=== PATIENT | female | born 1970 | race Two or more races ===

== ENCOUNTER 2020-04-09 11:14 | Outpatient (REF) | payer OTHER, SELFPAY ==
[2020-04-09 13:33] LABS: Alanine Aminotransferase 74 U/L (0-31); Albumin Level 3.7 g/dL (3.5-5.0); Alkaline Phosphatase 162 U/L (39-117); Aspartate Amino Transferase 42 U/L (5-31); Bilirubin Direct 0.2 mg/dL (0.0-0.5); Bilirubin Total 0.6 mg/dL (0.0-1.0); Total Protein 6.7 g/dL (6.5-8.0)
== END 2020-04-09 11:15 | disposition home or self-care (01) ==
LOC: HO.LAB 11:14
PROVIDERS: PCP Internal Medicine; Visit Provider Internal Medicine Gastroenterology
DX: D89.89 Other specified disorders involving the immune mechanism, not elsewhere classified (principal)
CPT/HCPCS: 80076

== ENCOUNTER 2020-06-06 09:37 | Outpatient (REF) | payer OTHER, SELFPAY ==
[2020-06-06 10:25] LABS: MANUAL DIFF FLAG NO
[2020-06-06 10:29] LABS: Basophils Percent Auto 0.3 % (0-2); Eosinophils Percent Auto 0.2 % (0-4); Hematocrit 45.1 % (37-47); Hemoglobin 14.9 g/dl (12.0-16.0); Imm Gran Abs Auto 0.04 X10*3/uL (0.00-0.03); Imm Gran Pct Auto 0.3 % (0.0-0.4); Lymphocytes Absolute Auto 2.1 X10*3/uL (1.2-4.9); Lymphocytes Percent Auto 17.7 % (20-40); Mean Corpuscular Hemoglobin 32.6 pg (27.0-33.0); Mean Corpuscular Volume 98.7 fL (80-98); Mean Platelet Volume 10.4 fL (9.4-12.3); Monocytes Absolute Auto 0.7 X10*3/uL (0.1-1.2); Neutrophils Absolute Auto 8.9 X10*3/uL (2.0-8.3); Neutrophils Percent Auto 75.5 % (45-73); Platelet Count 244 X10*3/uL (160-400); Red Blood Count 4.57 X10*6/uL (4.20-5.50); Red Cell Distribution Width 14.4 % (11.0-16.0); White Blood Count 11.8 X10*3/uL (4.8-10.8)
[2020-06-06 10:34] LABS: Glucose Urine UA NEG (NEG); Leukocyte Esterase Urine NEG (NEG); Nitrite Urine NEG (NEG); Specific Gravity - Urine 1.025 (1.005-1.025); Urine Blood 2+ (NEG); Urine Ketones NEG (NEG); Urine Protein NEG (NEG-TRACE)
[2020-06-06 10:38] LABS: Appearance Urine CLEAR; Color Urine YELLOW
[2020-06-06 11:00] LABS: Alanine Aminotransferase 67 U/L (0-31); Albumin Level 3.9 g/dL (3.5-5.0); Alkaline Phosphatase 149 U/L (39-117); Anion Gap 14 (12-20); Aspartate Amino Transferase 36 U/L (5-31); Bilirubin Total 0.6 mg/dL (0.0-1.0); Blood Urea Nitrogen 13 mg/dL (9-16); Calcium 9.2 mg/dL (8.4-10.2); Carbon Dioxide 24 mmol/L (22-29); Chloride 106 mmol/L (96-108); Estimated Glomerular Filt Rate > 60; Glucose Random 115 mg/dL (60-115); Potassium 3.6 mmol/l (3.3-5.1); Sodium 140 mmol/L (135-145)
[2020-06-06 11:21] LABS: Bacteria Urine TRACE /LPF; Mucus Urine 2+ /LPF; Squamous Epithelial Cell Urine 2+ /LPF
== END 2020-06-06 09:38 | disposition home or self-care (01) ==
LOC: HO.LAB 09:37
PROVIDERS: PCP Internal Medicine; Visit Provider Internal Medicine Gastroenterology
DX: K76.89 Other specified diseases of liver (principal); R10.9 Unspecified abdominal pain
CPT/HCPCS: 36415; 80053; 81001; 85025; 85610

== ENCOUNTER → 2020-06-28 11:05 | Outpatient (BNVA) | payer OTHER, SELFPAY | PROVIDERS: PCP Internal Medicine; Visit Provider Internal Medicine Gastroenterology | DX: Z76.89 Persons encountering health services in other specified circumstances (principal) ==

== ENCOUNTER → 2020-07-08 13:18 | Outpatient (BNVA) | payer OTHER, SELFPAY | PROVIDERS: PCP Internal Medicine; Visit Provider Internal Medicine Cardiovascular Disease | DX: R00.2 Palpitations (principal); R07.89 Other chest pain; K76.89 Other specified diseases of liver | CPT/HCPCS: 93005; 99212 ==

== ENCOUNTER 2020-08-02 09:46 | Outpatient (REF) | payer OTHER, SELFPAY ==
--- NOTE | ~2020-08-02 | XR_ITS ---
EXAMINATION: KNEE X-RAY CLINICAL INFORMATION: Right knee pain COMPARISON: None TECHNIQUE: Standing AP view of both knees and lateral and sunrise view of the right knee FINDINGS: Right: The bones may be osteopenic. Bone alignment is normal. No fracture or dislocation is seen. Joint spaces are normal. There is a large joint effusion. Standing AP view of the left knee demonstrates osteopenia. XR/XR knee RT 2V IMPRESSION: Bilateral osteopenia. Large right knee joint effusion.
--- NOTE | ~2020-08-02 | XR_ITS ---
EXAMINATION: KNEE X-RAY CLINICAL INFORMATION: Right knee pain COMPARISON: None TECHNIQUE: Standing AP view of both knees and lateral and sunrise view of the right knee FINDINGS: Right: The bones may be osteopenic. Bone alignment is normal. No fracture or dislocation is seen. Joint spaces are normal. There is a large joint effusion. Standing AP view of the left knee demonstrates osteopenia. XR/XR knee standing BI IMPRESSION: Bilateral osteopenia. Large right knee joint effusion.
== END 2020-08-02 09:47 | disposition home or self-care (01) ==
LOC: HO.XRAY 09:46
PROVIDERS: Visit Provider Orthopaedic Surgery
DX: M25.562 Pain in left knee (principal); M17.11 Unilateral primary osteoarthritis, right knee; M25.561 Pain in right knee
CPT/HCPCS: 73560; 73565; 99202

== ENCOUNTER → 2020-08-02 13:45 | Outpatient (REF) | payer OTHER, SELFPAY ==
--- NOTE | 2020-08-02 13:47 | ECG_ITS ---
Hook-up date: 2020-08-02 14:08:00 Duration: 47:59:00 Test Indications: PALPITATIONS Medications: 651962 QRS complexes 503 Ventricular ectopics which represent <1 % of total QRS comp. 5 Supraventricular ectopics which represent <1 % of total QRS comp. * Paced QRS complexs which represent % of total QRS comp. VENTRICULAR ECTOPY 500 Isolated 0 Bigeminal Cycles 0 Couplets 1 Runs 3 Beats in Runs 3 Beats LONGEST at 113 BPM at 06:42:12 2020-08-03 3 Beats FASTEST at 113 BPM at 06:42:12 2020-08-03 SUPRAVENTRICULAR ECTOPY 5 Isolated 0 Couplets 0 Runs 0 Beats in Runs * Beats LONGEST at * BPM at :: -- * Beats FASTEST at * BPM at :: -- HEART RATES 61 MIN at 00:54:31 2020-08-03 87 AVG 133 MAX at 06:52:53 2020-08-03 LONGEST RR 1.0720 secs at 01:26:43 2020-08-03 S-T LEVELS Channel 1 - 128 mm at 14:08:00 2020-08-02 - 128 mm at 14:08:00 2020-08-02 Channel 2 - 128 mm at 14:08:00 2020-08-02 - 128 mm at 14:08:00 2020-08-02 Channel 3 - 128 mm at 03:32:71 -- - 128 mm at 03:32:71 Basic rhythm Normal sinus rhythm No long pause or profound bradycardia Occasional Premature ventricular complexes One 3 beat j carlos of NSVT at 113 bpm Patient reported symptoms of dizziness and palpitations correlated with NSR Referred By: Ta Concepcion Overread By: VICTOR MANUEL PURI MD
== END ==
LOC: HO.CARD 13:45
PROVIDERS: Visit Provider Internal Medicine Cardiovascular Disease
DX: R00.2 Palpitations (principal)
CPT/HCPCS: 93225; 93226

== ENCOUNTER 2020-08-13 08:18 | Outpatient (REF) | payer OTHER, SELFPAY ==
[2020-08-13 09:14] LABS: MANUAL DIFF FLAG NO
[2020-08-13 09:18] LABS: Basophils Percent Auto 0.4 % (0-2); Eosinophils Percent Auto 0.4 % (0-4); Hematocrit 43.7 % (37-47); Hemoglobin 14.4 g/dl (12.0-16.0); Imm Gran Abs Auto 0.03 X10*3/uL (0.00-0.03); Imm Gran Pct Auto 0.4 % (0.0-0.4); Lymphocytes Absolute Auto 2.2 X10*3/uL (1.2-4.9); Lymphocytes Percent Auto 30.4 % (20-40); Mean Corpuscular Hemoglobin 32.1 pg (27.0-33.0); Mean Corpuscular Volume 97.5 fL (80-98); Mean Platelet Volume 10.5 fL (9.4-12.3); Monocytes Absolute Auto 0.6 X10*3/uL (0.1-1.2); Monocytes Percent Auto 7.7 % (2-11); Neutrophils Absolute Auto 4.4 X10*3/uL (2.0-8.3); Neutrophils Percent Auto 60.7 % (45-73); Platelet Count 190 X10*3/uL (160-400); Red Blood Count 4.48 X10*6/uL (4.20-5.50); Red Cell Distribution Width 14.5 % (11.0-16.0); White Blood Count 7.3 X10*3/uL (4.8-10.8)
[2020-08-13 09:22] LABS: Glucose Urine UA NEG (NEG); Leukocyte Esterase Urine NEG (NEG); Nitrite Urine NEG (NEG); Specific Gravity - Urine 1.025 (1.005-1.025); Urine Blood TRACE (NEG); Urine Ketones NEG (NEG); Urine Protein NEG (NEG-TRACE)
[2020-08-13 09:24] LABS: Appearance Urine CLEAR; Color Urine YELLOW
[2020-08-13 09:34] LABS: Squamous Epithelial Cell Urine 1+ /LPF; WBC Urine 0 /HPF (0-4)
[2020-08-13 09:35] LABS: Mucus Urine 2+ /LPF
[2020-08-13 09:57] LABS: Alanine Aminotransferase 56 U/L (0-31); Albumin Level 3.8 g/dL (3.5-5.0); Alkaline Phosphatase 133 U/L (39-117); Anion Gap 12 (12-20); Aspartate Amino Transferase 32 U/L (5-31); Bilirubin Total 0.8 mg/dL (0.0-1.0); Blood Urea Nitrogen 14 mg/dL (9-16); Calcium 8.6 mg/dL (8.4-10.2); Carbon Dioxide 28 mmol/L (22-29); Chloride 107 mmol/L (96-108); Estimated Glomerular Filt Rate > 60; Glucose Random 86 mg/dL (60-115); Potassium 3.7 mmol/L (3.3-5.1); Sodium 143 mmol/L (135-145); Total Protein 6.8 g/dL (6.5-8.0)
[2020-08-13 10:18] LABS: Ferritin 26 ng/mL (10-250)
== END 2020-08-13 08:19 | disposition home or self-care (01) ==
LOC: HO.LAB 08:18
PROVIDERS: PCP Internal Medicine; Visit Provider Internal Medicine Gastroenterology
DX: K76.89 Other specified diseases of liver (principal); R10.9 Unspecified abdominal pain; R30.0 Dysuria
CPT/HCPCS: 36415; 80053; 81001; 82728; 85025

== ENCOUNTER → 2020-09-02 09:29 | Outpatient (BNVA) | payer OTHER, SELFPAY | PROVIDERS: PCP Internal Medicine; Visit Provider Internal Medicine Gastroenterology ==

== ENCOUNTER 2020-09-30 13:08 | Outpatient (REF) | payer OTHER, SELFPAY ==
[2020-09-30 14:13] LABS: MANUAL DIFF FLAG NO
[2020-09-30 14:20] LABS: Glucose Urine UA NEG (NEG); Leukocyte Esterase Urine NEG (NEG); Nitrite Urine NEG (NEG); PH 7.5 (5.0-8.0); Specific Gravity - Urine 1.015 (1.005-1.025); Urine Blood TRACE (NEG); Urine Ketones NEG (NEG); Urine Protein NEG (NEG-TRACE)
[2020-09-30 14:21] LABS: Basophils Percent Auto 0.3 % (0-2); Hematocrit 41.9 % (37-47); Hemoglobin 13.6 g/dl (12.0-16.0); Imm Gran Abs Auto 0.03 X10*3/uL (0.00-0.03); Imm Gran Pct Auto 0.4 % (0.0-0.4); Lymphocytes Absolute Auto 0.8 X10*3/uL (1.2-4.9); Mean Corpuscular HGB Conc 32.5 g/dl (31.0-35.0); Mean Corpuscular Hemoglobin 32.4 pg (27.0-33.0); Mean Corpuscular Volume 99.8 fL (80-98); Mean Platelet Volume 10.7 fL (9.4-12.3); Monocytes Absolute Auto 0.3 X10*3/uL (0.1-1.2); Monocytes Percent Auto 4.3 % (2-11); Platelet Count 208 X10*3/uL (160-400); Red Cell Distribution Width 14.6 % (11.0-16.0); White Blood Count 7.2 X10*3/uL (4.8-10.8)
[2020-09-30 14:25] LABS: Appearance Urine CLEAR; Color Urine YELLOW
[2020-09-30 14:34] LABS: Alanine Aminotransferase 61 U/L (0-31); Albumin Level 3.9 g/dL (3.5-5.0); Alkaline Phosphatase 133 U/L (39-117); Anion Gap 12 (12-20); Aspartate Amino Transferase 36 U/L (5-31); Bilirubin Total 0.6 mg/dL (0.0-1.0); Blood Urea Nitrogen 14 mg/dL (9-16); Calcium 8.7 mg/dL (8.4-10.2); Carbon Dioxide 26 mmol/L (22-29); Chloride 107 mmol/L (96-108); Estimated Glomerular Filt Rate > 60; Glucose Random 110 mg/dL (60-115); Potassium 4.2 mmol/L (3.3-5.1); Sodium 141 mmol/L (135-145); Total Protein 6.9 g/dL (6.5-8.0)
[2020-09-30 14:55] LABS: Mucus Urine TRACE /LPF; Squamous Epithelial Cell Urine TRACE /LPF; WBC Urine 0 /HPF (0-4)
== END 2020-09-30 13:09 | disposition home or self-care (01) ==
LOC: HO.LAB 13:08
PROVIDERS: PCP Internal Medicine; Visit Provider Internal Medicine Gastroenterology
DX: K76.89 Other specified diseases of liver (principal); R10.9 Unspecified abdominal pain
CPT/HCPCS: 36415; 80053; 81001; 81003; 85025; 85610

== ENCOUNTER 2020-10-16 02:15 | Emergency (ER) | payer OTHER, SELFPAY ==
--- NOTE | ~2020-10-16 | CT_ITS ---
EXAMINATION: CT ABDOMEN AND PELVIS WITHOUT CONTRAST CLINICAL INFORMATION: Epigastric pain. History of pancreatitis. COMPARISON: 09/05/2019 TECHNIQUE: Multidetector volumetric imaging was performed from the superior aspect of the liver through the pubic symphysis. Sagittal and coronal reformatted images were obtained on the technologist's workstation. This CT examination was performed using dose optimization techniques as appropriate, variously including the following: *Automated exposure control *Adjustment of mA and/or kV according to patient size (this includes techniques or standardized protocols for targeted exams where dose is matched to indication/reason for exam; i.e. extremities or head) *Use of iterative reconstruction technique DLP: 992 mGy-cm FINDINGS: LUNG BASES: The visualized lung bases are unremarkable. LIVER, GALLBLADDER, AND BILIARY TREE: The liver is normal in size, shape, and attenuation. No focal hepatic lesion or biliary ductal dilatation is present. Cholecystectomy. Pneumobilia noted in the left lobe. PANCREAS: The pancreatic parenchyma is homogenous. No ductal dilatation. No adjacent inflammation. SPLEEN: Unremarkable. ADRENAL GLANDS: Unremarkable. KIDNEYS AND URETERS: The kidneys are normal in size, shape, and attenuation. No hydronephrosis, hydroureter, or calculi seen. No perinephric stranding. BLADDER: Unremarkable. GASTROINTESTINAL TRACT: The stomach is unremarkable. Normal caliber small bowel. There is no obstruction. Midabdominal anastomosis noted. No colonic wall thickening or inflammatory change. No free air or free fluid. ABDOMINAL WALL: No significant hernia is appreciated. LYMPH NODES: Normal. VASCULAR: Unremarkable. PELVIC VISCERA: Lobulated appearance of the anteverted uterus, suggests that there may be fibroids. This is similar to prior. OSSEOUS STRUCTURES: No acute or suspicious osseous abnormality. CT/CT abdomen pelvis wo con IMPRESSION: No acute findings of the abdomen or pelvis. Normal appearance of the pancreas on this noncontrast study. Pneumobilia is present in the left lobe of the liver. This is a new finding from previous CT, though not unexpected in the setting of cholecystectomy. Probable uterine fibroid, unchanged.
--- NOTE | ~2020-10-16 | XR_ITS ---
EXAMINATION: XR CHEST CLINICAL INFORMATION: Chest discomfort COMPARISON: 06/04/2019 TECHNIQUE: 2 views of the chest were obtained. FINDINGS: The lungs are well expanded. There is no focal consolidation, edema, or effusion. No pneumothorax. The cardiomediastinal silhouette is within normal limits. No acute osseous abnormality. XR/XR chest 2V IMPRESSION: Clear lungs.
[2020-10-16 02:19] VITALS: BP 141/79; PULSE 95; RESP 16; TEMP 36.5; O2SAT 97; BMI 36.5
--- NOTE | 2020-10-16 02:29 | ECG_ITS ---
Test Reason : CHEST PRESSURE Blood Pressure : / mmHG Vent. Rate : 084 BPM Atrial Rate : 084 BPM P-R Int : 146 ms QRS Dur : 098 ms QT Int : 400 ms P-R-T Axes : 038 053 017 degrees QTc Int : 472 ms Normal sinus rhythm Cannot rule out Inferior infarct (cited on or before 04-JUN-2019) Borderline ECG When compared with ECG of 20-JUN-2019 05:38, No significant change was found Referred By: Generic ED Physician Electronically Signed By:MARILEE PEREZ
[2020-10-16 02:43] LABS: MANUAL DIFF FLAG NO
[2020-10-16 02:46] LABS: Basophils Percent Auto 0.2 % (0-2); Eosinophils Percent Auto 0.4 % (0-4); Hematocrit 41.5 % (37-47); Hemoglobin 13.8 g/dl (12.0-16.0); Imm Gran Abs Auto 0.02 X10*3/uL (0.00-0.03); Imm Gran Pct Auto 0.2 % (0.0-0.4); Lymphocytes Absolute Auto 2.1 X10*3/uL (1.2-4.9); Lymphocytes Percent Auto 26.7 % (20-40); Mean Corpuscular HGB Conc 33.3 g/dl (31.0-35.0); Mean Corpuscular Hemoglobin 32.7 pg (27.0-33.0); Mean Corpuscular Volume 98.3 fL (80-98); Mean Platelet Volume 10.2 fL (9.4-12.3); Monocytes Absolute Auto 0.6 X10*3/uL (0.1-1.2); Monocytes Percent Auto 7.8 % (2-11); Neutrophils Absolute Auto 5.2 X10*3/uL (2.0-8.3); Neutrophils Percent Auto 64.7 % (45-73); Platelet Count 184 X10*3/uL (160-400); Red Blood Count 4.22 X10*6/uL (4.20-5.50); Red Cell Distribution Width 14.7 % (11.0-16.0)
[2020-10-16 02:48] LABS: Glucose Urine UA NEG (NEG); Leukocyte Esterase Urine NEG (NEG); Nitrite Urine NEG (NEG); Urine Blood 2+ (NEG); Urine Ketones NEG (NEG); Urine Protein NEG (NEG-TRACE)
[2020-10-16 02:50] LABS: Appearance Urine CLEAR; Color Urine YELLOW
[2020-10-16 03:01] LABS: Bacteria Urine 1+ /LPF; Mucus Urine 1+ /LPF; Squamous Epithelial Cell Urine 1+ /LPF
[2020-10-16 03:15] LABS: Alanine Aminotransferase 59 U/L (0-31); Albumin Level 3.9 g/dL (3.5-5.0); Alkaline Phosphatase 131 U/L (39-117); Anion Gap 12 (12-20); Aspartate Amino Transferase 32 U/L (5-31); Bilirubin Total 0.6 mg/dL (0.0-1.0); Blood Urea Nitrogen 14 mg/dL (9-16); Calcium 8.9 mg/dL (8.4-10.2); Carbon Dioxide 24 mmol/L (22-29); Chloride 107 mmol/L (96-108); Creatinine Clr Calc Pharmacy 122.5; Estimated Glomerular Filt Rate > 60; Glucose Random 98 mg/dL (60-115); Lipase 38 U/L (8-78); Potassium 3.3 mmol/L (3.3-5.1); Sodium 140 mmol/L (135-145); Total Protein 6.8 g/dL (6.5-8.0)
[2020-10-16 03:21] LABS: Troponin-I High Sensitivity < 3.5 ng/L (<3.5-17.0)
[2020-10-16 03:32] VITALS: BP 144/75; PULSE 87; RESP 16; O2SAT 100
--- NOTE | 2020-10-16 03:34 | PC.NURSE ---
Pt aaox4, calm cooperative and compliant with pt care. Pt reports headache prior to feeling nausea, denies vomiting, endorses chest pressure. Pt NSR on radiation monitor, EKG obtained and shown to Dr Hyman. Dr Hyman at bedside assessing pt at this time. This RN to attempt IV insertion for zofran medication. Pt offers no additional complaints at this time. Stretcher is in lowest locked position, rails raised, call narayanan within reach.
--- NOTE | 2020-10-16 03:38 | ED.GENADULT ---
HPI - General Adult General Chief complaint: General Medical Stated complaint: Chest pain/ abdominal pain Time Seen by Provider: 10/16/20 03:27 Source: patient Mode of arrival: ambulatory Limitations: no limitations History of Present Illness HPI narrative: Patient comes emergency room complaining of epigastric pain. Patient states that she has history of autoimmune hepatitis and pancreatitis. Patient states that yesterday she went to the dentist, diagnosed with a dental abscess, given clindamycin. After the 1st dose patient started complaining of diffuse abdominal pain, bloating and epigastric burning. He denies chest pain, mild chest tightness radiating from the epigastric area. Patient denies vomiting, diarrhea, no fever. No UTI symptoms, no URI symptoms. Related Data Home Medications Medication Instructions Recorded Confirmed Ca 600 mg-D3 20 mcg-mag oxide 50 tab PO 05/14/20 05/14/20 ju-Iq-djlipq-manganese-boron tablet ascorbic acid (vitamin C) 1,000 mg 1 g PO DAILY tab 05/14/20 05/14/20 tablet fluoxetine 40 mg capsule 40 mg PO DAILY 05/14/20 05/14/20 thiamine HCl (vitamin B1) 100 mg 100 mg PO DAILY 05/14/20 05/14/20 tablet trazodone 100 mg tablet 100 mg PO DAILY 05/14/20 05/14/20 Previous Rx's Medication Instructions Recorded polymyxin B sulfate 10,000 1 drp OPHTHALMIC (EYE) QID 7 Days 05/14/20 unit-trimethoprim 1 mg/mL eye drops #10 ml ciprofloxacin HCl 500 mg tablet 500 mg PO DAILY 7 Days #7 tab 06/20/20 omeprazole 40 mg capsule,delayed 40 mg PO DAILY 90 Days #90 cap 09/27/20 release prednisone 1 mg tablet 3 mg PO DAILY #90 tab 09/27/20 prednisone 5 mg tablet 15 mg PO DAILY #90 tab 09/27/20 mercaptopurine 50 mg tablet 50 mg PO DAILY #30 tab 10/13/20 ondansetron HCl [Zofran] 4 mg PO Q6H PRN #14 tab 10/16/20 Allergies Allergy/AdvReac Type Severity Reaction Status Date / Time Penicillins [PENICILLINS] Allergy Severe RASH Verified 10/16/20 02:19 Iodinated Contrast Media Allergy Intermediate RASH Verified 10/16/20 02:19 [Iodinated Contrast Media - IV Dye] meperidine [From DEMEROL] Allergy Intermediate RASH Verified 10/16/20 02:19 aspirin [ASA] Allergy Mild RASH, N/V Verified 10/16/20 02:19 Contrast Dye Allergy Unknown unknown, Verified 10/16/20 02:19 vomiting penicillin V Allergy Unknown N/V, rash Verified 10/16/20 02:19 tramadol [TRAMADOL] Allergy Unknown RASH Verified 10/16/20 02:19 Review of Systems Review of Systems: Constitutional : No Weight loss, No Fever, No Chills, No Night Sweats, No Fatigue, No Malaise ENT/Mouth : No Hearing loss, No Ear Pain, No Nasal Congestion, No Sinus Pain, No Hoarseness, No sore throat, No Rhinorrhea, No Swallowing Difficulty, complaining of dental pain currently being treated with antibiotic Eyes: No Eye Pain, No Swelling, No Redness, No Foreign Body, No Discharge, No Vision Changes Cardiovascular : No Chest Pain, No SOB, No Dyspnea on Exertion, No Orthopnea, No Edema, No Palpitations Respiratory : No Cough, No Sputum, No Wheezing, No Smoke Exposure, No Dyspnea Gastrointestinal : Complaining of nausea without Vomiting, No Diarrhea, No Constipation, complaining of epigastric burning radiating towards the chest, complaining of bloating, No Hematochezia, No Melena Genitourinary : no irregular bleeding, No Dysuria, No Urinary Frequency, No Hematuria, No Urinary Incontinence, No Urgency, No Flank Pain, No Urinary Flow Changes, No Hesitancy Musculoskeletal : No joint pain, No Myalgias, No Joint Swelling Skin : No Skin Lesions, No rash Neuro : No Weakness, No Numbness, No Paresthesias, No Loss of Consciousness, No Dizziness, No Headache Psych : No Anxiety/Panic, No Depression, No SI/HI/AH/VH, No Social Issues, Heme/Lymph: No Bruising, No Bleeding,No Lymphadenopathy Endocrine : No Polyuria, No Polydipsia, No Temperature Intolerance [facility] Past Medical History Medical History Autoimmune liver disease Depression, major, recurrent Difficulty sleeping Headache syndrome Hordeolum externum right upper eyelid Knee pain, right Surgical History H/O colonoscopy History of cholecystectomy History of esophagogastroduodenoscopy (EGD) History of liver biopsy History of surgery Hx of appendectomy Family History Family History (Updated 09/02/20 @ 09:35 by EDITH George) Father CVD (cardiovascular disease) Mother Breast cancer Leukemia CVD (cardiovascular disease) Brother No problems noted. Brother No problems noted. Sister No problems noted. Son No problems noted. Daughter No problems noted. Daughter No problems noted. Daughter No problems noted. Maternal Aunt Breast cancer Social History Social History (Updated 09/02/20 @ 09:36 by EDITH George) Household Members: Children Alcohol intake: current Alcohol intake frequency: does not drink Smoking Status: Never smoker Advance Directives: No Advance Directives Information Provided: No Current occupational status: disabled Physical Exam Vital Signs: Vital Signs: Last Vital Signs Temp 97.7 F 10/16/20 02:19 Pulse 78 10/16/20 04:39 Resp 19 10/16/20 04:39 BP 113/51 L 10/16/20 04:39 Pulse Ox 97 10/16/20 04:39 Body Mass Index 36.5 Appearance: Alert. Oriented X3. No acute distress. Eyes: Pupils equal, round and reactive to light. ENT: Pharynx normal. Neck: Normal inspection. Neck supple. No lymph nodes noted. No crepitus CVS: Normal heart rate and rhythm. Pulses normal. Normal S1 and S2 Respiratory: No respiratory distress. Breath sounds normal. No Wheezing. No rales Abdomen: Soft mild tenderness to palpation over epigastric area and left upper quadrant, No rigidity. Mild diffuse distention. Skin: Skin warm and dry. Normal skin color. Normal skin turgor. Extremities: No lower extremity edema. No lower extremity edema. No Lacerations. No Rash Neuro: Oriented X 3. No motor deficit. No sensory deficit. Moving all extermities. No slurred speech. Course Course Course Narrative: I discussed the CT scan with the patient, no acute findings. Patient denies any abdominal pain at this time, states that she feels nauseous. More nausea medication provided to the patient. Patient is negative for COVID. Medical Decision Making Lab Data Result diagrams: 10/16/20 02:36 10/16/20 02:36 Labs: Lab Results 10/16/20 10/16/20 10/16/20 Range/Units 02:36 02:36 02:36 WBC 8.0 (4.8-10.8) X10*3/uL RBC 4.22 (4.20-5.50) X10*6/uL Hgb 13.8 (12.0-16.0) g/dl Hct 41.5 (37-47) % MCV 98.3 H (80-98) fL MCH 32.7 (27.0-33.0) pg MCHC 33.3 (31.0-35.0) g/dl RDW 14.7 (11.0-16.0) % Plt Count 184 (160-400) X10*3/uL MPV 10.2 (9.4-12.3) fL Immature Gran % (Auto) 0.2 (0.0-0.4) % Neut % (Auto) 64.7 (45-73) % Lymph % (Auto) 26.7 (20-40) % [place] % (Auto) 7.8 (2-11) % Eos % (Auto) 0.4 (0-4) % Baso % (Auto) 0.2 (0-2) % Lymph # (Auto) 2.1 (1.2-4.9) X10*3/uL [place] # (Auto) 0.6 (0.1-1.2) X10*3/uL Eos # (Auto) 0.0 (0.0-0.4) X10*3/uL Baso # (Auto) 0.0 (0.0-0.2) X10*3/uL Abs Immat Gran (auto) 0.02 (0.00-0.03) X10*3/uL Absolute Neuts (auto) 5.2 (2.0-8.3) X10*3/uL Absolute Nucleated RBC 0.000 (0.0-0.012) X10*3/uL Nucleated RBC % (auto) 0.0 (0.0-0.2) /100WBC Hold Blue Top SEE NOTE Sodium 140 (135-145) mmol/L Potassium 3.3 D (3.3-5.1) mmol/L Chloride 107 (96-108) mmol/L Carbon Dioxide 24 (22-29) mmol/L Anion Gap 12 (12-20) BUN 14 (9-16) mg/dL Creatinine 0.71 (0.5-1.4) mg/dL Estim Creat Clear Calc 122.5 Estimated GFR > 60 Random Glucose 98 (60-115) mg/dL Calcium 8.9 (8.4-10.2) mg/dL Total Bilirubin 0.6 (0.0-1.0) mg/dL AST 32 H (5-31) U/L ALT 59 H (0-31) U/L Alkaline Phosphatase 131 H (39-117) U/L Troponin I High Sens (<3.5-17.0) ng/L Total Protein 6.8 (6.5-8.0) g/dL Albumin 3.9 (3.5-5.0) g/dL Lipase 38 (8-78) U/L Urine Color Urine Appearance Urine pH (5.0-8.0) Ur Specific [place] (1.005-1.025) Urine Protein (NEG-TRACE) MG/DL Urine Glucose (UA) (NEG) MG/DL Urine Ketones (NEG) MG/DL Urine Blood (NEG) Urine Nitrite (NEG) Ur Leukocyte Esterase (NEG) Urine RBC (0) /HPF Urine WBC (0-4) /HPF Ur Squamous Epith Cells /LPF Urine Bacteria /LPF Urine Mucus /LPF 10/16/20 10/16/20 Range/Units 02:36 02:38 WBC (4.8-10.8) X10*3/uL RBC (4.20-5.50) X10*6/uL Hgb (12.0-16.0) g/dl Hct (37-47) % MCV (80-98) fL MCH (27.0-33.0) pg MCHC (31.0-35.0) g/dl RDW (11.0-16.0) % Plt Count (160-400) X10*3/uL MPV (9.4-12.3) fL Immature Gran % (Auto) (0.0-0.4) % Neut % (Auto) (45-73) % Lymph % (Auto) (20-40) % [place] % (Auto) (2-11) % Eos % (Auto) (0-4) % Baso % (Auto) (0-2) % Lymph # (Auto) (1.2-4.9) X10*3/uL [place] # (Auto) (0.1-1.2) X10*3/uL Eos # (Auto) (0.0-0.4) X10*3/uL Baso # (Auto) (0.0-0.2) X10*3/uL Abs Immat Gran (auto) (0.00-0.03) X10*3/uL Absolute Neuts (auto) (2.0-8.3) X10*3/uL Absolute Nucleated RBC (0.0-0.012) X10*3/uL Nucleated RBC % (auto) (0.0-0.2) /100WBC Hold Blue Top Sodium (135-145) mmol/L Potassium (3.3-5.1) mmol/L Chloride (96-108) mmol/L Carbon Dioxide (22-29) mmol/L Anion Gap (12-20) BUN (9-16) mg/dL Creatinine (0.5-1.4) mg/dL Estim Creat Clear Calc Estimated GFR Random Glucose (60-115) mg/dL Calcium (8.4-10.2) mg/dL Total Bilirubin (0.0-1.0) mg/dL AST (5-31) U/L ALT (0-31) U/L Alkaline Phosphatase (39-117) U/L Troponin I High Sens < 3.5 (<3.5-17.0) ng/L Total Protein (6.5-8.0) g/dL Albumin (3.5-5.0) g/dL Lipase (8-78) U/L Urine Color YELLOW Urine Appearance CLEAR Urine pH 7.0 (5.0-8.0) Ur Specific [place] 1.020 (1.005-1.025) Urine Protein NEG (NEG-TRACE) MG/DL Urine Glucose (UA) NEG (NEG) MG/DL Urine Ketones NEG (NEG) MG/DL Urine Blood 2+ H (NEG) Urine Nitrite NEG (NEG) Ur Leukocyte Esterase NEG (NEG) Urine RBC 5-9 H (0) /HPF Urine WBC 1-4 (0-4) /HPF Ur Squamous Epith Cells 1+ /LPF Urine Bacteria 1+ /LPF Urine Mucus 1+ /LPF Imaging Data CT scan - abdomen: Radiologist's impression: INDINGS: LUNG BASES: The visualized lung bases are unremarkable. LIVER, GALLBLADDER, AND BILIARY TREE: The liver is normal in size, shape, and attenuation. No focal hepatic lesion or biliary ductal dilatation is present. Cholecystectomy. Pneumobilia noted in the left lobe. PANCREAS: The pancreatic parenchyma is homogenous. No ductal dilatation. No adjacent inflammation. SPLEEN: Unremarkable. ADRENAL GLANDS: Unremarkable. KIDNEYS AND URETERS: The kidneys are normal in size, shape, and attenuation. No hydronephrosis, hydroureter, or calculi seen. No perinephric stranding. BLADDER: Unremarkable. GASTROINTESTINAL TRACT: The stomach is unremarkable. Normal caliber small bowel. There is no obstruction. Midabdominal anastomosis noted. No colonic wall thickening or inflammatory change. No free air or free fluid. ABDOMINAL WALL: No significant hernia is appreciated. LYMPH NODES: Normal. VASCULAR: Unremarkable. PELVIC VISCERA: Lobulated appearance of the anteverted uterus, suggests that there may be fibroids. This is similar to prior. OSSEOUS STRUCTURES: No acute or suspicious osseous abnormality. CT/CT abdomen pelvis wo con IMPRESSION: No acute findings of the abdomen or pelvis. Normal appearance of the pancreas on this noncontrast study. Pneumobilia is present in the left lobe of the liver. This is a new finding from previous CT, though not unexpected in the setting of cholecystectomy. Probable uterine fibroid, unchanged. Chest x-ray: Radiologist's impression: FINDINGS: The lungs are well expanded. There is no focal consolidation, edema, or effusion. No pneumothorax. The cardiomediastinal silhouette is within normal limits. No acute osseous abnormality. XR/XR chest 2V IMPRESSION: Clear lungs. ECG Data Attestation: I personally reviewed and interpreted this ECG as follows: (Normal sinus rhythm, heart rate 84, no ST segment depression or elevation, nonspecific T-wave inversion in lead 3, QTC 472) Discharge Plan Discharge Clinical Impression: Nausea Abdominal pain Qualifiers: Abdominal location: epigastric Qualified Code(s): R10.13 - Epigastric pain Patient Disposition: Home, Self-Care Instructions: Abdominal Pain (ED) Additional Instructions: Please follow-up with your primary care physician tomorrow. If you have any worsening or new symptoms, please return to the emergency room or call 911 Prescriptions: New ondansetron HCl [Zofran] 4 mg tablet 4 mg PO Q6H PRN (Reason: nausea and vomiting) Qty: 14 RF: 0 No Action ciprofloxacin HCl [Cipro] 500 mg tablet 500 mg PO DAILY 7 Days Qty: 7 RF: 0 prednisone 5 mg tablet 15 mg PO DAILY Qty: 90 RF: 0 prednisone 1 mg tablet 3 mg PO DAILY Qty: 90 RF: 0 omeprazole 40 mg capsule,delayed release(DR/EC) 40 mg PO DAILY 90 Days Qty: 90 RF: 2 mercaptopurine 50 mg tablet 50 mg PO DAILY Qty: 30 RF: 3 fluoxetine 40 mg capsule 40 mg PO DAILY RF: 0 thiamine HCl (vitamin B1) 100 mg tablet 100 mg PO DAILY RF: 0 trazodone 100 mg tablet 100 mg PO DAILY RF: 0 Ca-D3-mag ld-hshb-whs-farrukh-bor [Calcium 600-D3 Plus (mag-zinc)] 600 mg calcium- 800 unit-50 mg tablet PO RF: 0 ascorbic acid (vitamin C) 1,000 mg tablet 1 g PO DAILY RF: 0 polymyxin B sulf-trimethoprim [Polytrim] 10,000 unit- 1 mg/mL drops 1 drp ophthalmic (eye) QID 7 Days Qty: 10 RF: 0
[2020-10-16 03:44] VITALS: RESP 18
[2020-10-16] MEDS: Morphine Sulfate 2 MG/ML CARTRIDGE IVPUSH (03:44)
[2020-10-16] MEDS: ondansetron HCL 4 MG/2 ML VIAL IVPUSH (03:44)
[2020-10-16] MEDS: Lidocaine HCl Viscous 2 % 15 ML SOLUTION MUCOUS MEM (03:45)
[2020-10-16] MEDS: Magnesium Hydrox/Alum Hydrox 30 ML ORAL.SUSP PO (03:45)
[2020-10-16 04:39] VITALS: BP 113/51; PULSE 78; RESP 19; O2SAT 97
[2020-10-16] MEDS: Prochlorperazine Edisylate 10 MG/2 ML VIAL IVPUSH (04:40)
[2020-10-16 05:07] LABS: COVID-19 Test Negative (Negative)
== END 2020-10-16 05:54 | disposition home or self-care (01) ==
PROVIDERS: Emergency Provider Emergency Medicine; PCP Internal Medicine
DX: R07.9 Chest pain, unspecified (principal); K04.7 Periapical abscess without sinus; R10.13 Epigastric pain; R11.0 Nausea; Z20.822 Contact with and (suspected) exposure to COVID-19; Z79.899 Other long term (current) drug therapy
CPT/HCPCS: 36415; 71046; 74176; 80053; 81001; 83690; 84484; 85025; 87635; 93005; 96374; 96375; 99285; J2270; J2405

== ENCOUNTER 2020-10-28 08:14 | Outpatient (REF) | payer OTHER, SELFPAY ==
[2020-10-28 10:11] LABS: Alanine Aminotransferase 71 U/L (0-31); Alkaline Phosphatase 151 U/L (39-117); Anion Gap 15 (12-20); Aspartate Amino Transferase 40 U/L (5-31); Bilirubin Total 0.7 mg/dL (0.0-1.0); Blood Urea Nitrogen 14 mg/dL (9-16); Carbon Dioxide 26 mmol/L (22-29); Chloride 106 mmol/L (96-108); Estimated Glomerular Filt Rate > 60; Glucose Random 82 mg/dL (60-115); Potassium 3.5 mmol/L (3.3-5.1); Sodium 143 mmol/L (135-145); Total Protein 6.9 g/dL (6.5-8.0)
== END 2020-10-28 08:15 | disposition home or self-care (01) ==
LOC: HO.LAB 08:14
PROVIDERS: PCP Internal Medicine; Visit Provider Internal Medicine Gastroenterology
DX: K75.81 Nonalcoholic steatohepatitis (NASH) (principal)
CPT/HCPCS: 36415; 80053

== ENCOUNTER → 2020-11-05 11:46 | Outpatient (BNVA) | payer OTHER, SELFPAY | PROVIDERS: PCP Internal Medicine; Visit Provider Internal Medicine Gastroenterology ==

== ENCOUNTER 2020-12-06 09:30 | Outpatient (REF) | payer OTHER, SELFPAY ==
[2020-12-06 10:18] LABS: MANUAL DIFF FLAG NO
[2020-12-06 10:22] LABS: Basophils Percent Auto 0.3 % (0-2); Eosinophils Percent Auto 0.3 % (0-4); Hematocrit 43.8 % (37-47); Hemoglobin 14.1 g/dl (12.0-16.0); Imm Gran Abs Auto 0.03 X10*3/uL (0.00-0.03); Imm Gran Pct Auto 0.5 % (0.0-0.4); Mean Corpuscular HGB Conc 32.2 g/dl (31.0-35.0); Mean Corpuscular Volume 99.5 fL (80-98); Mean Platelet Volume 10.4 fL (9.4-12.3); Monocytes Absolute Auto 0.6 X10*3/uL (0.1-1.2); Monocytes Percent Auto 8.9 % (2-11); Neutrophils Absolute Auto 3.7 X10*3/uL (2.0-8.3); Platelet Count 186 X10*3/uL (160-400); Red Cell Distribution Width 14.4 % (11.0-16.0); White Blood Count 6.3 X10*3/uL (4.8-10.8)
[2020-12-06 10:48] LABS: Alanine Aminotransferase 61 U/L (0-31); Albumin Level 4.1 g/dL (3.5-5.0); Alkaline Phosphatase 128 U/L (39-117); Anion Gap 13 (12-20); Aspartate Amino Transferase 38 U/L (5-31); Bilirubin Total 1.1 mg/dL (0.0-1.0); Blood Urea Nitrogen 13 mg/dL (9-16); Calcium 9.4 mg/dL (8.4-10.2); Carbon Dioxide 29 mmol/L (22-29); Chloride 106 mmol/L (96-108); Estimated Glomerular Filt Rate > 60; Glucose Random 85 mg/dL (60-115); Potassium 4.1 mmol/L (3.3-5.1); Sodium 144 mmol/L (135-145)
[2020-12-06 10:56] LABS: Ferritin 26 ng/mL (10-250)
[2020-12-06 11:01] LABS: Glucose Urine UA NEG (NEG); Leukocyte Esterase Urine NEG (NEG); Nitrite Urine NEG (NEG); Urine Blood TRACE (NEG); Urine Ketones NEG (NEG); Urine Protein NEG (NEG-TRACE)
[2020-12-06 11:16] LABS: Appearance Urine CLEAR; Color Urine DARK YELLOW
[2020-12-06 11:25] LABS: Mucus Urine 3+ /LPF; Squamous Epithelial Cell Urine TRACE /LPF; WBC Urine 0-2 /HPF (0-4)
== END 2020-12-06 09:31 | disposition home or self-care (01) ==
LOC: HO.LAB 09:30
PROVIDERS: PCP Internal Medicine; Visit Provider Internal Medicine Gastroenterology
DX: K76.89 Other specified diseases of liver (principal); K75.81 Nonalcoholic steatohepatitis (NASH); Z87.898 Personal history of other specified conditions
CPT/HCPCS: 36415; 80053; 81001; 81003; 82728; 85025

== ENCOUNTER → 2020-12-20 08:19 | Outpatient (BNVA) | payer OTHER, SELFPAY | PROVIDERS: PCP Internal Medicine; Visit Provider Internal Medicine Gastroenterology ==

== ENCOUNTER 2021-01-21 10:55 | Outpatient (REF) | payer OTHER, SELFPAY ==
[2021-01-21 11:48] LABS: MANUAL DIFF FLAG NO
[2021-01-21 11:53] LABS: Basophils Percent Auto 0.3 % (0-2); Eosinophils Percent Auto 0.5 % (0-4); Hematocrit 40.3 % (37-47); Hemoglobin 13.1 g/dl (12.0-16.0); Imm Gran Abs Auto 0.03 X10*3/uL (0.00-0.03); Imm Gran Pct Auto 0.5 % (0.0-0.4); Lymphocytes Absolute Auto 1.7 X10*3/uL (1.2-4.9); Lymphocytes Percent Auto 26.3 % (20-40); Mean Corpuscular HGB Conc 32.5 g/dl (31.0-35.0); Mean Corpuscular Volume 98.5 fL (80-98); Mean Platelet Volume 10.5 fL (9.4-12.3); Monocytes Absolute Auto 0.7 X10*3/uL (0.1-1.2); Monocytes Percent Auto 10.4 % (2-11); Neutrophils Absolute Auto 3.9 X10*3/uL (2.0-8.3); Platelet Count 166 X10*3/uL (160-400); Red Blood Count 4.09 X10*6/uL (4.20-5.50); Red Cell Distribution Width 15.2 % (11.0-16.0); White Blood Count 6.3 X10*3/uL (4.8-10.8)
[2021-01-21 11:56] LABS: Prothrombin Time 11.5 SEC (9.9-13.0)
[2021-01-21 12:22] LABS: Alanine Aminotransferase 52 U/L (0-31); Albumin Level 3.8 g/dL (3.5-5.0); Alkaline Phosphatase 113 U/L (39-117); Anion Gap 12 (12-20); Aspartate Amino Transferase 34 U/L (5-31); Bilirubin Total 0.7 mg/dL (0.0-1.0); Blood Urea Nitrogen 15 mg/dL (9-16); Calcium 8.8 mg/dL (8.4-10.2); Carbon Dioxide 26 mmol/L (22-29); Chloride 107 mmol/L (96-108); Estimated Glomerular Filt Rate > 60; Glucose Random 82 mg/dL (60-115); Potassium 3.3 mmol/L (3.3-5.1); Sodium 142 mmol/L (135-145); Total Protein 6.5 g/dL (6.5-8.0)
== END 2021-01-21 10:56 | disposition home or self-care (01) ==
LOC: HO.LAB 10:55
PROVIDERS: PCP Internal Medicine; Visit Provider Internal Medicine Gastroenterology
DX: K75.81 Nonalcoholic steatohepatitis (NASH) (principal); K76.89 Other specified diseases of liver
CPT/HCPCS: 36415; 80053; 85025; 85610

== ENCOUNTER 2021-02-15 08:30 | Outpatient (REF) | payer OTHER, SELFPAY ==
[2021-02-15 09:30] LABS: Glucose Urine UA NEG (NEG); Leukocyte Esterase Urine NEG (NEG); Nitrite Urine NEG (NEG); Urine Blood NEG (NEG); Urine Ketones NEG (NEG); Urine Protein NEG (NEG-TRACE)
[2021-02-15 09:31] LABS: Appearance Urine HAZY; Color Urine YELLOW
[2021-02-15 09:44] LABS: Alanine Aminotransferase 41 U/L (0-31); Albumin Level 3.8 g/dL (3.5-5.0); Alkaline Phosphatase 127 U/L (39-117); Anion Gap 11 (12-20); Aspartate Amino Transferase 27 U/L (5-31); Bilirubin Total 0.7 mg/dL (0.0-1.0); Blood Urea Nitrogen 17 mg/dL (9-16); Carbon Dioxide 29 mmol/L (22-29); Chloride 108 mmol/L (96-108); Estimated Glomerular Filt Rate > 60; Glucose Random 90 mg/dL (60-115); Potassium 4.1 mmol/L (3.3-5.1); Sodium 144 mmol/L (135-145); Total Protein 6.7 g/dL (6.5-8.0)
== END 2021-02-15 08:31 | disposition home or self-care (01) ==
LOC: HO.LAB 08:30
PROVIDERS: PCP Internal Medicine; Visit Provider Internal Medicine Gastroenterology
DX: K76.89 Other specified diseases of liver (principal); R30.0 Dysuria; Z87.898 Personal history of other specified conditions
CPT/HCPCS: 36415; 80053; 81003

== ENCOUNTER 2021-02-21 09:30 | Outpatient (REF) | payer OTHER, SELFPAY ==
--- NOTE | ~2021-02-21 | MM_ITS ---
EXAMINATION: BONE DENSITOMETRY CLINICAL INDICATION: Other specified diseases of liver. Chronic glucocorticoids. COMPARISON: Baseline BD dated 06/27/2019. TECHNIQUE: Using a [employer] DXA System (software version: 13.1) manufactured by [employer], dual-energy x-ray absorptiometry was performed of the lumbar spine and left hip. The images are of good technical quality. Summary results are attached. FINDINGS: AP SPINE L1-L4: Current: BMD 0.837 g/cm2, Z-score -3.6, T-score -2.9, osteoporosis, 11.7% decrease from baseline (<5% change is not significant). Baseline: BMD 0.948 g/cm2. LEFT FEMUR, NECK: Current: BMD 0.779 g/cm2, Z-score -1.8, T-score -1.9, osteopenia. Baseline: BMD 0.883 g/cm2. LEFT FEMUR, TOTAL: Current: BMD 0.761 g/cm2, Z-score -2.3, T-score -2.0, osteopenia, 10.8% decrease from baseline (<5% change is not significant). Baseline: BMD 0.853 g/cm2. IDENTIFIED RISK FACTORS: Rheumatoid arthritis, secondary osteoporosis, glucocorticoids (chronic), menopause. HISTORY OF FRACTURE: None listed. MEDICATIONS: Calcium supplements or multivitamin, vitamin D. MM/XR DEXA axial skeleton IMPRESSION: 1. DIAGNOSIS: Osteoporosis based on the lowest T-score value of -2.9 in the lumbar spine applying World Health Organization criteria. 2. 10-YEAR FRACTURE RISK PREDICTION, FRAX: Major osteoporotic fracture (clinical spine, forearm, hip or shoulder) 5.6%. Hip fracture 0.8%. 3. Treatment Recommendations: NOF guidelines recommend consideration for treatment in postmenopausal women and men age 50 and older presenting with the following: -A hip or vertebral (clinical or morphometric) fracture. -T-score less than or equal to -2.5 at the femoral neck or spine after appropriate evaluation to exclude secondary causes. -Low bone mass at the hip or spine and a 10-year fracture probability by FRAX of greater than or equal to 3% for hip fracture or greater than or equal to 20% for major osteoporotic fracture based on the [place] adapted WHO algorithm. 4. Other Recommendations: All treatment decisions require clinical judgment and consideration of individual patient factors, including patient preferences, comorbidities, previous drug use, risk factors not captured in the FRAX model (e.g. frailty, falls, vitamin D deficiency, increased bone turnover, interval significant decline in bone density) and possible under or overestimation of fracture risk by FRAX. Additional medical evaluation for secondary cause of low bone mineral density may be appropriate. FUTURE SCAN RECOMMENDATION: People with diagnosed cases of osteoporosis or at high risk for fracture should have regular bone mineral density tests. For patients eligible for Medicare, routine testing is allowed once every 2 years. The testing frequency can be increased to one year for patients who have rapidly progressing disease, those who are receiving or discontinuing medical therapy to restore bone mass, or have additional risk factors.
== END 2021-02-21 09:31 | disposition home or self-care (01) ==
LOC: HO.MAMMO 09:30
PROVIDERS: PCP Internal Medicine; Visit Provider Internal Medicine Gastroenterology
DX: Z13.820 Encounter for screening for osteoporosis (principal); M81.0 Age-related osteoporosis without current pathological fracture; K76.89 Other specified diseases of liver; M06.9 Rheumatoid arthritis, unspecified; E27.49 Other adrenocortical insufficiency; Z78.0 Asymptomatic menopausal state; Z79.899 Other long term (current) drug therapy
CPT/HCPCS: 77080

== ENCOUNTER → 2021-03-07 10:28 | Outpatient (BNVA) | payer OTHER, SELFPAY | PROVIDERS: PCP Internal Medicine; Referring Provider Internal Medicine; Visit Provider Internal Medicine Gastroenterology | DX: K76.89 Other specified diseases of liver (principal); M25.561 Pain in right knee; Z87.898 Personal history of other specified conditions | CPT/HCPCS: 99212 ==

== ENCOUNTER 2021-03-10 10:10 | Outpatient (REF) | payer OTHER, SELFPAY ==
[2021-03-10 12:06] LABS: Appearance Urine CLEAR; Color Urine YELLOW; Glucose Urine UA NEG (NEG); Leukocyte Esterase Urine NEG (NEG); Nitrite Urine NEG (NEG); PH 5.5 (5.0-8.0); Specific Gravity - Urine >= 1.030 (1.005-1.025); Urine Blood NEG (NEG); Urine Ketones 5 MG/DL (NEG); Urine Protein TRACE MG/DL (NEG-TRACE)
[2021-03-10 12:12] LABS: MANUAL DIFF FLAG NO
[2021-03-10 12:29] LABS: Basophils Percent Auto 0.4 % (0-2); Eosinophils Percent Auto 0.4 % (0-4); Hematocrit 44.5 % (37-47); Hemoglobin 14.4 g/dl (12.0-16.0); Imm Gran Abs Auto 0.08 X10*3/uL (0.00-0.03); Imm Gran Pct Auto 0.8 % (0.0-0.4); Lymphocytes Absolute Auto 2.2 X10*3/uL (1.2-4.9); Lymphocytes Percent Auto 21.4 % (20-40); Mean Corpuscular HGB Conc 32.4 g/dl (31.0-35.0); Mean Corpuscular Hemoglobin 31.9 pg (27.0-33.0); Mean Corpuscular Volume 98.5 fL (80-98); Mean Platelet Volume 10.8 fL (9.4-12.3); Monocytes Absolute Auto 0.9 X10*3/uL (0.1-1.2); Monocytes Percent Auto 8.4 % (2-11); Neutrophils Absolute Auto 7.1 X10*3/uL (2.0-8.3); Neutrophils Percent Auto 68.6 % (45-73); Platelet Count 237 X10*3/uL (160-400); Red Blood Count 4.52 X10*6/uL (4.20-5.50); Red Cell Distribution Width 15.5 % (11.0-16.0); White Blood Count 10.3 X10*3/uL (4.8-10.8)
[2021-03-10 12:37] LABS: Alanine Aminotransferase 57 U/L (0-31); Albumin Level 3.9 g/dL (3.5-5.0); Alkaline Phosphatase 140 U/L (39-117); Anion Gap 14 (12-20); Aspartate Amino Transferase 34 U/L (5-31); Bilirubin Direct 0.3 mg/dL (0.0-0.5); Bilirubin Total 0.6 mg/dL (0.0-1.0); Blood Urea Nitrogen 15 mg/dL (9-16); Carbon Dioxide 27 mmol/L (22-29); Chloride 104 mmol/L (96-108); Estimated Glomerular Filt Rate > 60; Glucose Random 93 mg/dL (60-115); Sodium 141 mmol/L (135-145)
[2021-03-10 12:52] LABS: Vitamin D 25-OH Total 30.9 ng/mL (>30)
[2021-03-10 13:26] LABS: Prothrombin Time 11.5 SEC (9.9-13.0)
== END 2021-03-10 10:11 | disposition home or self-care (01) ==
LOC: HO.LAB 10:10
PROVIDERS: PCP Internal Medicine; Visit Provider Internal Medicine Gastroenterology
DX: M81.0 Age-related osteoporosis without current pathological fracture (principal); K76.89 Other specified diseases of liver; K75.81 Nonalcoholic steatohepatitis (NASH); R30.0 Dysuria
CPT/HCPCS: 36415; 80053; 81003; 82248; 82306; 85025; 85610

== ENCOUNTER 2021-03-25 13:44 | Outpatient (REF) | payer OTHER, SELFPAY ==
--- NOTE | ~2021-03-25 | MM_ITS ---
EXAMINATION: MM DIAGNOSTIC DIGITAL BREAST TOMOSYNTHESIS, BILATERAL US DIAGNOSTIC ULTRASOUND BREAST, RIGHT CLINICAL INFORMATION: Due for yearly. Patient notes right breast pain for one week. No palpable mass or discharge. Family history breast cancer maternal aunt. The lifetime risk of breast cancer based on the Tyrer-Cuzick Model is 10%. COMPARISON: Mammography: 11/28/2018 (new baseline). TECHNIQUE: Digital breast tomosynthesis is performed in both the craniocaudal and mediolateral oblique views along with computer-aided detection (CAD). Synthesized 2D images are generated from the tomosynthesis. Ultrasound right breast is targeted to the area of recent symptoms 5:00 through 9:00 position. Patient is able to point to area at time of imaging. Grayscale imaging and color Doppler are performed. FINDINGS: There are scattered areas of fibroglandular density (ACR BI-RADS breast composition Category b). There are no significant masses, abnormal calcifications, or other abnormalities. No developing density. Parenchymal pattern is similar to prior baseline exam. There is no skin thickening or coarsening of the Ralph's ligaments. The axilla and skin contours are unremarkable. Ultrasound right breast demonstrates no cystic or solid mass, architectural abnormality, or focal duct ectasia. No skin thickening or edema tracking in the soft tissue planes. Results are discussed with the patient at time of visit, using an link wire fabric machine tender. MM/MM tomosynthesis diagnostic BI IMPRESSION: 1. No mammographic evidence of malignancy or inflammatory changes. 2. Unremarkable targeted right breast ultrasound. ASSESSMENT: BI-RADS 1: Negative RECOMMENDATION: 1. Patient's right breast pain should be managed based on the clinical impression. 2. Otherwise, routine annual screening mammography. This patient's information was entered into a reminder system with a target due date for their next mammogram.
== END 2021-03-25 13:45 | disposition home or self-care (01) ==
LOC: HO.MAMMO 13:44
PROVIDERS: Visit Provider Internal Medicine
DX: N64.4 Mastodynia (principal)
CPT/HCPCS: 76642; 77062; 77066

== ENCOUNTER 2021-03-27 08:14 | Outpatient (REF) | payer OTHER, SELFPAY ==
--- NOTE | ~2021-03-27 | US_ITS ---
EXAMINATION: US ABDOMEN COMPLETE CLINICAL INFORMATION: Autoimmune liver disease. Complaining of back pain. Check kidney. COMPARISON: CT abdomen and pelvis 10/16/2020. Ultrasound abdomen complete 12/05/2019. MRI abdomen 01/11/2019. Ultrasound abdomen limited 01/07/2019. TECHNIQUE: Real-time imaging of the abdominal viscera. FINDINGS: PANCREAS: The pancreatic head is partially visualized and unremarkable. The majority of the pancreatic body and tail are obscured by overlying bowel gas. ABDOMINAL AORTA: The proximal, mid, and distal segments are normal in caliber. INFERIOR VENA CAVA: Visualized portions are normal. LIVER: Previously identified pneumobilia not appreciated on the current examination. The liver is normal in size. The liver contour is normal. Parenchymal echogenicity is normal. No focal hepatic lesion. There is no intrahepatic biliary duct dilatation seen. GALLBLADDER: Surgically absent. COMMON BILE DUCT: Normal in caliber measuring 0.2 cm in diameter. RIGHT KIDNEY: Midpole nonobstructing stone measuring 0.7 cm. No hydronephrosis. No parenchymal lesion. The kidney measures 11.0 cm in maximum dimension. LEFT KIDNEY: Normal. No hydronephrosis. No renal calculi or focal parenchymal lesions. The kidney measures 12.2 cm in maximum dimension. SPLEEN: Upper limits of normal in size. The spleen measures 13.0 cm in maximum dimension. FREE FLUID: None. US/US abdomen complete IMPRESSION: 1. Previously seen pneumobilia is not identified on the current examination. No hepatic parenchymal lesion. No biliary ductal dilatation. 2. Nonobstructing right midpole stone measuring 0.7 cm. No hydronephrosis. 3. Borderline splenomegaly measuring 13 cm, unchanged.
== END 2021-03-27 08:15 | disposition home or self-care (01) ==
LOC: HO.US 08:14
PROVIDERS: PCP Internal Medicine; Visit Provider Internal Medicine Gastroenterology
DX: K76.89 Other specified diseases of liver (principal); Z87.898 Personal history of other specified conditions
CPT/HCPCS: 76700

== ENCOUNTER 2021-03-27 09:02 | Outpatient (REF) | payer OTHER, SELFPAY ==
[2021-03-27 09:57] LABS: Blood Urea Nitrogen 21 mg/dL (9-16); Estimated Glomerular Filt Rate > 60
== END 2021-03-27 09:03 | disposition home or self-care (01) ==
LOC: HO.MDS 09:02
PROVIDERS: PCP Internal Medicine; Visit Provider Internal Medicine Gastroenterology
DX: M81.0 Age-related osteoporosis without current pathological fracture (principal)
CPT/HCPCS: 36415; 82565; 84520; 96365; J3489

== ENCOUNTER 2021-05-12 10:28 | Outpatient (REF) | payer OTHER, SELFPAY ==
[2021-05-12 16:06] LABS: CT PCR NOT DETECTED (Not Detect.); NG PCR NOT DETECTED (Not Detect.)
[2021-05-13 09:39] LABS: BV Int Neg Control Negative (Negative); BV Int Pos Control Positive (Positive)
[2021-05-15 16:31] LABS: HPV mRNA E6/E7 rflx Not Detected (Not Detected)
== END 2021-05-12 10:29 | disposition home or self-care (01) ==
LOC: HO.LAB 10:28
PROVIDERS: PCP Internal Medicine; Visit Provider Advanced Practice Midwife
DX: Z01.411 Encounter for gynecological examination (general) (routine) with abnormal findings (principal); Z11.51 Encounter for screening for human papillomavirus (HPV); N89.8 Other specified noninflammatory disorders of vagina; Z20.2 Contact with and (suspected) exposure to infections with a predominantly sexual mode of transmission
CPT/HCPCS: 87480; 87491; 87510; 87591; 87624; 87660; 88142

== ENCOUNTER 2021-05-14 12:22 | Outpatient (REF) | payer OTHER, SELFPAY ==
[2021-05-14 12:35] LABS: MANUAL DIFF FLAG NO
[2021-05-14 12:58] LABS: Basophils Percent Auto 0.3 % (0-2); Eosinophils Absolute Auto 0.1 X10*3/uL (0.0-0.4); Eosinophils Percent Auto 0.8 % (0-4); Hematocrit 41.1 % (37.0-47.0); Hemoglobin 13.4 g/dl (12.0-16.0); Imm Gran Abs Auto 0.02 X10*3/uL (0.00-0.03); Imm Gran Pct Auto 0.3 % (0.0-0.4); Lymphocytes Absolute Auto 1.8 X10*3/uL (1.2-4.9); Lymphocytes Percent Auto 29.2 % (20-40); Mean Corpuscular HGB Conc 32.6 g/dl (31.0-35.0); Mean Corpuscular Hemoglobin 31.8 pg (27.0-33.0); Mean Corpuscular Volume 97.6 fL (80.0-98.0); Mean Platelet Volume 10.8 fL (9.4-12.3); Monocytes Absolute Auto 0.5 X10*3/uL (0.1-1.2); Neutrophils Absolute Auto 3.7 x10*3/uL (2.0-8.3); Neutrophils Percent Auto 61.4 % (45-73); Platelet Count 178 X10*3/uL (160-400); Red Blood Count 4.21 X10*6/uL (4.20-5.50); Red Cell Distribution Width 15.4 % (11.0-16.0)
[2021-05-14 13:02] LABS: Prothrombin Time 11.7 SEC (9.9-13.0)
[2021-05-14 13:22] LABS: Alanine Aminotransferase 51 U/L (0-31); Albumin Level 3.7 g/dL (3.5-5.0); Alkaline Phosphatase 111 U/L (39-117); Anion Gap 11 (12-20); Aspartate Amino Transferase 32 U/L (5-31); Bilirubin Total 0.5 mg/dL (0.0-1.0); Blood Urea Nitrogen 14 mg/dL (9-16); C Reactive Protein 0.32 mg/dL (< or = 0.50); Calcium 8.9 mg/dL (8.4-10.2); Carbon Dioxide 27 mmol/L (22-29); Chloride 108 mmol/L (96-108); Estimated Glomerular Filt Rate > 60; Glucose Random 117 mg/dL (60-115); Potassium 3.4 mmol/L (3.3-5.1); Sodium 143 mmol/L (135-145); Total Protein 6.8 g/dL (6.5-8.0)
[2021-05-14 13:42] LABS: Ferritin 23 ng/mL (10-250); Vitamin D 25-OH Total 16.3 ng/mL (>30)
[2021-05-14 13:57] LABS: Folate 13.2 ng/mL (> or = 4.0); Vitamin B12 445 pg/mL (200-900)
[2021-05-17 12:06] LABS: Nicotinamide <20 ng/mL; Vit B3 - Nicotinic Acid <20 ng/mL
[2021-05-17 17:51] LABS: Vitamin C 0.2 mg/dL (0.3-2.7)
[2021-05-18 12:56] LABS: Vitamin B6 3.9 ng/mL (2.1-21.7)
[2021-05-19 13:31] LABS: Vitamin B5 (Pantothenic Acid) <40 ng/mL (<275)
[2021-05-19 16:36] LABS: Zinc 56 mcg/dL (60-130)
[2021-05-20 17:51] LABS: Vitamin A 34 mcg/dL (38-98)
== END 2021-05-14 12:23 | disposition home or self-care (01) ==
LOC: HO.LAB 12:22
PROVIDERS: PCP Internal Medicine; Visit Provider Internal Medicine Gastroenterology
DX: K76.89 Other specified diseases of liver (principal); K75.81 Nonalcoholic steatohepatitis (NASH)
CPT/HCPCS: 36415; 80053; 82180; 82306; 82607; 82728; 82746; 84207; 84590; 84591; 84630; 85025; 85610; 86140

== ENCOUNTER 2021-05-28 09:32 | Emergency (ER) | payer OTHER, SELFPAY ==
--- NOTE | ~2021-05-28 | XR_ITS ---
EXAMINATION: XR CHEST CLINICAL INFORMATION: Cough and SOB. COMPARISON: 10/16/2020 TECHNIQUE: 2 views of the chest were obtained. FINDINGS: No significant abnormality is noted involving the heart, lungs, mediastinum, bony thorax or soft tissues. XR/XR chest 2V IMPRESSION: Unremarkable chest examination.
[2021-05-28 10:22] VITALS: BP 150/76; PULSE 117; RESP 18; TEMP 37.1; O2SAT 98; BMI 36.5
[2021-05-28 11:07] LABS: COVID-19 Test Negative (Negative)
--- NOTE | 2021-05-28 11:59 | ED_ITS ---
HPI - URI/Sore Throat General Chief Complaint: Upper Respiratory Symptoms Stated Complaint: cough quest fever Time Seen by Provider: 05/28/21 11:56 Source: patient Mode of arrival: ambulatory Limitations: no limitations History of Present Illness HPI Narrative: 50-year-old female past medical history significant for autoimmune liver disease, depression, headache syndrome, chronic right knee pain presents to the emergency department with complaints of congestion, facial pressure, headache, dry cough, subjective fevers and chills x2 days. Patient tells me that she feels a lot of pressure in her head which is causing her to have a headache, she took Tylenol at home without relief. She also reports a dry cough, and she tells me she has felt warm and shaky however she has not taken her temperature. Patient also reports palpitations and at times SOB. She appears anxious at this time. She denies chest pain, nausea, vomiting, abdominal pain, diarrhea, weakness, dizziness, vision changes, photophobia MD elicited complaint: fever, cough and other (Palpitations, facial pressure) Onset (ago): day(s) (2) Consistency: constant Severity: severe Description of mucous: yellow (/white ) Able to tolerate fluids by mouth: Yes Exacerbating factors: nothing Relieving factors: nothing Context: sick contacts (Grandson with URI/pnumonia ) Associated symptoms: fever, chills, myalgias, headache, rhinorrhea, nasal congestion, cough and shortness of breath Treatments prior to arrival: none Related Data Home Medications Medication Instructions Recorded Confirmed Ca 600 mg-D3 20 mcg-mag oxide 50 tab PO 05/14/20 05/12/21 me-Of-qhpcun-manganese-boron tablet (Calcium 600-D3 Plus (mag-zinc)) ascorbic acid (vitamin C) 1,000 mg 1 g PO DAILY tab 05/14/20 05/12/21 tablet fluoxetine 40 mg capsule 40 mg PO DAILY 05/14/20 05/12/21 thiamine HCl (vitamin B1) 100 mg 100 mg PO DAILY 05/14/20 05/12/21 tablet trazodone 100 mg tablet 100 mg PO DAILY 05/14/20 05/12/21 Previous Rx's Medication Instructions Recorded omeprazole 40 mg capsule,delayed 40 mg PO DAILY 90 Days #90 cap 09/27/20 release ondansetron HCl 4 mg tablet 4 mg PO Q6H PRN #14 tab 10/16/20 (Zofran) zoledronic acid 5 mg/100 mL in 1 ea IV ONCE 365 Days #100 ml 03/04/21 mannitol 5 %-water intravenous piggybck fluconazole 150 mg tablet 150 mg PO DAILY #1 tab 03/07/21 miconazole nitrate 2 % vaginal 1 appful VAGINAL BEDTIME 7 Days 05/12/21 cream (Miconazole-7) #45 g metronidazole 0.75 % vaginal gel 1 appful VAGINAL BEDTIME 5 Days 05/14/21 (Metrogel Vaginal) #70 g cholecalciferol (vitamin D3) 50 50 mcg PO DAILY 30 Days #30 tab 05/16/21 mcg (2,000 unit) tablet prednisone 1 mg tablet 3 mg PO DAILY 30 Days #90 tab 05/16/21 prednisone 5 mg tablet 10 mg PO DAILY 30 Days #60 tab 05/16/21 mercaptopurine 50 mg tablet 50 mg PO DAILY #30 tab 05/23/21 doxycycline hyclate 100 mg capsule 100 mg PO BID 10 Days #20 cap 05/28/21 Allergies Allergy/AdvReac Type Severity Reaction Status Date / Time Penicillins [PENICILLINS] Allergy Severe RASH Verified 05/12/21 10:42 Iodinated Contrast Media Allergy Intermediate RASH Verified 05/12/21 10:42 [Iodinated Contrast Media - IV Dye] meperidine [From DEMEROL] Allergy Intermediate RASH Verified 05/12/21 10:42 aspirin [ASA] Allergy Mild RASH, N/V Verified 03/07/21 10:50 Contrast Dye Allergy Unknown unknown, Verified 03/07/21 10:50 vomiting penicillin V Allergy Unknown N/V, rash Verified 03/07/21 10:50 tramadol [TRAMADOL] Allergy Unknown RASH Verified 03/07/21 10:50 Review of Systems Review of Systems: Constitutional : No Weight loss, + Fever, + Chills, + Fatigue, + Malaise ENT/Mouth : No sore throat, No Rhinorrhea Eyes: No Eye Pain, No Swelling, No Redness Cardiovascular : No Chest Pain, + SOB, No Dyspnea on Exertion, No Orthopnea, No Edema, + Palpitations Respiratory : + Cough, No Sputum, No Wheezing Gastrointestinal : No Nausea, No Vomiting, No Diarrhea, No Constipation, No abdominal Pain, No Hematochezia, No Melena Genitourinary : No Dysuria, No Urinary Frequency, No Hematuria, Musculoskeletal : No joint pain, No Myalgias, No Joint Swelling Skin : No Skin Lesions, No rash Neuro : No Weakness, No Numbness, No Dizziness, + Headache All other systems reviewed and are negative Yes all other systems are reviewed and are negative [facility] Past Medical History Attestation statement: The following information was validated with the patient. Source: old records reviewed and nursing notes reviewed Medical History Autoimmune liver disease Depression, major, recurrent Difficulty sleeping Headache syndrome Hordeolum externum right upper eyelid Knee pain, right Surgical History H/O colonoscopy History of cholecystectomy History of esophagogastroduodenoscopy (EGD) History of liver biopsy History of surgery Hx of appendectomy Family History Family History Father CVD (cardiovascular disease) Mother Breast cancer Leukemia CVD (cardiovascular disease) Brother No problems noted. Brother No problems noted. Sister No problems noted. Son No problems noted. Daughter No problems noted. Daughter No problems noted. Daughter No problems noted. Maternal Aunt Breast cancer Social History Social History Household Members: Children Alcohol intake: current Alcohol intake frequency: does not drink Advance Directives: No Advance Directives Information Provided: Yes Current occupational status: disabled Physical Exam Vital Signs: Vital Signs: Last Vital Signs Temp 98.2 F 05/28/21 12:11 Pulse 89 05/28/21 12:23 Resp 18 05/28/21 12:23 BP 123/75 05/28/21 12:11 Pulse Ox 97 05/28/21 12:11 BMI result Body Mass Index 36.5 VS significant for HTN and tachycardia. Appearance: Alert.? Oriented X3.? No acute distress.? Head: Normocephalic, atraumatic, no step-offs or deformities Eyes: Pupils equal, round and reactive to light.? ENT: Pharynx normal.?+ nasal discharge yellow/white in color. + discomfort with percussion/palpation of facial sinuses, and discomfort with forward bending test. Neck: Normal inspection.? Neck supple.? CVS: Normal heart rate and rhythm.? Pulses normal.? Respiratory: No respiratory distress.? Breath sounds normal.? Abdomen: Soft and nontender.? Skin: Skin warm and dry.? Normal skin color.? Normal skin turgor.? Extremities: No lower extremity edema.? 5/5 strength to bilateral upper and lower extremities Back: No midline tenderness, no C-spine tenderness, full range of motion, no CVA tenderness bilaterally Neuro: Oriented X 3.? No motor deficit.? No sensory deficit. Course Reevaluation(s) Reevaluation #1: CXR negative. Covid negative. Labs significant for slight dehydration. No other abnormalities. Trop neagative. EKG no ischemia. Unlikley ACS. Patient is safe for discharge home with PCP follow-up. I have given her strict return precautions. Treating it patient for sinus infection however, she has an allergy to penicillin so I will use doxycycline 100 mg p.o. b.i.d. for 10 days. Time: 13:01 MDM - URI/Sore Throat [facility] Narrative Medical decision making narrative: 1200 50 yo pmhx autoimmune liver disease, depression, headache syndrome, chronic right knee pain presents w URI symptoms, headach secondary to cough and palpitations and intermittent SOB X2 days. Recent sick contact grandson with URI/pneumonia. Physical examination significant for yellow/white nasal discharge. Discomfort with palpation/percussion of sinuses, and pressure with forward bending consistent with sinusitis. Patient appears anxious however. VSS have now stabilized and are WNL. Lungs clear, RRR, abdomen soft nontender non distended no focal neuro defiicits. Based off patient history and physical examination it is unlikely that this is a pulmonary embolism, patient's O2 saturation is within normal limits, patient is not tachycardic, she does not report constant shortness of breath, she tells me she is only having shortness of breath when she coughs. Unlikely that this is acute coronary syndrome however an EKG and troponin will be obtained to rule this out. Plan COVID and CXR Medical Records Attestation: I reviewed the patient's medical records. Lab Data Attestation: I reviewed the patient's lab results. Result diagrams: 05/28/21 12:18 05/28/21 12:18 Labs: Lab Results 05/28/21 05/28/2121 Range/Units 10:47 12:18 12:18 WBC 7.2 (4.8-10.8) X10*3/uL RBC 4.01 L (4.20-5.50) X10*6/uL Hgb 13.1 (12.0-16.0) g/dl Hct 39.4 (37.0-47.0) % MCV 98.3 H (80.0-98.0) fL MCH 32.7 (27.0-33.0) pg MCHC 33.2 (31.0-35.0) g/dl RDW 15.1 (11.0-16.0) % Plt Count 162 (160-400) X10*3/uL MPV 10.6 (9.4-12.3) fL Immature Gran % (Auto) 0.4 (0.0-0.4) % Neut % (Auto) 76.9 H (45-73) % Lymph % (Auto) 10.0 L (20-40) % [place] % (Auto) 10.6 (2-11) % Eos % (Auto) 1.8 (0-4) % Baso % (Auto) 0.3 (0-2) % Lymph # (Auto) 0.7 L (1.2-4.9) X10*3/uL [place] # (Auto) 0.8 (0.1-1.2) X10*3/uL Eos # (Auto) 0.1 (0.0-0.4) X10*3/uL Baso # (Auto) 0.0 (0.0-0.2) X10*3/uL Abs Immat Gran (auto) 0.03 (0.00-0.03) X10*3/uL Absolute Neuts (auto) 5.5 (2.0-8.3) x10*3/uL Absolute Nucleated RBC 0.000 (0.0-0.012) X10*3/uL Nucleated RBC % (auto) 0.0 (0.0-0.2) /100WBC Sodium (135-145) mmol/L Potassium (3.3-5.1) mmol/L Chloride (96-108) mmol/L Carbon Dioxide (22-29) mmol/L Anion Gap (12-20) BUN (9-16) mg/dL Creatinine (0.5-1.4) mg/dL Estim Creat Clear Calc Estimated GFR Random Glucose (60-115) mg/dL Calcium (8.4-10.2) mg/dL Troponin I High Sens < 3.5 (<3.5-17.0) ng/L COVID-19 (JAIDA) Negative (Negative) COVID-19 Clin Com See Note 05/28/21 Range/Units 12:18 WBC (4.8-10.8) X10*3/uL RBC (4.20-5.50) X10*6/uL Hgb (12.0-16.0) g/dl Hct (37.0-47.0) % MCV (80.0-98.0) fL MCH (27.0-33.0) pg MCHC (31.0-35.0) g/dl RDW (11.0-16.0) % Plt Count (160-400) X10*3/uL MPV (9.4-12.3) fL Immature Gran % (Auto) (0.0-0.4) % Neut % (Auto) (45-73) % Lymph % (Auto) (20-40) % [place] % (Auto) (2-11) % Eos % (Auto) (0-4) % Baso % (Auto) (0-2) % Lymph # (Auto) (1.2-4.9) X10*3/uL [place] # (Auto) (0.1-1.2) X10*3/uL Eos # (Auto) (0.0-0.4) X10*3/uL Baso # (Auto) (0.0-0.2) X10*3/uL Abs Immat Gran (auto) (0.00-0.03) X10*3/uL Absolute Neuts (auto) (2.0-8.3) x10*3/uL Absolute Nucleated RBC (0.0-0.012) X10*3/uL Nucleated RBC % (auto) (0.0-0.2) /100WBC Sodium 139 (135-145) mmol/L Potassium 3.4 (3.3-5.1) mmol/L Chloride 106 (96-108) mmol/L Carbon Dioxide 26 (22-29) mmol/L Anion Gap 10 L (12-20) BUN 17 H (9-16) mg/dL Creatinine 0.77 (0.5-1.4) mg/dL Estim Creat Clear Calc 113.0 Estimated GFR > 60 Random Glucose 136 H (60-115) mg/dL Calcium 8.7 (8.4-10.2) mg/dL Troponin I High Sens (<3.5-17.0) ng/L COVID-19 (JAIDA) (Negative) COVID-19 Clin Com Critical Care Time Critical Care Time Critical Care Time: No Discharge Plan Discharge Clinical Impression: Acute sinus infection Patient Disposition: Home, Self-Care Instructions: Sinusitis (ED) Additional Instructions: Take your medications as prescribed. If you were prescribed antibiotics today, it is important that you take your medication to their entirety, do not skip any doses, do not finish them early. COVID emeliaive. Follow-up with your primary care provider this week. Return to the emergency department with new or worsening symptoms. Such as fevers, chills, nausea, vomiting, chest pain, shortness of breath, abdominal pain, weakness, dizziness, headache, vision changes In case of emergency call 911 Prescriptions: New doxycycline hyclate 100 mg capsule 100 mg PO BID 10 Days Qty: 20 RF: 0 No Action omeprazole 40 mg capsule,delayed release(DR/EC) 40 mg PO DAILY 90 Days Qty: 90 RF: 2 zoledronic umup-vpjlshxu-tysfc 5 mg/100 mL piggyback 1 ea IV ONCE 365 Days Qty: 100 RF: 0 metronidazole [Metrogel Vaginal] 0.75 % gel 1 appful vaginal BEDTIME 5 Days Qty: 70 RF: 0 prednisone 1 mg tablet 3 mg PO DAILY 30 Days Qty: 90 RF: 1 prednisone 5 mg tablet 10 mg PO DAILY 30 Days Qty: 60 RF: 1 cholecalciferol (vitamin D3) 50 mcg (2,000 unit) tablet 50 mcg PO DAILY 30 Days Qty: 30 RF: 3 mercaptopurine 50 mg tablet 50 mg PO DAILY Qty: 30 RF: 0 ondansetron HCl [Zofran] 4 mg tablet 4 mg PO Q6H PRN (Reason: nausea and vomiting) Qty: 14 RF: 0 fluoxetine 40 mg capsule 40 mg PO DAILY RF: 0 thiamine HCl (vitamin B1) 100 mg tablet 100 mg PO DAILY RF: 0 trazodone 100 mg tablet 100 mg PO DAILY RF: 0 Ca-D3-mag tc-qnhp-gty-farrukh-bor [Calcium 600-D3 Plus (mag-zinc)] 600 mg calcium- 800 unit-50 mg tablet PO RF: 0 ascorbic acid (vitamin C) 1,000 mg tablet 1 g PO DAILY RF: 0 fluconazole 150 mg tablet 150 mg PO DAILY Qty: 1 RF: 0 miconazole nitrate [Miconazole-7] 2 % cream 1 appful vaginal BEDTIME 7 Days Qty: 45 RF: 3 Referrals: Luis Angel Almanza MD [Primary Care Provider] - 2 days Stand Alone Forms: Work/School Release
--- NOTE | 2021-05-28 12:09 | ECG_ITS ---
Test Reason : TACKY Blood Pressure : / mmHG Vent. Rate : 089 BPM Atrial Rate : 089 BPM P-R Int : 142 ms QRS Dur : 090 ms QT Int : 380 ms P-R-T Axes : 033 034 024 degrees QTc Int : 462 ms Normal sinus rhythm Normal ECG When compared with ECG of 16-OCT-2020 03:28, No significant change was found Referred By: Pepe Mendoza Electronically Signed By:VICTOR MANUEL PURI MD
[2021-05-28 12:11] VITALS: BP 123/75; PULSE 87; RESP 18; TEMP 36.8; O2SAT 97
[2021-05-28] MEDS: Albuterol Sulfate 90 MCG 8 GM INHALER 2 PUFF INHALE (12:22)
[2021-05-28 12:23] VITALS: PULSE 89; RESP 18; O2SAT 97
[2021-05-28 12:26] LABS: MANUAL DIFF FLAG NO
[2021-05-28 12:29] LABS: Basophils Percent Auto 0.3 % (0-2); Eosinophils Absolute Auto 0.1 X10*3/uL (0.0-0.4); Eosinophils Percent Auto 1.8 % (0-4); Hematocrit 39.4 % (37.0-47.0); Hemoglobin 13.1 g/dl (12.0-16.0); Imm Gran Abs Auto 0.03 X10*3/uL (0.00-0.03); Imm Gran Pct Auto 0.4 % (0.0-0.4); Lymphocytes Absolute Auto 0.7 X10*3/uL (1.2-4.9); Mean Corpuscular HGB Conc 33.2 g/dl (31.0-35.0); Mean Corpuscular Hemoglobin 32.7 pg (27.0-33.0); Mean Corpuscular Volume 98.3 fL (80.0-98.0); Mean Platelet Volume 10.6 fL (9.4-12.3); Monocytes Absolute Auto 0.8 X10*3/uL (0.1-1.2); Monocytes Percent Auto 10.6 % (2-11); Neutrophils Absolute Auto 5.5 x10*3/uL (2.0-8.3); Neutrophils Percent Auto 76.9 % (45-73); Platelet Count 162 X10*3/uL (160-400); Red Blood Count 4.01 X10*6/uL (4.20-5.50); Red Cell Distribution Width 15.1 % (11.0-16.0); White Blood Count 7.2 X10*3/uL (4.8-10.8)
[2021-05-28 12:43] LABS: Anion Gap 10 (12-20); Blood Urea Nitrogen 17 mg/dL (9-16); Calcium 8.7 mg/dL (8.4-10.2); Carbon Dioxide 26 mmol/L (22-29); Chloride 106 mmol/L (96-108); Estimated Glomerular Filt Rate > 60; Glucose Random 136 mg/dL (60-115); Potassium 3.4 mmol/L (3.3-5.1); Sodium 139 mmol/L (135-145)
[2021-05-28 12:49] LABS: Troponin-I High Sensitivity < 3.5 ng/L (<3.5-17.0)
== END 2021-05-28 13:47 | disposition home or self-care (01) ==
PROVIDERS: Physician Assistant; Emergency Provider Emergency Medicine; PCP Internal Medicine
DX: J01.90 Acute sinusitis, unspecified (principal); Z20.822 Contact with and (suspected) exposure to COVID-19; Z88.0 Allergy status to penicillin
CPT/HCPCS: 36415; 71046; 80048; 84484; 85025; 87635; 93005; 94640; 99284

== ENCOUNTER → 2021-06-02 08:31 | Outpatient (BNVA) | payer OTHER, SELFPAY | PROVIDERS: PCP Internal Medicine; Referring Provider Internal Medicine; Visit Provider Internal Medicine Gastroenterology | DX: M81.0 Age-related osteoporosis without current pathological fracture (principal); R00.2 Palpitations; R10.9 Unspecified abdominal pain | CPT/HCPCS: 99212 ==

== ENCOUNTER 2021-08-29 07:18 | Outpatient (REF) | payer OTHER, SELFPAY ==
[2021-08-29 07:57] LABS: Blood Urea Nitrogen 14 mg/dL (9-16); Estimated Glomerular Filt Rate > 60
== END 2021-08-29 07:19 | disposition home or self-care (01) ==
LOC: HO.LAB 07:18
PROVIDERS: PCP Internal Medicine; Visit Provider Internal Medicine Gastroenterology
DX: M81.0 Age-related osteoporosis without current pathological fracture (principal)
CPT/HCPCS: 36415; 82310; 82565; 84520

== ENCOUNTER 2021-09-04 18:05 | Emergency (ER) | payer OTHER, SELFPAY ==
--- NOTE | ~2021-09-04 | CT_ITS ---
EXAMINATION: CT ABDOMEN AND PELVIS WITHOUT CONTRAST CLINICAL INFORMATION: Bilateral flank pain. COMPARISON: Abdominal ultrasound dated from 03/27/[address] abdomen/pelvis dated from 10/16/2020. TECHNIQUE: Multidetector volumetric imaging was performed from the superior aspect of the liver through the pubic symphysis. Sagittal and coronal reformatted images were obtained on the technologist's workstation. This CT examination was performed using dose optimization techniques as appropriate, variously including the following: *Automated exposure control *Adjustment of mA and/or kV according to patient size (this includes techniques or standardized protocols for targeted exams where dose is matched to indication/reason for exam; i.e. extremities or head) *Use of iterative reconstruction technique DLP: 945 mGy-cm FINDINGS: LUNG BASES: The visualized lung bases are unremarkable. LIVER, GALLBLADDER, AND BILIARY TREE: Pneumobilia is decreased with a tiny single focus of air on image 12 of series 3. Pneumobilia is expected in this patient with a hepaticojejunostomy and cholecystectomy. No definite new liver lesions, although evaluation is limited in the absence of intravenous contrast. PANCREAS: Loss of definition of the pancreatic cleft throughout the pancreas is unchanged. No pancreatic ductal dilatation. No peripancreatic free fluid or fat stranding. SPLEEN: Unremarkable. ADRENAL GLANDS: Unremarkable. KIDNEYS AND URETERS: There is increased density of the medullary and papillary portions of the collecting system, raising the possibility of medullary nephrocalcinosis. No hydroureteronephrosis or significant perinephric fat stranding. No ureteric calculi. BLADDER: Underdistended. GASTROINTESTINAL TRACT: Redemonstration of surgical changes in the small bowel with anastomosis and image 54 of series 3. No evidence of bowel obstruction. However, the stomach is dilated and filled with debris. There is lower esophageal wall thickening. No pericolonic inflammatory changes. ABDOMINAL WALL: No significant hernia is appreciated. LYMPH NODES: No lymphadenopathy by size criteria. VASCULAR: Scattered atherosclerotic disease. PELVIC VISCERA: Redemonstration of an anterior uterine fibroid measuring approximately 3.5 cm. OSSEOUS STRUCTURES: No acute or aggressive appearing osseous abnormalities. CT/CT abdomen pelvis wo con IMPRESSION: 1. Dilated stomach filled with debris, differentials include bezoar, gastroparesis or gastric outlet obstruction. 2. Circumferential wall thickening of the lower esophagus, correlate for reflux esophagitis and if indicated upper endoscopy. 3. Redemonstration of postsurgical changes from prior hepaticojejunostomy, cholecystectomy and partial small bowel resection. 4. Findings suggestion of possible medullary nephrocalcinosis. No hydroureteronephrosis. 5. Uterine fibroid.
[2021-09-04 18:24] VITALS: BP 149/90; PULSE 91; RESP 18; TEMP 36.8; O2SAT 98; BMI 34.2
[2021-09-04 20:08] LABS: MANUAL DIFF FLAG NO
[2021-09-04 20:09] LABS: Basophils Percent Auto 0.3 % (0-2); Eosinophils Percent Auto 0.1 % (0-4); Hematocrit 43.1 % (37.0-47.0); Hemoglobin 14.2 g/dl (12.0-16.0); Imm Gran Abs Auto 0.02 X10*3/uL (0.00-0.03); Imm Gran Pct Auto 0.3 % (0.0-0.4); Lymphocytes Absolute Auto 1.4 X10*3/uL (1.2-4.9); Lymphocytes Percent Auto 19.6 % (20-40); Mean Corpuscular HGB Conc 32.9 g/dl (31.0-35.0); Mean Corpuscular Hemoglobin 31.9 pg (27.0-33.0); Mean Corpuscular Volume 96.9 fL (80.0-98.0); Mean Platelet Volume 10.6 fL (9.4-12.3); Monocytes Absolute Auto 0.5 X10*3/uL (0.1-1.2); Monocytes Percent Auto 7.4 % (2-11); Neutrophils Percent Auto 72.3 % (45-73); Platelet Count 181 X10*3/uL (160-400); Red Blood Count 4.45 X10*6/uL (4.20-5.50); Red Cell Distribution Width 15.4 % (11.0-16.0); White Blood Count 6.9 X10*3/uL (4.8-10.8)
[2021-09-04 20:27] LABS: Appearance Urine CLEAR; Color Urine YELLOW; Glucose Urine UA NEG (NEG); Leukocyte Esterase Urine NEG (NEG); Nitrite Urine NEG (NEG); UACC Culture Trigger NO; Urine Blood TRACE (NEG); Urine Ketones NEG (NEG); Urine Protein NEG (NEG-TRACE)
[2021-09-04 20:29] LABS: Alanine Aminotransferase 49 U/L (0-31); Alkaline Phosphatase 97 U/L (39-117); Anion Gap 11 (12-20); Aspartate Amino Transferase 30 U/L (5-31); Bilirubin Direct 0.2 mg/dL (0.0-0.5); Bilirubin Total 0.6 mg/dL (0.0-1.0); Blood Urea Nitrogen 14 mg/dL (9-16); Calcium 9.3 mg/dL (8.4-10.2); Carbon Dioxide 28 mmol/L (22-29); Chloride 105 mmol/L (96-108); Creatinine Clr Calc Pharmacy 102.5; Estimated Glomerular Filt Rate > 60; Glucose Random 119 mg/dL (60-115); Lipase 61 U/L (8-78); Potassium 4.3 mmol/L (3.3-5.1); Sodium 140 mmol/L (135-145); Total Protein 7.1 g/dL (6.5-8.0)
[2021-09-04 20:35] LABS: Bacteria Urine TRACE /LPF; RBC Urine 0-2 /HPF (0); Squamous Epithelial Cell Urine TRACE /LPF; WBC Urine 0 /HPF (0-4)
--- NOTE | 2021-09-04 21:17 | ED.GENADULT ---
HPI - General Adult General Chief complaint: General Medical Stated complaint: Abdominal pain Time Seen by Provider: 09/04/21 22:28 Source: patient Mode of arrival: ambulatory Limitations: no limitations History of Present Illness HPI narrative: 50-year-old female presents with diffuse abdominal pain that radiates to her left groin and down her legs. Onset (ago): week(s) Location: abdomen Radiation: non-radiation Severity: mild Severity scale (1-10): 3 Quality: aching Pain Consistency: constant Relieving factors: none Exacerbating factors: eating and movement Associated symptoms: denies other symptoms Treatments prior to arrival: none Related Data Home Medications Medication Instructions Recorded Confirmed Ca 600 mg-D3 20 mcg-mag oxide 50 tab PO 05/14/20 05/12/21 pq-Ye-xvwjdj-manganese-boron tablet (Calcium 600-D3 Plus (mag-zinc)) ascorbic acid (vitamin C) 1,000 mg 1 g PO DAILY tab 05/14/20 05/12/21 tablet fluoxetine 40 mg capsule 40 mg PO DAILY 05/14/20 05/12/21 thiamine HCl (vitamin B1) 100 mg 100 mg PO DAILY 05/14/20 05/12/21 tablet trazodone 100 mg tablet 100 mg PO DAILY 05/14/20 05/12/21 calcium carbonate 600 mg-vitamin 1 tab PO DAILY 06/02/21 D3 20 mcg (800 unit) tablet Previous Rx's Medication Instructions Recorded ondansetron HCl 4 mg tablet 4 mg PO Q6H PRN #14 tab 10/16/20 (Zofran) zoledronic acid 5 mg/100 mL in 1 ea IV ONCE 365 Days #100 ml 03/04/21 mannitol 5 %-water intravenous piggybck fluconazole 150 mg tablet 150 mg PO DAILY #1 tab 03/07/21 miconazole nitrate 2 % vaginal 1 appful VAGINAL BEDTIME 7 Days 05/12/21 cream (Miconazole-7) #45 g metronidazole 0.75 % vaginal gel 1 appful VAGINAL BEDTIME 5 Days 05/14/21 (Metrogel Vaginal) #70 g cholecalciferol (vitamin D3) 50 50 mcg PO DAILY 30 Days #30 tab 05/16/21 mcg (2,000 unit) tablet doxycycline hyclate 100 mg capsule 100 mg PO BID 10 Days #20 cap 05/28/21 sodium chloride 0.65 % nasal spray 2 spray INTRANASAL QID PRN #104 ml 06/02/21 aerosol ([place] Nasal) omeprazole 40 mg capsule,delayed 40 mg PO DAILY 90 Days #90 cap 07/21/21 release prednisone 1 mg tablet 2 mg PO DAILY 40 Days #80 tab 07/21/21 prednisone 5 mg tablet 10 mg PO DAILY 40 Days #80 tab 07/21/21 mercaptopurine 50 mg tablet 50 mg PO DAILY #30 tab 08/22/21 Allergies Allergy/AdvReac Type Severity Reaction Status Date / Time Penicillins [PENICILLINS] Allergy Severe RASH Verified 06/02/21 08:46 Iodinated Contrast Media Allergy Intermediate RASH Verified 06/02/21 08:46 [Iodinated Contrast Media - IV Dye] meperidine [From DEMEROL] Allergy Intermediate RASH Verified 06/02/21 08:46 aspirin [ASA] Allergy Mild RASH, N/V Verified 06/02/21 08:46 Contrast Dye Allergy Unknown unknown, Verified 06/02/21 08:46 vomiting penicillin V Allergy Unknown N/V, rash Verified 06/02/21 08:46 tramadol [TRAMADOL] Allergy Unknown RASH Verified 06/02/21 08:46 Review of Systems Review of Systems: Constitutional: No Weight loss, No Fever, No Chills, No Night Sweats, No Fatigue, No Malaise ENT/Mouth: No Hearing loss, No Ear Pain, No Nasal Congestion, No Sinus Pain, No Hoarseness, No sore throat, No Rhinorrhea, No Swallowing Difficulty Eyes: No Eye Pain, No Swelling, No Redness, No Foreign Body, No Discharge, No Vision Changes Cardiovascular: No Chest Pain, No SOB, No Dyspnea on Exertion, No Orthopnea, No Edema, No Palpitations Respiratory: No Cough, No Sputum, No Wheezing, No Smoke Exposure, No Dyspnea Gastrointestinal: Positive Nausea, no Vomiting, no Diarrhea, positive abdominal Pain, No Hematochezia, No Melena Genitourinary: no irregular bleeding, No Dysuria, No Urinary Frequency, No Hematuria, No Urinary Incontinence, No Urgency, No Flank Pain, No Urinary Flow Changes, No Hesitancy Musculoskeletal: No joint pain, No Myalgias, No Joint Swelling Skin: No Skin Lesions, No rash Neuro: No Weakness, No Numbness, No Paresthesias, No Loss of Consciousness, No Dizziness, No Headache Psych: No Anxiety/Panic, No Depression, No SI/HI/AH/VH, No Social Issues Heme/Lymph: No Bruising, No Bleeding,No Lymphadenopathy Endocrine: No Polyuria, No Polydipsia, No Temperature Intolerance Yes all other systems are reviewed and are negative [facility] Past Medical History Attestation statement: The following information was validated with the patient. Source: old records reviewed Medical History Autoimmune liver disease Depression, major, recurrent Difficulty sleeping Headache syndrome Hordeolum externum right upper eyelid Knee pain, right Surgical History H/O colonoscopy History of cholecystectomy History of esophagogastroduodenoscopy (EGD) History of liver biopsy History of surgery Hx of appendectomy Family History Family History Father CVD (cardiovascular disease) Mother Breast cancer Leukemia CVD (cardiovascular disease) Brother No problems noted. Brother No problems noted. Sister No problems noted. Son No problems noted. Daughter No problems noted. Daughter No problems noted. Daughter No problems noted. Maternal Aunt Breast cancer Social History Social History Household Members: Children Alcohol intake: current Alcohol intake frequency: does not drink Advance Directives: No Current occupational status: disabled Physical Exam ED Vital Signs: Vital Signs - 24 hr 09/04/21 18:24 09/04/21 23:58 Temperature 98.3 F 97.7 F Pulse Rate 91 75 Respiratory Rate 18 18 Blood Pressure 149/90 H 126/79 Pulse Oximetry 98 99 BMI result Body Mass Index 34.2 Appearance: Alert. Oriented X3. No acute distress. Eyes: Pupils equal, round and reactive to light. Sclera nonicteric. ENT: Pharynx normal. Neck: Normal inspection. Neck supple. CVS: Normal heart rate and rhythm. Pulses normal. Respiratory: No respiratory distress. Breath sounds normal. Abdomen: Soft and diffusely tender. Obese. No rigidity or rebound. Skin: Skin warm and dry. Normal skin color. Normal skin turgor. Extremities: No lower extremity edema. Moves all extremities against resistance. Neuro: No motor deficit. No sensory deficit. Cranial nerves 2-12 intact. Course Course Course Narrative: 50-year-old female presents with diffuse abdominal pain associated with nausea. Radiates to her left flank and goes down her legs. Physical exam positive for abdominal tenderness to palpation, no rebound or rigidity. Will order CT scan of abdomen and pelvis. 23:30 CT scan of abdomen and pelvis indicates bezoar, gastroparesis, thickening of the lower esophagus consistent with reflux esophagitis. No acute findings. Findings discussed with patient, will refer to Gastroenterology for outpatient evaluation. Medical Decision Making Differential Diagnosis Differential Diagnosis: Cholecystitis, acute abdomen, nephrolithiasis, colitis Medical Records Medical records reviewed: Yes I reviewed the patient's medical records. Lab Data Lab results reviewed: Yes I reviewed the patient's lab results. Result diagrams: 09/04/21 20:04 09/04/21 20:04 Labs: Lab Results 09/04/21 09/04/21 09/04/21 Range/Units 20:04 20:04 20:10 WBC 6.9 (4.8-10.8) X10*3/uL RBC 4.45 (4.20-5.50) X10*6/uL Hgb 14.2 (12.0-16.0) g/dl Hct 43.1 (37.0-47.0) % MCV 96.9 (80.0-98.0) fL MCH 31.9 (27.0-33.0) pg MCHC 32.9 (31.0-35.0) g/dl RDW 15.4 (11.0-16.0) % Plt Count 181 (160-400) X10*3/uL MPV 10.6 (9.4-12.3) fL Immature Gran % (Auto) 0.3 (0.0-0.4) % Neut % (Auto) 72.3 (45-73) % Lymph % (Auto) 19.6 L (20-40) % [place] % (Auto) 7.4 (2-11) % Eos % (Auto) 0.1 (0-4) % Baso % (Auto) 0.3 (0-2) % Lymph # (Auto) 1.4 (1.2-4.9) X10*3/uL [place] # (Auto) 0.5 (0.1-1.2) X10*3/uL Eos # (Auto) 0.0 (0.0-0.4) X10*3/uL Baso # (Auto) 0.0 (0.0-0.2) X10*3/uL Abs Immat Gran (auto) 0.02 (0.00-0.03) X10*3/uL Absolute Neuts (auto) 5.0 (2.0-8.3) x10*3/uL Absolute Nucleated RBC 0.000 (0.0-0.012) X10*3/uL Nucleated RBC % (auto) 0.0 (0.0-0.2) /100WBC Sodium 140 (135-145) mmol/L Potassium 4.3 D (3.3-5.1) mmol/L Chloride 105 (96-108) mmol/L Carbon Dioxide 28 (22-29) mmol/L Anion Gap 11 L (12-20) BUN 14 (9-16) mg/dL Creatinine 0.82 (0.5-1.4) mg/dL Estim Creat Clear Calc 102.5 Estimated GFR > 60 Random Glucose 119 H (60-115) mg/dL Calcium 9.3 (8.4-10.2) mg/dL Total Bilirubin 0.6 (0.0-1.0) mg/dL Direct Bilirubin 0.2 (0.0-0.5) mg/dL AST 30 (5-31) U/L ALT 49 H (0-31) U/L Alkaline Phosphatase 97 (39-117) U/L Total Protein 7.1 (6.5-8.0) g/dL Albumin 4.0 (3.5-5.0) g/dL Lipase 61 (8-78) U/L Urine Color YELLOW Urine Appearance CLEAR Urine pH 7.0 (5.0-8.0) Ur Specific [place] 1.010 (1.005-1.025) Urine Protein NEG (NEG-TRACE) MG/DL Urine Glucose (UA) NEG (NEG) MG/DL Urine Ketones NEG (NEG) MG/DL Urine Blood TRACE (NEG) Urine Nitrite NEG (NEG) Ur Leukocyte Esterase NEG (NEG) Urine RBC 0-2 (0) /HPF Urine WBC 0 (0-4) /HPF Ur Squamous Epith Cells TRACE /LPF Urine Bacteria TRACE /LPF Imaging Data CT abdomen pelvis: Attestation: I personally reviewed and interpreted this imaging study as follows: Radiologist's impression: EXAMINATION: CT ABDOMEN AND PELVIS WITHOUT CONTRAST? CLINICAL INFORMATION: Bilateral flank pain.? COMPARISON: Abdominal ultrasound dated from 03/27/[address] abdomen/pelvis dated from 10/16/2020.? TECHNIQUE: Multidetector volumetric imaging was performed from the superior aspect of the liver through the pubic symphysis. Sagittal and coronal reformatted images were obtained on the technologist's workstation.? This CT examination was performed using dose optimization techniques as appropriate, variously including the following: *Automated exposure control *Adjustment of mA and/or kV according to patient size (this includes techniques or standardized protocols for targeted exams where dose is matched to indication/reason for exam; i.e. extremities or head) *Use of iterative reconstruction technique DLP: 945 mGy-cm FINDINGS: LUNG BASES: The visualized lung bases are unremarkable.? LIVER, GALLBLADDER, AND BILIARY TREE: Pneumobilia is decreased with a tiny single focus of air on image 12 of series 3. Pneumobilia is expected in this patient with a hepaticojejunostomy and cholecystectomy. No definite new liver lesions, although evaluation is limited in the absence of intravenous contrast. PANCREAS: Loss of definition of the pancreatic cleft throughout the pancreas is unchanged. No pancreatic ductal dilatation. No peripancreatic free fluid or fat stranding.? SPLEEN: Unremarkable.? ADRENAL GLANDS: Unremarkable.? KIDNEYS AND URETERS: There is increased density of the medullary and papillary portions of the collecting system, raising the possibility of medullary nephrocalcinosis. No hydroureteronephrosis or significant perinephric fat stranding. No ureteric calculi.? BLADDER: Underdistended.? GASTROINTESTINAL TRACT: Redemonstration of surgical changes in the small bowel with anastomosis and image 54 of series 3. No evidence of bowel obstruction. However, the stomach is dilated and filled with debris. There is lower esophageal wall thickening. No pericolonic inflammatory changes.? ABDOMINAL WALL: No significant hernia is appreciated.? LYMPH NODES: No lymphadenopathy by size criteria. VASCULAR: Scattered atherosclerotic disease. PELVIC VISCERA: Redemonstration of an anterior uterine fibroid measuring approximately 3.5 cm.? OSSEOUS STRUCTURES: No acute or aggressive appearing osseous abnormalities.? CT/CT abdomen pelvis wo con IMPRESSION: ? 1. Dilated stomach filled with debris, differentials include bezoar, gastroparesis or gastric outlet obstruction. ? 2. Circumferential wall thickening of the lower esophagus, correlate for reflux esophagitis and if indicated upper endoscopy. ? 3. Redemonstration of postsurgical changes from prior hepaticojejunostomy, cholecystectomy and partial small bowel resection. ? 4. Findings suggestion of possible medullary nephrocalcinosis. No hydroureteronephrosis. ? 5. Uterine fibroid. Discharge Plan Discharge Clinical Impression: Diabetic gastroparesis, Esophagitis, reflux, Fibroid, uterine Patient Disposition: Home, Self-Care Instructions: Diabetic Gastroparesis (DC), Gastroparesis (ED), Esophagitis (ED) Additional Instructions: Quan un seguimiento con purcell gastroenter?logo seg?n lo programado el . Gem todos donato medicamentos seg?n lo prescrito. La tomograf?a computarizada del abdomen y la pelvis muestra gastroparesia u obstrucci?n de la salida g?strica y esofagitis por reflujo. Los hallazgos incidentales de los ri?ones son nefrocalcinosis medular y fibromas uterinos. Contin?e con el seguimiento con el m?dico de atenci?n primaria. Thuy por elegir jermaine departamento de emergencias para purcell evaluaci?n. Por favor, quan un seguimiento con el m?dico de atenci?n primaria seg?n sea necesario. Regrese al departamento de emergencias por cualquier s?ntoma nuevo, preocupante o que empeore Please follow-up with your chief communications officer as scheduled on September 19. Please take all of your medications as prescribed. CT scan of abdomen pelvis shows gastroparesis or gastric outlet obstruction and reflux esophagitis. Incidental findings of the kidneys are medullary nephrocalcinosis and uterine fibroids. Please continue to follow-up with primary care physician. Thank you for choosing this emergency department for evaluation. Please follow-up with primary care physician as needed. Return to the emergency department for any new, concerning, or worsening symptoms. Prescriptions: No Action zoledronic bcuv-xluxhthp-nnhfy 5 mg/100 mL piggyback 1 ea IV ONCE 365 Days Qty: 100 0RF metronidazole [Metrogel Vaginal] 0.75 % gel 1 appful vaginal BEDTIME 5 Days Qty: 70 0RF cholecalciferol (vitamin D3) 50 mcg (2,000 unit) tablet 50 mcg PO DAILY 30 Days Qty: 30 3RF omeprazole 40 mg capsule,delayed release(DR/EC) 40 mg PO DAILY 90 Days Qty: 90 2RF prednisone 5 mg tablet 10 mg PO DAILY 40 Days Qty: 80 1RF Rx Instructions: Take 2 tablets by mouth daily along with two 1mg tablets for total dose of 12 mg daily prednisone 1 mg tablet 2 mg PO DAILY 40 Days Qty: 80 1RF Rx Instructions: Take 2 tablets by mouth daily along with two 5mg tablets for total dose of 12mg daily mercaptopurine 50 mg tablet 50 mg PO DAILY Qty: 30 0RF ondansetron HCl [Zofran] 4 mg tablet 4 mg PO Q6H PRN (Reason: nausea and vomiting) Qty: 14 0RF doxycycline hyclate 100 mg capsule 100 mg PO BID 10 Days Qty: 20 0RF fluoxetine 40 mg capsule 40 mg PO DAILY 0RF thiamine HCl (vitamin B1) 100 mg tablet 100 mg PO DAILY 0RF trazodone 100 mg tablet 100 mg PO DAILY 0RF Ca-D3-mag mc-hnef-emd-farrukh-bor [Calcium 600-D3 Plus (mag-zinc)] 600 mg calcium- 800 unit-50 mg tablet PO 0RF ascorbic acid (vitamin C) 1,000 mg tablet 1 g PO DAILY 0RF fluconazole 150 mg tablet 150 mg PO DAILY Qty: 1 0RF miconazole nitrate [Miconazole-7] 2 % cream 1 appful vaginal BEDTIME 7 Days Qty: 45 3RF calcium carbonate-vitamin D3 600 mg-20 mcg (800 unit) tablet 1 tab PO DAILY 0RF sodium chloride [[place] Nasal] 0.65 % aerosol,spray 2 spray intranasal QID PRN (Reason: dry nasal passages) Qty: 104 0RF Referrals: Sadia Jacobo MD [Physician] - 2 days (Abdominal pain, gastroparesis versus gastric outlet obstruction, esophagitis) Interventions: ED Discharge Assessment Last Done: 09/05/21 00:17 Discharge Date/Time: 09/05/21 00:20
[2021-09-04 23:58] VITALS: BP 126/79; PULSE 75; RESP 18; TEMP 36.5; O2SAT 99
== END 2021-09-05 00:20 | disposition home or self-care (01) ==
PROVIDERS: Emergency Provider Emergency Medicine; PCP Internal Medicine
DX: E11.43 Type 2 diabetes mellitus with diabetic autonomic (poly)neuropathy (principal); K31.84 Gastroparesis; K21.00 Gastro-esophageal reflux disease with esophagitis, without bleeding; D25.9 Leiomyoma of uterus, unspecified
CPT/HCPCS: 36415; 74176; 80048; 80076; 81001; 83690; 85025; 99284

== ENCOUNTER → 2021-09-19 09:23 | Outpatient (BNVA) | payer OTHER, SELFPAY | PROVIDERS: PCP Internal Medicine; Referring Provider Internal Medicine; Visit Provider Internal Medicine Gastroenterology | DX: R10.9 Unspecified abdominal pain (principal); K29.70 Gastritis, unspecified, without bleeding | CPT/HCPCS: 99212 ==

== ENCOUNTER 2021-09-22 09:39 | Outpatient (REF) | payer OTHER, SELFPAY ==
[2021-09-22 09:50] LABS: MANUAL DIFF FLAG NO
[2021-09-22 10:03] LABS: Basophils Percent Auto 0.5 % (0-2); Eosinophils Percent Auto 0.5 % (0-4); Hematocrit 44.5 % (37.0-47.0); Hemoglobin 14.7 g/dl (12.0-16.0); Imm Gran Abs Auto 0.03 X10*3/uL (0.00-0.03); Imm Gran Pct Auto 0.5 % (0.0-0.4); Lymphocytes Absolute Auto 2.2 X10*3/uL (1.2-4.9); Lymphocytes Percent Auto 34.4 % (20-40); Mean Corpuscular Volume 96.9 fL (80.0-98.0); Mean Platelet Volume 10.8 fL (9.4-12.3); Monocytes Absolute Auto 0.5 X10*3/uL (0.1-1.2); Monocytes Percent Auto 7.7 % (2-11); Neutrophils Absolute Auto 3.7 x10*3/uL (2.0-8.3); Neutrophils Percent Auto 56.4 % (45-73); Platelet Count 192 X10*3/uL (160-400); Red Blood Count 4.59 X10*6/uL (4.20-5.50); Red Cell Distribution Width 15.7 % (11.0-16.0); White Blood Count 6.5 X10*3/uL (4.8-10.8)
[2021-09-22 10:05] LABS: INTERNATIONAL NORM RATIO 1.1 (0.9-1.1); Prothrombin Time 12.1 SEC (9.9-13.0)
[2021-09-22 10:27] LABS: Alanine Aminotransferase 61 U/L (0-31); Alkaline Phosphatase 87 U/L (39-117); Anion Gap 12 (12-20); Aspartate Amino Transferase 35 U/L (5-31); Bilirubin Total 0.6 mg/dL (0.0-1.0); Blood Urea Nitrogen 12 mg/dL (9-16); Calcium 9.3 mg/dL (8.4-10.2); Carbon Dioxide 27 mmol/L (22-29); Chloride 107 mmol/L (96-108); Estimated Glomerular Filt Rate > 60; Glucose Random 97 mg/dL (60-115); Potassium 3.7 mmol/L (3.3-5.1); Sodium 142 mmol/L (135-145)
== END 2021-09-22 09:40 | disposition home or self-care (01) ==
LOC: HO.LAB 09:39
PROVIDERS: PCP Internal Medicine; Visit Provider Internal Medicine Gastroenterology
DX: K29.70 Gastritis, unspecified, without bleeding (principal); R10.9 Unspecified abdominal pain; K75.81 Nonalcoholic steatohepatitis (NASH); Z79.01 Long term (current) use of anticoagulants
CPT/HCPCS: 36415; 80053; 85025; 85610

== ENCOUNTER 2021-09-22 23:21 | Emergency (ER) | payer OTHER, SELFPAY ==
--- NOTE | ~2021-09-22 | XR_ITS ---
EXAMINATION: XR HAND, LEFT CLINICAL INFORMATION: Finger pain COMPARISON: None TECHNIQUE: PA, lateral, and oblique views of the left hand. FINDINGS: There is a spiral comminuted fracture through the distal phalanx of the fourth digit. There is ventral displacement of the large fracture fragment seen on the lateral radiograph. Fracture does not involve the joint space. The bones and soft tissues are otherwise normal. No other fracture. Alignment is anatomic. Joint spaces are maintained. No erosions or soft tissue calcifications. XR/XR hand LT min 3V IMPRESSION: Fracture of the distal phalanx fourth digit.
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
[2021-09-22 23:52] VITALS: BP 120/74; BP 160/108; PULSE 105; PULSE 110; RESP 18; TEMP 36.6; O2SAT 96; O2SAT 98; BMI 36.6
[2021-09-23 00:28] LABS: MANUAL DIFF FLAG NO
[2021-09-23 00:31] LABS: Basophils Percent Auto 0.2 % (0-2); Eosinophils Percent Auto 0.1 % (0-4); Hematocrit 42.7 % (37.0-47.0); Hemoglobin 14.2 g/dl (12.0-16.0); Imm Gran Abs Auto 0.04 X10*3/uL (0.00-0.03); Imm Gran Pct Auto 0.5 % (0.0-0.4); Lymphocytes Absolute Auto 1.7 X10*3/uL (1.2-4.9); Lymphocytes Percent Auto 20.9 % (20-40); Mean Corpuscular HGB Conc 33.3 g/dl (31.0-35.0); Mean Corpuscular Hemoglobin 31.8 pg (27.0-33.0); Mean Corpuscular Volume 95.7 fL (80.0-98.0); Mean Platelet Volume 10.5 fL (9.4-12.3); Monocytes Absolute Auto 0.8 X10*3/uL (0.1-1.2); Monocytes Percent Auto 9.2 % (2-11); Neutrophils Absolute Auto 5.6 x10*3/uL (2.0-8.3); Neutrophils Percent Auto 69.1 % (45-73); Platelet Count 184 X10*3/uL (160-400); Red Blood Count 4.46 X10*6/uL (4.20-5.50); White Blood Count 8.2 X10*3/uL (4.8-10.8)
[2021-09-23 00:52] LABS: Alanine Aminotransferase 74 U/L (0-31); Albumin Level 4.2 g/dL (3.5-5.0); Alkaline Phosphatase 101 U/L (39-117); Anion Gap 16 (12-20); Aspartate Amino Transferase 46 U/L (5-31); Bilirubin Total 0.5 mg/dL (0.0-1.0); Blood Urea Nitrogen 19 mg/dL (9-16); Calcium 9.6 mg/dL (8.4-10.2); Carbon Dioxide 26 mmol/L (22-29); Chloride 105 mmol/L (96-108); Creatinine Clr Calc Pharmacy 79.8; Estimated Glomerular Filt Rate 53; Glucose Random 102 mg/dL (60-115); Lipase 56 U/L (8-78); Potassium 4.4 mmol/L (3.3-5.1); Sodium 143 mmol/L (135-145); Total Protein 7.2 g/dL (6.5-8.0)
--- NOTE | 2021-09-23 02:20 | PC.NURSE ---
pt a&o, no sob or chest pain. Pt given a finger splint. Reviewed discharge instruction with patient and medication. Pt verbalized understanding. Reported to IAN Enrique
== END 2021-09-23 02:25 | disposition home or self-care (01) ==
PROVIDERS: Emergency Provider Emergency Medicine; PCP Internal Medicine
DX: S62.635A Displaced fracture of distal phalanx of left ring finger, initial encounter for closed fracture (principal); Y04.2XXA Assault by strike against or bumped into by another person, initial encounter; Y93.89 Activity, other specified; Y92.038 Other place in apartment as the place of occurrence of the external cause; Y99.9 Unspecified external cause status; Z72.89 Other problems related to lifestyle; Z59.2 Discord with neighbors, lodgers and landlord
CPT/HCPCS: 29130; 36415; 73130; 80053; 83690; 85025; 99283

== ENCOUNTER 2021-10-09 08:59 | Day surgery (SDC) | payer OTHER, SELFPAY ==
--- NOTE | 2021-10-08 11:58 | HO.ANESPROP2 ---
Documented by User: Geena Bass NP 10/08/21 12:01 HPI - Anesthesia Eval Consult details Narrative: 51yo M for Upper Endoscopy ? daily prednisone for autoimmune PMFSH Active Problems Active Problems: All Active Problems (Updated 10/03/21 @ 14:01 by Lurdes Walker, IAN) Palpitations (Acute) Non-cardiac chest pain (Acute) Right knee pain (Acute) Primary osteoarthritis of right knee (Acute) History of dysuria (Acute) Steroid long-term use (Acute) Breast screening (Acute) Right knee pain (Acute) Women's annual routine gynecological examination (Acute) Vaginal itching (Acute) Cervical cancer screening (Acute) Hospital discharge follow-up (Acute) Gastroparesis (Acute) Chronic esophagitis (Acute) Gastritis (Acute) Gastric bezoar (Acute) Abdominal pain (Acute) Fracture of distal phalanx of left ring finger (Acute) Hordeolum externum right upper eyelid (Acute) Difficulty sleeping (Acute) Depression, major, recurrent (Acute) Knee pain, right (Acute) Autoimmune liver disease (Acute) Headache syndrome (Acute) Past Medical History Medical History Arthritis Atypical chest pain Autoimmune liver disease Depression, major, recurrent Difficulty sleeping GERD (gastroesophageal reflux disease) Headache syndrome Hordeolum externum right upper eyelid Knee pain, right Osteoporosis Family History Family History Father CVD (cardiovascular disease) Mother Breast cancer Leukemia CVD (cardiovascular disease) Brother No problems noted. Brother No problems noted. Sister No problems noted. Son No problems noted. Daughter No problems noted. Daughter No problems noted. Daughter No problems noted. Maternal Aunt Breast cancer Surgical History Surgical History H/O colonoscopy History of cholecystectomy History of esophagogastroduodenoscopy (EGD) History of liver biopsy History of surgery History of tubal ligation Hx of appendectomy Social History Social History Household Members: Children Housing: Apartment Alcohol intake: current Alcohol intake frequency: does not drink Patient Tobacco Use Status: Never used Tobacco Use of substances other than those prescribed or required for medical reasons: No Are you DNR?: No Advance Directives: No Advance Directives Information Provided: Yes Current occupational status: disabled Cognitive needs: No Hearing needs: No Vision needs: No Meds Allergies Allergy/AdvReac Type Severity Reaction Status Date / Time Penicillins [PENICILLINS] Allergy Severe RASH Verified 10/09/21 09:34 Iodinated Contrast Media Allergy Intermediate RASH Verified 10/09/21 09:34 [Iodinated Contrast Media - IV Dye] meperidine [From DEMEROL] Allergy Intermediate RASH Verified 10/09/21 09:34 aspirin [ASA] Allergy Mild RASH, N/V Verified 10/09/21 09:34 Contrast Dye Allergy Unknown unknown, Verified 10/09/21 09:34 vomiting penicillin V Allergy Unknown N/V, rash Verified 10/09/21 09:34 tramadol [TRAMADOL] Allergy Unknown RASH Verified 10/09/21 09:34 Home Medications Medication Instructions Recorded Confirmed Last Taken Type fluoxetine 40 mg capsule 40 mg PO DAILY 05/14/20 10/03/21 Unknown History trazodone 100 mg tablet 100 mg PO DAILY 05/14/20 10/03/21 Unknown History calcium carbonate 600 mg-vitamin 1 tab PO DAILY 06/02/21 10/03/21 Unknown History D3 20 mcg (800 unit) tablet Exam Exam Date and Time: October 08, 2021 1158 Pertinent Lab Results Pertinent Lab Results: Laboratory Tests 09/23/21 09/23/21 00:18 00:18 WBC 8.2 Hgb 14.2 Hct 42.7 Plt Count 184 Sodium 143 Potassium 4.4 Chloride 105 Carbon Dioxide 26 BUN 19 H D Creatinine 1.08 Narrative Narrative: EKG 05/2021 Vent. Rate : 089 BPM ? ? Atrial Rate : 089 BPM ?? P-R Int : 142 ms? QRS Dur : 090 ms ? ? QT Int : 380 ms ? ? ? P-R-T Axes : 033 034 024 degrees ?? QTc Int : 462 ms ? Normal sinus rhythm Normal ECG When compared with ECG of 16-OCT-2020 03:28, No significant change was found Assessment and Plan Assessment Anesthesia Assessment: Chart Reviewed Documented by User: Maddie Aguilera MD 10/09/21 09:50 [facility] Past Medical History Medical History Arthritis Atypical chest pain Autoimmune liver disease Depression, major, recurrent Difficulty sleeping GERD (gastroesophageal reflux disease) Headache syndrome Hordeolum externum right upper eyelid Knee pain, right Osteoporosis Functional capacity: independent ambulation Patient : No Family History Family History Father CVD (cardiovascular disease) Mother Breast cancer Leukemia CVD (cardiovascular disease) Brother No problems noted. Brother No problems noted. Sister No problems noted. Son No problems noted. Daughter No problems noted. Daughter No problems noted. Daughter No problems noted. Maternal Aunt Breast cancer Surgical History Surgical History H/O colonoscopy History of cholecystectomy History of esophagogastroduodenoscopy (EGD) History of liver biopsy History of surgery History of tubal ligation Hx of appendectomy History of Problems with Anesthesia: No Social History Social History Household Members: Children Housing: Apartment Alcohol intake: current Alcohol intake frequency: does not drink Patient Tobacco Use Status: Never used Tobacco Use of substances other than those prescribed or required for medical reasons: No Are you DNR?: No Advance Directives: No Advance Directives Information Provided: Yes Current occupational status: disabled Cognitive needs: No Hearing needs: No Vision needs: No Meds Allergies Allergy/AdvReac Type Severity Reaction Status Date / Time Penicillins [PENICILLINS] Allergy Severe RASH Verified 10/09/21 09:34 Iodinated Contrast Media Allergy Intermediate RASH Verified 10/09/21 09:34 [Iodinated Contrast Media - IV Dye] meperidine [From DEMEROL] Allergy Intermediate RASH Verified 10/09/21 09:34 aspirin [ASA] Allergy Mild RASH, N/V Verified 10/09/21 09:34 Contrast Dye Allergy Unknown unknown, Verified 10/09/21 09:34 vomiting penicillin V Allergy Unknown N/V, rash Verified 10/09/21 09:34 tramadol [TRAMADOL] Allergy Unknown RASH Verified 10/09/21 09:34 Home Medications Medication Instructions Recorded Confirmed Last Taken Type fluoxetine 40 mg capsule 40 mg PO DAILY 05/14/20 10/03/21 Unknown History trazodone 100 mg tablet 100 mg PO DAILY 05/14/20 10/03/21 Unknown History calcium carbonate 600 mg-vitamin 1 tab PO DAILY 06/02/21 10/03/21 Unknown History D3 20 mcg (800 unit) tablet Exam Airway Mallampati Class: II TM Dist: >3cm Neck ROM: Full Heart: RRR Lungs: CTA Assessment and Plan Final Anesthetic Review History of Problems with Anesthesia: No ASA Class: II Final Preanesthetic Review: No Changes in Pt Med Stat, Meds/Allgs Chart Reviewed, Consent Obtained/Reviewed and Anes Risks/Benef Reviewed Patient Risk: Low Procedure Risk: Low Anesthetic Plan Anesthetic Plan: MAC: Disposition: Standard PACU
[2021-10-09 09:19] VITALS: BMI 36.5
[2021-10-09 09:38] VITALS: BP 136/81; PULSE 78; RESP 16; TEMP 36.3; O2SAT 99
[2021-10-09] MEDS: Lactated Ringers 1,000 ML 100 ML IVCONT (09:53)
--- NOTE | 2021-10-09 10:15 | MHC.SHP ---
Pre-Procedural Eval Section A Date of Service: 10/09/21 The patient is an INPATIENT: No The History & Physical has been completed within 30 days and I have reviewed it.: Yes Section B Chief Complaint: Epigastric pain Allergies: Allergies Allergy/AdvReac Type Severity Reaction Status Date / Time Penicillins [PENICILLINS] Allergy Severe RASH Verified 10/09/21 09:34 Iodinated Contrast Media Allergy Intermediate RASH Verified 10/09/21 09:34 [Iodinated Contrast Media - IV Dye] meperidine [From DEMEROL] Allergy Intermediate RASH Verified 10/09/21 09:34 aspirin [ASA] Allergy Mild RASH, N/V Verified 10/09/21 09:34 Contrast Dye Allergy Unknown unknown, Verified 10/09/21 09:34 vomiting penicillin V Allergy Unknown N/V, rash Verified 10/09/21 09:34 tramadol [TRAMADOL] Allergy Unknown RASH Verified 10/09/21 09:34 Plan Diagnosis/Plan: Unchanged I have reviewed the history and physical and performed a pertinent physical examination on my patient. No changes have occurred unless specified.
--- NOTE | 2021-10-09 10:18 | P.OP_ITS ---
Operative Note Operative Note Date of Service: 10/09/21 Narrative: Procedure Description: EGD Indication: epigastric pain, abn CT imaging Anesthesia: MAC FLEXIBLE TRANSORAL UPPER GASTROINTESTINAL ENDOSCOPY UPPER ENDOSCOPY Consent: Indications for the procedure and potential complications of bleeding, perforation, reaction to medications and missed diagnosis were discussed with the patient and informed consent was obtained. Instrument: Olympus GIF H 190 J mid size upper endoscope Monitoring: Vital signs and clinical assessment, continuous EKG monitoring, Pulse oximetry, Carbon Dioxide monitoring and blood pressure monitoring were done throughout the procedure. Procedure: The patient was placed in the left lateral decubitis position and pre-procedure medications were administered and a bite block was placed. The endoscope was inserted into the mouth and advanced under direct vision to the third part of duodenum. A careful inspection was made as the upper endoscope was withdrawn including a retroflexed examination of the proximal stomach; Findings and interventions are described below. Findings: Larynx: Esophagus: GE junction at 35 cm, diaphragm hiatus at 37 cm consistent with 2 cm hiatal hernia. No esophagitis or Dial?s. Grade I varices noted, 2 columns which collapsed with air insufflation Stomach: Mild gastric erythema chacho in cardia, there were 4 inflammed polypoid l esions which were 8-9 mm and removed with cold snare. These also had erosions on the surface of them. Biopsies were also obtained. Grade 2 flap valve on retroflexed examination of the cardia. No bezoar or mass lesions seen. Duodenum: Normal bulb and descending duodenum. Intervention: Biopsies as noted above, snare polypectomy Impression and Post Procedure Diagnosis: Endoscopy Findings: esophageal varices gastritis polyps hiatal hernia PLAN: confirm if taking sucralfate, can also try alternative PPI if Bx neg for H pylori then stop PPI for 2 weeks and check for H pylori with breath test
--- NOTE | 2021-10-09 10:18 | P.BOP_ITS ---
Brief Operative Note Date of Service: 10/09/21 Pre-op diagnosis: epigastric pain, abn CT imaging Post-op diagnosis: same Procedure: see op note Surgeon: Sadia Jacobo MD Anesthesia: MAC Was an Coordinator [employer] used for this Procedure?: No Estimated blood loss (mL): 0 Condition: stable Disposition: PACU
[2021-10-09 10:46] VITALS: BP 128/81; PULSE 85; RESP 16; TEMP 36.1; O2SAT 99
[2021-10-09 11:04] VITALS: BP 136/94; PULSE 86; RESP 16; TEMP 36.5; O2SAT 99
[2021-10-09 11:16] VITALS: BP 143/87; PULSE 71; RESP 16; O2SAT 99
[2021-10-09 11:31] VITALS: BP 145/83; PULSE 71; RESP 16; TEMP 36.2; O2SAT 97
--- NOTE | 2021-10-09 12:20 | HO.POSTANES ---
Post Anesthesia Evaluation Post Anesthesia Evaluation Vital Signs: Vital Signs Temp Pulse Resp BP Pulse Ox 10/09/21 11:31 97.2 F 71 16 145/83 H 97 10/09/21 11:16 71 16 143/87 H 99 10/09/21 11:04 97.7 F 86 16 136/94 H 99 10/09/21 10:46 97 F 85 16 128/81 99 10/09/21 09:38 97.3 F 78 16 136/81 99 Anesthesia: Monitored Mental Status: Awake Pain Control: Satisfactory Nausea/Vomiting: None Hydration: Adequate Anesthesia-Related Issues: No Anes. Related Issues
== END 2021-10-09 12:00 | disposition home or self-care (01) ==
PROVIDERS: PCP Internal Medicine; Visit Provider Internal Medicine Gastroenterology
PROC: 0DJ08ZZ Inspection of Upper Intestinal Tract, Via Natural or Artificial Opening Endoscopic (ICD-10-PCS; CPT 43235; principal; 2021-10-09 11:10)
DX: I85.00 Esophageal varices without bleeding (principal); K29.50 Unspecified chronic gastritis without bleeding; K31.7 Polyp of stomach and duodenum; K44.9 Diaphragmatic hernia without obstruction or gangrene; K21.9 Gastro-esophageal reflux disease without esophagitis; K76.89 Other specified diseases of liver; M81.0 Age-related osteoporosis without current pathological fracture; F32.9 Major depressive disorder, single episode, unspecified; Z79.1 Long term (current) use of non-steroidal anti-inflammatories (NSAID); Z79.52 Long term (current) use of systemic steroids; Z79.899 Other long term (current) drug therapy; Z88.0 Allergy status to penicillin; Z88.8 Allergy status to other drugs, medicaments and biological substances; Z91.041 Radiographic dye allergy status; Z90.49 Acquired absence of other specified parts of digestive tract
CPT/HCPCS: 43251; 43239; 88305; 88342

== ENCOUNTER → 2021-10-14 10:27 | Outpatient (BNVA) | payer OTHER, SELFPAY | PROVIDERS: PCP Internal Medicine; Visit Provider Nurse Practitioner Family | DX: G43.009 Migraine without aura, not intractable, without status migrainosus (principal); M54.2 Cervicalgia; R20.1 Hypoesthesia of skin | CPT/HCPCS: 99202 ==

== ENCOUNTER 2021-10-16 09:36 | Outpatient (REF) | payer OTHER, SELFPAY ==
--- NOTE | ~2021-10-16 | XR_ITS ---
EXAMINATION: XR CERVICAL SPINE CLINICAL INFORMATION: Cervicalgia COMPARISON: None TECHNIQUE: 6 views of the cervical spine, inclusive of flexion and extension views, were obtained. FINDINGS: The cervical spine is visualized in its entirety. There is mild retrolisthesis of C5 on C6. Alignment is otherwise unremarkable. There is no appreciable change in alignment with flexion positioning, however, there is reduced retrolisthesis at the C5/6 level with extension positioning. Normal C1/2 articulation. Cervical vertebral body heights are maintained. Disc spaces demonstrate mild to moderate narrowing diffusely. There are osteophytes present throughout the cervical spine, most prominent at the C5/6 level. There is no prevertebral soft tissue swelling. Visualized lung apices are well aerated. XR/XR cervical spine w flex/ext IMPRESSION: -Mild to moderate diffuse degenerative changes of the cervical spine -No compression deformity. -There is mild retrolisthesis of C5 on C6 which is reduced with extension positioning. There is no appreciable change in alignment with flexion positioning.
== END 2021-10-16 09:37 | disposition home or self-care (01) ==
LOC: HO.XRAY 09:36
PROVIDERS: PCP Internal Medicine; Visit Provider Nurse Practitioner Family
DX: M54.2 Cervicalgia (principal)
CPT/HCPCS: 72052

== ENCOUNTER 2021-10-20 07:15 | Emergency (ER) | payer OTHER, SELFPAY ==
--- NOTE | ~2021-10-20 | CT_ITS ---
EXAMINATION: CT ABDOMEN AND PELVIS WITHOUT CONTRAST CLINICAL INFORMATION: Abdominal pain and vomiting. COMPARISON: CT of the abdomen and pelvis done on 09/04/2021 and 10/16/2020. TECHNIQUE: Multidetector volumetric imaging was performed from the superior aspect of the liver through the pubic symphysis. Sagittal and coronal reformatted images were obtained on the technologist's workstation. This CT examination was performed using dose optimization techniques as appropriate, variously including the following: *Automated exposure control *Adjustment of mA and/or kV according to patient size (this includes techniques or standardized protocols for targeted exams where dose is matched to indication/reason for exam; i.e. extremities or head) *Use of iterative reconstruction technique DLP: 972 mGy-cm FINDINGS: LUNG BASES: The visualized lung bases are unremarkable. LIVER, GALLBLADDER, AND BILIARY TREE: Persistent pneumobilia involving the left lobe of the liver, appear similar to prior study dated 10/16/2020 and appear to have increased since 09/04/2021. Postsurgical changes are noted around the gallbladder bed. The liver parenchyma grossly appear unremarkable on this nonenhanced study, unchanged. PANCREAS: Unremarkable. SPLEEN: Unremarkable. ADRENAL GLANDS: Unremarkable. KIDNEYS AND URETERS: The kidneys are normal in size, shape, and attenuation. No hydronephrosis, hydroureter, or calculi seen. No perinephric stranding. BLADDER: Unremarkable. GASTROINTESTINAL TRACT: The small, large bowel loops are decompressed. Postsurgical changes are noted within the small bowel left mid abdomen. Nonvisualized appendix without any inflammatory changes around the cecum. Small sliding hiatal hernia, unchanged. ABDOMINAL WALL: No significant hernia is appreciated. LYMPH NODES: There are no pathologically enlarged retroperitoneal, mesenteric, pelvic and/or groin lymphadenopathy present, unchanged. VASCULAR: Unremarkable. PELVIC VISCERA: There is no pelvic mass present. No evidence of any free fluid and/or free air. OSSEOUS STRUCTURES: No suspicious focal lesion. CT/CT abdomen pelvis wo con IMPRESSION: No CT evidence of any acute intra-abdominal and/or intrapelvic pathology is present. Persistent pneumobilia involving the left lobe of the liver, appear similar to prior study dated 10/16/2020 and has increased since the most recent prior study dated 09/04/2021. Fleischner guidelines were followed.
[2021-10-20 07:22] VITALS: BP 116/70; BP 118/72; PULSE 107; PULSE 110; RESP 18; TEMP 37.9; O2SAT 100; O2SAT 97; BMI 36.5
[2021-10-20 07:33] LABS: MANUAL DIFF FLAG NO
[2021-10-20 07:58] LABS: Anion Gap 14 (12-20); Blood Urea Nitrogen 13 mg/dL (9-16); Calcium 8.7 mg/dL (8.4-10.2); Carbon Dioxide 23 mmol/L (22-29); Chloride 107 mmol/L (96-108); Creatinine Clr Calc Pharmacy 121.1; Estimated Glomerular Filt Rate > 60; Glucose Random 95 mg/dL (60-115); Lipase 42 U/L (8-78); Potassium 3.1 mmol/L (3.3-5.1); Sodium 141 mmol/L (135-145)
[2021-10-20 08:07] LABS: Basophils Percent Auto 0.3 % (0-2); Eosinophils Percent Auto 0.3 % (0-4); Hematocrit 37.5 % (37.0-47.0); Hemoglobin 12.9 g/dl (12.0-16.0); Imm Gran Abs Auto 0.07 X10*3/uL (0.00-0.03); Lymphocytes Absolute Auto 0.4 X10*3/uL (1.2-4.9); Lymphocytes Percent Auto 5.1 % (20-40); Mean Corpuscular HGB Conc 34.4 g/dl (31.0-35.0); Mean Corpuscular Hemoglobin 32.5 pg (27.0-33.0); Mean Corpuscular Volume 94.5 fL (80.0-98.0); Mean Platelet Volume 11.2 fL (9.4-12.3); Monocytes Absolute Auto 0.6 X10*3/uL (0.1-1.2); Monocytes Percent Auto 8.1 % (2-11); Neutrophils Percent Auto 85.2 % (45-73); Platelet Count 123 X10*3/uL (160-400); Red Blood Count 3.97 X10*6/uL (4.20-5.50); Red Cell Distribution Width 15.9 % (11.0-16.0)
--- NOTE | 2021-10-20 08:23 | ED_ITS ---
HPI - Nausea/Vomiting/Diarrhea General Chief complaint: Nausea/Vomiting/Diarrhea Stated complaint: ABD PAIN Time Seen by Provider: 10/20/21 08:20 Source: patient, EMS and park interpreter Mode of arrival: EMS Limitations: no limitations History of Present Illness HPI Narrative: 51-year-old female came in for evaluation of abdominal pain with nausea vomiting. Started few months ago with upper abdominal pain, patient was seen and evaluated by supervisor stripping had upper endoscopy which showed mild gastritis and sto mach polyp that was removed the date of the upper endoscopy was 10/09/2021. Patient woke up this morning with increase upper abdominal pain described as constant pain 10/10, pain is associated with nausea and vomiting. Patient confirm normal bowel movement with passing flatus. No fever, no chills. Past surgical history significant for appendectomy low when she was a child and cholecystectomy at [place] many years ago. Related Data Home Medications Medication Instructions Recorded Confirmed fluoxetine 40 mg capsule 40 mg PO DAILY 05/14/20 10/14/21 trazodone 100 mg tablet 100 mg PO DAILY 05/14/20 10/14/21 calcium carbonate 600 mg-vitamin 1 tab PO DAILY 06/02/21 10/14/21 D3 20 mcg (800 unit) tablet Previous Rx's Medication Instructions Recorded metronidazole 0.75 % vaginal gel 1 appful VAGINAL BEDTIME 5 Days 05/14/21 (Metrogel Vaginal) #70 g omeprazole 40 mg capsule,delayed 40 mg PO DAILY 90 Days #90 cap 07/21/21 release polyethylene glycol 3350 17 17 g PO BID #238 g 09/19/21 gram/dose oral powder (Miralax) sucralfate 100 mg/mL oral 10 ml PO BID #1000 ml 09/19/21 suspension naproxen 500 mg tablet (Naprosyn) 500 mg PO BID #20 tab 09/23/21 baclofen 10 mg tablet 10 mg PO BEDTIME 30 Days #30 tab 10/14/21 magnesium oxide 400 mg (241.3 mg 400 mg PO DAILY 30 Days #30 tab 10/14/21 magnesium) tablet riboflavin (vitamin B2) 400 mg 400 mg PO DAILY 30 Days #30 tab 10/14/21 tablet mercaptopurine 50 mg tablet 50 mg PO DAILY #30 tab 10/17/21 prednisone 1 mg tablet 1 mg PO DAILY 40 Days #40 tab 10/17/21 prednisone 5 mg tablet 10 mg PO DAILY 40 Days #80 tab 10/17/21 Allergies Allergy/AdvReac Type Severity Reaction Status Date / Time Penicillins [PENICILLINS] Allergy Severe RASH Verified 10/14/21 10:36 Iodinated Contrast Media Allergy Intermediate RASH Verified 10/14/21 10:36 [Iodinated Contrast Media - IV Dye] meperidine [From DEMEROL] Allergy Intermediate RASH Verified 10/14/21 10:36 aspirin [ASA] Allergy Mild RASH, N/V Verified 10/14/21 10:36 Contrast Dye Allergy Unknown unknown, Verified 10/14/21 10:36 vomiting penicillin V Allergy Unknown N/V, rash Verified 10/14/21 10:36 tramadol [TRAMADOL] Allergy Unknown RASH Verified 10/14/21 10:36 Review of Systems Review of Systems: All other systems are reviewed and are negative Constitutional: Reports as per HPI and Reports no additional constitutional complaints Eyes: Reports as per HPI and Reports no additional eye complaints Reports system reviewed and no additional complaints, except as documented Cardiovascular: Reports as per HPI and Reports no additional cardiovascular complaints Respiratory: Reports as per HPI and Reports no additional respiratory complaints Gastrointestinal: Reports as per HPI and Reports no additional gastrointestinal complaints Genitourinary: Reports no additional female genitourinary complaints Musculoskeletal: Reports no additional musculoskeletal complaints Skin/Breast: Reports system reviewed and no additional complaints, except as docu Psychiatric: Reports no additional psychiatric complaints Endocrine: Reports no additional endocrine complaints Hematologic/Lymphatic: Reports no additional hematologic/lymphatic complaints Allergic/Immunologic: Reports no additional allergic/immunologic complaints Reports system reviewed and no additional complaints, except as documented and R eports Abnormal speech present [facility] Past Medical History Medical History Arthritis Atypical chest pain Autoimmune liver disease Depression, major, recurrent Difficulty sleeping GERD (gastroesophageal reflux disease) Headache syndrome Hordeolum externum right upper eyelid Knee pain, right Osteoporosis Surgical History H/O colonoscopy History of cholecystectomy History of esophagogastroduodenoscopy (EGD) History of liver biopsy History of surgery History of tubal ligation Hx of appendectomy Family History Family History Father CVD (cardiovascular disease) Mother Breast cancer Leukemia CVD (cardiovascular disease) Brother No problems noted. Brother No problems noted. Sister No problems noted. Son No problems noted. Daughter No problems noted. Daughter No problems noted. Daughter No problems noted. Maternal Aunt Breast cancer Social History Social History Household Members: Children Housing: Apartment Alcohol intake: current Alcohol intake frequency: does not drink Patient Tobacco Use Status: Never used Tobacco Advance Directives: No Advance Directives Information Provided: Yes Patient : No Current occupational status: disabled Cognitive needs: No Hearing needs: No Vision needs: No Physical Exam Vital Signs: Vital Signs: Last Vital Signs Temp 100.3 F 10/20/21 07:22 Pulse 94 10/20/21 13:52 Resp 18 10/20/21 13:52 BP 135/82 10/20/21 13:52 Pulse Ox 100 10/20/21 13:52 BMI result Body Mass Index 36.5 Vital signs have been reviewed as appeared to be correct. Blood pressure normal. Heart rate normal. Respiration rate normal. Temperature normal. Oxygen saturation normal. Appearance: Alert. Oriented X3. No acute distress. Head: Normal external exam. Normocephalic. Atraumatic. No Ya signs noted. No raccoon eyes noted Eyes: PERRLA. EOMI. Conjunctiva and sclera normal. Eyelids normal. ENT: TM's Normal. Pharynx normal. Uvula midline. Moist mucous membranes. No trismus noted. No drooling noted. No muffled voice noted. Neck: Normal inspection. Neck supple. FROM. No adenopathy. Thyroid Normal. No meningeal signs. No neck mass noted. CVS: Normal heart rate and rhythm. Heart sound normal. No murmurs noted. Pulses normal throughout. Respiratory: No respiratory distress. Painless inspiration. Breath sounds normal. No wheezes/rales/rhonchi noted. Chest nontender. No accessory muscle usage noted or decreased air movement noted. Abdomen: Soft, mild epigastric/right upper quadrant tenderness, no rebound tenderness, no guarding. Bowel sounds normal in all 4 quadrants. No distention noted. No organomegaly noted. No visible injury noted. Back: No CVA tenderness. Full range of motion noted. Skin: Skin warm and dry. Normal skin color. Normal skin turgor. No rashes/lesions/lacerations noted. Extremities: No lower extremity edema. Extremities exhibit normal range of motion. Extremities nontender. Neuro: Oriented X 3. Cranial nerve exam: II-XII are grossly intact No motor deficit. No sensory deficit. Reflexes normal. Course Course Course Narrative: Assessment and plan. 51-year-old female came in for acute on chronic abdominal pain nightly secondary to gastritis, patient usually follow up with Dr. Jacobo, came in with worsening of abdominal pain, patient with unremarkable labs except for mild hypokalemia which was replaced orally, otherwise LFTs at her baseline, CT abdomen and pelvis shows no acute pathology, result was reviewed with Dr. Jacobo and patient is okay to be discharged home. Patient found to have positive COVID testing despite patient declined coughing or symptoms of shortness of breath and patient is not hypoxic in the emergency department. Patient also declined sick contact. Patient was instructed to self quarantine for 10 days, use face mask, frequent hand washing, keep social distancing. discharge the patient to follow up with PCP/GI MDM - Nausea/Vomiting/Diarrhea Medical Records Attestation: I reviewed the patient's medical records. Lab Data Attestation: I reviewed the patient's lab results. Result diagrams: 10/20/21 07:29 10/20/21 07:29 Labs: Lab Results 10/20/21 10/20/21 10/20/21 Range/Units 07:29 07:29 11:29 WBC 7.0 (4.8-10.8) X10*3/uL RBC 3.97 L (4.20-5.50) X10*6/uL Hgb 12.9 (12.0-16.0) g/dl Hct 37.5 (37.0-47.0) % MCV 94.5 (80.0-98.0) fL MCH 32.5 (27.0-33.0) pg MCHC 34.4 (31.0-35.0) g/dl RDW 15.9 (11.0-16.0) % Plt Count 123 L D (160-400) X10*3/uL MPV 11.2 (9.4-12.3) fL Immature Gran % (Auto) 1.0 H (0.0-0.4) % Neut % (Auto) 85.2 H (45-73) % Lymph % (Auto) 5.1 L (20-40) % [place] % (Auto) 8.1 (2-11) % Eos % (Auto) 0.3 (0-4) % Baso % (Auto) 0.3 (0-2) % Lymph # (Auto) 0.4 L (1.2-4.9) X10*3/uL [place] # (Auto) 0.6 (0.1-1.2) X10*3/uL Eos # (Auto) 0.0 (0.0-0.4) X10*3/uL Baso # (Auto) 0.0 (0.0-0.2) X10*3/uL Abs Immat Gran (auto) 0.07 H (0.00-0.03) X10*3/uL Absolute Neuts (auto) 6.0 (2.0-8.3) x10*3/uL Absolute Nucleated RBC 0.000 (0.0-0.012) X10*3/uL Nucleated RBC % (auto) 0.0 (0.0-0.2) /100WBC Sodium 141 (135-145) mmol/L Potassium 3.1 L D (3.3-5.1) mmol/L Chloride 107 (96-108) mmol/L Carbon Dioxide 23 (22-29) mmol/L Anion Gap 14 (12-20) BUN 13 (9-16) mg/dL Creatinine 0.71 (0.5-1.4) mg/dL Estim Creat Clear Calc 121.1 Estimated GFR > 60 Random Glucose 95 (60-115) mg/dL Calcium 8.7 D (8.4-10.2) mg/dL Total Bilirubin 0.4 (0.0-1.0) mg/dL Direct Bilirubin 0.2 (0.0-0.5) mg/dL AST 30 (5-31) U/L ALT 48 H (0-31) U/L Alkaline Phosphatase 89 (39-117) U/L Total Protein 6.4 L (6.5-8.0) g/dL Albumin 3.7 (3.5-5.0) g/dL Lipase 42 (8-78) U/L Urine Color YELLOW Urine Appearance CLEAR Urine pH 6.5 (5.0-8.0) Ur Specific [place] 1.010 (1.005-1.025) Urine Protein NEG (NEG-TRACE) MG/DL Urine Glucose (UA) NEG (NEG) MG/DL Urine Ketones NEG (NEG) MG/DL Urine Blood TRACE (NEG) Urine Nitrite NEG (NEG) Ur Leukocyte Esterase NEG (NEG) Urine RBC 5-9 H (0) /HPF Urine WBC 0-2 (0-4) /HPF Ur Squamous Epith Cells TRACE /LPF Urine Bacteria NONE /LPF Urine Mucus TRACE /LPF Urine Test (NEGATIVE) COVID-19 (JAIDA) (Negative) COVID-19 Clin Com 10/20/21 10/20/21 Range/Units 11:29 11:29 WBC (4.8-10.8) X10*3/uL RBC (4.20-5.50) X10*6/uL Hgb (12.0-16.0) g/dl Hct (37.0-47.0) % MCV (80.0-98.0) fL MCH (27.0-33.0) pg MCHC (31.0-35.0) g/dl RDW (11.0-16.0) % Plt Count (160-400) X10*3/uL MPV (9.4-12.3) fL Immature Gran % (Auto) (0.0-0.4) % Neut % (Auto) (45-73) % Lymph % (Auto) (20-40) % [place] % (Auto) (2-11) % Eos % (Auto) (0-4) % Baso % (Auto) (0-2) % Lymph # (Auto) (1.2-4.9) X10*3/uL [place] # (Auto) (0.1-1.2) X10*3/uL Eos # (Auto) (0.0-0.4) X10*3/uL Baso # (Auto) (0.0-0.2) X10*3/uL Abs Immat Gran (auto) (0.00-0.03) X10*3/uL Absolute Neuts (auto) (2.0-8.3) x10*3/uL Absolute Nucleated RBC (0.0-0.012) X10*3/uL Nucleated RBC % (auto) (0.0-0.2) /100WBC Sodium (135-145) mmol/L Potassium (3.3-5.1) mmol/L Chloride (96-108) mmol/L Carbon Dioxide (22-29) mmol/L Anion Gap (12-20) BUN (9-16) mg/dL Creatinine (0.5-1.4) mg/dL Estim Creat Clear Calc Estimated GFR Random Glucose (60-115) mg/dL Calcium (8.4-10.2) mg/dL Total Bilirubin (0.0-1.0) mg/dL Direct Bilirubin (0.0-0.5) mg/dL AST (5-31) U/L ALT (0-31) U/L Alkaline Phosphatase (39-117) U/L Total Protein (6.5-8.0) g/dL Albumin (3.5-5.0) g/dL Lipase (8-78) U/L Urine Color Urine Appearance Urine pH (5.0-8.0) Ur Specific [place] (1.005-1.025) Urine Protein (NEG-TRACE) MG/DL Urine Glucose (UA) (NEG) MG/DL Urine Ketones (NEG) MG/DL Urine Blood (NEG) Urine Nitrite (NEG) Ur Leukocyte Esterase (NEG) Urine RBC (0) /HPF Urine WBC (0-4) /HPF Ur Squamous Epith Cells /LPF Urine Bacteria /LPF Urine Mucus /LPF Urine Test NEGATIVE (NEGATIVE) COVID-19 (JAIDA) Positive A (Negative) COVID-19 Clin Com See Note Imaging Data CT scan - abdomen: Attestation: I personally reviewed and interpreted this imaging study as follows: Radiologist's impression: No CT evidence of any acute intra-abdominal and/or intrapelvic pathology is present. Persistent pneumobilia involving the left lobe of the liver, appear similar to prior study dated 10/16/2020 and has increased since the most recent prior study dated 09/04/2021. ? Discharge Plan Discharge Clinical Impression: Chronic abdominal pain, Chronic gastritis, COVID-19 virus infection Patient Disposition: Home, Self-Care Instructions: Covid-19 Viral Syndrome and Novel Coronavirus (ED) Hey/Ath, Gastritis (ED) Additional Instructions: Self quarantine at home for 2 weeks, use face mask at all times, frequent hand washing, keep social distancing. Prescriptions: No Action metronidazole [Metrogel Vaginal] 0.75 % gel 1 appful vaginal BEDTIME 5 Days Qty: 70 0RF omeprazole 40 mg capsule,delayed release(DR/EC) 40 mg PO DAILY 90 Days Qty: 90 2RF prednisone 5 mg tablet 10 mg PO DAILY 40 Days Qty: 80 1RF Rx Instructions: Take 2 tablets by mouth daily along with two 1mg tablets for total dose of 11 mg daily prednisone 1 mg tablet 1 mg PO DAILY 40 Days Qty: 40 1RF Rx Instructions: Take 1 tablet by mouth daily along with two 5mg tablets for total dose of 11mg daily mercaptopurine 50 mg tablet 50 mg PO DAILY Qty: 30 0RF naproxen [Naprosyn] 500 mg tablet 500 mg PO BID Qty: 20 0RF fluoxetine 40 mg capsule 40 mg PO DAILY 0RF trazodone 100 mg tablet 100 mg PO DAILY 0RF calcium carbonate-vitamin D3 600 mg-20 mcg (800 unit) tablet 1 tab PO DAILY 0RF polyethylene glycol 3350 [Miralax] 17 gram/dose powder 17 g PO BID Qty: 238 1RF sucralfate 100 mg/mL suspension 10 ml PO BID Qty: 1000 0RF magnesium oxide 400 mg (241.3 mg magnesium) tablet 400 mg PO DAILY 30 Days Qty: 30 3RF Rx Instructions: may hold for loose stools riboflavin (vitamin B2) 400 mg tablet 400 mg PO DAILY 30 Days Qty: 30 3RF baclofen 10 mg tablet 10 mg PO BEDTIME 30 Days Qty: 30 3RF Referrals: Luis Angel Almanza MD [Primary Care Provider] - Sadia Jacobo MD [Physician] -
[2021-10-20] MEDS: ondansetron HCL 4 MG/2 ML VIAL IVPUSH (08:28)
[2021-10-20] MEDS: Famotidine/PF 20 MG/2 ML VIAL IVPUSH (08:28)
[2021-10-20] MEDS: 0.9 % Sodium Chloride 1,000 ML 999 ML IV (08:29)
[2021-10-20 08:31] VITALS: BP 111/54; PULSE 109; RESP 20; O2SAT 97
[2021-10-20 11:36] LABS: Appearance Urine CLEAR; Color Urine YELLOW; Glucose Urine UA NEG (NEG); Leukocyte Esterase Urine NEG (NEG); Nitrite Urine NEG (NEG); PH 6.5 (5.0-8.0); UACC Culture Trigger NO; Urine Blood TRACE (NEG); Urine Ketones NEG (NEG); Urine Protein NEG (NEG-TRACE)
[2021-10-20 11:38] LABS: UPreg QC Valid YES; Urine Pregnancy NEGATIVE (NEGATIVE)
[2021-10-20 11:43] VITALS: BP 117/73; PULSE 98; RESP 20; O2SAT 97
[2021-10-20 11:49] LABS: COVID-19 Test Positive (Negative); IDNOW Serial# 55D5AD1C
[2021-10-20 11:53] LABS: Mucus Urine TRACE /LPF; Squamous Epithelial Cell Urine TRACE /LPF; WBC Urine 0-2 /HPF (0-4)
[2021-10-20 13:07] LABS: Alanine Aminotransferase 48 U/L (0-31); Albumin Level 3.7 g/dL (3.5-5.0); Alkaline Phosphatase 89 U/L (39-117); Aspartate Amino Transferase 30 U/L (5-31); Bilirubin Direct 0.2 mg/dL (0.0-0.5); Bilirubin Total 0.4 mg/dL (0.0-1.0); Total Protein 6.4 g/dL (6.5-8.0)
[2021-10-20 13:52] VITALS: BP 135/82; PULSE 94; RESP 18; O2SAT 100
[2021-10-20] MEDS: Potassium Chloride Packet 20 MEQ PACKET 40 MEQ PO (13:52)
== END 2021-10-20 15:05 | disposition home or self-care (01) ==
PROVIDERS: Emergency Provider Emergency Medicine; PCP Internal Medicine
DX: K29.50 Unspecified chronic gastritis without bleeding (principal); G89.29 Other chronic pain; R10.9 Unspecified abdominal pain; U07.1 COVID-19; E87.6 Hypokalemia; Z90.49 Acquired absence of other specified parts of digestive tract
CPT/HCPCS: 36415; 74176; 80048; 80076; 81001; 81025; 83690; 85025; 87635; 96361; 96374; 96375; 99284; J2405

== ENCOUNTER → 2021-11-14 10:39 | Outpatient (BNVA) | payer OTHER, SELFPAY | PROVIDERS: PCP Internal Medicine; Visit Provider Internal Medicine Gastroenterology | DX: K76.89 Other specified diseases of liver (principal) | CPT/HCPCS: 99212 ==

== ENCOUNTER 2021-11-22 10:52 | Outpatient (REF) | payer OTHER, SELFPAY ==
[2021-11-22 11:08] LABS: MANUAL DIFF FLAG NO
[2021-11-22 11:33] LABS: INTERNATIONAL NORM RATIO 1.1 (0.9-1.1)
[2021-11-22 11:48] LABS: Basophils Percent Auto 0.4 % (0-2); Eosinophils Percent Auto 0.5 % (0-4); Hematocrit 39.6 % (37.0-47.0); Hemoglobin 13.1 g/dl (12.0-16.0); Imm Gran Abs Auto 0.03 X10*3/uL (0.00-0.03); Imm Gran Pct Auto 0.4 % (0.0-0.4); Lymphocytes Absolute Auto 1.3 X10*3/uL (1.2-4.9); Lymphocytes Percent Auto 17.9 % (20-40); Mean Corpuscular HGB Conc 33.1 g/dl (31.0-35.0); Mean Corpuscular Hemoglobin 32.7 pg (27.0-33.0); Mean Corpuscular Volume 98.8 fL (80.0-98.0); Mean Platelet Volume 10.9 fL (9.4-12.3); Monocytes Absolute Auto 0.6 X10*3/uL (0.1-1.2); Monocytes Percent Auto 8.1 % (2-11); Neutrophils Absolute Auto 5.3 x10*3/uL (2.0-8.3); Neutrophils Percent Auto 72.7 % (45-73); Platelet Count 203 X10*3/uL (160-400); Red Blood Count 4.01 X10*6/uL (4.20-5.50); Red Cell Distribution Width 14.8 % (11.0-16.0); White Blood Count 7.3 X10*3/uL (4.8-10.8)
[2021-11-22 11:59] LABS: Alanine Aminotransferase 48 U/L (0-31); Albumin Level 3.8 g/dL (3.5-5.0); Alkaline Phosphatase 88 U/L (39-117); Anion Gap 13 (12-20); Aspartate Amino Transferase 36 U/L (5-31); Bilirubin Total 0.8 mg/dL (0.0-1.0); Blood Urea Nitrogen 13 mg/dL (9-16); Calcium 8.7 mg/dL (8.4-10.2); Carbon Dioxide 24 mmol/L (22-29); Chloride 108 mmol/L (96-108); Estimated Glomerular Filt Rate > 60; Glucose Random 97 mg/dL (60-115); Potassium 3.5 mmol/L (3.3-5.1); Sodium 141 mmol/L (135-145); Total Protein 6.7 g/dL (6.5-8.0)
[2021-11-24 10:34] LABS: Folate 11.6 ng/mL (> or = 4.0); Vitamin B12 355 pg/mL (200-900)
[2021-11-27 10:36] LABS: Vitamin A 37 mcg/dL (38-98)
[2021-11-27 20:16] LABS: Nicotinamide <20 ng/mL; Vit B3 - Nicotinic Acid <20 ng/mL
[2021-11-28 15:33] LABS: Vitamin B6 6.9 ng/mL (2.1-21.7)
[2021-11-29 11:27] LABS: Vitamin B5 (Pantothenic Acid) <40 ng/mL (<275)
== END 2021-11-22 10:53 | disposition home or self-care (01) ==
LOC: HO.LAB 10:52
PROVIDERS: PCP Internal Medicine; Visit Provider Internal Medicine Gastroenterology
DX: K76.89 Other specified diseases of liver (principal); K75.81 Nonalcoholic steatohepatitis (NASH)
CPT/HCPCS: 36415; 80053; 82607; 82746; 84207; 84590; 84591; 85025; 85610

== ENCOUNTER → 2022-01-12 10:12 | Outpatient (BNVA) | payer OTHER, SELFPAY | PROVIDERS: PCP Internal Medicine; Visit Provider Internal Medicine Gastroenterology | DX: K76.89 Other specified diseases of liver (principal); K29.70 Gastritis, unspecified, without bleeding; K31.84 Gastroparesis; R10.9 Unspecified abdominal pain; R79.89 Other specified abnormal findings of blood chemistry | CPT/HCPCS: 99212 ==

== ENCOUNTER 2022-01-13 10:34 | Outpatient (REF) | payer OTHER, SELFPAY ==
[2022-01-13 11:00] LABS: MANUAL DIFF FLAG NO
[2022-01-13 11:10] LABS: Basophils Percent Auto 0.4 % (0-2); Eosinophils Percent Auto 0.4 % (0-4); Hematocrit 42.1 % (37.0-47.0); Imm Gran Abs Auto 0.01 X10*3/uL (0.00-0.03); Imm Gran Pct Auto 0.2 % (0.0-0.4); Lymphocytes Absolute Auto 1.8 X10*3/uL (1.2-4.9); Lymphocytes Percent Auto 33.8 % (20-40); Mean Corpuscular HGB Conc 33.3 g/dl (31.0-35.0); Mean Corpuscular Hemoglobin 32.1 pg (27.0-33.0); Mean Corpuscular Volume 96.6 fL (80.0-98.0); Mean Platelet Volume 10.8 fL (9.4-12.3); Monocytes Absolute Auto 0.4 X10*3/uL (0.1-1.2); Monocytes Percent Auto 7.6 % (2-11); Neutrophils Absolute Auto 3.1 x10*3/uL (2.0-8.3); Neutrophils Percent Auto 57.6 % (45-73); Platelet Count 163 X10*3/uL (160-400); Red Blood Count 4.36 X10*6/uL (4.20-5.50); Red Cell Distribution Width 14.6 % (11.0-16.0); White Blood Count 5.4 X10*3/uL (4.8-10.8)
[2022-01-13 11:38] LABS: Prothrombin Time 11.7 SEC (10.0-13.1)
[2022-01-13 11:49] LABS: Alanine Aminotransferase 33 U/L (0-31); Alkaline Phosphatase 75 U/L (39-117); Anion Gap 14 (12-20); Aspartate Amino Transferase 25 U/L (5-31); Bilirubin Total 0.8 mg/dL (0.0-1.0); Blood Urea Nitrogen 14 mg/dL (9-16); Carbon Dioxide 26 mmol/L (22-29); Chloride 106 mmol/L (96-108); Estimated Glomerular Filt Rate > 60; Glucose Random 90 mg/dL (60-115); Lipase 38 U/L (8-78); Potassium 3.6 mmol/L (3.3-5.1); Sodium 142 mmol/L (135-145)
[2022-01-13 12:02] LABS: Appearance Urine CLEAR; Color Urine YELLOW; Glucose Urine UA NEG (NEG); Leukocyte Esterase Urine NEG (NEG); Nitrite Urine NEG (NEG); Specific Gravity - Urine >= 1.030 (1.005-1.025); UACC Culture Trigger NO; Urine Blood 2+ (NEG); Urine Ketones 5 MG/DL (NEG); Urine Protein NEG (NEG-TRACE)
[2022-01-13 12:04] LABS: Ferritin 18 ng/mL (10-250); Vitamin D 25-OH Total 30.3 ng/mL (>30)
[2022-01-13 12:18] LABS: Folate 9.4 ng/mL (> or = 4.0); Vitamin B12 327 pg/mL (200-900)
[2022-01-13 12:19] LABS: Bacteria Urine 2+ /LPF; Mucus Urine 4+ /LPF; Squamous Epithelial Cell Urine 1+ /LPF
[2022-01-14 05:41] LABS: HBS Num1 102.82 mIU/mL (0-7.99); HBc Num1 0.08 S/CO (0.00-0.79); HBsAGNum1 0.19 S/CO (0.00-0.99); Hepatitis A Antibody IgM 0.21 Index (0-0.79); Hepatitis B Core Antibody Nonreactive (Nonreactive); Hepatitis B Surface Antigen Negative (Negative); ~HepC Num1 0.11 S/CO (0.00-0.79); ~Hepatitis A Antibody IgM Nonreactive (Nonreactive); ~Hepatitis B Surface Antibody REACTIVE (Nonreactive); ~Hepatitis C Antibody Nonreactive (Nonreactive)
[2022-01-16 19:57] LABS: Vitamin A 40 mcg/dL (38-98)
[2022-01-17 14:56] LABS: Vitamin C 0.3 mg/dL (0.3-2.7)
[2022-01-20 06:11] LABS: Vitamin B6 9.1 ng/mL (2.1-21.7)
[2022-01-21 10:56] LABS: Vitamin B5 (Pantothenic Acid) <40 ng/mL (<275)
[2022-01-21 13:26] LABS: Nicotinamide <20 ng/mL; Vit B3 - Nicotinic Acid <20 ng/mL
== END 2022-01-13 10:35 | disposition home or self-care (01) ==
LOC: HO.LAB 10:34
PROVIDERS: PCP Internal Medicine; Visit Provider Internal Medicine Gastroenterology
DX: K29.70 Gastritis, unspecified, without bleeding (principal); K31.84 Gastroparesis; K76.89 Other specified diseases of liver; R10.9 Unspecified abdominal pain; K75.81 Nonalcoholic steatohepatitis (NASH); R79.89 Other specified abnormal findings of blood chemistry
CPT/HCPCS: 36415; 80053; 81001; 81003; 82180; 82306; 82607; 82728; 82746; 83690; 84207; 84590; 84591; 85025; 85610; 86704; 86706; 86709; 86803; 87340

== ENCOUNTER 2022-01-13 11:01 | Day surgery (SDC) | payer OTHER, SELFPAY ==
[2022-01-13 11:50] VITALS: BMI 36.6
[2022-01-13 12:05] VITALS: BP 116/76; PULSE 77; RESP 18; TEMP 36.4; O2SAT 98
--- NOTE | 2022-01-13 12:43 | MHC.SHP ---
Pre-Procedural Eval Section A Date of Service: 01/13/22 The patient is an INPATIENT: No The History & Physical has been completed within 30 days and I have reviewed it.: Yes Section B Chief Complaint: abd pain Allergies: Allergies Allergy/AdvReac Type Severity Reaction Status Date / Time Penicillins [PENICILLINS] Allergy Severe RASH Verified 01/12/22 10:24 Iodinated Contrast Media Allergy Intermediate RASH Verified 01/12/22 10:24 [Iodinated Contrast Media - IV Dye] meperidine [From DEMEROL] Allergy Intermediate RASH Verified 01/12/22 10:24 aspirin [ASA] Allergy Mild RASH, N/V Verified 01/12/22 10:24 Contrast Dye Allergy Unknown unknown, Verified 01/12/22 10:24 vomiting penicillin V Allergy Unknown N/V, rash Verified 01/12/22 10:24 tramadol [TRAMADOL] Allergy Unknown RASH Verified 01/12/22 10:24 Plan Diagnosis/Plan: Unchanged I have reviewed the history and physical and performed a pertinent physical examination on my patient. No changes have occurred unless specified.
--- NOTE | 2022-01-13 12:44 | W.PM.OPN ---
Operative Note Operative Note Date of Service: 01/13/22 Narrative: Procedure Description: EGD Indication: abdominal pain Anesthesia: MAC FLEXIBLE TRANSORAL UPPER GASTROINTESTINAL ENDOSCOPY UPPER ENDOSCOPY Consent: Indications for the procedure and potential complications of bleeding, perforation, reaction to medications and missed diagnosis were discussed with the patient and informed consent was obtained. Instrument: Olympus GIF H 190 J mid size upper endoscope Monitoring: Vital signs and clinical assessment, continuous EKG monitoring, Pulse oximetry, Carbon Dioxide monitoring and blood pressure monitoring were done throughout the procedure. Procedure: The patient was placed in the left lateral decubitis position and pre-procedure medications were administered and a bite block was placed. The endoscope was inserted into the mouth and advanced under direct vision to the third part of duodenum. A careful inspection was made as the upper endoscope was withdrawn including a retroflexed examination of the proximal stomach; Findings and interventions are described below. Findings: Larynx:normal Esophagus: GE junction at 33 cm, diaphragm hiatus at 36 cm consistent with 3 cm hiatal hernia, erythema at the GEJ consistent with mild to moderate esophagitis. Grade I varices noted, 2 columns which collapsed with air insufflation Stomach: Mild gastric erythema chacho in proximal stomach body, there were 2 inflammed polypoid lesions which were 8-9 mm and removed with cold snare. one small erosion at the pyloric outlet. Biopsies were also obtained. Grade 2 flap valve on retroflexed examination of the cardia. Small bowel: Normal, bx taken Intervention: Biopsies as noted above, snare polypectomy Impression and Post Procedure Diagnosis: Endoscopy Findings: esophageal varices gastritis esophagitis polyps hiatal hernia PLAN: cont with carafate and do h pylori breath test as planned, can then restart PPI
--- NOTE | 2022-01-13 12:45 | P.CONAN_ITS ---
[facility] Active Problems Active Problems: All Active Problems (Updated 01/12/22 @ 10:44 by Sadia Jacobo MD) Abnormal LFTs (Acute) Hospital discharge follow-up (Acute) Post-COVID syndrome (Acute) Pain in finger of left hand (Acute) COVID-19 virus infection (Acute) Hypoesthesia (Acute) Cervicalgia (Acute) Migraine without aura (Acute) Palpitations (Acute) Non-cardiac chest pain (Acute) Right knee pain (Acute) Primary osteoarthritis of right knee (Acute) History of dysuria (Acute) Steroid long-term use (Acute) Breast screening (Acute) Right knee pain (Acute) Women's annual routine gynecological examination (Acute) Vaginal itching (Acute) Cervical cancer screening (Acute) Hospital discharge follow-up (Acute) Gastroparesis (Acute) Chronic esophagitis (Acute) Gastritis (Acute) Gastric bezoar (Acute) Abdominal pain (Acute) Fracture of distal phalanx of left ring finger (Acute) Hordeolum externum right upper eyelid (Acute) Difficulty sleeping (Acute) Depression, major, recurrent (Acute) Knee pain, right (Acute) Autoimmune liver disease (Acute) Headache syndrome (Acute) Past Medical History Medical History Arthritis Atypical chest pain Autoimmune liver disease Depression, major, recurrent Difficulty sleeping GERD (gastroesophageal reflux disease) Headache syndrome Hordeolum externum right upper eyelid Knee pain, right Osteoporosis Family History Family History Father CVD (cardiovascular disease) Mother Breast cancer Leukemia CVD (cardiovascular disease) Brother No problems noted. Brother No problems noted. Sister No problems noted. Son No problems noted. Daughter No problems noted. Daughter No problems noted. Daughter No problems noted. Maternal Aunt Breast cancer Family history of problems with anesthesia: No Surgical History Surgical History H/O colonoscopy History of cholecystectomy History of esophagogastroduodenoscopy (EGD) History of liver biopsy History of surgery History of tubal ligation Hx of appendectomy History of Problems with Anesthesia: No Social History Social History Household Members: Children Housing: Apartment Alcohol intake: current Alcohol intake frequency: does not drink Patient Tobacco Use Status: Never used Tobacco e-Cigarette/Vaping Use: Never Used Are you DNR?: No Advance Directives: No Advance Directives Information Provided: Yes Nutrition Risks: No Nutritional Risk Current occupational status: disabled Cognitive needs: No Hearing needs: No Vision needs: No Meds Allergies Allergy/AdvReac Type Severity Reaction Status Date / Time Penicillins [PENICILLINS] Allergy Severe RASH Verified 01/12/22 10:24 Iodinated Contrast Media Allergy Intermediate RASH Verified 01/12/22 10:24 [Iodinated Contrast Media - IV Dye] meperidine [From DEMEROL] Allergy Intermediate RASH Verified 01/12/22 10:24 aspirin [ASA] Allergy Mild RASH, N/V Verified 01/12/22 10:24 Contrast Dye Allergy Unknown unknown, Verified 01/12/22 10:24 vomiting penicillin V Allergy Unknown N/V, rash Verified 01/12/22 10:24 tramadol [TRAMADOL] Allergy Unknown RASH Verified 01/12/22 10:24 Active Medications: Current Medications Ondansetron HCl (Ondansetron Hcl 4 Mg/2 Ml Vial) 4 mg IVPUSH ONCE PRN PRN Reason: Nausea and Vomiting Home Medications Medication Instructions Recorded Confirmed Last Taken Type fluoxetine 40 mg capsule 40 mg PO DAILY 05/14/20 10/14/21 Unknown History trazodone 100 mg tablet 100 mg PO DAILY 05/14/20 10/14/21 Unknown History calcium carbonate 600 mg-vitamin 1 tab PO DAILY 06/02/21 10/14/21 Unknown History D3 20 mcg (800 unit) tablet cholecalciferol (vitamin D3) 50 50 mcg PO DAILY 11/14/21 Unknown History mcg (2,000 unit) tablet miconazole nitrate 2 % vaginal 1 appful vaginal BEDTIME 11/14/21 Unknown History cream (Miconazole-7) riboflavin (vitamin B2) 400 mg 100 mg PO DAILY 11/14/21 Unknown History tablet buspirone 5 mg tablet 5 mg PO BID anxiety 01/12/22 Unknown History Exam Exam Date and Time: January 13, 2022 1245 Height,Weight and Vital Signs: Height 5 ft 8 in Weight 109.316 kg Last Vital Signs Temp 97.6 F 01/13/22 12:05 Pulse 77 08/02/22 12:05 Resp 18 01/13/22 12:05 BP 116/76 01/13/22 12:05 Pulse Ox 98 01/13/22 12:05 O2 Del Method 01/13/22 12:05 Airway Mallampati Class: I TM Dist: >3cm Neck ROM: Full Heart: rrr Lungs: clear Assessment and Plan Final Anesthetic Review Family History of Problems with Anesthesia: No History of Problems with Anesthesia: No NPO: Yes ASA Class: II Final Preanesthetic Review: No Changes in Pt Med Stat, Meds/Allgs Chart Reviewed, Consent Obtained/Reviewed and Anes Risks/Benef Reviewed Patient Risk: Intermediate Procedure Risk: Low Anesthetic Plan Anesthetic Plan: MAC: Disposition: Standard PACU
[2022-01-13] MEDS: Lactated Ringers 500 ML 20 ML IVCONT (12:58)
[2022-01-13 13:24] VITALS: BP 116/49; PULSE 91; RESP 17; TEMP 36.1; O2SAT 97
[2022-01-13 13:52] VITALS: BP 121/79; PULSE 81; RESP 17; TEMP 36.1; O2SAT 99
== END 2022-01-13 14:46 | disposition home or self-care (01) ==
PROVIDERS: PCP Internal Medicine; Visit Provider Internal Medicine Gastroenterology
PROC: 0DJ08ZZ Inspection of Upper Intestinal Tract, Via Natural or Artificial Opening Endoscopic (ICD-10-PCS; CPT 43235; principal; 2022-01-13 12:30)
DX: K29.50 Unspecified chronic gastritis without bleeding (principal); K31.7 Polyp of stomach and duodenum; K20.80 Other esophagitis without bleeding; K31.84 Gastroparesis; K44.9 Diaphragmatic hernia without obstruction or gangrene; I85.00 Esophageal varices without bleeding; K21.9 Gastro-esophageal reflux disease without esophagitis; K59.00 Constipation, unspecified; K76.89 Other specified diseases of liver; M81.0 Age-related osteoporosis without current pathological fracture; G44.89 Other headache syndrome; F33.9 Major depressive disorder, recurrent, unspecified; R79.89 Other specified abnormal findings of blood chemistry; Z88.0 Allergy status to penicillin; Z91.041 Radiographic dye allergy status; Z88.8 Allergy status to other drugs, medicaments and biological substances; Z86.16 Personal history of COVID-19
CPT/HCPCS: 43251; 43239; 88305; 88342

== ENCOUNTER → 2022-01-26 07:58 | Outpatient (BNVA) | payer OTHER, SELFPAY | PROVIDERS: PCP Internal Medicine; Referring Provider Internal Medicine; Visit Provider Internal Medicine Gastroenterology | DX: Z11.0 Encounter for screening for intestinal infectious diseases (principal) | CPT/HCPCS: 99211 ==

== ENCOUNTER 2022-01-26 15:53 | Outpatient (REF) | payer OTHER, SELFPAY ==
[2022-01-27 11:20] LABS: H Pylori Breath Test Negative (Negative)
== END 2022-01-26 15:54 | disposition home or self-care (01) ==
LOC: HO.LNP 15:53
PROVIDERS: Visit Provider Internal Medicine Gastroenterology
DX: Z11.0 Encounter for screening for intestinal infectious diseases (principal)
CPT/HCPCS: 83013

== ENCOUNTER 2023-02-11 07:45 | Outpatient (AMB) | payer OTHER, SELFPAY ==
--- NOTE | 2023-02-11 07:58 | A.OFFVIS_ITS ---
Intake Vital Signs 02/11/23 07:59 Height 5 ft 8 in Weight 237 lb 4 oz BMI 36.1 BP 124/82 Blood Pressure Location Rt brachial Position Sitting Pulse 83 Pulse Source Pulse Oximeter Pulse Oximetry (%) 98 Oxygen Delivery Method Room Air Intake Visit Reasons: Follow up - Headache Intake Note: Pt presents as a f/u for headaches. When asked about how pt is doing since last visit pt states bad. the headaches are still strong and not letting me sleep. Shuttle Veneering Supervisor Required: Yes Shuttle Veneering Supervisor Name: Ric [id number] Accompanied by: Daughter Allergies Penicillins [PENICILLINS] Allergy (Severe, Verified 02/11/23 08:06) RASH Iodinated Contrast Media [Iodinated Contrast Media - IV Dye] Allergy (Intermediate, Verified 02/11/23 08:06) RASH meperidine [From DEMEROL] Allergy (Intermediate, Verified 02/11/23 08:06) RASH aspirin [ASA] Allergy (Mild, Verified 02/11/23 08:06) RASH, N/V Contrast Dye Allergy (Unknown, Verified 02/11/23 08:06) unknown, vomiting penicillin V Allergy (Unknown, Verified 02/11/23 08:06) N/V, rash tramadol [TRAMADOL] Allergy (Unknown, Verified 02/11/23 08:06) RASH Medication List - Last Reconciled 02/11/23 by CHARIS Rome baclofen 10 mg PO BEDTIME 30 days buspirone 5 mg PO TID cholecalciferol (vitamin D3) 50 mcg PO DAILY cyclobenzaprine 5 mg PO TID PRN fluoxetine 40 mg PO DAILY gabapentin 300 mg PO BID [magnesium 30 mg PO DAILY] magnesium oxide 400 mg PO DAILY 30 days mercaptopurine 50 mg PO DAILY metronidazole 0.75%(37.5mg/5gram) (Metrogel Vaginal) 1 appful vaginal BEDTIME 5 days miconazole nitrate 2% (Miconazole-7) 1 appful vaginal BEDTIME omeprazole 40 mg PO DAILY 90 days ondansetron 4 mg PO Q8H PRN ondansetron 4 mg PO Q12H polyethylene glycol 3350 (Miralax) 17 grams PO BID prednisone 10 mg (2 x 5 mg) PO DAILY 30 days riboflavin (vitamin B2) 400 mg PO DAILY sucralfate 10 mL PO QID trazodone 100 mg PO DAILY HPI HPI Comments History of Present Illness Details 52-yr-old female presents for f/u visit. Pt is accompanied by her dtr. Pt was last seen here in October 2021. [place] time since the last visit, but has returned to [place]. Pt denies any significant interval medical changes. Pt reports her headaches are worse. She is having left neck pain/pressure which is severe and moves into her face, causing her left lower lip to pull laterally a/w left sided numbness. When her dtr gives her neck massage the lip relaxes. This occurring on and off throughout the day and night. Taking tylenol helps a little. The lip pulling started about a yr ago. She has difficulty explaining, but reports that the neck and facial symptoms seem to overlap with her migraine attacks. These are a/w photophobia, phonophobia, She is not sure if they are 2 separate headaches or just extensions of each other. Previous work-up: 10/2021, ?XR/XR cervical spine w flex/ext IMPRESSION: -Mild to moderate diffuse degenerative changes of the cervical spine -No compression deformity. -There is mild retrolisthesis of C5 on C6 which is reduced with extension positioning. There is no appreciable change in alignment with flexion positioning. PFSH Medical History Arthritis Atypical chest pain Autoimmune liver disease Depression, major, recurrent Difficulty sleeping GERD (gastroesophageal reflux disease) Headache syndrome Hordeolum externum right upper eyelid Knee pain, right Osteoporosis Surgical History H/O colonoscopy History of cholecystectomy History of esophagogastroduodenoscopy (EGD) History of liver biopsy History of surgery History of tubal ligation Hx of appendectomy Family History Father CVD (cardiovascular disease) Mother Breast cancer Leukemia CVD (cardiovascular disease) Brother No problems noted. Brother No problems noted. Sister No problems noted. Son No problems noted. Daughter No problems noted. Daughter No problems noted. Daughter No problems noted. Maternal Aunt Breast cancer Social History Household Members: Children Housing: Apartment Alcohol intake: current Alcohol intake frequency: does not drink Patient Tobacco Use Status: Never used Tobacco e-Cigarette/Vaping Use: Never Used Current occupational status: disabled Cognitive needs: No Hearing needs: No Vision needs: No Review of Systems Const All systems reviewed & are unremarkable except as noted in HPI and below Physical Exam Vital Signs: Last Vital Signs Pulse 83 02/11/23 07:59 BP 124/82 02/11/23 07:59 Pulse Ox 98 02/11/23 07:59 Oxygen Delivery Method Room Air 02/11/23 07:59 BMI result Body Mass Index 36.1 Const General: cooperative and no acute distress Orientation/consciousness: patient oriented x3 HEENT Head: Yes normocephalic Resp Effort & Inspection: normal respiratory effort and able to speak in complete sentences Back/Spine/Pelvis Other: Bilateral posterior cervical tightness and tenderness Cervical ROM: limited Left Spurling: elicits discomfort in bilateral upper traps Right Spurling: elicits discomfort in bilateral upper traps Neuro Other: Left lower facial hemispacial spasm. On cheek puff- mild left cheek quivering. Decreased light touch sensation in left facial, left lateral head, LUE, LLE regions. General: patient oriented x3, gait normal and CN's II-XI intact bilaterally (w/ exception of left lower facial assymetry) Cognition (Neuro): normal cognition Motor exam (neuro): 5/5 motor strength present throughout Deep tendon reflexes (DTR's): Right triceps reflex intensity grade: 2+, Left triceps reflex intensity grade: 2+, Rt Biceps (C5, C6): 2+, Left biceps reflex intensity grade: 2+, Right brachioradialis reflex intensity grade: 2+, Left brachioradialis reflex intensity grade: 2+, Right patellar reflex intensity grade: 2+ and Left patellar reflex intensity grade: 2+ Psych Appearance: grossly normal Mental Status: mental status grossly normal Speech and movement: Normal speech and movement present Affect: normal affect Attitude: cooperative Thought process: Normal thought process present Thought content: Normal thought content present Insight: Good insight present (Psych) Judgement: Good judgement present (Psych) Assessment & Plan Assessment & Plan (1) Hemifacial spasm of left side of face: Code(s): G51.32 - Clonic hemifacial spasm, left (2) Cervicalgia: Code(s): M54.2 - Cervicalgia (3) Hypoesthesia: Comment: left facial/head, LUE, LLE Code(s): R20.1 - Hypoesthesia of skin (4) Headache: Code(s): R51.9 - Headache, unspecified Plan Pt advised to undergo brain MRI w/wo to assess for any cranial nerve compression/inflammation or other central process which may be causing left lower facial hemifascial spasm. Pt advised to undergo c-spine MRI Increase Gabapentin to 300mg qam and 600mg qhs. Start PT. f/u in 3 months or sooner prn. Orders: Orders PT Evaluation and Treatment Today G51.32 - Clonic hemifacial spasm, left, M54.2 - Cervicalgia, R20.1 - Hypoesthesia of skin MR cervical spine wo con Today G51.32 - Clonic hemifacial spasm, left, M54.2 - Cervicalgia, R20.1 - Hypoesthesia of skin MR head/brain wo/w con Today G51.32 - Clonic hemifacial spasm, left, R20.1 - Hypoesthesia of skin, R51.9 - Headache, unspecified Medications: Changed From ondansetron 8 mg PO Q12H 20 tabs 0RF To ondansetron 4 mg PO Q12H Coding Level of Care Code Est Pt Level 4 (39158) Diagnoses Hemifacial spasm of left side of face G51.32 Cervicalgia M54.2 Hypoesthesia R20.1 Headache R51.9
[2023-02-11 07:59] VITALS: BP 124/82; PULSE 83; O2SAT 98; BMI 36.1
== END 2023-02-11 08:55 | disposition home or self-care (01) ==
PROVIDERS: PCP Internal Medicine; Visit Provider Nurse Practitioner Family
DX: G51.32 Clonic hemifacial spasm, left (principal); M54.2 Cervicalgia; R20.1 Hypoesthesia of skin; R51.9 Headache, unspecified
CPT/HCPCS: 99214

== ENCOUNTER → 2023-02-11 07:45 | Outpatient (BNVA) | payer OTHER, SELFPAY | PROVIDERS: PCP Internal Medicine; Visit Provider Nurse Practitioner Family | DX: G51.32 Clonic hemifacial spasm, left (principal); M54.2 Cervicalgia; R20.1 Hypoesthesia of skin; R51.9 Headache, unspecified | CPT/HCPCS: 99212 ==

== ENCOUNTER 2023-02-13 10:08 | Outpatient (REF) | payer OTHER, SELFPAY ==
[2023-02-13 10:17] LABS: MANUAL DIFF FLAG NO
[2023-02-13 10:21] LABS: Basophils Percent Auto 0.5 % (0-2); Eosinophils Percent Auto 0.5 % (0-4); Hemoglobin 14.2 g/dl (12.0-16.0); Imm Gran Abs Auto 0.02 X10*3/uL (0.00-0.03); Imm Gran Pct Auto 0.3 % (0.0-0.4); Lymphocytes Absolute Auto 1.8 X10*3/uL (1.2-4.9); Lymphocytes Percent Auto 30.2 % (20-40); Mean Corpuscular Hemoglobin 32.7 pg (27.0-33.0); Mean Corpuscular Volume 99.1 fL (80.0-98.0); Mean Platelet Volume 10.4 fL (9.4-12.3); Monocytes Absolute Auto 0.5 X10*3/uL (0.1-1.2); Monocytes Percent Auto 8.7 % (2-11); Neutrophils Absolute Auto 3.6 x10*3/uL (2.0-8.3); Neutrophils Percent Auto 59.8 % (45-73); Platelet Count 143 X10*3/uL (160-400); Red Blood Count 4.34 X10*6/uL (4.20-5.50); Red Cell Distribution Width 15.7 % (11.0-16.0)
[2023-02-13 10:34] LABS: Prothrombin Time 11.7 SEC (11.1-13.3)
[2023-02-13 10:56] LABS: Alanine Aminotransferase 51 U/L (0-31); Albumin Level 3.9 g/dL (3.5-5.0); Alkaline Phosphatase 89 U/L (39-117); Anion Gap 15 (12-20); Aspartate Amino Transferase 33 U/L (5-31); Bilirubin Total 0.7 mg/dL (0.0-1.0); Blood Urea Nitrogen 15 mg/dL (9-16); Calcium 9.6 mg/dL (8.4-10.2); Carbon Dioxide 24 mmol/L (22-29); Chloride 108 mmol/L (96-108); Estimated Glomerular Filt Rate > 60; Glucose Random 87 mg/dL (60-115); Potassium 3.9 mmol/L (3.3-5.1); Sodium 143 mmol/L (135-145); Total Protein 7.1 g/dL (6.5-8.0)
== END 2023-02-13 10:09 | disposition home or self-care (01) ==
LOC: HO.LAB 10:08
PROVIDERS: PCP Internal Medicine; Visit Provider Internal Medicine Gastroenterology
DX: R79.89 Other specified abnormal findings of blood chemistry (principal); K75.81 Nonalcoholic steatohepatitis (NASH)
CPT/HCPCS: 36415; 80053; 85025; 85610; 86140

== ENCOUNTER 2023-02-21 11:38 | Emergency (ER) | payer OTHER, SELFPAY ==
--- NOTE | ~2023-02-21 | CT_ITS ---
EXAMINATION: CT HEAD WITHOUT CONTRAST CLINICAL INFORMATION: Hypertension. Headache. COMPARISON: None available. TECHNIQUE: Contiguous axial imaging was performed from the skull base to vertex without intravenous administration of contrast. This CT examination was performed using dose optimization techniques as appropriate, variously including the following: *Automated exposure control *Adjustment of mA and/or kV according to patient size (this includes techniques or standardized protocols for targeted exams where dose is matched to indication/reason for exam; i.e. extremities or head) *Use of iterative reconstruction technique DLP: 677 mGy-cm FINDINGS: There is no evidence of acute intracranial hemorrhage or territorial infarction. Bassett-white matter differentiation is preserved. The ventricles are normal in morphology and size. No evidence for obstructive hydrocephalus. No mass effect or midline shift. No extra-axial fluid collections. Imaged paranasal sinuses and mastoid air cells are clear. The calvarium is intact. CT/CT head/brain wo IV con IMPRESSION: No acute intracranial pathology.
--- NOTE | ~2023-02-21 | CT_ITS ---
EXAMINATION: CT ABDOMEN AND PELVIS WITHOUT CONTRAST CLINICAL INFORMATION: abd distention. COMPARISON: 10/20/2021. TECHNIQUE: Multidetector volumetric imaging was performed from the superior aspect of the liver through the pubic symphysis without contrast per renal stone protocol. Sagittal and coronal reformatted images were obtained on the technologist workstation. This CT examination was performed using dose optimization techniques as appropriate, variously including the following: *Automated exposure control *Adjustment of mA and/or kV according to patient size (this includes techniques or standardized protocols for targeted exams where dose is matched to indication/reason for exam; i.e. extremities or head) *Use of iterative reconstruction technique DLP: 1611 mGy-cm. FINDINGS: LUNG BASES: Minimal dependent atelectasis LIVER, GALLBLADDER, BILIARY TREE: The non-contrast liver is normal in size, shape, and attenuation. No focal hepatic lesion appreciated on this noncontrast study. Biliary ductal air is again noted similar to the prior study consistent with the patient's history of a prior hepaticojejunostomy. The gallbladder is surgically absent. PANCREAS: Unremarkable. SPLEEN: Unremarkable. ADRENAL GLANDS: Unremarkable. KIDNEYS AND URETERS: The kidneys are normal in size, shape, and attenuation. No hydronephrosis, hydroureter, or calculi seen. No perinephric stranding. BLADDER: Unremarkable. GASTROINTESTINAL TRACT: Colon is mostly decompressed. No colonic wall thickening or pericolonic inflammatory change to suggest diverticulitis. The appendix is nonvisualized and presumably surgically absent. Postoperative anastomotic staple line within the small bowel again noted. ABDOMINAL WALL: No significant hernia is appreciated. LYMPHOVASCULAR STRUCTURES: No lymphadenopathy. The aorta is unremarkable.. PELVIC VISCERA: Unremarkable. OSSEUS STRUCTURES: Unremarkable. CT/CT abdomen pelvis wo IV con IMPRESSION: Chronic appearing and postoperative changes similar to the 10/20/2021 study as described above. I do not appreciate any acute intra-abdominal process.
[2023-02-21 11:54] VITALS: BP 137/92; PULSE 92; RESP 18; TEMP 36.6; O2SAT 99; BMI 36.2
--- NOTE | 2023-02-21 11:54 | ED.GENADULT ---
HPI - General Adult General Chief complaint: Abdominal Pain Stated complaint: HBP Time Seen by Provider: 02/21/23 17:13 Related Data Home Medications Medication Instructions Recorded Confirmed fluoxetine 40 mg capsule 40 mg PO DAILY 05/14/20 02/11/23 trazodone 100 mg tablet 100 mg PO DAILY 05/14/20 02/11/23 cholecalciferol (vitamin D3) 50 50 mcg PO DAILY 11/14/21 02/11/23 mcg (2,000 unit) tablet miconazole nitrate 2 % vaginal 1 appful vaginal BEDTIME 11/14/21 02/11/23 cream (Miconazole-7) buspirone 5 mg tablet 5 mg PO TID anxiety 02/11/23 02/11/23 cyclobenzaprine 5 mg tablet 5 mg PO TID PRN 02/11/23 02/11/23 magnesium 30 mg PO DAILY 02/11/23 02/11/23 riboflavin (vitamin B2) 100 mg 400 mg PO DAILY 02/11/23 02/11/23 tablet Previous Rx's Medication Instructions Recorded metronidazole 0.75 % (37.5 mg/5 1 appful vaginal BEDTIME 5 days 05/14/21 gram) vaginal gel (Metrogel #70 grams Vaginal) omeprazole 40 mg capsule,delayed 40 mg PO DAILY 90 days #90 caps 07/21/21 release ondansetron 4 mg disintegrating 4 mg PO Q8H PRN nausea and 10/27/21 tablet vomiting #60 tabs mercaptopurine 50 mg tablet 50 mg PO DAILY #30 tabs 01/12/22 baclofen 10 mg tablet 10 mg PO BEDTIME 30 days #30 tabs 02/02/22 magnesium oxide 400 mg (241.3 mg 400 mg PO DAILY 30 days #30 tabs 02/02/22 magnesium) tablet sucralfate 100 mg/mL oral 10 ml PO QID #1,000 mL 02/20/22 suspension polyethylene glycol 3350 17 17 g PO BID #238 grams 10/29/22 gram/dose oral powder (Miralax) prednisone 5 mg tablet 10 mg (2 x 5 mg) PO DAILY 30 days 02/09/23 #60 tabs gabapentin 300 mg capsule See Rx Instructions PO .COMPLEX 30 02/18/23 days #90 caps ondansetron 8 mg disintegrating 4 - 8 mg (0.5 - 1 x 8 mg) PO Q8H 02/18/23 tablet PRN nausea and vomiting 30 days #30 tabs Allergies Allergy/AdvReac Type Severity Reaction Status Date / Time Penicillins [PENICILLINS] Allergy Severe RASH Verified 02/11/23 08:06 Iodinated Contrast Media Allergy Intermediate RASH Verified 02/11/23 08:06 [Iodinated Contrast Media - IV Dye] meperidine [From DEMEROL] Allergy Intermediate RASH Verified 02/11/23 08:06 aspirin [ASA] Allergy Mild RASH, N/V Verified 02/11/23 08:06 Contrast Dye Allergy Unknown unknown, Verified 02/11/23 08:06 vomiting penicillin V Allergy Unknown N/V, rash Verified 02/11/23 08:06 tramadol [TRAMADOL] Allergy Unknown RASH Verified 02/11/23 08:06 PMFSH Past Medical History Medical History GERD (gastroesophageal reflux disease) Osteoporosis Atypical chest pain Arthritis Hordeolum externum right upper eyelid Difficulty sleeping Depression, major, recurrent Knee pain, right Autoimmune liver disease Headache syndrome Surgical History History of tubal ligation History of esophagogastroduodenoscopy (EGD) H/O colonoscopy History of liver biopsy History of cholecystectomy Hx of appendectomy History of surgery Family History Family History Father CVD (cardiovascular disease) Mother Breast cancer Leukemia CVD (cardiovascular disease) Brother No problems noted. Brother No problems noted. Sister No problems noted. Son No problems noted. Daughter No problems noted. Daughter No problems noted. Daughter No problems noted. Maternal Aunt Breast cancer Social History Social History Household Members: Children Housing: Apartment Alcohol intake: never Patient Tobacco Use Status: Never used Tobacco e-Cigarette/Vaping Use: Never Used Current occupational status: disabled Cognitive needs: No Hearing needs: No Vision needs: No Physical Exam ED Vital Signs: BMI result Body Mass Index 36.2 Course Course Course Narrative: This is an RME: Additional HPI, ROS, PE not included below will be deferred to primary provider. Patient is a 52-year-old female who presents to the emergency department reporting that she awoke with intermittent abdominal pain, nausea, dizziness, headache. Plan: serum labs, urinalysis, viral testing Medical Decision Making Lab Data 02/21/23 14:26 02/21/23 14:26 Labs: Lab Results 02/21/23 02/21/23 02/21/23 Range/Units 14:26 14:28 21:08 WBC 5.9 (4.8-10.8) X10*3/uL RBC 4.20 (4.20-5.50) X10*6/uL Hgb 13.6 (12.0-16.0) g/dl Hct 40.4 (37.0-47.0) % MCV 96.2 (80.0-98.0) fL MCH 32.4 (27.0-33.0) pg MCHC 33.7 (31.0-35.0) g/dl RDW 15.3 (11.0-16.0) % Plt Count 128 L (160-400) X10*3/uL MPV 10.7 (9.4-12.3) fL Immature Gran % (Auto) 0.3 (0.0-0.4) % Neut % (Auto) 75.0 H (45-73) % Lymph % (Auto) 16.5 L (20-40) % [place] % (Auto) 7.4 (2-11) % Eos % (Auto) 0.3 (0-4) % Baso % (Auto) 0.5 (0-2) % Lymph # (Auto) 1.0 L (1.2-4.9) X10*3/uL [place] # (Auto) 0.4 (0.1-1.2) X10*3/uL Eos # (Auto) 0.0 (0.0-0.4) X10*3/uL Baso # (Auto) 0.0 (0.0-0.2) X10*3/uL Abs Immat Gran (auto) 0.02 (0.00-0.03) X10*3/uL Absolute Neuts (auto) 4.4 (2.0-8.3) x10*3/uL Absolute Nucleated RBC 0.000 (0.0-0.012) X10*3/uL Nucleated RBC % (auto) 0.0 (0.0-0.2) /100WBC Sodium 141 (135-145) mmol/L Potassium 3.7 (3.3-5.1) mmol/L Chloride 109 H (96-108) mmol/L Carbon Dioxide 25 (22-29) mmol/L Anion Gap 11 L (12-20) BUN 14 (9-16) mg/dL Creatinine 0.75 (0.5-1.4) mg/dL Estim Creat Clear Calc 112.9 Estimated GFR > 60 Random Glucose 116 H (60-115) mg/dL Calcium 9.2 (8.4-10.2) mg/dL Magnesium 2.3 (1.6-2.6) mg/dL Total Bilirubin 0.5 (0.0-1.0) mg/dL AST 33 H (5-31) U/L ALT 44 H (0-31) U/L Alkaline Phosphatase 86 (39-117) U/L Troponin I High Sens < 2.7 < 2.7 (<3.5-17.0) ng/L Total Protein 6.8 (6.5-8.0) g/dL Albumin 3.7 (3.5-5.0) g/dL Lipase 30 (8-78) U/L Urine Color Yellow Urine Appearance Clear Urine pH 5.5 (5.0-9.0) Ur Specific [place] 1.015 (1.005-1.025) Urine Protein Negative (Neg-Trace) mg/dL Urine Glucose (UA) Negative (Negative) mg/dL Urine Ketones Negative (Negative) mg/dL Urine Blood Negative (Negative) Urine Nitrite Negative (Negative) Ur Leukocyte Esterase Negative (Negative) COVID-19 (JAIDA) Negative (Negative) COVID-19 Clin Com See Note Influenza Type A (NICOLASA) Negative (Negative) Influenza Type B (NICOLASA) Negative (Negative) Influenza A & B Note See Note Discharge Plan Discharge Clinical Impression: Abdominal pain Patient Disposition: Home, Self-Care Instructions: Abdominal Pain (ED) Prescriptions: No Action metronidazole [Metrogel Vaginal] 0.75 % gel 1 appful vaginal BEDTIME 5 Days Qty: 70 0RF omeprazole 40 mg capsule,delayed release(DR/EC) 40 mg PO DAILY 90 Days Qty: 90 2RF ondansetron 4 mg tablet,disintegrating 4 mg PO Q8H PRN (Reason: nausea and vomiting) Qty: 60 0RF mercaptopurine 50 mg tablet 50 mg PO DAILY Qty: 30 2RF baclofen 10 mg tablet 10 mg PO BEDTIME 30 Days Qty: 30 3RF magnesium oxide 400 mg (241.3 mg magnesium) tablet 400 mg PO DAILY 30 Days Qty: 30 3RF Rx Instructions: may hold for loose stools sucralfate 100 mg/mL suspension 10 ml PO QID Qty: 1000 1RF polyethylene glycol 3350 [Miralax] 17 gram/dose powder 17 g PO BID Qty: 238 1RF prednisone 5 mg tablet 10 mg PO DAILY 30 Days Qty: 60 1RF gabapentin 300 mg capsule See Rx Instructions PO .COMPLEX 30 Days Qty: 90 3RF Rx Instructions: 300mg qam and 600mg qhs orally .; ondansetron 8 mg tablet,disintegrating 4 - 8 mg PO Q8H PRN (Reason: nausea and vomiting) 30 Days Qty: 30 1RF fluoxetine 40 mg capsule 40 mg PO DAILY trazodone 100 mg tablet 100 mg PO DAILY buspirone 5 mg tablet 5 mg PO TID miconazole nitrate [Miconazole-7] 2 % cream 1 appful vaginal BEDTIME cholecalciferol (vitamin D3) 50 mcg (2,000 unit) tablet 50 mcg PO DAILY cyclobenzaprine 5 mg tablet 5 mg PO TID PRN magnesium 30 mg PO DAILY riboflavin (vitamin B2) 100 mg tablet 400 mg PO DAILY Referrals: Sadia Jacobo MD [Physician] - 02/24/23 Interventions: ED Discharge Assessment Last Done: 02/21/23 21:53 Discharge Date/Time: 02/21/23 21:54 Print Language: [place]an
[2023-02-21 14:34] LABS: MANUAL DIFF FLAG NO
[2023-02-21 14:37] LABS: Appearance Urine Clear; Color Urine Yellow; Glucose Urine UA Negative (Negative); Leukocyte Esterase Urine Negative (Negative); Nitrite Urine Negative (Negative); PH 5.5 (5.0-9.0); Specific Gravity - Urine 1.015 (1.005-1.025); Urine Blood Negative (Negative); Urine Ketones Negative (Negative); Urine Protein Negative (Neg-Trace)
[2023-02-21 14:40] LABS: Basophils Percent Auto 0.5 % (0-2); Eosinophils Percent Auto 0.3 % (0-4); Hematocrit 40.4 % (37.0-47.0); Hemoglobin 13.6 g/dl (12.0-16.0); Imm Gran Abs Auto 0.02 X10*3/uL (0.00-0.03); Imm Gran Pct Auto 0.3 % (0.0-0.4); Lymphocytes Percent Auto 16.5 % (20-40); Mean Corpuscular HGB Conc 33.7 g/dl (31.0-35.0); Mean Corpuscular Hemoglobin 32.4 pg (27.0-33.0); Mean Corpuscular Volume 96.2 fL (80.0-98.0); Mean Platelet Volume 10.7 fL (9.4-12.3); Monocytes Absolute Auto 0.4 X10*3/uL (0.1-1.2); Monocytes Percent Auto 7.4 % (2-11); Neutrophils Absolute Auto 4.4 x10*3/uL (2.0-8.3); Platelet Count 128 X10*3/uL (160-400); Red Cell Distribution Width 15.3 % (11.0-16.0); White Blood Count 5.9 X10*3/uL (4.8-10.8)
[2023-02-21 14:52] LABS: Alanine Aminotransferase 44 U/L (0-31); Albumin Level 3.7 g/dL (3.5-5.0); Alkaline Phosphatase 86 U/L (39-117); Anion Gap 11 (12-20); Aspartate Amino Transferase 33 U/L (5-31); Bilirubin Total 0.5 mg/dL (0.0-1.0); Blood Urea Nitrogen 14 mg/dL (9-16); Calcium 9.2 mg/dL (8.4-10.2); Carbon Dioxide 25 mmol/L (22-29); Chloride 109 mmol/L (96-108); Creatinine Clr Calc Pharmacy 112.9; Estimated Glomerular Filt Rate > 60; Glucose Random 116 mg/dL (60-115); Lipase 30 U/L (8-78); Magnesium 2.3 mg/dL (1.6-2.6); Potassium 3.7 mmol/L (3.3-5.1); Sodium 141 mmol/L (135-145); Total Protein 6.8 g/dL (6.5-8.0)
[2023-02-21 14:54] LABS: COVID-19 Test Negative (Negative); IDNOW Serial# 08D9AD1C
[2023-02-21 14:56] LABS: IDNOW Serial# BCCEAD1C; Influenza A Negative (Negative); Influenza B2 Negative (Negative)
[2023-02-21 18:26] VITALS: BP 129/75; PULSE 91; RESP 16; O2SAT 98
--- NOTE | 2023-02-21 19:27 | PC.NURSE ---
pt aox4. comes to ER with multiple complaints. Pt reports that they have been unable to eat for the past couple days bc when they do their abd feels very swollen and inflamed. No pain reported at this moment. Pt has appointment with Dr. Jacobo on Mar 15. Pt reports that for the alst 12 years she has delt with inflammation of her liver and pancreas. labs ordered. will ctm. VSS
[2023-02-21 19:53] LABS: Troponin-I High Sensitivity < 2.7 ng/L (<3.5-17.0)
[2023-02-21 20:00] VITALS: BP 106/65; PULSE 71; RESP 16; O2SAT 98
--- NOTE | 2023-02-21 20:00 | ED.ABDPAIN ---
HPI - Abdominal Pain General Chief Complaint: Abdominal Pain Stated Complaint: HBP Time Seen by Provider: 02/21/23 17:13 History of Present Illness HPI narrative: Patient is a 52-year-old female presented today with having a history of inflammation to the liver. Patient claims that she was eating and subsequently felt her abdomen to become bloated. Patient denies any chest pain. No diaphoresis. There is no fever no chills. There is no chest pain. Patient normally gets followed by GI. Had a procedure done to her pancreas in [place] approximately 20 years ago. Question neck her biliary duct. Patient since then has been having pancreatitis from time to time. There is no chest pain. There is no nausea no vomiting. No other abdominal surgery. She is from home. Related Data Home Medications Medication Instructions Recorded Confirmed fluoxetine 40 mg capsule 40 mg PO DAILY 05/14/20 02/11/23 trazodone 100 mg tablet 100 mg PO DAILY 05/14/20 02/11/23 cholecalciferol (vitamin D3) 50 50 mcg PO DAILY 11/14/21 02/11/23 mcg (2,000 unit) tablet miconazole nitrate 2 % vaginal 1 appful vaginal BEDTIME 11/14/21 02/11/23 cream (Miconazole-7) buspirone 5 mg tablet 5 mg PO TID anxiety 02/11/23 02/11/23 cyclobenzaprine 5 mg tablet 5 mg PO TID PRN 02/11/23 02/11/23 magnesium 30 mg PO DAILY 02/11/23 02/11/23 riboflavin (vitamin B2) 100 mg 400 mg PO DAILY 02/11/23 02/11/23 tablet Previous Rx's Medication Instructions Recorded metronidazole 0.75 % (37.5 mg/5 1 appful vaginal BEDTIME 5 days 05/14/21 gram) vaginal gel (Metrogel #70 grams Vaginal) omeprazole 40 mg capsule,delayed 40 mg PO DAILY 90 days #90 caps 07/21/21 release ondansetron 4 mg disintegrating 4 mg PO Q8H PRN nausea and 10/27/21 tablet vomiting #60 tabs mercaptopurine 50 mg tablet 50 mg PO DAILY #30 tabs 01/12/22 baclofen 10 mg tablet 10 mg PO BEDTIME 30 days #30 tabs 02/02/22 magnesium oxide 400 mg (241.3 mg 400 mg PO DAILY 30 days #30 tabs 02/02/22 magnesium) tablet sucralfate 100 mg/mL oral 10 ml PO QID #1,000 mL 02/20/22 suspension polyethylene glycol 3350 17 17 g PO BID #238 grams 10/29/22 gram/dose oral powder (Miralax) prednisone 5 mg tablet 10 mg (2 x 5 mg) PO DAILY 30 days 02/09/23 #60 tabs gabapentin 300 mg capsule See Rx Instructions PO .COMPLEX 30 02/18/23 days #90 caps ondansetron 8 mg disintegrating 4 - 8 mg (0.5 - 1 x 8 mg) PO Q8H 02/18/23 tablet PRN nausea and vomiting 30 days #30 tabs Allergies Allergy/AdvReac Type Severity Reaction Status Date / Time Penicillins [PENICILLINS] Allergy Severe RASH Verified 02/11/23 08:06 Iodinated Contrast Media Allergy Intermediate RASH Verified 02/11/23 08:06 [Iodinated Contrast Media - IV Dye] meperidine [From DEMEROL] Allergy Intermediate RASH Verified 02/11/23 08:06 aspirin [ASA] Allergy Mild RASH, N/V Verified 02/11/23 08:06 Contrast Dye Allergy Unknown unknown, Verified 02/11/23 08:06 vomiting penicillin V Allergy Unknown N/V, rash Verified 02/11/23 08:06 tramadol [TRAMADOL] Allergy Unknown RASH Verified 02/11/23 08:06 Review of Systems Review of Systems Positive abdominal pain PMFSH Past Medical History Medical History GERD (gastroesophageal reflux disease) Osteoporosis Atypical chest pain Arthritis Hordeolum externum right upper eyelid Difficulty sleeping Depression, major, recurrent Knee pain, right Autoimmune liver disease Headache syndrome Surgical History History of tubal ligation History of esophagogastroduodenoscopy (EGD) H/O colonoscopy History of liver biopsy History of cholecystectomy Hx of appendectomy History of surgery Family History Family History Father CVD (cardiovascular disease) Mother Breast cancer Leukemia CVD (cardiovascular disease) Brother No problems noted. Brother No problems noted. Sister No problems noted. Son No problems noted. Daughter No problems noted. Daughter No problems noted. Daughter No problems noted. Maternal Aunt Breast cancer Social History Social History Household Members: Children Housing: Apartment Alcohol intake: never Patient Tobacco Use Status: Never used Tobacco Smoked in Last 30 Days: No e-Cigarette/Vaping Use: Never Used Use of substances other than those prescribed or required for medical reasons: No Advance Directives: No Advance Directives Information Provided: Yes Current occupational status: disabled Cognitive needs: No Hearing needs: No Vision needs: No Physical Exam ED Vital Signs: Vital Signs - 24 hr 02/21/23 11:54 02/21/23 18:26 02/21/23 20:00 Temperature 98 F Pulse Rate 92 91 71 Respiratory Rate 18 16 16 Blood Pressure 137/92 H 129/75 106/65 Pulse Oximetry 99 98 98 Oxygen Delivery Method Room Air Room Air Room Air BMI result Body Mass Index 36.2 Appearance: Alert. Oriented X3. No acute distress. Eyes: Pupils equal, round and reactive to light. ENT: Pharynx normal. Neck: Normal inspection. Neck supple. No lymph nodes noted. No crepitus CVS: Normal heart rate and rhythm. Pulses normal. Normal S1 and S2 Respiratory: No respiratory distress. Breath sounds normal. No Wheezing. No rales Abdomen: Soft and nontender. No rigidity. No distention. good BS x4 Skin: Skin warm and dry. Normal skin color. Normal skin turgor. Extremities: No lower extremity edema. Neurovascular intact to all extremities. No Lacerations. No Rash Neuro: Oriented X 3. No motor deficit. No sensory deficit. Moving all extermities. No slurred speech Medical Decision Making Medical Decision Making MDM Narrative: Patient's old GI record was reviewed. Positive history of a neck gallbladder. Subsequently complicated by having pancreatitis. Recently got an endoscopy done approximately 1 year ago. It showed esophageal varices. Had a colonoscopy done. It was grossly negative. Patient has abdominal pain bloating. Had had multiple bouts of pancreatitis in the past. Currently is on Imuran and also prednisone. Patient is also on propranolol for the varices. Complaining of abdominal bloating. Denies any changes in diet. There is no fever no chills. No cough no congestion upper respiratory symptoms. Patient's LFTs are baseline. Lipase is normal there is no evidence for pancreatitis. CT scan of the abdomen pelvis showed no acute obstruction abscess perforation. No evidence for pancreatitis. Will discharge patient home. Close follow-up on an outpatient basis. Currently patient has no symptoms. Patient's flu RSV COVID were all negative. Differential Diagnosis Differential Diagnoses: The differential diagnosis associated with the presentation includes Obstruction, abscess, perforation, diverticulitis, abdominal aortic aneurysm, viral illness Admission/Observation Consideration of admission/observation: Escalation of care including admission/observation considered Patient going home as symptom improving. No symptom at the current time. Lab Data MDM Lab Attestation statement: I reviewed the patient's lab results. 02/21/23 14:26 02/21/23 14:26 Labs: Lab Results 02/21/23 02/21/23 Range/Units 14:26 14:28 WBC 5.9 (4.8-10.8) X10*3/uL RBC 4.20 (4.20-5.50) X10*6/uL Hgb 13.6 (12.0-16.0) g/dl Hct 40.4 (37.0-47.0) % MCV 96.2 (80.0-98.0) fL MCH 32.4 (27.0-33.0) pg MCHC 33.7 (31.0-35.0) g/dl RDW 15.3 (11.0-16.0) % Plt Count 128 L (160-400) X10*3/uL MPV 10.7 (9.4-12.3) fL Immature Gran % (Auto) 0.3 (0.0-0.4) % Neut % (Auto) 75.0 H (45-73) % Lymph % (Auto) 16.5 L (20-40) % [place] % (Auto) 7.4 (2-11) % Eos % (Auto) 0.3 (0-4) % Baso % (Auto) 0.5 (0-2) % Lymph # (Auto) 1.0 L (1.2-4.9) X10*3/uL [place] # (Auto) 0.4 (0.1-1.2) X10*3/uL Eos # (Auto) 0.0 (0.0-0.4) X10*3/uL Baso # (Auto) 0.0 (0.0-0.2) X10*3/uL Abs Immat Gran (auto) 0.02 (0.00-0.03) X10*3/uL Absolute Neuts (auto) 4.4 (2.0-8.3) x10*3/uL Absolute Nucleated RBC 0.000 (0.0-0.012) X10*3/uL Nucleated RBC % (auto) 0.0 (0.0-0.2) /100WBC Sodium 141 (135-145) mmol/L Potassium 3.7 (3.3-5.1) mmol/L Chloride 109 H (96-108) mmol/L Carbon Dioxide 25 (22-29) mmol/L Anion Gap 11 L (12-20) BUN 14 (9-16) mg/dL Creatinine 0.75 (0.5-1.4) mg/dL Estim Creat Clear Calc 112.9 Estimated GFR > 60 Random Glucose 116 H (60-115) mg/dL Calcium 9.2 (8.4-10.2) mg/dL Magnesium 2.3 (1.6-2.6) mg/dL Total Bilirubin 0.5 (0.0-1.0) mg/dL AST 33 H (5-31) U/L ALT 44 H (0-31) U/L Alkaline Phosphatase 86 (39-117) U/L Troponin I High Sens < 2.7 (<3.5-17.0) ng/L Total Protein 6.8 (6.5-8.0) g/dL Albumin 3.7 (3.5-5.0) g/dL Lipase 30 (8-78) U/L Urine Color Yellow Urine Appearance Clear Urine pH 5.5 (5.0-9.0) Ur Specific [employer] 1.015 (1.005-1.025) Urine Protein Negative (Neg-Trace) mg/dL Urine Glucose (UA) Negative (Negative) mg/dL Urine Ketones Negative (Negative) mg/dL Urine Blood Negative (Negative) Urine Nitrite Negative (Negative) Ur Leukocyte Esterase Negative (Negative) COVID-19 (JAIDA) Negative (Negative) COVID-19 Clin Com See Note Influenza Type A (NICOLASA) Negative (Negative) Influenza Type B (NICOLASA) Negative (Negative) Influenza A & B Note See Note Independent Interpretation I performed an independent interpretation of an: CT Scan Interpretation: CT abdomen no overt obstruction abscess perforation CT head grossly negative for any acute evidence of bleeding no fracture Radiology Impression Discussion of test interpretation with radiology: I have reviewed the radiologist's reading. External Record Review External record reviewed: Office record GI record Chronic Conditions Patient?s care impacted by: Hypertension Esophageal varices, pancreatitis Discharge Plan Discharge Clinical Impression: Abdominal pain Patient Disposition: Home, Self-Care Instructions: Abdominal Pain (ED) Prescriptions: No Action metronidazole [Metrogel Vaginal] 0.75 % gel 1 appful vaginal BEDTIME 5 Days Qty: 70 0RF omeprazole 40 mg capsule,delayed release(DR/EC) 40 mg PO DAILY 90 Days Qty: 90 2RF ondansetron 4 mg tablet,disintegrating 4 mg PO Q8H PRN (Reason: nausea and vomiting) Qty: 60 0RF mercaptopurine 50 mg tablet 50 mg PO DAILY Qty: 30 2RF baclofen 10 mg tablet 10 mg PO BEDTIME 30 Days Qty: 30 3RF magnesium oxide 400 mg (241.3 mg magnesium) tablet 400 mg PO DAILY 30 Days Qty: 30 3RF Rx Instructions: may hold for loose stools sucralfate 100 mg/mL suspension 10 ml PO QID Qty: 1000 1RF polyethylene glycol 3350 [Miralax] 17 gram/dose powder 17 g PO BID Qty: 238 1RF prednisone 5 mg tablet 10 mg PO DAILY 30 Days Qty: 60 1RF gabapentin 300 mg capsule See Rx Instructions PO .COMPLEX 30 Days Qty: 90 3RF Rx Instructions: 300mg qam and 600mg qhs orally .; ondansetron 8 mg tablet,disintegrating 4 - 8 mg PO Q8H PRN (Reason: nausea and vomiting) 30 Days Qty: 30 1RF fluoxetine 40 mg capsule 40 mg PO DAILY trazodone 100 mg tablet 100 mg PO DAILY buspirone 5 mg tablet 5 mg PO TID miconazole nitrate [Miconazole-7] 2 % cream 1 appful vaginal BEDTIME cholecalciferol (vitamin D3) 50 mcg (2,000 unit) tablet 50 mcg PO DAILY cyclobenzaprine 5 mg tablet 5 mg PO TID PRN magnesium 30 mg PO DAILY riboflavin (vitamin B2) 100 mg tablet 400 mg PO DAILY Referrals: Sadia Jacobo MD [Physician] - 02/24/23 Print Language: Bengali
--- NOTE | 2023-02-21 20:30 | PC.NURSE ---
pt reports no pain, does c/o abdomen swelling. pt did say she was hungry and requested some crackers. gingerale and crackers given. willctm
[2023-02-21 21:52] LABS: Troponin-I High Sensitivity < 2.7 ng/L (<3.5-17.0)
== END 2023-02-21 21:54 | disposition home or self-care (01) ==
PROVIDERS: Nurse Practitioner Family; Physician Assistant; Emergency Provider Emergency Medicine Emergency Medical Services; PCP Internal Medicine
DX: R14.0 Abdominal distension (gaseous) (principal); R10.30 Lower abdominal pain, unspecified; R51.9 Headache, unspecified; I10 Essential (primary) hypertension; Z20.822 Contact with and (suspected) exposure to COVID-19; Z20.828 Contact with and (suspected) exposure to other viral communicable diseases; Z79.899 Other long term (current) drug therapy
CPT/HCPCS: 36415; 70450; 74176; 80053; 81003; 83690; 83735; 84484; 85025; 87502; 87635; 99284

== ENCOUNTER 2023-03-03 15:25 | Outpatient (AMB) | payer OTHER, SELFPAY ==
[2023-03-03 15:27] VITALS: BP 104/60; PULSE 97; O2SAT 98; BMI 36.5
--- NOTE | 2023-03-03 15:27 | A.OFFPC_ITS ---
Vital Signs 03/03/23 15:27 Height 5 ft 8 in Weight 240 lb BMI 36.5 BP 104/60 Blood Pressure Location Rt brachial Position Sitting Pulse 97 Pulse Source Pulse Oximeter Pulse Oximetry (%) 98 Oxygen Delivery Method Room Air Intake Visit Reasons: requesting cardio referral Allergies Penicillins [PENICILLINS] Allergy (Severe, Verified 03/12/23 06:03) RASH Iodinated Contrast Media [Iodinated Contrast Media - IV Dye] Allergy (Intermediate, Verified 03/12/23 06:03) RASH meperidine [From DEMEROL] Allergy (Intermediate, Verified 03/12/23 06:03) RASH aspirin [ASA] Allergy (Mild, Verified 03/12/23 06:03) RASH, N/V Contrast Dye Allergy (Unknown, Verified 03/12/23 06:03) unknown, vomiting penicillin V Allergy (Unknown, Verified 03/12/23 06:03) N/V, rash tramadol [TRAMADOL] Allergy (Unknown, Verified 03/12/23 06:03) RASH Medication List - Last Reconciled 03/03/23 by Luis Angel Almanza MD baclofen 10 mg PO BEDTIME 30 days buspirone 5 mg PO TID cholecalciferol (vitamin D3) 50 mcg PO DAILY cyclobenzaprine 5 mg PO TID PRN fluoxetine 40 mg PO DAILY gabapentin 300mg qam and 600mg qhs orally .; 30 days [magnesium 30 mg PO DAILY] mercaptopurine 50 mg PO DAILY metronidazole 0.75%(37.5mg/5gram) (Metrogel Vaginal) 1 appful vaginal BEDTIME 5 days omeprazole 40 mg PO DAILY 90 days ondansetron 4 - 8 mg (0.5 - 1 x 8 mg) PO Q8H PRN 30 days polyethylene glycol 3350 (Miralax) 17 grams PO BID prednisone 10 mg (2 x 5 mg) PO DAILY 30 days sucralfate 10 mL PO QID trazodone 100 mg PO DAILY Tobacco use date assessed: 03/03/23 Dental Screening Dental Screen Date: 03/03/23 Did you have a dental visit in the last 12 months?: Yes Did you have a dental problem in the last 6 months where you did not have access to dental care?: No Was dental information given to patient?: Patient has dentist HPI requesting cardio referral HPI Details Patient is a 52-year-old female came in today to be evaluated for chest pain and palpitations that she has been having off and on for the past 2 months Patient says that at time she also feels pain radiating to her left arm. It does not matter if she is active or resting. There is no diaphoresis or nausea or vomiting. EKG done today shows right bundle branch block with ST abnormalities On examination heart is regular However there is some discomfort with palpation sternum Patient was given 1 , .4 mg nitroglycerin 2 L of oxygen via nasal cannula placed. An EMT was notified to transfer patient to the ER as she is having chest discomfort at this time. [facility] Medical History GERD (gastroesophageal reflux disease) Osteoporosis Atypical chest pain Arthritis Hordeolum externum right upper eyelid Difficulty sleeping Depression, major, recurrent Knee pain, right Autoimmune liver disease Headache syndrome Surgical History History of tubal ligation History of esophagogastroduodenoscopy (EGD) H/O colonoscopy History of liver biopsy History of cholecystectomy Hx of appendectomy History of surgery Family History Father CVD (cardiovascular disease) Mother Breast cancer Leukemia CVD (cardiovascular disease) Brother Substance use disorder Brother No problems noted. Sister No problems noted. Son No problems noted. Daughter No problems noted. Daughter No problems noted. Daughter No problems noted. Maternal Aunt Breast cancer Social History Household Members: Children Housing: Apartment Alcohol intake: never Patient Tobacco Use Status: Never used Tobacco Smoked in Last 30 Days: No e-Cigarette/Vaping Use: Never Used Use of substances other than those prescribed or required for medical reasons: No Advance Directives: No Advance Directives Information Provided: Yes Current occupational status: disabled Cognitive needs: No Hearing needs: No Vision needs: No Questionnaire Thrive Questionnaire Date Thrive assessed: 10/03/21 DENIS-7 AMB Questionnaire DENIS-7 Date DENIS - 7 assessed: 10/03/21 Source: Developed by Drs. Donnell Stratton, Viridiana Cho, Adelso Harper and colleagues, with an educational judith from [employer]. Review of Systems Const Denies chills and Denies fever(s) ENT Denies epistaxis and Denies nasal discharge Resp Denies chest congestion, Denies cough and Denies hemoptysis GI Denies diarrhea and Denies nausea Skin/Breast Denies rash Neuro Reports no additional complaints Psych Reports no additional complaints Endo Reports no additional complaints Physical exam (Primary Care) Vital Signs: Last Vital Signs Pulse 97 03/03/23 15:27 BP 104/60 03/03/23 15:27 Pulse Ox 98 03/03/23 15:27 Oxygen Delivery Method Room Air 03/03/23 15:27 BMI result Body Mass Index 36.5 Tobacco/Smoking Status: Tobacco use Status Tobacco use date assessed 03/03/23 03/03/23 15:37 Patient Tobacco Use Status Never used Tobacco 03/03/23 15:33 e-Cigarette/Vaping Use Never Used 03/03/23 15:33 Thrive Assessment: Date of Thrive Assessment Date Thrive assessed 10/03/21 03/03/23 15:33 Const General: cooperative, comfortable and no acute distress Orientation/consciousness: patient oriented x3 HENMT Head: Yes normocephalic Eyes General: appearance normal, both eyes and all related structures Neck Neck: Yes supple Resp Effort & Inspection: normal respiratory effort, no cough and no stridor Cardio Rhythm: regular rhythm Heart sounds: S1 normal heart sound present and S2 normal heart sound present Skin General skin exam: turgor normal Neuro General: patient oriented x3, tone normal and moves all extremities Extrem Right lower extremity: no edema Left lower extremity: no edema Office Procedures EKG [id number], Complete Office Meds nitroglycerin 0.4 mg sublingual tablet Performing Provider: Luis Angel Almanza MD Performing Location: [facility] [place] [facility] Administered by: Key Larose RN on 03/03/23 16:06 Dose Route Admin Location Dispensed Lot Number Expiration Date NDC Maintenance Of Way Foreman 0.4 mg sublingual 0.4 mg [id number] 12/13/23 62842-677-99 [employer] Assessment and Plan Assessment & Plan (1) Chest pain: Code(s): R07.9 - Chest pain, unspecified Qualifiers: Chest pain type: precordial pain Qualified Code(s): R07.2 - Precordial pain (2) Palpitations: Code(s): R00.2 - Palpitations (3) Abnormal EKG: Code(s): R94.31 - Abnormal electrocardiogram [ECG] [EKG] Plan Patient is a 52-year-old female came in today to be evaluated for chest pain and palpitations that she has been having off and on for the past 2 months Patient says that at time she also feels pain radiating to her left arm. It does not matter if she is active or resting. There is no diaphoresis or nausea or vomiting. EKG done today shows right bundle branch block with ST abnormalities On examination heart is regular However there is some discomfort with palpation sternum Patient was given 1 , .4 mg nitroglycerin , she is allergic to aspirin so that was not given to patient 2 L of oxygen via nasal cannula placed. An EMT was notified to transfer patient to the ER as she is having chest discomfort at this time. Orders: Orders AMB Nitrogylcerin Adult Dose 03/03/23 R07.9 - Chest pain, unspecified AMB EKG-In Office 03/03/23 R00.2 - Palpitations, R07.9 - Chest pain, unspecified Coding Level of Care Code Est Pt Level 5 (26758) Diagnoses Precordial pain R07.2 Chest pain type: precordial pain Palpitations R00.2 Abnormal EKG R94.31 CPT Codes EKG - CPT: 82148-[id number], Complete ([id number])
== END 2023-03-03 16:06 | disposition home or self-care (01) ==
PROVIDERS: PCP Internal Medicine; Visit Provider Internal Medicine
DX: R07.2 Precordial pain (principal); R00.2 Palpitations; R94.31 Abnormal electrocardiogram [ECG] [EKG]
CPT/HCPCS: 93000; 99215

== ENCOUNTER 2023-03-03 16:31 | Emergency (ER) | payer OTHER, SELFPAY ==
--- NOTE | ~2023-03-03 | XR_ITS ---
EXAMINATION: XR CHEST CLINICAL INFORMATION: Chest pain and shortness of breath. COMPARISON: 05/28/2021. TECHNIQUE: Frontal view of the chest was obtained. FINDINGS: The cardiomediastinal silhouette is normal. There is no focal lung lesion or pleural effusion. The bony structures and soft tissues are unremarkable. XR/XR chest 1V IMPRESSION: No active cardiopulmonary disease.
[2023-03-03 16:44] VITALS: BP 142/100; PULSE 107; O2SAT 98
[2023-03-03 16:45] VITALS: BP 141/93; PULSE 112; RESP 20; TEMP 36.8; O2SAT 99
[2023-03-03 16:52] VITALS: BMI 36.2
--- NOTE | 2023-03-03 17:11 | ECG_ITS ---
Test Reason : CHEST PAIN Blood Pressure : / mmHG Vent. Rate : 092 BPM Atrial Rate : 092 BPM P-R Int : 134 ms QRS Dur : 134 ms QT Int : 394 ms P-R-T Axes : 024 -06 008 degrees QTc Int : 487 ms Normal sinus rhythm Right bundle branch block Abnormal ECG When compared with ECG of 28-MAY-2021 12:22, Right bundle branch block is now Present Referred By: Najma Castro Electronically Signed By:JYOTHI OLIVIA
--- NOTE | 2023-03-03 17:13 | ED.GENADULT ---
HPI - General Adult General Chief complaint: Chest Pain Stated complaint: chest pain on and off xfew months Time Seen by Provider: 03/03/23 16:52 Source: patient, EMS, RN notes reviewed and old records reviewed Mode of arrival: EMS History of Present Illness HPI narrative: 52-year-old female with past medical history of GERD, depression, autoimmune liver disease, vertigo, presenting to the ED via EMS complaining of substernal/left-sided chest pain described as pressure/tightness with radiation down LUE x2 days. Patient was [facility] and sent to the ED received sublingual nitro at urgent care an additional dose by EMS with improvement/resolution of symptoms. Denies chest pain at present. Also reports SOB. Admits to generalized fatigue/weakness, chronic dizziness/migraine headache which she is currently following with Neurology with outpatient MRI scheduled. Reports starts physical therapy for her dizziness next week. Denies fever/chills, cough, pedal edema, recent travel or taking anticoagulation Onset (ago): day(s) Related Data Home Medications Medication Instructions Recorded Confirmed fluoxetine 40 mg capsule 40 mg PO DAILY 05/14/20 03/03/23 trazodone 100 mg tablet 100 mg PO DAILY 05/14/20 03/03/23 cholecalciferol (vitamin D3) 50 50 mcg PO DAILY 11/14/21 03/03/23 mcg (2,000 unit) tablet buspirone 5 mg tablet 5 mg PO TID anxiety 02/11/23 03/03/23 cyclobenzaprine 5 mg tablet 5 mg PO TID PRN 02/11/23 03/03/23 magnesium 30 mg PO DAILY 02/11/23 03/03/23 Previous Rx's Medication Instructions Recorded metronidazole 0.75 % (37.5 mg/5 1 appful vaginal BEDTIME 5 days 05/14/21 gram) vaginal gel (Metrogel #70 grams Vaginal) omeprazole 40 mg capsule,delayed 40 mg PO DAILY 90 days #90 caps 07/21/21 release mercaptopurine 50 mg tablet 50 mg PO DAILY #30 tabs 01/12/22 baclofen 10 mg tablet 10 mg PO BEDTIME 30 days #30 tabs 02/02/22 sucralfate 100 mg/mL oral 10 ml PO QID #1,000 mL 02/20/22 suspension polyethylene glycol 3350 17 17 g PO BID #238 grams 10/29/22 gram/dose oral powder (Miralax) prednisone 5 mg tablet 10 mg (2 x 5 mg) PO DAILY 30 days 02/09/23 #60 tabs gabapentin 300 mg capsule See Rx Instructions PO .COMPLEX 30 02/18/23 days #90 caps ondansetron 8 mg disintegrating 4 - 8 mg (0.5 - 1 x 8 mg) PO Q8H 02/18/23 tablet PRN nausea and vomiting 30 days #30 tabs Allergies Allergy/AdvReac Type Severity Reaction Status Date / Time Penicillins [PENICILLINS] Allergy Severe RASH Verified 03/03/23 17:32 Iodinated Contrast Media Allergy Intermediate RASH Verified 03/03/23 17:32 [Iodinated Contrast Media - IV Dye] meperidine [From DEMEROL] Allergy Intermediate RASH Verified 03/03/23 17:32 aspirin [ASA] Allergy Mild RASH, N/V Verified 03/03/23 17:32 Contrast Dye Allergy Unknown unknown, Verified 03/03/23 17:32 vomiting penicillin V Allergy Unknown N/V, rash Verified 03/03/23 17:32 tramadol [TRAMADOL] Allergy Unknown RASH Verified 03/03/23 17:32 Review of Systems Review of Systems: Constitutional: No Fever, No Chills, + Fatigue, + Malaise ENT/Mouth: No Ear Pain, No Nasal Congestion, No sore throat, No Rhinorrhea, No Swallowing Difficulty Eyes: No Eye Pain, No Swelling, No Redness Cardiovascular: +Chest Pain, + SOB, No Dyspnea on Exertion, No Orthopnea, No Edema, + Palpitations Respiratory: No Cough, No Sputum, No Dyspnea Gastrointestinal: No Nausea, No Vomiting, No Diarrhea, No Constipation, No Abdominal pain Genitourinary: No irregular bleeding, No Dysuria, No Urinary Frequency, No Hematuria Musculoskeletal: No joint pain, No Myalgias, No Joint Swelling Skin: No Skin Lesions, No rash Neuro: + Weakness, No Numbness, No Loss of Consciousness, +Dizziness, +Headache Yes all other systems are reviewed and are negative Constitutional: Constitutional: Reports as per HPI Neurologic: Denies Abnormal speech present [facility] Past Medical History Attestation statement: The following information was validated with the patient. Source: old records reviewed Medical History GERD (gastroesophageal reflux disease) Osteoporosis Atypical chest pain Arthritis Hordeolum externum right upper eyelid Difficulty sleeping Depression, major, recurrent Knee pain, right Autoimmune liver disease Headache syndrome Surgical History History of tubal ligation History of esophagogastroduodenoscopy (EGD) H/O colonoscopy History of liver biopsy History of cholecystectomy Hx of appendectomy History of surgery Family History Family History Father CVD (cardiovascular disease) Mother Breast cancer Leukemia CVD (cardiovascular disease) Brother Substance use disorder Brother No problems noted. Sister No problems noted. Son No problems noted. Daughter No problems noted. Daughter No problems noted. Daughter No problems noted. Maternal Aunt Breast cancer Social History Social History Household Members: Children Housing: Apartment Alcohol intake: never Patient Tobacco Use Status: Never used Tobacco Smoked in Last 30 Days: No e-Cigarette/Vaping Use: Never Used Use of substances other than those prescribed or required for medical reasons: No Advance Directives: No Advance Directives Information Provided: Yes Current occupational status: disabled Cognitive needs: No Hearing needs: No Vision needs: No Physical Exam ED Vital Signs: Vital Signs - 24 hr 03/03/23 16:45 03/03/23 18:01 03/03/23 18:03 Temperature 98.3 F Pulse Rate 112 H 80 85 Respiratory Rate 20 Blood Pressure 141/93 H 139/80 160/100 H Pulse Oximetry 99 Oxygen Delivery Method Room Air 03/03/23 18:05 Temperature Pulse Rate 89 Respiratory Rate Blood Pressure 171/106 H Pulse Oximetry Oxygen Delivery Method BMI result Body Mass Index 36.2 Const General: cooperative, healthy appearing and no acute distress Orientation/consciousness: patient oriented x3 Limitations: no limitations HENMT Head: Yes normal to inspection and Yes atraumatic Ears: hearing grossly normal bilaterally General nose exam: Normal external nose present Face and sinus: Yes normal facial exam Eyes General: appearance normal, both eyes and all related structures EOM: EOMs intact bilaterally Neck Neck: Yes normal visual inspection and Yes no meningeal signs Resp Effort & Inspection: normal respiratory effort and no respiratory distress Auscultation: clear to auscultation bilaterally, no crackles and no wheezes Cardio Rate: regular rate Heart sounds: S1 normal heart sound present and S2 normal heart sound present GI Inspection: Yes normal to inspection Palpation (GI): Soft to palpation, nontender, no guarding and not rigid General: Yes no CVA tenderness Back/Spine/Pelvis Back: no CVA tenderness Skin Rashes: no rashes Wounds: no wounds Neuro General: patient oriented x3, tone normal, moves all extremities, no meningeal signs, no focal motor deficits and CN's II-XI intact bilaterally Cranial nerves: Yes CN's II-XII intact bilaterally and Yes Bilaterally intact EOM present Cognition (Neuro): normal cognition Speech: No Abnormal speech present Gait exam (Neuro): Normal gait present Motor exam (neuro): 5/5 motor strength present throughout, Pronator motor function not present, no tremor noted and no asterixis Extrem General: Yes normal to inspection, Yes no pedal edema and Yes no calf tenderness Course Course Course Narrative: -1999--labs reassuring. Troponin x1 negative. D-dimer negative > PE unlikely. COVID-19 negative XR chest 1V IMPRESSION: No active cardiopulmonary disease. -case discussed with Cardiology, Dr. Concepcion, persistent pain with negative troponins is unlikely ischemic. >> if 2nd troponin negative plan will be for discharge home with Cardiology follow-up -2113--serial troponin negative. OK unlikely. Plan for discharge home Repeat blood pressure 150/89 prior to discharge Results discussed with patient including worrisome signs and symptoms and strict return precautions, and when to return to the emergency department. They verbalized understanding and feel safe for discharge at this time. Medications Administered Discontinued Medications Generic Name Dose Route Start Last Admin Trade Name Freq PRN Reason Stop Dose Admin Sodium Chloride 1,000 mls @ 999 mls/hr 03/03/23 17:30 03/03/23 20:01 Ns IV 03/03/23 18:30 Infused .Q1H1M JOHNATHAN Infusion Medical Decision Making Medical Decision Making [facility] Narrative: 52-year-old female with past medical history of GERD, depression, autoimmune liver disease, vertigo, presenting to the ED via EMS complaining of substernal/left-sided chest pain described as pressure/tightness with radiation down LUE x2 days. Also reports SOB, generalized fatigue/weakness, chronic dizziness/migraine headache. On exam tachycardic, NAD, nontoxic appearing, lungs CTA, no focal neuro deficits, no pitting edema/calf tenderness. Denies chest pain at present. Concern for ACS vs PE vs pneumonia or CHF vs metabolic abnormalities. R/o viral syndrome. Lower suspicion for dissection, CVA/TIA. Plan: EKG, labs, UA, CXR, orthostatics, IVF, re-evaluate Please refer to course for remaining clinical decision making, interpretation of labs/imaging results, and discussions with consultants and/or family members. Differential Diagnosis Differential Diagnoses: The differential diagnosis associated with the presentation includes As above Admission/Observation Consideration of admission/observation: Escalation of care including admission/observation considered Lab Data MDM Lab Attestation statement: I reviewed the patient's lab results. 03/03/23 17:31 03/03/23 17:31 Labs: Lab Results 03/03/23 03/03/23 Range/Units 17:31 20:25 WBC 5.8 (4.8-10.8) X10*3/uL RBC 3.94 L (4.20-5.50) X10*6/uL Hgb 13.1 (12.0-16.0) g/dl Hct 38.1 (37.0-47.0) % MCV 96.7 (80.0-98.0) fL MCH 33.2 H (27.0-33.0) pg MCHC 34.4 (31.0-35.0) g/dl RDW 15.2 (11.0-16.0) % Plt Count 148 L (160-400) X10*3/uL MPV 10.4 (9.4-12.3) fL Immature Gran % (Auto) 0.3 (0.0-0.4) % Neut % (Auto) 76.0 H (45-73) % Lymph % (Auto) 16.2 L (20-40) % [place] % (Auto) 6.9 (2-11) % Eos % (Auto) 0.3 (0-4) % Baso % (Auto) 0.3 (0-2) % Lymph # (Auto) 0.9 L (1.2-4.9) X10*3/uL [place] # (Auto) 0.4 (0.1-1.2) X10*3/uL Eos # (Auto) 0.0 (0.0-0.4) X10*3/uL Baso # (Auto) 0.0 (0.0-0.2) X10*3/uL Abs Immat Gran (auto) 0.02 (0.00-0.03) X10*3/uL Absolute Neuts (auto) 4.4 (2.0-8.3) x10*3/uL Absolute Nucleated RBC 0.000 (0.0-0.012) X10*3/uL Nucleated RBC % (auto) 0.0 (0.0-0.2) /100WBC PT 12.0 (11.1-13.3) SEC INR 1.0 (0.9-1.1) D-Dimer High Sensitivty < 150 NG/ML Sodium 142 (135-145) mmol/L Potassium 4.1 (3.3-5.1) mmol/L Chloride 108 (96-108) mmol/L Carbon Dioxide 26 (22-29) mmol/L Anion Gap 12 (12-20) BUN 15 (9-16) mg/dL Creatinine 0.83 (0.5-1.4) mg/dL Estim Creat Clear Calc 102.0 Estimated GFR > 60 Random Glucose 114 (60-115) mg/dL Calcium 8.7 (8.4-10.2) mg/dL Magnesium 2.3 (1.6-2.6) mg/dL Total Bilirubin 0.3 (0.0-1.0) mg/dL Direct Bilirubin 0.1 (0.0-0.5) mg/dL AST 26 (5-31) U/L ALT 36 H (0-31) U/L Alkaline Phosphatase 85 (39-117) U/L Troponin I High Sens < 2.7 < 2.7 (<3.5-17.0) ng/L B-Natriuretic Peptide 21 (<100) pg/mL Total Protein 6.7 (6.5-8.0) g/dL Albumin 3.3 L (3.5-5.0) g/dL TSH 0.52 (0.32-4.0) uIU/mL COVID-19 (JAIDA) Negative (Negative) COVID-19 Clin Com See Note Independent Interpretation I performed an independent interpretation of an: EKG (EKG normal sinus rhythm at a rate 92. Right bundle branch block noted. QTC 487. No STEMI. When compared to prior appears to be new right bundle) Radiology Impression Discussion of test interpretation with radiology: I have reviewed the radiologist's reading. Independent Historian Clinical information obtained from an independent historian. History obtained from or confirmed by: EMS External Record Review External record reviewed: Inpatient record, Office record, Outpatient record, Prior outpatient labs, Prior outpatient radiology, Primary care record and Outside ED record Tests considered The following testing was considered but not selected: As above Discharge Plan Discharge Clinical Impression: Chest pain Patient Disposition: Home, Self-Care Instructions: Chest Pain (DC) Additional Instructions: Your blood work and x-ray are reassuring We recommend close follow-up with Cardiology If symptoms persist or worsen return to the emergency department Castillo an?lisis de marilu y radiograf?a son tranquilizadores. Recomendamos seguimiento estrecho con Cardiolog?a Si los s?ntomas persisten o empeoran, regrese al departamento de emergencias. Prescriptions: No Action metronidazole [Metrogel Vaginal] 0.75 % gel 1 appful vaginal BEDTIME 5 Days Qty: 70 0RF omeprazole 40 mg capsule,delayed release(DR/EC) 40 mg PO DAILY 90 Days Qty: 90 2RF mercaptopurine 50 mg tablet 50 mg PO DAILY Qty: 30 2RF baclofen 10 mg tablet 10 mg PO BEDTIME 30 Days Qty: 30 3RF sucralfate 100 mg/mL suspension 10 ml PO QID Qty: 1000 1RF polyethylene glycol 3350 [Miralax] 17 gram/dose powder 17 g PO BID Qty: 238 1RF prednisone 5 mg tablet 10 mg PO DAILY 30 Days Qty: 60 1RF gabapentin 300 mg capsule See Rx Instructions PO .COMPLEX 30 Days Qty: 90 3RF Rx Instructions: 300mg qam and 600mg qhs orally .; ondansetron 8 mg tablet,disintegrating 4 - 8 mg PO Q8H PRN (Reason: nausea and vomiting) 30 Days Qty: 30 1RF fluoxetine 40 mg capsule 40 mg PO DAILY trazodone 100 mg tablet 100 mg PO DAILY buspirone 5 mg tablet 5 mg PO TID cholecalciferol (vitamin D3) 50 mcg (2,000 unit) tablet 50 mcg PO DAILY cyclobenzaprine 5 mg tablet 5 mg PO TID PRN magnesium 30 mg PO DAILY [place] [facility] [place] [facility] [place] Group] Print Language: Polish
[2023-03-03] MEDS: 0.9 % Sodium Chloride 1,000 ML 999 ML IV (17:34)
--- NOTE | 2023-03-03 17:40 | PC.NURSE ---
labse collected/sent to lab - pt talking on [jonatan, calm, coop. +CMS. +VS. no distress noted. no sob observed/reported. reports CP resolved. palpitations
[2023-03-03 17:42] LABS: MANUAL DIFF FLAG NO
[2023-03-03 17:46] LABS: Basophils Percent Auto 0.3 % (0-2); Eosinophils Percent Auto 0.3 % (0-4); Hematocrit 38.1 % (37.0-47.0); Hemoglobin 13.1 g/dl (12.0-16.0); Imm Gran Abs Auto 0.02 X10*3/uL (0.00-0.03); Imm Gran Pct Auto 0.3 % (0.0-0.4); Lymphocytes Absolute Auto 0.9 X10*3/uL (1.2-4.9); Lymphocytes Percent Auto 16.2 % (20-40); Mean Corpuscular HGB Conc 34.4 g/dl (31.0-35.0); Mean Corpuscular Hemoglobin 33.2 pg (27.0-33.0); Mean Corpuscular Volume 96.7 fL (80.0-98.0); Mean Platelet Volume 10.4 fL (9.4-12.3); Monocytes Absolute Auto 0.4 X10*3/uL (0.1-1.2); Monocytes Percent Auto 6.9 % (2-11); Neutrophils Absolute Auto 4.4 x10*3/uL (2.0-8.3); Platelet Count 148 X10*3/uL (160-400); Red Blood Count 3.94 X10*6/uL (4.20-5.50); Red Cell Distribution Width 15.2 % (11.0-16.0); White Blood Count 5.8 X10*3/uL (4.8-10.8)
[2023-03-03 18:00] LABS: COVID-19 Test Negative (Negative); IDNOW Serial# BCCEAD1C
--- NOTE | 2023-03-03 18:00 | PC.NURSE ---
pt resting. denies chest pain. walked in [facility] w staff. calm, coop. aox4. +CMS. +VS
[2023-03-03 18:01] VITALS: BP 139/80; PULSE 80
[2023-03-03 18:03] VITALS: BP 160/100; PULSE 85
[2023-03-03 18:05] VITALS: BP 171/106; PULSE 89
[2023-03-03 18:07] LABS: D Dimer High Sensitivity < 150 NG/ML
[2023-03-03 18:12] LABS: B Type Natriuretic Peptide 21 pg/mL (<100)
[2023-03-03 18:19] LABS: Alanine Aminotransferase 36 U/L (0-31); Albumin Level 3.3 g/dL (3.5-5.0); Alkaline Phosphatase 85 U/L (39-117); Anion Gap 12 (12-20); Aspartate Amino Transferase 26 U/L (5-31); Bilirubin Direct 0.1 mg/dL (0.0-0.5); Bilirubin Total 0.3 mg/dL (0.0-1.0); Blood Urea Nitrogen 15 mg/dL (9-16); Calcium 8.7 mg/dL (8.4-10.2); Carbon Dioxide 26 mmol/L (22-29); Chloride 108 mmol/L (96-108); Estimated Glomerular Filt Rate > 60; Glucose Random 114 mg/dL (60-115); Magnesium 2.3 mg/dL (1.6-2.6); Potassium 4.1 mmol/L (3.3-5.1); Sodium 142 mmol/L (135-145); Total Protein 6.7 g/dL (6.5-8.0)
[2023-03-03 18:33] LABS: TSH reflex Free T4 0.52 uIU/mL (0.32-4.0)
--- NOTE | 2023-03-03 18:35 | PC.NURSE ---
fabien knutson notified rn gynecology stated did not receive troponin but rest of labs. notified pa that as this rn previously documented all labs were sent w/tech Ashlyn at bedside- this rn witnessed tech label all 4 vials of labs per order and tech sent in tube system. tech also sent covid swab w rn at bedside.
[2023-03-03 19:46] LABS: Troponin-I High Sensitivity < 2.7 ng/L (<3.5-17.0)
[2023-03-03 21:03] LABS: Troponin-I High Sensitivity < 2.7 ng/L (<3.5-17.0)
== END 2023-03-03 21:58 | disposition home or self-care (01) ==
PROVIDERS: Physician Assistant; Emergency Provider Emergency Medicine Emergency Medical Services; PCP Internal Medicine Gastroenterology
DX: R07.89 Other chest pain (principal); R06.02 Shortness of breath; M79.602 Pain in left arm; M79.601 Pain in right arm; Z20.822 Contact with and (suspected) exposure to COVID-19; Z20.828 Contact with and (suspected) exposure to other viral communicable diseases; Z79.899 Other long term (current) drug therapy
CPT/HCPCS: 36415; 71045; 80048; 80076; 83735; 83880; 84443; 84484; 85025; 85379; 85610; 87635; 93005; 96360; 96361; 99284

== ENCOUNTER 2023-03-08 14:54 | Outpatient (AMB) | payer OTHER, SELFPAY ==
--- NOTE | 2023-03-08 15:10 | MHC.OFFVIS ---
Intake Vital Signs 03/08/23 15:11 Height 5 ft 8 in Weight 238 lb 1.588 oz BMI 36.2 BP 152/84 H Blood Pressure Location Lt brachial Position Sitting Pulse 98 Intake [place] Re[place] [facility] [place] chest pain last seen 2020 Intake Note: [facility] [place] Residential Support Worker Required: Yes Residential Support Worker Language: Appellate Conferee Name: [id number] Brandy Accompanied by: Self / Same As Patient Allergies Penicillins [PENICILLINS] Allergy (Severe, Verified 03/08/23 15:13) RASH Iodinated Contrast Media [Iodinated Contrast Media - IV Dye] Allergy (Intermediate, Verified 03/08/23 15:13) RASH meperidine [From DEMEROL] Allergy (Intermediate, Verified 03/08/23 15:13) RASH aspirin [ASA] Allergy (Mild, Verified 03/08/23 15:13) RASH, N/V Contrast Dye Allergy (Unknown, Verified 03/08/23 15:13) unknown, vomiting penicillin V Allergy (Unknown, Verified 03/08/23 15:13) N/V, rash tramadol [TRAMADOL] Allergy (Unknown, Verified 03/08/23 15:13) RASH Medication List - Last Reconciled 03/08/23 by Ta Concepcion MD baclofen 10 mg PO BEDTIME buspirone 5 mg PO TID cyclobenzaprine 5 mg PO TID PRN fluoxetine 40 mg PO DAILY gabapentin 300mg qam and 600mg qhs orally .; 30 days [magnesium 30 mg PO DAILY] mercaptopurine 50 mg PO DAILY metronidazole 0.75%(37.5mg/5gram) (Metrogel Vaginal) 1 appful vaginal BEDTIME 5 days omeprazole 40 mg PO DAILY 90 days ondansetron 4 - 8 mg (0.5 - 1 x 8 mg) PO Q8H PRN 30 days polyethylene glycol 3350 (Miralax) 17 grams PO BID prednisone 10 mg (2 x 5 mg) PO DAILY 30 days sucralfate 10 mL PO QID trazodone 100 mg PO DAILY HPI HPI Comments History of Present Illness Details She has background of cirrhosis of liver and was seen for palpitations and sharp chest pain. EKG was abnormal showing inferior Q-waves. We did an echocardiogram which is unremarkable and does not show any wall motion abnormality. She also had palpitations for which on Holter was requested but she never got it. On follow-up she was doing well. Today she returns for follow-up. She has a lot of palpitations happening every day. She is quite distressed by them. She underwent 24 hour Holter monitor which showed occasional premature ventricle complexes and 3 beat salvos of nonsustained VT at 1 1 3 beats per minute. 03/08/23: She returns for follow up. She is complaining of palpitations. She also has burning chest pain and pressure along with arm pain. These symptoms are new. She previously had work up in 2020 which was negative. [facility] Medical History GERD (gastroesophageal reflux disease) Osteoporosis Atypical chest pain Arthritis Hordeolum externum right upper eyelid Difficulty sleeping Depression, major, recurrent Knee pain, right Autoimmune liver disease Headache syndrome Surgical History History of tubal ligation History of esophagogastroduodenoscopy (EGD) H/O colonoscopy History of liver biopsy History of cholecystectomy Hx of appendectomy History of surgery Family History Father CVD (cardiovascular disease) Mother Breast cancer Leukemia CVD (cardiovascular disease) Brother Substance use disorder Brother No problems noted. Sister No problems noted. Son No problems noted. Daughter No problems noted. Daughter No problems noted. Daughter No problems noted. Maternal Aunt Breast cancer Social History Household Members: Children Housing: Apartment Alcohol intake: never Patient Tobacco Use Status: Never used Tobacco e-Cigarette/Vaping Use: Never Used Current occupational status: disabled Cognitive needs: No Hearing needs: No Vision needs: No Review of Systems Const Denies weakness ENT Denies dizziness Card Denies chest pain, Denies chest pain with activity, Denies syncope, Denies rapid heart rate, Denies pedal edema, Denies edema, Denies leg edema, Denies lightheadedness, Denies palpitations, Denies dyspnea, Denies dyspnea on exertion and Denies orthopnea Resp Denies cough, Denies dyspnea and Denies dyspnea on exertion GI Denies hematochezia and Denies change in stool character Musc Denies abnormal gait, Denies muscle cramps, Denies muscle weakness, Denies numbness, Denies radiating pain into limb and Denies tingling Neuro Denies abnormal gait, Denies dizziness, Denies syncope, Denies numbness, Denies tingling and Denies weakness Endo Denies palpitations Physical Exam Vital Signs: Last Vital Signs Pulse 98 03/08/23 15:11 BP 152/84 H 03/08/23 15:11 BMI result Body Mass Index 36.2 GENERAL APPEARANCE: in no acute distress, well developed, well nourished. NECK/THYROID: no carotid bruit, no jugular venous distention. SKIN: no suspicious lesions, warm and dry. HEART: no murmurs, regular rate and rhythm, S1, S2 normal. LUNGS: clear to auscultation bilaterally. ABDOMEN: normal, bowel sounds present, soft, nontender, nondistended. EXTREMITIES: no clubbing, cyanosis, or edema. PERIPHERAL PULSES: equal. NEUROLOGIC: nonfocal, alert and oriented. PSYCH: mood/affect full range. Assessment & Plan Assessment & Plan (1) Chest pain: Code(s): R07.9 - Chest pain, unspecified Qualifiers: Chest pain type: precordial pain Qualified Code(s): R07.2 - Precordial pain Plan 52 female here for f/u. She previously had NSVT on Holter. Coming back for f/u and complaining of palpitations and chest pressure. Will arrange a repeat 7 days holter. For chest pressure, arranging stress MIBI. Orders: Orders NM cardiolite stress test Today R07.2 - Precordial pain ECG 7 day holter monitor Today R00.2 - Palpitations Medications: Changed From baclofen 10 mg PO BEDTIME 30 days 30 tabs 3RF To baclofen 10 mg PO BEDTIME From mercaptopurine 50 mg PO DAILY 30 tabs 2RF K76.89 - Other specified diseases of liver To mercaptopurine 50 mg PO DAILY K76.89 - Other specified diseases of liver Coding Level of Care Code Est Pt Level 4 (46976) Diagnoses Precordial pain R07.2 Chest pain type: precordial pain
[2023-03-08 15:11] VITALS: BP 152/84; PULSE 98; BMI 36.2
== END 2023-03-08 15:32 | disposition home or self-care (01) ==
PROVIDERS: PCP Internal Medicine; Visit Provider Internal Medicine Cardiovascular Disease
DX: R07.2 Precordial pain (principal)
CPT/HCPCS: 99214

== ENCOUNTER → 2023-03-08 14:54 | Outpatient (BNVA) | payer OTHER, SELFPAY | PROVIDERS: PCP Internal Medicine Gastroenterology; Visit Provider Internal Medicine Cardiovascular Disease | DX: R07.2 Precordial pain (principal) | CPT/HCPCS: 99212 ==

== ENCOUNTER 2023-03-12 05:47 | Emergency (ER) | payer OTHER, SELFPAY ==
[2023-03-12 05:54] VITALS: BP 142/86; PULSE 92; O2SAT 99
[2023-03-12 05:57] VITALS: BP 155/87; PULSE 80; RESP 15; TEMP 36.6; O2SAT 98; BMI 37.5
--- NOTE | 2023-03-12 06:04 | ECG_ITS ---
Test Reason : ABDOMINAL PAIN Blood Pressure : / mmHG Vent. Rate : 086 BPM Atrial Rate : 086 BPM P-R Int : 158 ms QRS Dur : 086 ms QT Int : 390 ms P-R-T Axes : 025 016 015 degrees QTc Int : 466 ms Normal sinus rhythm Normal ECG When compared with ECG of 03-MAR-2023 16:57, Right bundle branch block is no longer Present Referred By: Generic ED Physician Electronically Signed By:JYTOHI OLIVIA
--- NOTE | 2023-03-12 06:35 | ED.GENADULT ---
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 Mode of arrival: ambulatory Limitations: language barrier Related Data Home Medications Medication Instructions Recorded Confirmed fluoxetine 40 mg capsule 40 mg PO DAILY 05/14/20 03/08/23 trazodone 100 mg tablet 100 mg PO DAILY 05/14/20 03/08/23 buspirone 5 mg tablet 5 mg PO TID anxiety 02/11/23 03/08/23 cyclobenzaprine 5 mg tablet 5 mg PO TID PRN 02/11/23 03/08/23 magnesium 30 mg PO DAILY 02/11/23 03/08/23 baclofen 10 mg tablet 10 mg PO BEDTIME 03/08/23 03/08/23 mercaptopurine 50 mg tablet 50 mg PO DAILY 03/08/23 03/08/23 Previous Rx's Medication Instructions Recorded metronidazole 0.75 % (37.5 mg/5 1 appful vaginal BEDTIME 5 days 05/14/21 gram) vaginal gel (Metrogel #70 grams Vaginal) sucralfate 100 mg/mL oral 10 ml PO QID #1,000 mL 02/20/22 suspension polyethylene glycol 3350 17 17 g PO BID #238 grams 10/29/22 gram/dose oral powder (Miralax) prednisone 5 mg tablet 10 mg (2 x 5 mg) PO DAILY 30 days 02/09/23 #60 tabs gabapentin 300 mg capsule See Rx Instructions PO .COMPLEX 30 02/18/23 days #90 caps ondansetron 8 mg disintegrating 4 - 8 mg (0.5 - 1 x 8 mg) PO Q8H 02/18/23 tablet PRN nausea and vomiting 30 days #30 tabs omeprazole 40 mg capsule,delayed 40 mg PO DAILY 90 days #90 caps 03/04/23 release Allergies Allergy/AdvReac Type Severity Reaction Status Date / Time Penicillins [PENICILLINS] Allergy Severe RASH Verified 03/12/23 06:03 Iodinated Contrast Media Allergy Intermediate RASH Verified 03/12/23 06:03 [Iodinated Contrast Media - IV Dye] meperidine [From DEMEROL] Allergy Intermediate RASH Verified 03/12/23 06:03 aspirin [ASA] Allergy Mild RASH, N/V Verified 03/12/23 06:03 Contrast Dye Allergy Unknown unknown, Verified 03/12/23 06:03 vomiting penicillin V Allergy Unknown N/V, rash Verified 03/12/23 06:03 tramadol [TRAMADOL] Allergy Unknown RASH Verified 03/12/23 06:03 [facility] Past Medical History Medical History GERD (gastroesophageal reflux disease) Osteoporosis Atypical chest pain Arthritis Hordeolum externum right upper eyelid Difficulty sleeping Depression, major, recurrent Knee pain, right Autoimmune liver disease Headache syndrome Surgical History History of tubal ligation History of esophagogastroduodenoscopy (EGD) H/O colonoscopy History of liver biopsy History of cholecystectomy Hx of appendectomy History of surgery Family History Family History Father CVD (cardiovascular disease) Mother Breast cancer Leukemia CVD (cardiovascular disease) Brother Substance use disorder Brother No problems noted. Sister No problems noted. Son No problems noted. Daughter No problems noted. Daughter No problems noted. Daughter No problems noted. Maternal Aunt Breast cancer Social History Social History Household Members: Children Housing: Apartment Alcohol intake: never Patient Tobacco Use Status: Never used Tobacco Smoked in Last 30 Days: No e-Cigarette/Vaping Use: Never Used Use of substances other than those prescribed or required for medical reasons: No Current occupational status: disabled Cognitive needs: No Hearing needs: No Vision needs: No Physical Exam ED Vital Signs: Vital Signs - 24 hr 03/12/23 05:57 Temperature 97.8 F Pulse Rate 80 Respiratory Rate 15 Blood Pressure 155/87 H Pulse Oximetry 98 Oxygen Delivery Method Room Air BMI result Body Mass Index 37.5 Discharge Plan Discharge Prescriptions: No Action metronidazole [Metrogel Vaginal] 0.75 % gel 1 appful vaginal BEDTIME 5 Days Qty: 70 0RF sucralfate 100 mg/mL suspension 10 ml PO QID Qty: 1000 1RF polyethylene glycol 3350 [Miralax] 17 gram/dose powder 17 g PO BID Qty: 238 1RF prednisone 5 mg tablet 10 mg PO DAILY 30 Days Qty: 60 1RF gabapentin 300 mg capsule See Rx Instructions PO .COMPLEX 30 Days Qty: 90 3RF Rx Instructions: 300mg qam and 600mg qhs orally .; ondansetron 8 mg tablet,disintegrating 4 - 8 mg PO Q8H PRN (Reason: nausea and vomiting) 30 Days Qty: 30 1RF omeprazole 40 mg capsule,delayed release(DR/EC) 40 mg PO DAILY 90 Days Qty: 90 2RF fluoxetine 40 mg capsule 40 mg PO DAILY trazodone 100 mg tablet 100 mg PO DAILY buspirone 5 mg tablet 5 mg PO TID baclofen 10 mg tablet 10 mg PO BEDTIME mercaptopurine 50 mg tablet 50 mg PO DAILY cyclobenzaprine 5 mg tablet 5 mg PO TID PRN magnesium 30 mg PO DAILY
--- NOTE | 2023-03-12 06:52 | ED_ITS ---
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 Reports intermittent chest pain and palpitations since midnight this morning prompting her to call EMS. Reports BP at home was normal. Denies chest pain or palpitations at present. Endorses nausea. States she was evaluated by cardiology (Dr. Concepcion) 5 days ago & has upcoming 30 day Holter monitor and stress test scheduled. Admits to recent nonbloody diarrhea, chronic nausea and migraine SCHMIDT and is currently following neurology with outpatient MRI scheduled. Denies dizziness, sweating, dyspnea, SOB, vomiting, abd pain, dysuria, hematuria, or LE swelling/ pain. Denies trauma, injury, or falls. Denies VTE, cardiac, thyroid, or CVA history. Related Data Home Medications Medication Instructions Recorded Confirmed fluoxetine 40 mg capsule 40 mg PO DAILY 05/14/20 03/08/23 trazodone 100 mg tablet 100 mg PO DAILY 05/14/20 03/08/23 buspirone 5 mg tablet 5 mg PO TID anxiety 02/11/23 03/08/23 cyclobenzaprine 5 mg tablet 5 mg PO TID PRN 02/11/23 03/08/23 magnesium 30 mg PO DAILY 02/11/23 03/08/23 baclofen 10 mg tablet 10 mg PO BEDTIME 03/08/23 03/08/23 mercaptopurine 50 mg tablet 50 mg PO DAILY 03/08/23 03/08/23 Previous Rx's Medication Instructions Recorded metronidazole 0.75 % (37.5 mg/5 1 appful vaginal BEDTIME 5 days 05/14/21 gram) vaginal gel (Metrogel #70 grams Vaginal) sucralfate 100 mg/mL oral 10 ml PO QID #1,000 mL 02/20/22 suspension polyethylene glycol 3350 17 17 g PO BID #238 grams 10/29/22 gram/dose oral powder (Miralax) prednisone 5 mg tablet 10 mg (2 x 5 mg) PO DAILY 30 days 02/09/23 #60 tabs gabapentin 300 mg capsule See Rx Instructions PO .COMPLEX 30 02/18/23 days #90 caps ondansetron 8 mg disintegrating 4 - 8 mg (0.5 - 1 x 8 mg) PO Q8H 02/18/23 tablet PRN nausea and vomiting 30 days #30 tabs omeprazole 40 mg capsule,delayed 40 mg PO DAILY 90 days #90 caps 03/04/23 release ondansetron 4 mg disintegrating 4 mg PO DAILY PRN nausea and 03/12/23 tablet vomiting 5 days #10 tabs Allergies Allergy/AdvReac Type Severity Reaction Status Date / Time Penicillins [PENICILLINS] Allergy Severe RASH Verified 03/12/23 06:03 Iodinated Contrast Media Allergy Intermediate RASH Verified 03/12/23 06:03 [Iodinated Contrast Media - IV Dye] meperidine [From DEMEROL] Allergy Intermediate RASH Verified 03/12/23 06:03 aspirin [ASA] Allergy Mild RASH, N/V Verified 03/12/23 06:03 Contrast Dye Allergy Unknown unknown, Verified 03/12/23 06:03 vomiting penicillin V Allergy Unknown N/V, rash Verified 03/12/23 06:03 tramadol [TRAMADOL] Allergy Unknown RASH Verified 03/12/23 06:03 Review of Systems 2 Review of Systems: Constitutional: No fever, chills, fatigue, night sweats, weight changes ENT/Mouth: No ear pain, hearing loss Eyes: No eye pain, swelling, redness, vision changes, discharge Cardio: + chest pain, + palpitations, No WANG, orthopnea, peripheral edema Pulm: No SOB, cough, sputum, wheezing, dyspnea, hemoptysis GI: + nausea, No vomiting, hematemesis, abdominal pain, diarrhea : No irregular bleeding, dysuria, frequency, urgency, hesitancy, hematuria, flank painn MSK: No back pain, neck pain, joint pain, myalgias Skin: No lesions, rashes Neuro: No weakness, numbness, paresthesias, LOC, dizziness, headache All other systems reviewed and are negative. [facility] Past Medical History Attestation statement: The following information was validated with the patient. Source: old records reviewed and nursing notes reviewed Medical History GERD (gastroesophageal reflux disease) Osteoporosis Atypical chest pain Arthritis Hordeolum externum right upper eyelid Difficulty sleeping Depression, major, recurrent Knee pain, right Autoimmune liver disease Headache syndrome Surgical History History of tubal ligation History of esophagogastroduodenoscopy (EGD) H/O colonoscopy History of liver biopsy History of cholecystectomy Hx of appendectomy History of surgery Family History Family History Father CVD (cardiovascular disease) Mother Breast cancer Leukemia CVD (cardiovascular disease) Brother Substance use disorder Brother No problems noted. Sister No problems noted. Son No problems noted. Daughter No problems noted. Daughter No problems noted. Daughter No problems noted. Maternal Aunt Breast cancer Social History Social History Household Members: Children Housing: Apartment Alcohol intake: never Patient Tobacco Use Status: Never used Tobacco Smoked in Last 30 Days: No e-Cigarette/Vaping Use: Never Used Use of substances other than those prescribed or required for medical reasons: No Advance Directives: No Advance Directives Information Provided: Yes Current occupational status: disabled Cognitive needs: No Hearing needs: No Vision needs: No Physical Exam ED Vital Signs: Vital Signs - 24 hr 03/12/23 05:57 03/12/23 07:24 03/12/23 09:48 Temperature 97.8 F 98.0 F 98.0 F Pulse Rate 80 74 79 Respiratory Rate 15 16 18 Blood Pressure 155/87 H 123/76 119/69 Pulse Oximetry 98 100 99 Oxygen Delivery Method Room Air Room Air Room Air 03/12/23 12:00 Temperature Pulse Rate 73 Respiratory Rate Blood Pressure 105/65 Pulse Oximetry Oxygen Delivery Method BMI result Body Mass Index 37.5 Vital signs stable. General: Nontoxic appearing. NAD Skin: Warm and dry. No rashes or lesions. Head: Normocephalic, atraumatic. Left sided facial droop that patient notes is chronic in nature & is currently following with neurology and dentist for ?facial bone deterioration. Absence of focal deficits. EENT: PERRLA. EOM intact. Moist mucous membranes. Pharynx normal. Neck: Supple without LAD. Normal ROM. Trachea midline. No meningeal signs. Cardiac: Chest wall symmetric. RRR. S1 and S1 appreciated. No MRG. No JVD. Lungs: CTA b/l. No rales, rhonchi, or wheezes. Normal respiratory effort without accessory muscle use. Abdomen: No visible lesions, masses, or scars. Soft, NT/ND. Ext: UE/LE atraumatic. Full ROM throughout. Capillary refill <2 seconds in all extremities. Pulses 2+ equal b/l. No pedal edema, cyanosis, or clubbing. Negative Homans sign. Neuro: AOx3. Normal speech. CN 2-12 grossly intact. Strength 5/5 intact throughout. Sensation intact to light touch. NV intact distally. Reflexes 2+ b/l. Normal finger to nose, heel to pretty. Psych: Appropriate mood and affect. Responds appropriately to questions. Course Course Course Narrative: 739-- EKG showing NSR without acute ischemic changes + negative toponin x1 > unlikely ASC. CBC without leukocytosis or anema. Chemistry without acute electrolyte abnormality requiring intervention. Chronic elevation in ALT secondary to autoimmune liver disease. Lipase WNL. - Maalox + Pepcid + zofran ordered 0935-- COVID/flu/RSV/strep negative > unlikely viral syndrome. D-dimer negative > r/o PE. Repeat troponin ordered. > On re evaluation patient reports improvement in chest pain but continued palpitations > repeat EKG ordered. 1100-- Trop negative x2. EKG with NRS, ventricular rate of 72 bpm, & no ischemic changes > unlikely ACS. > on re-evaluation patient reports resolution of palpitations. > Informed patient of her negative cardiac enzymes and unremarkable EKG. Will send home with Jacob for nausea. 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 Patient agreeable with plan. Patient is still stable. All questions answered. Patient educated on return precautions. Stable for discharge. Medications Administered Discontinued Medications Generic Name Dose Route Start Last Admin Trade Name Freq PRN Reason Stop Dose Admin Al Hydroxide/Mg Hydroxide 30 ml 03/12/23 07:50 03/12/23 08:09 Magnesium Hydrox/Alum Hydrox 30 Ml Oral.Susp PO 03/12/23 07:51 30 ml ONCE ONE Administration Famotidine 20 mg 03/12/23 07:50 03/12/23 08:09 Famotidine/Pf 20 Mg/2 Ml Vial IVPUSH 03/12/23 07:51 20 mg ONCE ONE Administration Ondansetron HCl 4 mg 03/12/23 07:04 03/12/23 07:21 Ondansetron Hcl 4 Mg/2 Ml Vial IVPUSH 03/12/23 07:05 4 mg ONCE ONE Administration Medical Decision Making Medical Decision Making [facility] Narrative: 52-year-old female with pmhx of GERD, depression, autoimmune liver disease, & vertigo, presenting to the ED via EMS complaining of intermittent substernal/left-sided chest pain described as a burning sensation with radiation down LUE x1.5 weeks. VSS, patient nontoxic appearing, in NAD. S1/S2 appreciated, no M/R/G. Lungs CTA b/l. Exam nonfocal. Cerebellum intact. Clinical concern for GERD vs anxiety vs arrhythmia vs electrolyte abnormality vs ACS. Unlikely msk sprain/ strain as CP is not reproducible. Low suspicion for dissection, meningitis/ encephalitis. Low clinical suspicion for cerebellar stroke, CVA or TIA as exam is nonfocal. Low suspicion for PE as patient is not tachycardiac, not hypoxic however PERC score 1 > D-dimer ordered. Unlikely pneumonia. Concern for viral syndrome. Differential Diagnosis Differential Diagnoses: The differential diagnosis associated with the presentation includes As above. Admission/Observation Consideration of admission/observation: Escalation of care including admission/observation considered In this 52 yo female with recurrent chest pain/palpitations admission was considered. Lab Data [facility] Lab Attestation statement: I reviewed the patient's lab results. See above course narrative. 03/12/23 06:50 03/12/23 06:50 Labs: Lab Results 03/12/23 03/12/23 03/12/23 Range/Units 06:50 08:22 08:32 WBC 5.6 (4.8-10.8) X10*3/uL RBC 4.09 L (4.20-5.50) X10*6/uL Hgb 13.4 (12.0-16.0) g/dl Hct 39.9 (37.0-47.0) % MCV 97.6 (80.0-98.0) fL MCH 32.8 (27.0-33.0) pg MCHC 33.6 (31.0-35.0) g/dl RDW 15.1 (11.0-16.0) % Plt Count 119 L (160-400) X10*3/uL MPV 10.0 (9.4-12.3) fL Immature Gran % (Auto) 0.4 (0.0-0.4) % Neut % (Auto) 61.8 (45-73) % Lymph % (Auto) 28.8 (20-40) % [place] % (Auto) 8.0 (2-11) % Eos % (Auto) 0.5 (0-4) % Baso % (Auto) 0.5 (0-2) % Lymph # (Auto) 1.6 (1.2-4.9) X10*3/uL [place] # (Auto) 0.5 (0.1-1.2) X10*3/uL Eos # (Auto) 0.0 (0.0-0.4) X10*3/uL Baso # (Auto) 0.0 (0.0-0.2) X10*3/uL Abs Immat Gran (auto) 0.02 (0.00-0.03) X10*3/uL Absolute Neuts (auto) 3.5 (2.0-8.3) x10*3/uL Absolute Nucleated RBC 0.000 (0.0-0.012) X10*3/uL Nucleated RBC % (auto) 0.0 (0.0-0.2) /100WBC D-Dimer High Sensitivty < 150 NG/ML Sodium 142 (135-145) mmol/L Potassium 3.6 (3.3-5.1) mmol/L Chloride 109 H (96-108) mmol/L Carbon Dioxide 21 L (22-29) mmol/L Anion Gap 16 (12-20) BUN 13 (9-16) mg/dL Creatinine 0.66 (0.5-1.4) mg/dL Estim Creat Clear Calc 130.7 Estimated GFR > 60 Random Glucose 81 (60-115) mg/dL Calcium 9.1 (8.4-10.2) mg/dL Total Bilirubin 0.5 (0.0-1.0) mg/dL Direct Bilirubin 0.2 (0.0-0.5) mg/dL AST 23 (5-31) U/L ALT 34 H (0-31) U/L Alkaline Phosphatase 83 (39-117) U/L Troponin I High Sens < 2.7 (<3.5-17.0) ng/L Total Protein 6.9 (6.5-8.0) g/dL Albumin 3.8 (3.5-5.0) g/dL Lipase 27 (8-78) U/L Influenza Type A (PCR) NEGATIVE (Negative) Influenza Type B (PCR) NEGATIVE (Negative) RSV RNA Qual (PCR) NEGATIVE (Negative) SARS-CoV-2 RNA (RT-PCR) NEGATIVE (Negative) S. pyogenes GrpA NICOLASA Negative (Negative) 03/12/23 Range/Units 10:18 WBC (4.8-10.8) X10*3/uL RBC (4.20-5.50) X10*6/uL Hgb (12.0-16.0) g/dl Hct (37.0-47.0) % MCV (80.0-98.0) fL MCH (27.0-33.0) pg MCHC (31.0-35.0) g/dl RDW (11.0-16.0) % Plt Count (160-400) X10*3/uL MPV (9.4-12.3) fL Immature Gran % (Auto) (0.0-0.4) % Neut % (Auto) (45-73) % Lymph % (Auto) (20-40) % [place] % (Auto) (2-11) % Eos % (Auto) (0-4) % Baso % (Auto) (0-2) % Lymph # (Auto) (1.2-4.9) X10*3/uL [place] # (Auto) (0.1-1.2) X10*3/uL Eos # (Auto) (0.0-0.4) X10*3/uL Baso # (Auto) (0.0-0.2) X10*3/uL Abs Immat Gran (auto) (0.00-0.03) X10*3/uL Absolute Neuts (auto) (2.0-8.3) x10*3/uL Absolute Nucleated RBC (0.0-0.012) X10*3/uL Nucleated RBC % (auto) (0.0-0.2) /100WBC D-Dimer High Sensitivty NG/ML Sodium (135-145) mmol/L Potassium (3.3-5.1) mmol/L Chloride (96-108) mmol/L Carbon Dioxide (22-29) mmol/L Anion Gap (12-20) BUN (9-16) mg/dL Creatinine (0.5-1.4) mg/dL Estim Creat Clear Calc Estimated GFR Random Glucose (60-115) mg/dL Calcium (8.4-10.2) mg/dL Total Bilirubin (0.0-1.0) mg/dL Direct Bilirubin (0.0-0.5) mg/dL AST (5-31) U/L ALT (0-31) U/L Alkaline Phosphatase (39-117) U/L Troponin I High Sens < 2.7 (<3.5-17.0) ng/L Total Protein (6.5-8.0) g/dL Albumin (3.5-5.0) g/dL Lipase (8-78) U/L Influenza Type A (PCR) (Negative) Influenza Type B (PCR) (Negative) RSV RNA Qual (PCR) (Negative) SARS-CoV-2 RNA (RT-PCR) (Negative) S. pyogenes GrpA NICOLASA (Negative) Independent Interpretation I performed an independent interpretation of an: EKG Interpretation: -- EKG with normal sinus rhythm and a rate of 86 bpm, QT 390, no acute ichemic changes, no changes when compared with EKG on 03/03/23. -- Repeat EKG with normal sinus rhythm and a rate of 72 bpm, no acute ischemic changes. Independent Historian Clinical information obtained from an independent historian. History obtained from or confirmed by: EMS External Record Review External record reviewed: Inpatient record and Outpatient record Tests considered The following testing was considered but not selected: Considered obtaining CT head/brain however patient has migraine is chronic in nature, symptoms are unchanged, follows with outpatient neurology. Prescription Management I considered prescription management with: Other (antiemetic) Scores Heart Score History: -1- moderately suspicious ECG: -0- normal Age: -1- >45 - <65 Risk factory: -0- no risk factors known Troponin: -0- < or = normal limit Score: 2 Risk: 1.7% Critical Care Time Critical Care Time Critical Care Time: No Discharge Plan Discharge Clinical Impression: Palpitations, Chest pain Patient Disposition: Home, Self-Care Instructions: Chest Pain (ED), Heart Palpitations (ED) Additional Instructions: Your lab workup and EKG today was reassuring. Your cardiac enzymes were negative x2. You tested negative for covid, flu, rsv, and strep. Keep your cardiology appointment for holter monitor and stress test. Follow-up with your primary care provider as needed. Return to the emergency department with new or worsening symptoms. In case of emergency call 911 Castillo an?lisis de laboratorio y castillo electrocardiograma de hoy fueron tranquilizadores. Tus enzimas card?acas fueron negativas x2. Vinny negativo en las pruebas de covid, gripe, rsv y estreptococo. Acuda a castillo richar de cardiolog?a para monitor holter y prueba de esfuerzo. Dago un seguimiento con castillo proveedor de atenci?n primaria seg?n sea necesario. Regrese al departamento de emergencias si los s?ntomas son nuevos o empeoran. En bhupinder de emergencia llame al 911. Prescriptions: New ondansetron 4 mg tablet,disintegrating 4 mg PO DAILY PRN (Reason: nausea and vomiting) 5 Days Qty: 10 0RF No Action metronidazole [Metrogel Vaginal] 0.75 % gel 1 appful vaginal BEDTIME 5 Days Qty: 70 0RF sucralfate 100 mg/mL suspension 10 ml PO QID Qty: 1000 1RF polyethylene glycol 3350 [Miralax] 17 gram/dose powder 17 g PO BID Qty: 238 1RF prednisone 5 mg tablet 10 mg PO DAILY 30 Days Qty: 60 1RF gabapentin 300 mg capsule See Rx Instructions PO .COMPLEX 30 Days Qty: 90 3RF Rx Instructions: 300mg qam and 600mg qhs orally .; ondansetron 8 mg tablet,disintegrating 4 - 8 mg PO Q8H PRN (Reason: nausea and vomiting) 30 Days Qty: 30 1RF omeprazole 40 mg capsule,delayed release(DR/EC) 40 mg PO DAILY 90 Days Qty: 90 2RF fluoxetine 40 mg capsule 40 mg PO DAILY trazodone 100 mg tablet 100 mg PO DAILY buspirone 5 mg tablet 5 mg PO TID baclofen 10 mg tablet 10 mg PO BEDTIME mercaptopurine 50 mg tablet 50 mg PO DAILY cyclobenzaprine 5 mg tablet 5 mg PO TID PRN magnesium 30 mg PO DAILY Referrals: Ta Concepcion MD [Physician] - 3 days Interventions: ED Discharge Assessment Last Done: 03/12/23 12:02 Discharge Date/Time: 03/12/23 12:07 Print Language: Kinyarwanda
[2023-03-12 06:54] LABS: MANUAL DIFF FLAG NO
--- OUTSIDE RECORDS SUMMARY | 2023-03-12 06:54 | XMS_ITS | Continuity of Care Document ---
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 Attending Physician: Isma Colvin Admitting Physician: Admtr, Isma Referring Physician: Admtr, Ar8 Allergies, Adverse Reactions, Alerts Substance Reaction Severity Status aspirin dizzyness/diarrhea Active penicillins Active iodinated radiocontrast dyes Active Demerol HCl Shortness of breath Active traMADol Shortness of breath Active Immunizations Given and Recorded Vaccine Date Status Refusal Reason Hepatitis A-Hepatitis B Vaccine 1 12/07/14 Given Hepatitis A-Hepatitis B Vaccine 2 08/01/14 Given Hepatitis A-Hepatitis B Vaccine 3 06/29/14 Given pneumococcal 23-valent vaccine 4 11/04/13 Given 1Admin Note: Injected 1ml into patient's right arm. Tolerated well. IAN MENDOSA 2Admin Note: Injected 1ml into pt's right arm, tolerated well. DEONDRE RN 3Admin Note: Injected 1ml into patient's right arm, tolerated well. 2nd and 3rd injections scheduled. All set. IAN MENDOSA 4Early/Late Reason: Other : Waited for family to check if she had it previously or not as pt could not remember. Medications azathioprine 50 mg oral tablet 4 tablet = 200 mg, By Mouth, Daily, # 120 tablet, 3 Refills, Maintenance, 10/25/15 14:21:26, 4 tablet By Mouth Daily Start Date: 10/25/15 Status: Ordered calcium-vitamin D 600 mg-400 intl units oral tablet 1 tablet, By Mouth, 2 times a day, # 180 tablet, 3 Refills, Maintenance, 12/07/14 17:00:32, Tablet,1 tablet By Mouth 2 times a day Start Date: 12/07/14 Status: Ordered ferrous sulfate 325 mg oral tablet 1 tablet = 325 mg, By Mouth, Daily, 0 Refills, Maintenance, 08/17/14 15:28:35 Start Date: 08/17/14 Status: Ordered omeprazole 40 mg oral enteric coated capsule 1 capsule = 40 mg, By Mouth, 2 times a day, # 180 capsule, 3 Refills, Maintenance, 02/01/15 9:22:35, EC Capsule, 1 capsule By Mouth 2 times a day Start Date: 02/01/15 Status: Ordered Problem List Condition Effective Dates Status Health Status Inform ant Autoimmune cholangitis(Confirmed) Active GERD (gastroesophageal reflu x disease)(Confirmed) Active Immunosuppressed status(Confirmed) Active Pancreatitis, recurrent(Confirmed) Active Social History Social History Type Response Smoking Status Never smoker entered on: 05/27/14 Sex
--- OUTSIDE RECORDS SUMMARY | 2023-03-12 06:54 | XMS_ITS | Continuity of Care Document ---
Author Name Unknown Organization [facility] Address [address] [place] [id number] Care Team Providers Care Screw Machine Operator Name Role Phone Archie NAVA, Luis Angel Primary Care Physician Encounter [facility] Date(s): 02/28/19 - 06/28/19 [facility] [address] [place] [id number]- [facility] Attending Physician: Eliel Sauer MD Admitting Physician: Eliel Sauer MD Referring Physician: Luis Angel Almanza MD Allergies, Adverse Reactions, Alerts Substance Reaction Severity [...] 1ml into pt's right arm, tolerated well. IAN MENDOSA 3Admin Note: Injected 1ml into patient's right [...]
[2023-03-12 06:57] LABS: Basophils Percent Auto 0.5 % (0-2); Eosinophils Percent Auto 0.5 % (0-4); Hematocrit 39.9 % (37.0-47.0); Hemoglobin 13.4 g/dl (12.0-16.0); Imm Gran Abs Auto 0.02 X10*3/uL (0.00-0.03); Imm Gran Pct Auto 0.4 % (0.0-0.4); Lymphocytes Absolute Auto 1.6 X10*3/uL (1.2-4.9); Lymphocytes Percent Auto 28.8 % (20-40); Mean Corpuscular HGB Conc 33.6 g/dl (31.0-35.0); Mean Corpuscular Hemoglobin 32.8 pg (27.0-33.0); Mean Corpuscular Volume 97.6 fL (80.0-98.0); Monocytes Absolute Auto 0.5 X10*3/uL (0.1-1.2); Neutrophils Absolute Auto 3.5 x10*3/uL (2.0-8.3); Neutrophils Percent Auto 61.8 % (45-73); Platelet Count 119 X10*3/uL (160-400); Red Blood Count 4.09 X10*6/uL (4.20-5.50); Red Cell Distribution Width 15.1 % (11.0-16.0); White Blood Count 5.6 X10*3/uL (4.8-10.8)
[2023-03-12 07:12] LABS: Alanine Aminotransferase 34 U/L (0-31); Albumin Level 3.8 g/dL (3.5-5.0); Alkaline Phosphatase 83 U/L (39-117); Anion Gap 16 (12-20); Aspartate Amino Transferase 23 U/L (5-31); Bilirubin Direct 0.2 mg/dL (0.0-0.5); Bilirubin Total 0.5 mg/dL (0.0-1.0); Blood Urea Nitrogen 13 mg/dL (9-16); Calcium 9.1 mg/dL (8.4-10.2); Carbon Dioxide 21 mmol/L (22-29); Chloride 109 mmol/L (96-108); Creatinine Clr Calc Pharmacy 130.7; Estimated Glomerular Filt Rate > 60; Glucose Random 81 mg/dL (60-115); Lipase 27 U/L (8-78); Potassium 3.6 mmol/L (3.3-5.1); Sodium 142 mmol/L (135-145); Total Protein 6.9 g/dL (6.5-8.0)
[2023-03-12 07:19] LABS: Troponin-I High Sensitivity < 2.7 ng/L (<3.5-17.0)
[2023-03-12] MEDS: ondansetron HCL 4 MG/2 ML VIAL IVPUSH (07:21)
[2023-03-12 07:24] VITALS: BP 123/76; PULSE 74; RESP 16; TEMP 36.7; O2SAT 100
--- NOTE | 2023-03-12 07:24 | PC.NURSE ---
Assumed care of pt at 0700. Resting quietly in bed. 22g peripheral IV place in L ac. Pt tolerated well. IV med given as ordered. Respirations even and unlabored.
[2023-03-12] MEDS: Famotidine/PF 20 MG/2 ML VIAL IVPUSH (08:09)
[2023-03-12] MEDS: Magnesium Hydrox/Alum Hydrox 30 ML ORAL.SUSP PO (08:09)
[2023-03-12 08:48] LABS: IDNOW Serial# 08D9AD1C; Strep A Nucleic Acid Negative (Negative)
[2023-03-12 09:05] LABS: D Dimer High Sensitivity < 150 NG/ML
[2023-03-12 09:11] LABS: Influenza A PCR NEGATIVE (Negative); Influenza B PCR NEGATIVE (Negative); Resp Syncy Virus RNA Qual PCR NEGATIVE (Negative); SARS COV2 PCR INHOUSE NEGATIVE (Negative)
--- NOTE | 2023-03-12 09:43 | ECG_ITS ---
Test Reason : palpitations Blood Pressure : / mmHG Vent. Rate : 072 BPM Atrial Rate : 072 BPM P-R Int : 154 ms QRS Dur : 084 ms QT Int : 418 ms P-R-T Axes : 027 037 029 degrees QTc Int : 457 ms Normal sinus rhythm Normal ECG When compared with ECG of 12-MAR-2023 06:22, No significant change was found Referred By: Hollie Nath Electronically Signed By:JYOTHI OLIVIA
[2023-03-12 09:48] VITALS: BP 119/69; PULSE 79; RESP 18; TEMP 36.7; O2SAT 99
[2023-03-12 10:50] LABS: Troponin-I High Sensitivity < 2.7 ng/L (<3.5-17.0)
[2023-03-12 12:00] VITALS: BP 105/65; PULSE 73
--- NOTE | 2023-03-12 12:06 | PC.NURSE ---
cleared for discharge, discharge summary reviewed with pt using staff medical housekeeper. iv removed, denies pain, vss.
== END 2023-03-12 12:07 | disposition home or self-care (01) ==
PROVIDERS: Physician Assistant Medical; Emergency Provider Emergency Medicine; PCP Internal Medicine
DX: R00.2 Palpitations (principal); R07.9 Chest pain, unspecified; Z20.822 Contact with and (suspected) exposure to COVID-19; Z20.828 Contact with and (suspected) exposure to other viral communicable diseases; Z79.899 Other long term (current) drug therapy
CPT/HCPCS: 0241U; 36415; 80048; 80076; 83690; 84484; 85025; 85379; 87651; 93005; 96374; 96375; 99284; J2405

== ENCOUNTER 2023-03-15 10:09 | Outpatient (AMB) | payer OTHER, SELFPAY ==
--- NOTE | 2023-03-15 10:15 | MHC.OFFVIS ---
Intake Vital Signs 03/15/23 10:16 Height 5 ft 8 in Weight 235 lb BMI 35.7 BP 132/74 Blood Pressure Location Lt brachial Position Sitting Pulse 101 H Intake Visit Reasons: F/U Labs Intake Note: Patient follow up for lab results. Patient cc: no appetite, constipation and abdominal pain. Denies any other GI issues. Manager Aerospace Required: Yes Manager Aerospace [place] [facility] [place] Accompanied by: Self / Same As Patient Allergies Penicillins [PENICILLINS] Allergy (Severe, Verified 03/15/23 10:14) RASH Iodinated Contrast Media [Iodinated Contrast Media - IV Dye] Allergy (Intermediate, Verified 03/15/23 10:14) RASH meperidine [From DEMEROL] Allergy (Intermediate, Verified 03/15/23 10:14) RASH aspirin [ASA] Allergy (Mild, Verified 03/15/23 10:14) RASH, N/V Contrast Dye Allergy (Unknown, Verified 03/15/23 10:14) unknown, vomiting penicillin V Allergy (Unknown, Verified 03/15/23 10:14) N/V, rash tramadol [TRAMADOL] Allergy (Unknown, Verified 03/15/23 10:14) RASH HPI F/U Labs HPI Details 52 y/o f w/ hx of PSC and AIP seen for f/u--?? ? RECAP:from prior notes ? dx initially in [place] abt 10 yrs ago after pancreatitis dx, had cholecystectomy, bile dcut was accidentally clipped and needed further surgery ? during this time she became jaundiced, had weight loss and vomiting and eventually dx as having AIH after coming to [place] for further management ? she had liver biopsy as well ? she was on chronic low dose pred 5 mg daily, and imuran 50mg tid ? has been hard to wean her off pred ? she had EGD and colonoscopy 1 yr ago, colon was normal, EGD with varices, on propranolol ? says was told she had colitis in the past as well as osteopenia ? she feels gen malaise ? issues with constipation, sometimes soft ? appetite is fair ? she does have some mild RUQ pain pulsating feels like her body is inflammed ? she has back pain, and knee, arm pains ? she has had swollen glands in neck for 4 ? depression due to multiple deaths in family ? She had admission to hosptial with flare up of disease, put on steroids ? LFT abnormal, with raised CRP, AST 200--->20, ? THen haf further admission with bacteremia from [facility] which per ID is water borne bacteria, repeat MRI 12/2018 with stable appearance, intrahepatic duct dilation, ? she was having a flare and put on long pred taper ? other tests; ? Hep B,C negative ? CT 2014- hepaticojejunostomy ? DEXA 2019- osteopenia spine. ? MRI inpatient- intrahepatic dilation, left. right, CBD normal, no masses or stones ? CT neck: prominent sub mandibular neck gland ? EGD : hyperplastic polyps, small varices, hiatal hernia ? recently she was feeling worse and pred was restarted and imuran stopped and changed to 6 MP ? At OV 06/2018 she was c/o epigastric pain, malaise with back pain, dysuria and went to ED day after, inaptient CT and UA, were neg for actue findings, CRP elevated but lower than before and trended down. Pred was increased to 20 mg ? At OV 1 week ago she was continued on 6 MP 75 mg and pred 20 mg ? she was having burning and itching in vaginal area and thick vaginal d/c ? she had liver bx--rare IgG4 cells, mild chronic inflammation, portal fibrosis, ? she had menstrual bleeding after having no periods for months ? she had back pain as well 08/21, mild lower aboo pain ? denies n/v ? appetite is poor ? she had burning with urine---UA with 2+ blood, no protein ? she was increased on pred to 20 mg for 4 weeks and 6 MP reduced to 50 mg ? depressed due to social issues, probs with SSI ? LFT slowly been coming down on 20 mg pred ? does have general weakness ? appetite is poor ? but admits that pred 20 mg is helping ? does have hot flashes thinks due to menopause, ? having some shoulder blade pain for 1 d, tylenol helps ? admitted with partial small bowel obstrcution 08/2019 ? she ws having ongoing nausea and abdo pain, given omeprazole 40 mg with carafate ? Labs 10/19/2019-- TB-nml, AST-41. ALT 74, alk phos 171 ? Labs 11/2019-- TB--0.6, AST--34, ALT 54, alk phos 130, CRP 0.39 ? she saw Dr James pain team and plan was for SI joint injections ?? LFT stable, on 18 mg of pred? as well as 6 MP 50 mg referred to cardiology due to palps and chest pressure--nml holter rept LABS: 08/2020-- bili-nml, AST 32, ALT 56, alk phso 133 she had LFt repeated after pred cut down to 17 mg bili-1.1, AST 38, ALT 61, AP-128 DEXA with osteopenia in hips and osteoporosis in spine--reclast was given US 03/2021-- splenomegaly, liver looked good, kidney stone right she went to the ED and had CT scan 08/2021: dilated stomach, ?GOO, thickening of lower esophagus, post surg changes, possible medullary nephrocalcinosis, fibroid EGD 09/2021- gastric polyps, small varices She had COVID 19 infection 10/2021 LFT 10/2021-- bili 0.4, AST-30, ALT 48, alk phos- 89 LFT: 02/2023-- nml LFT --mild elevation ALT CT 2022--- stable appearances of liver and other organs, no new findings ?INTERIM: she returned from [place], didn;t like it she has noted increased abdominal swelling she has nausea she has increased pain in epigastrium appetite is poor she feels hard to digest food she has a lot of anxiety she is on prednisone 10 mg--she is still on mercaptopurine EXAM: GENERAL: The patient is well developed and nontoxic. VITAL SIGNS:see workflow HEENT: Nonicteric sclerae, PERRLA, EOMI. Oropharynx clear. Moist mucous membranes. Conjunctivae appear well perfused. No thyroid mass. CHEST: Chest wall is nontender. HEART: Regular rate and rhythm without murmurs. LUNGS: Clear to auscultation bilaterally. ABDOMEN: Soft, positive bowel sounds, tender epigastrium, no organomegaly.no flank tenderness SKIN: No rash, no excessive bruising, petechiae, or purpura. NEUROLOGIC: Cranial nerves II-XII intact without motor/sensory deficit. MS: using cane to walk due to right knee pain, pain in knee reduced ROM Psych--nml Assessments ? 1. IgG4 related disease - 2. Autoimmune pancreatitis - 3. osteopenia--has osteoporosis due to steroid use, ordered reclast, which was given 4. epigastric pain, abnormal imaging with distended stomach ?GOO, ?esophagitis, has worsening nausea and vomiting suspected IgG [address] RD even though bx not diagnostic but she had been on steroids/6 MP- LFt eventually improved on tapering dose of steroids PLAN: 1/ cut down pred to 9 mg, rechekc labs in 1-2 weeks 2/ repeat EGD to reassess stomach and US liver 3/ repeat dexa in 1-2 yrs, repeat reclast this year or early next year 4/ check TG metabolites [facility] Medical History GERD (gastroesophageal reflux disease) Osteoporosis Atypical chest pain Arthritis Hordeolum externum right upper eyelid Difficulty sleeping Depression, major, recurrent Knee pain, right Autoimmune liver disease Headache syndrome Surgical History History of tubal ligation History of esophagogastroduodenoscopy (EGD) H/O colonoscopy History of liver biopsy History of cholecystectomy Hx of appendectomy History of surgery Family History Father CVD (cardiovascular disease) Mother Breast cancer Leukemia CVD (cardiovascular disease) Brother Substance use disorder Brother No problems noted. Sister No problems noted. Son No problems noted. Daughter No problems noted. Daughter No problems noted. Daughter No problems noted. Maternal Aunt Breast cancer Social History Household Members: Children Housing: Apartment Alcohol intake: never Patient Tobacco Use Status: Never used Tobacco e-Cigarette/Vaping Use: Never Used Current occupational status: disabled Cognitive needs: No Hearing needs: No Vision needs: No Physical Exam Vital Signs: Last Vital Signs Pulse 101 H 03/15/23 10:16 BP 132/74 03/15/23 10:16 BMI result Body Mass Index 35.7 Assessment & Plan Assessment & Plan (1) Abnormal LFTs: Code(s): R7. - Other specified abnormal findings of blood chemistry Orders: Orders Complete Blood Count Auto Diff 1 Week R7. - Other specified abnormal findings of blood chemistry Thiopurine Metabolites 1 Week R7. - Other specified abnormal findings of blood chemistry Comprehensive Met. Panel 1 Week K75.81 - Nonalcoholic steatohepatitis (ORDAZ), R7. - Other specified abnormal findings of blood chemistry Prothrombin Time INR 1 Week R7. - Other specified abnormal findings of blood chemistry Medications: New prednisone take 4 tabs daily 1 mg PO DAILY 90 tabs 0RF pantoprazole 40 mg PO DAILY 60 tabs 2RF prednisone 5 mg PO DAILY 30 tabs 1RF Discontinued prednisone Discontinued Reason: Doctor's Order 10 mg (2 x 5 mg) PO DAILY 30 days 60 tabs 1RF omeprazole Discontinued Reason: Doctor's Order 40 mg PO DAILY 90 days 90 caps 2RF Coding Level of Care Code Est Pt Level 4 (18301) Diagnoses Abnormal LFTs R7
[2023-03-15 10:16] VITALS: BP 132/74; PULSE 101; BMI 35.7
== END 2023-03-15 11:17 | disposition home or self-care (01) ==
PROVIDERS: PCP Internal Medicine; Visit Provider Internal Medicine Gastroenterology
DX: R79.89 Other specified abnormal findings of blood chemistry (principal)
CPT/HCPCS: 99214

== ENCOUNTER → 2023-03-15 10:09 | Outpatient (BNVA) | payer OTHER, SELFPAY | PROVIDERS: PCP Internal Medicine; Visit Provider Internal Medicine Gastroenterology | DX: R79.89 Other specified abnormal findings of blood chemistry (principal) | CPT/HCPCS: 99212 ==

== ENCOUNTER 2023-03-24 12:50 | Outpatient (AMB) | payer OTHER, SELFPAY ==
[2023-03-24 12:53] VITALS: BP 104/62; PULSE 83; O2SAT 97; BMI 36.3
--- NOTE | 2023-03-24 12:53 | A.OFFPC_ITS ---
Vital Signs 03/24/23 12:53 Height 5 ft 8 in Weight 239 lb BMI 36.3 BP 104/62 Blood Pressure Location Lt brachial Position Sitting Pulse 83 Pulse Source Pulse Oximeter Pulse Oximetry (%) 97 Oxygen Delivery Method Room Air Intake Visit Reasons: Medication Follow Up Intake Note: Pt is here today for a follow up visit on meds. Allergies Penicillins [PENICILLINS] Allergy (Severe, Verified 03/24/23 12:56) RASH Iodinated Contrast Media [Iodinated Contrast Media - IV Dye] Allergy (Intermediate, Verified 03/24/23 12:56) RASH meperidine [From DEMEROL] Allergy (Intermediate, Verified 03/24/23 12:56) RASH aspirin [ASA] Allergy (Mild, Verified 03/24/23 12:56) RASH, N/V Contrast Dye Allergy (Unknown, Verified 03/24/23 12:56) unknown, vomiting penicillin V Allergy (Unknown, Verified 03/24/23 12:56) N/V, rash tramadol [TRAMADOL] Allergy (Unknown, Verified 03/24/23 12:56) RASH Medication List - Last Reconciled 03/24/23 by Luis Angel Almanza MD baclofen 10 mg PO BEDTIME buspirone 5 mg PO TID cyclobenzaprine 5 mg PO TID PRN fluoxetine 40 mg PO DAILY gabapentin 300mg qam and 600mg qhs orally .; 30 days [magnesium 30 mg PO DAILY] mercaptopurine 50 mg PO DAILY metronidazole 0.75%(37.5mg/5gram) (Metrogel Vaginal) 1 appful vaginal BEDTIME 5 days ondansetron 4 - 8 mg (0.5 - 1 x 8 mg) PO Q8H PRN 30 days pantoprazole 40 mg PO DAILY polyethylene glycol 3350 (Miralax) 17 grams PO BID prednisone 9 mg PO DAILY prednisone 1 mg PO DAILY sucralfate 10 mL PO QID trazodone 100 mg PO DAILY Tobacco use date assessed: 03/03/23 HPI Medication Follow Up HPI Details Patient has seen Cardiology Dr. Concepcion few days ago note reviewed Cardiolite stress test was ordered and Holter monitor was ordered As patient continued to complain of chest pressure and palpitations. She came in today to talk about that visit as patient could not understand what was done there [place] is her 2nd language and secondary school teacher librarian was used for communication during that visit. Our staff member has translated for the patient and I explained to her that what Dr. Concepcion has ordered an why. Initially she was requesting for 2nd opinion but now she is satisfied. I explained to her that further testing is needed before we can tell her more about her heart. [facility] Medical History (Updated 03/24/23 @ 14:52 by Luis Angel Almanza MD) GERD (gastroesophageal reflux disease) Osteoporosis Atypical chest pain Arthritis Hordeolum externum right upper eyelid Difficulty sleeping Depression, major, recurrent Knee pain, right Autoimmune liver disease Headache syndrome Surgical History History of tubal ligation History of esophagogastroduodenoscopy (EGD) H/O colonoscopy History of liver biopsy History of cholecystectomy Hx of appendectomy History of surgery Family History Father CVD (cardiovascular disease) Mother Breast cancer Leukemia CVD (cardiovascular disease) Brother Substance use disorder Brother No problems noted. Sister No problems noted. Son No problems noted. Daughter No problems noted. Daughter No problems noted. Daughter No problems noted. Maternal Aunt Breast cancer Social History Household Members: Children Housing: Apartment Alcohol intake: never Patient Tobacco Use Status: Never used Tobacco e-Cigarette/Vaping Use: Never Used Current occupational status: disabled Cognitive needs: No Hearing needs: No Vision needs: No Questionnaire PHQ-9 Over the last 2 weeks, how often have you been bothered by any of the following problems? 1. Little interest or pleasure in doing things: nearly every day 2. Feeling down, depressed, or hopeless: nearly every day 3. Trouble falling or staying asleep, or sleeping too much: nearly every day 4. Feeling tired or having little energy: nearly every day 5. Poor appetite or overeating: nearly every day 6. Feeling bad about yourself - or that you are a failure or have let yourself or your family down: several days 7. Trouble concentrating on things, such as reading the newspaper or watching television: several days 8. Moving or speaking so slowly that other people could have noticed. Or the opposite - being so fidgety or restless that you have been moving around a lot more than usual: several days 9. Thoughts that you would be better off or of hurting yourself in some way: not at all Total score: 18 Depression Screening Interpretation: Positive Depression Screening Follow-up: Existing condition and In treatment Depression Screening Done: Yes Source: Developed by Drs. Donnell Stratton, Viridiana Cho, Adelso Harper and colleagues, with an educational judith from [employer]. Thrive Questionnaire Date Thrive assessed: 10/03/21 DENIS-7 AMB Questionnaire DENIS-7 Date DENIS - 7 assessed: 10/03/21 Source: Developed by Drs. Donnell Stratton, Viridiana Cho, Adelso Harper and colleagues, with an educational judith from [employer]. Review of Systems Const Denies chills and Denies fever(s) ENT Denies epistaxis and Denies nasal discharge Card Denies chest pain Resp Denies chest congestion, Denies cough and Denies hemoptysis GI Denies diarrhea and Denies nausea Skin/Breast Denies rash Neuro Reports no additional complaints Psych Reports no additional complaints Endo Reports no additional complaints Physical exam (Primary Care) Vital Signs: Last Vital Signs Pulse 83 03/24/23 12:53 BP 104/62 03/24/23 12:53 Pulse Ox 97 03/24/23 12:53 Oxygen Delivery Method Room Air 03/24/23 12:53 BMI result Body Mass Index 36.3 Tobacco/Smoking Status: Tobacco use Status Tobacco use date assessed 03/03/23 03/24/23 12:53 Patient Tobacco Use Status Never used Tobacco 03/24/23 12:53 e-Cigarette/Vaping Use Never Used 03/24/23 12:53 Depression Screening Interpretation: Positive Depression Screening Follow-up: Existing condition and In treatment Thrive Assessment: Date of Thrive Assessment Date Thrive assessed 10/03/21 03/24/23 12:53 Const General: cooperative, comfortable and no acute distress Orientation/consciousness: patient oriented x3 HENMT Head: Yes normocephalic Eyes General: appearance normal, both eyes and all related structures Neck Neck: Yes supple Resp Effort & Inspection: normal respiratory effort, no cough and no stridor Cardio Rhythm: regular rhythm Heart sounds: S1 normal heart sound present and S2 normal heart sound present Skin General skin exam: turgor normal Neuro General: patient oriented x3, tone normal and moves all extremities Extrem Right lower extremity: no edema Left lower extremity: no edema Assessment and Plan Assessment & Plan (1) Chest pain: Code(s): R07.9 - Chest pain, unspecified Qualifiers: Chest pain type: precordial pain Qualified Code(s): R07.2 - Precordial pain (2) Abnormal EKG: Code(s): R94.31 - Abnormal electrocardiogram [ECG] [EKG] (3) Depression, major, recurrent: Code(s): F33.9 - Major depressive disorder, recurrent, unspecified Qualifiers: Active/Remission status: in partial remission Qualified Code(s): F33.41 - Major depressive disorder, recurrent, in partial remission Plan Patient has seen Cardiology Dr. Concepcion few days ago note reviewed Cardiolite stress test was ordered and Holter monitor was ordered As patient continued to complain of chest pressure and palpitations. She came in today to talk about that visit as patient could not understand what was done there [place] is her 2nd language and secondary school teacher librarian was used for communication during that visit. Our staff member has translated for the patient and I explained to her that what Dr. Concepcion has ordered an why. Initially she was requesting for 2nd opinion but now she is satisfied. I explained to her that further testing is needed before we can tell her more about her heart. Patient continued to have depression and anxiety and she is seeing a psychiatrist for the treatment Medications: Changed From prednisone 5 mg PO DAILY 30 tabs 1RF To prednisone 9 mg PO DAILY Coding Level of Care Code Est Pt Level 3 (67952) Diagnoses Precordial pain R07.2 Chest pain type: precordial pain Abnormal EKG R94.31 Recurrent major depressive disorder, in partial remission F33.41 Active/Remission status: in partial remission
== END 2023-03-24 13:34 | disposition home or self-care (01) ==
PROVIDERS: PCP Internal Medicine; Visit Provider Internal Medicine
DX: R07.2 Precordial pain (principal); R94.31 Abnormal electrocardiogram [ECG] [EKG]; F33.41 Major depressive disorder, recurrent, in partial remission
CPT/HCPCS: 99213

== ENCOUNTER 2023-03-29 09:00 | Outpatient (RCR) | payer OTHER, SELFPAY ==
--- NOTE | 2023-03-05 12:02 | MHC.PT.EP ---
[facility] [place] Office [place] Office [place] Office [address] Nicole Willis [address] [phone] F: [phone] F: [phone] F: [phone] F: [phone] Physical Therapy Plan of Care Date of Evaluation: 03/05/23 Date of Surgery: NA Diagnosis: CERVICALGIA Assessment: Pt IS 52 YO F REFERRED TO PT FROM CAROLANN LANCE (PA AT NEURO) [facility] CERVICALGIA. PRESENTS TO PT WITH LIMITED CERV LAT FLEX AND ROT, LIMITED END RANGE SHLDER FLEX/ABD WITH SOME WKNESS NOTED (AND PAIN L). TIGHT UT/CERV MMS AND FWD HEAD POSTURE. SHOULD BENEFIT FROM PT TO ADDRESS THESE ISSUES Frequency and Duration: The patient will be seen 2X/WK X 6 WKS Short Term Goals: 1. INCREASED AWARENESS POSTURE AND CERV CARE 2. I HEP WITH DC EX PLAN Bagging Salvager Goals: 1. DECREASED NECK PAIN AT LEAST 50% WITH ADLS 2. CERV ROT AND LAT FLEX SYMMETRICAL (LIMITED BENDING AND ROTATING TO L AT INIT EVAL) Treatment Plan: Modalities to reduce pain, spasms and effusion. Manual therapy to restore motion and function. Therapeutic exercise to improve strength and flexibility. Neuromuscular re-education for posture and balance. Therapeutic activities to return to functional activities of daily living. Electronically signed by: CAYETANO LU PT Please sign and return to therapist. Thank you for your referral.
== END 2023-04-14 08:44 | disposition home or self-care (01) ==
LOC: HO.PT 09:00
PROVIDERS: PCP Internal Medicine; Visit Provider Nurse Practitioner Family
DX: M54.2 Cervicalgia (principal); R20.1 Hypoesthesia of skin; G51.32 Clonic hemifacial spasm, left
CPT/HCPCS: 97110; 97140; 97161

== ENCOUNTER 2023-03-29 09:58 | Outpatient (REF) | payer OTHER, SELFPAY ==
[2023-03-29 10:38] LABS: MANUAL DIFF FLAG NO
[2023-03-29 10:54] LABS: Basophils Percent Auto 0.6 % (0-2); Eosinophils Percent Auto 0.3 % (0-4); Hematocrit 41.2 % (37.0-47.0); Hemoglobin 13.8 g/dl (12.0-16.0); Imm Gran Abs Auto 0.03 X10*3/uL (0.00-0.03); Imm Gran Pct Auto 0.4 % (0.0-0.4); Lymphocytes Absolute Auto 1.2 X10*3/uL (1.2-4.9); Lymphocytes Percent Auto 18.4 % (20-40); Mean Corpuscular HGB Conc 33.5 g/dl (31.0-35.0); Mean Corpuscular Volume 98.6 fL (80.0-98.0); Mean Platelet Volume 10.4 fL (9.4-12.3); Monocytes Absolute Auto 0.5 X10*3/uL (0.1-1.2); Monocytes Percent Auto 7.5 % (2-11); Neutrophils Absolute Auto 4.9 x10*3/uL (2.0-8.3); Neutrophils Percent Auto 72.8 % (45-73); Platelet Count 143 X10*3/uL (160-400); Red Blood Count 4.18 X10*6/uL (4.20-5.50); White Blood Count 6.7 X10*3/uL (4.8-10.8)
[2023-03-29 11:01] LABS: Prothrombin Time 12.3 SEC (11.1-13.3)
[2023-03-29 12:38] LABS: Alanine Aminotransferase 36 U/L (0-31); Albumin Level 3.8 g/dL (3.5-5.0); Alkaline Phosphatase 89 U/L (39-117); Anion Gap 13 (12-20); Aspartate Amino Transferase 26 U/L (5-31); Bilirubin Total 0.6 mg/dL (0.0-1.0); Blood Urea Nitrogen 12 mg/dL (9-16); Calcium 8.8 mg/dL (8.4-10.2); Carbon Dioxide 26 mmol/L (22-29); Chloride 106 mmol/L (96-108); Estimated Glomerular Filt Rate > 60; Glucose Random 105 mg/dL (60-115); Potassium 3.5 mmol/L (3.3-5.1); Sodium 141 mmol/L (135-145)
[2023-03-29 12:51] LABS: Folate 9.2 ng/mL (> or = 4.0); Vitamin B12 320 pg/mL (200-900)
[2023-03-29 13:01] LABS: Ferritin 31 ng/mL (10-250); Vitamin D 25-OH Total 27.6 ng/mL (>30)
[2023-03-31 16:33] LABS: Zinc 57 mcg/dL (60-130)
[2023-04-01 20:39] LABS: Vitamin A 36 mcg/dL (38-98)
[2023-04-02 04:58] LABS: Alpha-Tocopherol 7.3 mg/L (5.7-19.9); Beta-Gamma Tocopherol 1.1 mg/L (<=4.3)
[2023-04-02 15:23] LABS: Vitamin B6 4.6 ng/mL (2.1-21.7)
[2023-04-02 17:39] LABS: Vitamin K1 847 pg/mL (130-1500)
[2023-04-02 19:03] LABS: 6-MMPN 3719 (<5700); 6-TGN 155 (235-400)
[2023-04-02 19:28] LABS: Vitamin B5 (Pantothenic Acid) <40 ng/mL (<275)
[2023-04-03 10:28] LABS: Vitamin B1 7 nmol/L (8-30)
[2023-04-03 16:34] LABS: Vitamin C 0.2 mg/dL (0.3-2.7)
[2023-04-03 20:50] LABS: Nicotinamide <20 ng/mL; Vit B3 - Nicotinic Acid <20 ng/mL
== END 2023-03-29 09:59 | disposition home or self-care (01) ==
LOC: HO.LAB 09:58
PROVIDERS: PCP Internal Medicine; Visit Provider Internal Medicine Gastroenterology
DX: R20.1 Hypoesthesia of skin (principal); E46 Unspecified protein-calorie malnutrition; R79.89 Other specified abnormal findings of blood chemistry; K75.81 Nonalcoholic steatohepatitis (NASH)
CPT/HCPCS: 36415; 80053; 80299; 82180; 82306; 82607; 82728; 82746; 84207; 84425; 84446; 84590; 84591; 84597; 84630; 85025; 85610

== ENCOUNTER → 2023-04-22 08:28 | Outpatient (REF) | payer OTHER, SELFPAY ==
--- NOTE | ~2023-04-22 | NM_ITS ---
EXERCISE MYOCARDIAL PERFUSION STUDY INDICATION: Chest pain, assess for coronary disease and ischemia TECHNIQUE: The patient was brought in for an exercise perfusion study on 04/22/2023. Patient performed exercise as per Lloyd protocol and was injected 35 mCi of sestamibi once target heart rate was achieved. Images were obtained using the SPECT gamma camera interlaced with the gating device. Images were obtained in supine position. Resting perfusion study was performed on 04/28/2023. Patient was administered 35 mCi of sestamibi intravenously at rest. Images were then obtained in supine position. Images were processed with the software and compared side to side in short axis, horizontal long axis and vertical long axis views. Total DLP 182mGy-cm. FINDINGS: Raw images were reviewed. Arms by the patient's side. The stress perfusion study showed no significant perfusion abnormality. Both uncorrected as well as CT attenuation corrected images were reviewed. The gated study shows normal LV systolic function with calculated LVEF of 57%. LV cavity is normal in size. The gated study shows normal wall thickening and contraction of segments. Resting study shows no significant perfusion abnormality. Gating at rest reveals normal wall motion with ejection fraction at 57%. The findings are consistent with no clear reversible or fixed perfusion of normality. NM/NM cardiolite stress test IMPRESSION: 1. Myocardial perfusion imaging study shows likely normal myocardial perfusion. 2. Gated LVEF is 57% during stress and rest. 3. Transient ischemic dilatation not present. EKG component of the test reported separately.
--- NOTE | 2023-04-22 08:33 | HM_ITS ---
Conclusion: 1. Patient was monitored for total period of 5 days and 22 hours 2. Baseline was normal sinus rhythm with average heart of 84 beats per minute with noted rate-related bundle-branch block after SVE 3. No significant pauses noted 4. Very rare PACs noted 5. No patient reported events MTDD
--- NOTE | 2023-04-22 08:47 | CA_ITS ---
Acquisition Time: 2023-04-22 08:58:44 Total Exercise Time: 00:04:32 Test Indications: CP, ABN EKG, NSVT Medications: SEE H Protocol: RE Max HR: 166 BPM 98% of Pred: 168 BPM Max BP: 138/084 mmHG Max Work Load: 6.0 METS Exercise stress test exercise 4 min 32 sec of Re protocol stage 2 reduced speed to 2mph then 1.6 mph, with request to stop due to fatigue/SOB/Chest Pain, with 3/10 mid chest pressure, moderate SOB, without arrhythmias, with normotensive resonse to exercise, without EKG changes. Chest pressure resolved with rest. Nuclear images pending. Test reviewed with Dr. Chatman Referred By: Ta Concepcion Overread By: Raven Saldana
== END ==
LOC: HO.CARD 08:28
PROVIDERS: PCP Internal Medicine; Visit Provider Internal Medicine Cardiovascular Disease
DX: R00.2 Palpitations (principal); R07.2 Precordial pain
CPT/HCPCS: 78452; 93017; 93242; A9500

== ENCOUNTER → 2023-04-22 08:47 | Outpatient (BNV) | payer OTHER, SELFPAY | PROVIDERS: PCP Internal Medicine; Visit Provider Nurse Practitioner | DX: R00.0 Tachycardia, unspecified (principal) | CPT/HCPCS: 78452; 93016; 93018; 93244 ==

== ENCOUNTER 2023-04-28 09:17 | Outpatient (REF) | payer OTHER, SELFPAY ==
[2023-04-28 10:58] LABS: Alanine Aminotransferase 30 U/L (0-31); Albumin Level 3.6 g/dL (3.5-5.0); Alkaline Phosphatase 99 U/L (39-117); Anion Gap 9 (12-20); Aspartate Amino Transferase 24 U/L (5-31); Bilirubin Total 0.6 mg/dL (0.0-1.0); Blood Urea Nitrogen 12 mg/dL (9-16); Calcium 8.7 mg/dL (8.4-10.2); Carbon Dioxide 31 mmol/L (22-29); Chloride 108 mmol/L (96-108); Estimated Glomerular Filt Rate > 60; Glucose Random 93 mg/dL (60-115); Potassium 3.6 mmol/L (3.3-5.1); Sodium 144 mmol/L (135-145); Total Protein 6.8 g/dL (6.5-8.0)
== END 2023-04-28 09:18 | disposition home or self-care (01) ==
LOC: HO.LAB 09:17
PROVIDERS: Visit Provider Internal Medicine Gastroenterology
DX: K75.81 Nonalcoholic steatohepatitis (NASH) (principal)
CPT/HCPCS: 36415; 80053

== ENCOUNTER 2023-05-01 09:16 | Emergency (ER) | payer OTHER, SELFPAY ==
--- NOTE | 2023-05-01 09:22 | ECG_ITS ---
Test Reason : palpitations Blood Pressure : / mmHG Vent. Rate : 091 BPM Atrial Rate : 091 BPM P-R Int : 160 ms QRS Dur : 138 ms QT Int : 388 ms P-R-T Axes : 031 039 008 degrees QTc Int : 477 ms Normal sinus rhythm Right bundle branch block Abnormal ECG When compared with ECG of 12-MAR-2023 10:09, Right bundle branch block is now Present Referred By: Generic ED Physician Electronically Signed By:RICHARD DALY MD
--- NOTE | 2023-05-01 09:25 | PC.NURSE ---
Film Developing Machine Operator called- they stated they will be down shortly.
[2023-05-01 09:34] LABS: MANUAL DIFF FLAG NO
[2023-05-01 09:37] LABS: Basophils Percent Auto 0.4 % (0-2); Eosinophils Percent Auto 0.8 % (0-4); Hematocrit 40.1 % (37.0-47.0); Hemoglobin 13.6 g/dl (12.0-16.0); Imm Gran Abs Auto 0.01 X10*3/uL (0.00-0.03); Imm Gran Pct Auto 0.2 % (0.0-0.4); Lymphocytes Absolute Auto 1.4 X10*3/uL (1.2-4.9); Lymphocytes Percent Auto 28.2 % (20-40); Mean Corpuscular HGB Conc 33.9 g/dl (31.0-35.0); Mean Corpuscular Hemoglobin 32.4 pg (27.0-33.0); Mean Corpuscular Volume 95.5 fL (80.0-98.0); Mean Platelet Volume 10.3 fL (9.4-12.3); Monocytes Absolute Auto 0.5 X10*3/uL (0.1-1.2); Monocytes Percent Auto 9.4 % (2-11); Platelet Count 138 X10*3/uL (160-400); Red Cell Distribution Width 14.5 % (11.0-16.0); White Blood Count 4.9 X10*3/uL (4.8-10.8)
--- NOTE | 2023-05-01 09:46 | PC.NURSE ---
this nurse spoke with the charge nurse- ekg and labs were drawn per protocol and patient was brought back to room 12 not triaged as the interpreter translator has not yet come to triage.
[2023-05-01 09:47] LABS: Anion Gap 12 (12-20); Blood Urea Nitrogen 15 mg/dL (9-16); Calcium 9.3 mg/dL (8.4-10.2); Carbon Dioxide 26 mmol/L (22-29); Chloride 108 mmol/L (96-108); Estimated Glomerular Filt Rate > 60; Glucose Random 130 mg/dL (60-115); Potassium 3.6 mmol/L (3.3-5.1); Sodium 142 mmol/L (135-145)
[2023-05-01 09:56] LABS: Troponin-I High Sensitivity < 2.7 ng/L (<3.5-17.0)
--- NOTE | 2023-05-01 10:02 | ED_ITS ---
HPI - Arrhythmia/Palpitations General Chief Complaint: General Medical Stated Complaint: heart palpitations/ weakness Time Seen by Provider: 05/01/23 09:46 Source: patient, old records reviewed and kinesiologist Mode of arrival: ambulatory Limitations: no limitations History of Present Illness HPI narrative: 52 yo female with PMH of pancreatitis, GERD, depression, osteoporosis, autoimmune liver disease on chronic prednisone, migraine, vertigo, multiple abdominal surgeries, just had normal exercise stress test on 04/22 and normal 5 day holter monitor. She notes since yesterday she feels run down and tired, not herself, palpitations, some bloating to the abdomen and overall tired. Her daughter has a cold. MD complaint: palpitations Onset (ago): day(s) (yesterday ) Duration: intermittent Severity: mild Context: occurred during rest Arrhythmia history: other (recent negative workup) Associated symptoms: nausea and other (fatigue, runny nose, doesn't feel well, bloating) Related Data Home Medications Medication Instructions Recorded Confirmed fluoxetine 40 mg capsule 40 mg PO DAILY 05/14/20 03/24/23 trazodone 100 mg tablet 100 mg PO DAILY 05/14/20 03/24/23 buspirone 5 mg tablet 5 mg PO TID anxiety 02/11/23 03/24/23 cyclobenzaprine 5 mg tablet 5 mg PO TID PRN 02/11/23 03/24/23 magnesium 30 mg PO DAILY 02/11/23 03/24/23 baclofen 10 mg tablet 10 mg PO BEDTIME 03/08/23 03/24/23 prednisone 5 mg tablet 5 mg PO DAILY 04/09/23 Previous Rx's Medication Instructions Recorded metronidazole 0.75 % (37.5 mg/5 1 appful vaginal BEDTIME 5 days 05/14/21 gram) vaginal gel (Metrogel #70 grams Vaginal) sucralfate 100 mg/mL oral 10 ml PO QID #1,000 mL 02/20/22 suspension polyethylene glycol 3350 17 17 g PO BID #238 grams 10/29/22 gram/dose oral powder (Miralax) gabapentin 300 mg capsule See Rx Instructions PO .COMPLEX 30 02/18/23 days #90 caps ondansetron 8 mg disintegrating 4 - 8 mg (0.5 - 1 x 8 mg) PO Q8H 02/18/23 tablet PRN nausea and vomiting 30 days #30 tabs omeprazole 40 mg capsule,delayed 40 mg PO DAILY #60 caps 03/26/23 release vitamin A palmitate 3,000 mcg 10,000 unit PO DAILY #90 tabs 04/02/23 (10,000 unit) tablet zinc acetate 50 mg (zinc) capsule 50 mg PO DAILY #30 caps 04/02/23 (Galzin) thiamine HCl (vitamin B1) 100 mg 100 mg PO DAILY #30 tabs 04/03/23 tablet prednisone 1 mg tablet 1 mg PO DAILY #90 tabs 04/09/23 mercaptopurine 50 mg tablet 50 mg PO DAILY #30 tabs 04/21/23 Allergies Allergy/AdvReac Type Severity Reaction Status Date / Time Penicillins [PENICILLINS] Allergy Severe RASH Verified 03/24/23 12:56 Iodinated Contrast Media Allergy Intermediate RASH Verified 03/24/23 12:56 [Iodinated Contrast Media - IV Dye] meperidine [From DEMEROL] Allergy Intermediate RASH Verified 03/24/23 12:56 aspirin [ASA] Allergy Mild RASH, N/V Verified 03/24/23 12:56 Contrast Dye Allergy Unknown unknown, Verified 03/24/23 12:56 vomiting penicillin V Allergy Unknown N/V, rash Verified 03/24/23 12:56 tramadol [TRAMADOL] Allergy Unknown RASH Verified 03/24/23 12:56 Review of Systems 2 Review of Systems: Constitutional : No Fever, No Chills, pos Fatigue ENT/Mouth : No sore throat, pos Rhinorrhea Eyes: No Eye Pain, No Swelling, No Redness Cardiovascular : No Chest Pain, No SOB, No Dyspnea on Exertion, pos palpitations Respiratory : No Cough, No Sputum Gastrointestinal : pos Nausea, No Vomiting, No Diarrhea, No abdominal Pain, pos bloating Genitourinary : No Dysuria, No Urinary Frequency, No Hematuria, Musculoskeletal : No joint pain, No Myalgias, No Joint Swelling Skin : No Skin Lesions, No rash Neuro : pos Weakness, No Numbness, No Dizziness, no Headache Psych : No Anxiety/Panic, No Depression Heme/Lymph: No Bruising, No Bleeding,No Lymphadenopathy Endocrine : No Polyuria, No Polydipsia All other systems reviewed and are negative PMFSH Past Medical History Attestation statement: The following information was validated with the patient. Source: old records reviewed Medical History GERD (gastroesophageal reflux disease) Osteoporosis Atypical chest pain Arthritis Hordeolum externum right upper eyelid Difficulty sleeping Depression, major, recurrent Knee pain, right Autoimmune liver disease Headache syndrome Surgical History History of tubal ligation History of esophagogastroduodenoscopy (EGD) H/O colonoscopy History of liver biopsy History of cholecystectomy Hx of appendectomy History of surgery Family History Family History Father CVD (cardiovascular disease) Mother Breast cancer Leukemia CVD (cardiovascular disease) Brother Substance use disorder Brother No problems noted. Sister No problems noted. Son No problems noted. Daughter No problems noted. Daughter No problems noted. Daughter No problems noted. Maternal Aunt Breast cancer Social History Social History Household Members: Children Housing: Apartment Alcohol intake: former Patient Tobacco Use Status: Never used Tobacco Smoked in Last 30 Days: No e-Cigarette/Vaping Use: Never Used Use of substances other than those prescribed or required for medical reasons: No Advance Directives: No Current occupational status: disabled Cognitive needs: No Hearing needs: No Vision needs: No Physical Exam 2 Vital Signs: Vital Signs: Last Vital Signs Temp 97.8 F 05/01/23 12:36 Pulse 80 05/01/23 12:36 Resp 17 05/01/23 12:36 BP 131/84 05/01/23 12:36 Pulse Ox 97 05/01/23 12:36 O2 Del Method Room Air 05/01/23 12:36 BMI result Body Mass Index 37.8 Appearance: Alert. Oriented X3. No acute distress. Eyes: Pupils equal, round and reactive to light. ENT: Pharynx normal. Neck: Normal inspection. Neck supple. CVS: Normal heart rate and rhythm. Pulses normal. Respiratory: No respiratory distress. Breath sounds normal. Abdomen: Soft and non-tender. Skin: Skin warm and dry. Normal skin color. Normal skin turgor. Extremities: No lower extremity edema. No calf ttp Neuro: Oriented X 3. No motor deficit. No sensory deficit. Medications Administered Discontinued Medications Generic Name Dose Route Start Last Admin Trade Name Freq PRN Reason Stop Dose Admin Thiamine HCl 200 mg/ Sodium 102 mls @ 204 mls/hr 05/01/23 10:11 05/01/23 11:01 Chloride IV 05/01/23 10:40 Infused ONCE ONE Infusion Sodium Chloride 500 mls @ 500 mls/hr 05/01/23 10:15 05/01/23 11:29 Ns IV 05/01/23 11:14 Infused .Q1H JOHNATHAN Infusion Ondansetron HCl 4 mg 05/01/23 10:11 05/01/23 10:25 Ondansetron Hcl 4 Mg/2 Ml Vial IVPUSH 05/01/23 10:12 4 mg ONCE ONE Administration Medical Decision Making Medical Decision Making [facility] Narrative: 52 yo female with PMH of pancreatitis, GERD, depression, osteoporosis, autoimmune liver disease on chronic prednisone, migraine, vertigo, multiple abdominal surgeries here with multiple complaints - worried her liver is inflammed - LFTs and lipase ordered, fatigue - viral panel and IVF/thiamine ordered, palpitations - just had stress and holter that were negative - EKG and trop ordered, she is not toxic, has benign abdominal exam, denies change in medications. At this time unless sig derangment in labs will hold off imaging. Differential Diagnosis Differential Diagnoses: The differential diagnosis associated with the presentation includes viral syndrome, dehydration, hepatitis, pancreatitis, palpitations Admission/Observation Consideration of admission/observation: Escalation of care including admission/observation considered negative workup with recent neg stress and holter at this time labs reassuring viral panel negative LFTs and lipase normal Lab Data [facility] Lab Attestation statement: I reviewed the patient's lab results. 05/01/23 09:29 05/01/23 09:29 Labs: Lab Results 05/01/23 05/01/23 Range/Units 09:29 12:14 WBC 4.9 (4.8-10.8) X10*3/uL RBC 4.20 (4.20-5.50) X10*6/uL Hgb 13.6 (12.0-16.0) g/dl Hct 40.1 (37.0-47.0) % MCV 95.5 (80.0-98.0) fL MCH 32.4 (27.0-33.0) pg MCHC 33.9 (31.0-35.0) g/dl RDW 14.5 (11.0-16.0) % Plt Count 138 L (160-400) X10*3/uL MPV 10.3 (9.4-12.3) fL Immature Gran % (Auto) 0.2 (0.0-0.4) % Neut % (Auto) 61.0 (45-73) % Lymph % (Auto) 28.2 (20-40) % [place] % (Auto) 9.4 (2-11) % Eos % (Auto) 0.8 (0-4) % Baso % (Auto) 0.4 (0-2) % Lymph # (Auto) 1.4 (1.2-4.9) X10*3/uL [place] # (Auto) 0.5 (0.1-1.2) X10*3/uL Eos # (Auto) 0.0 (0.0-0.4) X10*3/uL Baso # (Auto) 0.0 (0.0-0.2) X10*3/uL Abs Immat Gran (auto) 0.01 (0.00-0.03) X10*3/uL Absolute Neuts (auto) 3.0 (2.0-8.3) x10*3/uL Absolute Nucleated RBC 0.000 (0.0-0.012) X10*3/uL Nucleated RBC % (auto) 0.0 (0.0-0.2) /100WBC Sodium 142 (135-145) mmol/L Potassium 3.6 (3.3-5.1) mmol/L Chloride 108 (96-108) mmol/L Carbon Dioxide 26 (22-29) mmol/L Anion Gap 12 (12-20) BUN 15 (9-16) mg/dL Creatinine 0.80 (0.5-1.4) mg/dL Estim Creat Clear Calc TNP Estimated GFR > 60 Random Glucose 130 H (60-115) mg/dL Calcium 9.3 D (8.4-10.2) mg/dL Magnesium 1.9 (1.6-2.6) mg/dL Total Bilirubin 0.6 (0.0-1.0) mg/dL Direct Bilirubin 0.2 (0.0-0.5) mg/dL AST 24 (5-31) U/L ALT 28 (0-31) U/L Alkaline Phosphatase 101 (39-117) U/L Troponin I High Sens < 2.7 (<3.5-17.0) ng/L Total Protein 7.1 (6.5-8.0) g/dL Albumin 3.7 (3.5-5.0) g/dL Lipase 31 (8-78) U/L Influenza Type A (PCR) NEGATIVE (Negative) Influenza Type B (PCR) NEGATIVE (Negative) RSV RNA Qual (PCR) NEGATIVE (Negative) SARS-CoV-2 RNA (RT-PCR) NEGATIVE (Negative) Independent Interpretation I performed an independent interpretation of an: EKG Interpretation: Rate: 91 Rhythm: NSR [place]: normal Normal P waves. Normal NATHANIEL. RBBB ST T wave : inverted t wave V1, V2, V3, III no LILIAN qTC: normal prior studies: no acute ischemia unchanged hx of RBBB in past The study has been interpreted contemporaneously by me. . External Record Review External record reviewed: Inpatient record Discharge Plan Discharge Clinical Impression: Heart palpitations Fatigue Qualifiers: Fatigue type: unspecified Qualified Code(s): R53.83 - Other fatigue Patient Disposition: Home, Self-Care Instructions: Fatigue (ED), Heart Palpitations (ED) Additional Instructions: labs, liver and pancreas normal, heart tests reassuring, no flu, rsv or COVID. return for worsening symptoms, pain, difficulty breathing, fainting or any other concerns. laboratorios, h?gado y p?ncreas normales, pruebas card?acas tranquilizadoras, sin gripe, rsv ni COVID. Regrese si los s?ntomas empeoran, dolor, dificultad para respirar, desmayos o cualquier otra inquietud. Prescriptions: No Action metronidazole [Metrogel Vaginal] 0.75 % gel 1 appful vaginal BEDTIME 5 Days Qty: 70 0RF sucralfate 100 mg/mL suspension 10 ml PO QID Qty: 1000 1RF polyethylene glycol 3350 [Miralax] 17 gram/dose powder 17 g PO BID Qty: 238 1RF gabapentin 300 mg capsule See Rx Instructions PO .COMPLEX 30 Days Qty: 90 3RF Rx Instructions: 300mg qam and 600mg qhs orally .; ondansetron 8 mg tablet,disintegrating 4 - 8 mg PO Q8H PRN (Reason: nausea and vomiting) 30 Days Qty: 30 1RF omeprazole 40 mg capsule,delayed release(DR/EC) 40 mg PO DAILY Qty: 60 2RF Galzin 50 mg (zinc) capsule 50 mg PO DAILY Qty: 30 2RF vitamin A palmitate 3,000 mcg (10,000 unit) tablet 10,000 unit PO DAILY Qty: 90 1RF thiamine HCl (vitamin B1) 100 mg tablet 100 mg PO DAILY Qty: 30 5RF prednisone 1 mg tablet 1 mg PO DAILY Qty: 90 0RF Rx Instructions: take 3 tabs daily prednisone 5 mg tablet 5 mg PO DAILY mercaptopurine 50 mg tablet 50 mg PO DAILY Qty: 30 2RF fluoxetine 40 mg capsule 40 mg PO DAILY trazodone 100 mg tablet 100 mg PO DAILY buspirone 5 mg tablet 5 mg PO TID baclofen 10 mg tablet 10 mg PO BEDTIME cyclobenzaprine 5 mg tablet 5 mg PO TID PRN magnesium 30 mg PO DAILY Referrals: Luis Angel Almanza MD [Primary Care Provider] - (as needed) Print Language: Japanese
[2023-05-01 10:04] VITALS: BP 143/90; PULSE 92; RESP 18; O2SAT 99; BMI 37.8
[2023-05-01 10:11] VITALS: TEMP 36.9
[2023-05-01] MEDS: Thiamine HCL 200 MG in 0.9 % Sodium Chloride 100 ML 204 MG IV (10:25)
[2023-05-01] MEDS: ondansetron HCL 4 MG/2 ML VIAL IVPUSH (10:25)
[2023-05-01] MEDS: 0.9 % Sodium Chloride 500 ML IV (10:26)
[2023-05-01 10:42] LABS: Alanine Aminotransferase 28 U/L (0-31); Albumin Level 3.7 g/dL (3.5-5.0); Alkaline Phosphatase 101 U/L (39-117); Aspartate Amino Transferase 24 U/L (5-31); Bilirubin Direct 0.2 mg/dL (0.0-0.5); Bilirubin Total 0.6 mg/dL (0.0-1.0); Lipase 31 U/L (8-78); Magnesium 1.9 mg/dL (1.6-2.6); Total Protein 7.1 g/dL (6.5-8.0)
[2023-05-01 12:36] VITALS: BP 131/84; PULSE 80; RESP 17; TEMP 36.6; O2SAT 97
[2023-05-01 13:02] LABS: Influenza A PCR NEGATIVE (Negative); Influenza B PCR NEGATIVE (Negative); Resp Syncy Virus RNA Qual PCR NEGATIVE (Negative); SARS COV2 PCR INHOUSE NEGATIVE (Negative)
--- NOTE | 2023-05-01 13:27 | PC.NURSE ---
Discahrge plan reviewed with patient via contract serviceman who verbalized understanding
== END 2023-05-01 13:28 | disposition home or self-care (01) ==
PROVIDERS: Emergency Provider Emergency Medicine; PCP Internal Medicine
DX: R00.2 Palpitations (principal); R53.83 Other fatigue; Z20.822 Contact with and (suspected) exposure to COVID-19; Z20.828 Contact with and (suspected) exposure to other viral communicable diseases
CPT/HCPCS: 0241U; 36415; 80048; 80076; 83690; 83735; 84484; 85025; 93005; 96365; 96375; 99284; J2405; J3411

== ENCOUNTER 2023-05-01 20:19 | Emergency (ER) | payer OTHER, SELFPAY ==
[2023-05-01 20:46] VITALS: BP 125/80; BP 145/95; PULSE 85; PULSE 91; RESP 18; TEMP 37.2; O2SAT 96; BMI 35.7
--- NOTE | 2023-05-01 21:01 | ECG_ITS ---
Test Reason : NAUSEA Blood Pressure : / mmHG Vent. Rate : 087 BPM Atrial Rate : 087 BPM P-R Int : 146 ms QRS Dur : 134 ms QT Int : 402 ms P-R-T Axes : 006 045 001 degrees QTc Int : 483 ms Normal sinus rhythm Right bundle branch block Abnormal ECG When compared with ECG of 01-MAY-2023 09:21, No significant change was found Referred By: Generic ED Physician Electronically Signed By:RICHARD DALY MD
[2023-05-01 21:22] LABS: MANUAL DIFF FLAG NO
[2023-05-01 21:24] LABS: Basophils Percent Auto 0.4 % (0-2); Eosinophils Percent Auto 0.6 % (0-4); Hematocrit 39.3 % (37.0-47.0); Hemoglobin 13.5 g/dl (12.0-16.0); Imm Gran Abs Auto 0.02 X10*3/uL (0.00-0.03); Imm Gran Pct Auto 0.3 % (0.0-0.4); Lymphocytes Absolute Auto 1.6 X10*3/uL (1.2-4.9); Lymphocytes Percent Auto 23.3 % (20-40); Mean Corpuscular HGB Conc 34.4 g/dl (31.0-35.0); Mean Corpuscular Hemoglobin 32.8 pg (27.0-33.0); Mean Corpuscular Volume 95.6 fL (80.0-98.0); Mean Platelet Volume 10.5 fL (9.4-12.3); Monocytes Absolute Auto 0.7 X10*3/uL (0.1-1.2); Monocytes Percent Auto 10.9 % (2-11); Neutrophils Absolute Auto 4.4 x10*3/uL (2.0-8.3); Neutrophils Percent Auto 64.5 % (45-73); Platelet Count 149 X10*3/uL (160-400); Red Blood Count 4.11 X10*6/uL (4.20-5.50); Red Cell Distribution Width 14.4 % (11.0-16.0); White Blood Count 6.8 X10*3/uL (4.8-10.8)
[2023-05-01 21:37] LABS: Alanine Aminotransferase 31 U/L (0-31); Albumin Level 3.7 g/dL (3.5-5.0); Alkaline Phosphatase 94 U/L (39-117); Anion Gap 10 (12-20); Aspartate Amino Transferase 24 U/L (5-31); Bilirubin Total 0.3 mg/dL (0.0-1.0); Blood Urea Nitrogen 15 mg/dL (9-16); Calcium 9.1 mg/dL (8.4-10.2); Carbon Dioxide 26 mmol/L (22-29); Chloride 107 mmol/L (96-108); Creatinine Clr Calc Pharmacy 92.4; Estimated Glomerular Filt Rate > 60; Glucose Random 106 mg/dL (60-115); Lipase 31 U/L (8-78); Sodium 139 mmol/L (135-145); Total Protein 7.1 g/dL (6.5-8.0)
== END 2023-05-02 00:55 | disposition left against medical advice (07) ==
PROVIDERS: Emergency Provider Emergency Medicine
DX: R10.10 Upper abdominal pain, unspecified (principal); R11.0 Nausea
CPT/HCPCS: 36415; 80053; 83690; 85025; 93005; 99281; 99283

== ENCOUNTER 2023-05-17 08:14 | Outpatient (REF) | payer OTHER, SELFPAY ==
[2023-05-17 09:45] LABS: Alanine Aminotransferase 27 U/L (0-31); Albumin Level 3.8 g/dL (3.5-5.0); Alkaline Phosphatase 102 U/L (39-117); Anion Gap 12 (12-20); Aspartate Amino Transferase 23 U/L (5-31); Bilirubin Total 0.7 mg/dL (0.0-1.0); Blood Urea Nitrogen 14 mg/dL (9-16); Calcium 9.4 mg/dL (8.4-10.2); Carbon Dioxide 26 mmol/L (22-29); Chloride 109 mmol/L (96-108); Estimated Glomerular Filt Rate > 60; Glucose Random 86 mg/dL (60-115); Potassium 3.7 mmol/L (3.3-5.1); Sodium 143 mmol/L (135-145); Total Protein 7.5 g/dL (6.5-8.0)
== END 2023-05-17 08:15 | disposition home or self-care (01) ==
LOC: HO.LAB 08:14
PROVIDERS: PCP Internal Medicine; Visit Provider Internal Medicine Gastroenterology
DX: K75.81 Nonalcoholic steatohepatitis (NASH) (principal)
CPT/HCPCS: 36415; 80053

== ENCOUNTER 2023-05-24 09:05 | Outpatient (REF) | payer OTHER, SELFPAY ==
[2023-05-24 10:47] LABS: Alanine Aminotransferase 24 U/L (0-31); Albumin Level 3.7 g/dL (3.5-5.0); Alkaline Phosphatase 100 U/L (39-117); Anion Gap 12 (12-20); Aspartate Amino Transferase 21 U/L (5-31); Bilirubin Total 0.6 mg/dL (0.0-1.0); Blood Urea Nitrogen 14 mg/dL (9-16); Calcium 9.1 mg/dL (8.4-10.2); Carbon Dioxide 26 mmol/L (22-29); Chloride 106 mmol/L (96-108); Estimated Glomerular Filt Rate > 60; Glucose Random 157 mg/dL (60-115); Potassium 3.3 mmol/L (3.3-5.1); Sodium 141 mmol/L (135-145)
[2023-05-24 11:06] LABS: Vitamin D 25-OH Total 21.5 ng/mL (>30)
[2023-05-24 11:11] LABS: Folate 12.7 ng/mL (> or = 4.0); Vitamin B12 396 pg/mL (200-900)
[2023-05-26 17:43] LABS: Zinc 65 mcg/dL (60-130)
[2023-05-27 04:49] LABS: Alpha-Tocopherol 7.1 mg/L (5.7-19.9); Beta-Gamma Tocopherol <1.0 mg/L (<=4.3); Vitamin A 34 mcg/dL (38-98)
[2023-05-27 19:38] LABS: Vitamin K1 236 pg/mL (130-1500)
[2023-05-28 11:09] LABS: Vitamin B1 15 nmol/L (8-30)
[2023-05-28 11:27] LABS: Vitamin B6 3.8 ng/mL (2.1-21.7)
[2023-05-30 23:18] LABS: Vitamin C 0.3 mg/dL (0.3-2.7)
[2023-05-31 21:28] LABS: Nicotinamide 28 ng/mL; Vit B3 - Nicotinic Acid <20 ng/mL; Vitamin B5 (Pantothenic Acid) <40 ng/mL (<275)
== END 2023-05-24 09:06 | disposition home or self-care (01) ==
LOC: HO.LAB 09:05
PROVIDERS: PCP Internal Medicine; Visit Provider Internal Medicine Gastroenterology
DX: K31.84 Gastroparesis (principal); K75.81 Nonalcoholic steatohepatitis (NASH); R79.89 Other specified abnormal findings of blood chemistry
CPT/HCPCS: 36415; 80053; 82180; 82306; 82607; 82746; 84207; 84425; 84446; 84590; 84591; 84597; 84630

== ENCOUNTER 2023-08-25 11:34 | Outpatient (REF) | payer OTHER, SELFPAY ==
--- NOTE | ~2023-08-25 | MR_ITS ---
EXAMINATION: MR BRAIN WITHOUT CONTRAST CLINICAL INFORMATION: Headache, vertigo, dizziness, left facial spasms COMPARISON: CT head of 02/21/2023 TECHNIQUE: MRI of the brain was obtained using routine sequences without contrast. The patient denied intravenous contrast due to contrast allergy. FINDINGS: Significantly limited assessment of the cisternal segments of the trigeminal nerves in the absence of high-resolution heavily T2-weighted FIESTA sequence. Within this limitation, there is no large or tortuous vascular flow void in the left cerebellopontine angle cistern that would be expected in neurovascular compression. No acute infarct. No acute intracranial hemorrhage or extra-axial fluid collection. The ventricles and sulci are normal in size and configuration without significant volume loss or hydrocephalus. No mass lesion, mass effect, or herniation pattern. Normal intracranial arterial and dural venous sinus flow voids. Partially empty sella. Slight CSF distention of the optic nerve sheath complexes with suspected flattening along the posterior right globe. The paranasal sinuses and mastoids are well aerated. Partially imaged cervical spondylosis, including fusion across hypertrophic left C2-C3 facet arthropathy. MR/MR head/brain wo con IMPRESSION: 1. Significantly limited assessment of the cisternal segments of the trigeminal nerves in the absence of high-resolution heavily T2-weighted FIESTA sequence. Within this limitation, there is no large or tortuous vascular flow void in the left cerebellopontine angle cistern that would be expected in neurovascular compression. 2. Partially empty sella. Slight CSF distention of the optic nerve sheath complexes with suspected flattening along the posterior right globe. Findings are nonspecific however can be correlated clinically for raised intracranial pressure/idiopathic intracranial hypertension.
== END 2023-08-25 11:35 | disposition home or self-care (01) ==
LOC: HO.MRI 11:34
PROVIDERS: PCP Internal Medicine; Visit Provider Nurse Practitioner Family
DX: G51.32 Clonic hemifacial spasm, left (principal); R51.9 Headache, unspecified; R20.1 Hypoesthesia of skin
CPT/HCPCS: 70551

== ENCOUNTER 2023-08-30 11:24 | Outpatient (REF) | payer OTHER, SELFPAY ==
[2023-08-30 11:34] LABS: MANUAL DIFF FLAG NO
[2023-08-30 12:00] LABS: Basophils Percent Auto 0.3 % (0-2); Eosinophils Absolute Auto 0.1 X10*3/uL (0.0-0.4); Eosinophils Percent Auto 1.1 % (0-4); Hematocrit 41.3 % (37.0-47.0); Hemoglobin 13.7 g/dl (12.0-16.0); Imm Gran Abs Auto 0.01 X10*3/uL (0.00-0.03); Imm Gran Pct Auto 0.2 % (0.0-0.4); Lymphocytes Absolute Auto 1.6 X10*3/uL (1.2-4.9); Lymphocytes Percent Auto 25.5 % (20-40); Mean Corpuscular HGB Conc 33.2 g/dl (31.0-35.0); Mean Corpuscular Hemoglobin 32.2 pg (27.0-33.0); Mean Corpuscular Volume 96.9 fL (80.0-98.0); Mean Platelet Volume 10.7 fL (9.4-12.3); Monocytes Absolute Auto 0.7 X10*3/uL (0.1-1.2); Monocytes Percent Auto 10.6 % (2-11); Neutrophils Absolute Auto 3.8 x10*3/uL (2.0-8.3); Neutrophils Percent Auto 62.3 % (45-73); Platelet Count 149 X10*3/uL (160-400); Red Blood Count 4.26 X10*6/uL (4.20-5.50); Red Cell Distribution Width 15.7 % (11.0-16.0); White Blood Count 6.1 X10*3/uL (4.8-10.8)
[2023-08-30 12:15] LABS: Prothrombin Time 12.3 SEC (11.1-13.3)
[2023-08-30 12:29] LABS: Alanine Aminotransferase 48 U/L (0-31); Albumin Level 3.6 g/dL (3.5-5.0); Alkaline Phosphatase 103 U/L (39-117); Anion Gap 11 (12-20); Aspartate Amino Transferase 32 U/L (5-31); Bilirubin Total 0.7 mg/dL (0.0-1.0); Blood Urea Nitrogen 14 mg/dL (9-16); Calcium 9.3 mg/dL (8.4-10.2); Carbon Dioxide 31 mmol/L (22-29); Chloride 107 mmol/L (96-108); Estimated Glomerular Filt Rate > 60; Glucose Random 103 mg/dL (60-115); Sodium 145 mmol/L (135-145); Total Protein 7.2 g/dL (6.5-8.0)
== END 2023-08-30 11:25 | disposition home or self-care (01) ==
LOC: HO.LAB 11:24
PROVIDERS: PCP Internal Medicine; Visit Provider Internal Medicine Gastroenterology
DX: K75.81 Nonalcoholic steatohepatitis (NASH) (principal); G51.32 Clonic hemifacial spasm, left; R79.89 Other specified abnormal findings of blood chemistry
CPT/HCPCS: 36415; 80053; 85025; 85610

== ENCOUNTER 2023-12-09 05:26 | Emergency (ER) | payer OTHER, SELFPAY ==
--- NOTE | ~2023-12-09 | CT_ITS ---
EXAMINATION: CT ABDOMEN AND PELVIS WITHOUT CONTRAST CLINICAL INFORMATION: Abdominal pain with history of severe pancreatitis COMPARISON: CT abdomen pelvis 02/21/2023 TECHNIQUE: Multidetector volumetric imaging was performed from the superior aspect of the liver through the pubic symphysis. Sagittal and coronal reformatted images were obtained on the technologist's workstation. This CT examination was performed using dose optimization techniques as appropriate, variously including the following: *Automated exposure control *Adjustment of mA and/or kV according to patient size (this includes techniques or standardized protocols for targeted exams where dose is matched to indication/reason for exam; i.e. extremities or head) *Use of iterative reconstruction technique DLP: 701 mGy-cm FINDINGS: LUNG BASES: The visualized lung bases are unremarkable. LIVER, GALLBLADDER, AND BILIARY TREE: The liver is normal in size, shape, and attenuation. No focal hepatic lesion or biliary ductal dilatation is present. Status post cholecystectomy. PANCREAS: Unremarkable. There is no evidence of pancreatitis. SPLEEN: Spleen is enlarged at 14.6 cm in greatest cephalocaudad dimension, slightly larger than previous when measurements were 13.4 cm. ADRENAL GLANDS: Unremarkable. KIDNEYS AND URETERS: The kidneys are normal in size, shape, and attenuation. No hydronephrosis, hydroureter, or calculi seen. No perinephric stranding. BLADDER: Empty and cannot be evaluated. GASTROINTESTINAL TRACT: A small hiatal hernia is present. An small bowel anastomosis is seen in the mid abdomen. The small and large bowel are otherwise unremarkable without obstruction. The appendix is unremarkable. ABDOMINAL WALL: No significant hernia is appreciated. LYMPH NODES: Normal. VASCULAR: Unremarkable. PELVIC VISCERA: Unremarkable. OSSEOUS STRUCTURES: Unremarkable. CT/CT abdomen pelvis wo IV con IMPRESSION: 1. A cause for the patient's abdominal pain has not been found. 2. The pancreas appears normal with no evidence of pancreatitis 3. Incidental note made of cholecystectomy, splenomegaly, small hiatal hernia and small bowel anastomosis. Fleischner guidelines were followed.
[2023-12-09] MEDS: 0.9 % Sodium Chloride 1,000 ML 999 ML IV (08:16)
--- NOTE | 2023-12-09 08:19 | ED.ABDPAIN ---
HPI - Abdominal Pain General Chief Complaint: Abdominal Pain Stated Complaint: vomiting,abd pain Time Seen by Provider: 12/09/23 08:04 Source: patient, old records reviewed and spanish interpreter Mode of arrival: ambulatory Limitations: no limitations History of Present Illness ED Provider: VERO LOZANO narrative: 53 yo female with PMH of gastroparesis, gastritis, esophagitis, pancreatitis s/p cholecystectomy, here with c/o abrupt onset epigastric pain n/v starting at 1am she thinks it could be something she ate. She denies fevers, diarrhea. No sick contacts. She states she did not drink alcohol. MD elicited complaint: abdominal pain Pertinent past history: gastritis and other (pancreatitis) Onset (ago): day(s) (today 1am) Pain Consistency: constant Location: epigastric Severity: severe Quality: stabbing Radiation: none Migration to: no migration Relieving factors: nothing Context: possible food poisoning Associated symptoms: nausea and vomiting Related Data Home Medications ?Medication ?Instructions ?Recorded ?Confirmed fluoxetine 40 mg capsule 40 mg PO DAILY 05/14/20 03/24/23 trazodone 100 mg tablet 100 mg PO DAILY 05/14/20 03/24/23 buspirone 5 mg tablet 5 mg PO TID anxiety 02/11/23 03/24/23 magnesium 30 mg PO DAILY 02/11/23 03/24/23 Previous Rx's ?Medication ?Instructions ?Recorded metronidazole 0.75 % (37.5 mg/5 1 appful vaginal BEDTIME 5 days 05/14/21 gram) vaginal gel (Metrogel #70 grams Vaginal) sucralfate 100 mg/mL oral 10 ml PO QID #1,000 mL 02/20/22 suspension polyethylene glycol 3350 17 17 g PO BID #238 grams 10/29/22 gram/dose oral powder (Miralax) cholecalciferol (vitamin D3) 25 25 mcg PO DAILY #90 caps 05/26/23 mcg (1,000 unit) capsule thiamine HCl (vitamin B1) 100 mg 100 mg PO DAILY 90 days #90 tabs 08/10/23 tablet magnesium oxide 400 mg (241.3 mg 400 mg PO BEDTIME 30 days #30 tabs 08/20/23 magnesium) tablet riboflavin (vitamin B2) 400 mg 400 mg PO DAILY 30 days #30 tabs 08/20/23 tablet prednisone 1 mg tablet 1 mg PO DAILY #90 tabs 08/21/23 ubrogepant 100 mg tablet (Ubrelvy) 50 - 100 mg (0.5 - 1 x 100 mg) PO 08/25/23 ONCE PRN migraine headache 30 days #16 tabs gabapentin 300 mg capsule See Rx Instructions PO .COMPLEX 30 09/01/23 days #90 caps zinc acetate 50 mg (zinc) capsule 50 mg PO DAILY #30 caps 09/01/23 (Galzin) mercaptopurine 50 mg tablet 50 mg PO DAILY #30 tabs 10/18/23 vitamin A 3,000 mcg (10,000 unit) 1 cap PO DAILY #90 caps 11/01/23 capsule omeprazole 40 mg capsule,delayed 40 mg PO DAILY #60 caps 11/17/23 release prednisone 5 mg tablet 5 mg PO DAILY #60 tabs 11/17/23 cyclobenzaprine 5 mg tablet 10 mg (2 x 5 mg) PO TID PRN muscle 11/23/23 spasm 30 days #120 tabs topiramate 25 mg tablet 50 mg (2 x 25 mg) PO BEDTIME 30 11/23/23 days #120 tabs ondansetron 8 mg disintegrating 4 - 8 mg (0.5 - 1 x 8 mg) PO Q8H 11/29/23 tablet PRN for nausea/vomiting #30 ea ondansetron 4 mg disintegrating 4 mg PO Q8H PRN nausea and 12/09/23 tablet vomiting #20 tabs Allergies Allergy/AdvReac Type Severity Reaction Status Date / Time Penicillins [PENICILLINS] Allergy Severe RASH Verified 03/24/23 12:56 Iodinated Contrast Media Allergy Intermediate RASH Verified 03/24/23 12:56 [Iodinated Contrast Media - IV Dye] meperidine [From DEMEROL] Allergy Intermediate RASH Verified 03/24/23 12:56 aspirin [ASA] Allergy Mild RASH, N/V Verified 03/24/23 12:56 Contrast Dye Allergy Unknown unknown, Verified 03/24/23 12:56 vomiting penicillin V Allergy Unknown N/V, rash Verified 03/24/23 12:56 tramadol [TRAMADOL] Allergy Unknown RASH Verified 03/24/23 12:56 Review of Systems Review of Systems Constitutional : No Weight loss, No Fever, No Chills ENT/Mouth : No sore throat, No Rhinorrhea Eyes: No Swelling, No Redness Cardiovascular : No Chest Pain, No SOB, NoEdema Respiratory : No Cough, No Sputum, No Wheezing Gastrointestinal : Positive Nausea, Positive Vomiting, no Diarrhea, positive abdominal Pain, No Hematochezia, No Melena Genitourinary : No Dysuria, No Urinary Frequency, No Hematuria, No Urgency Musculoskeletal : No joint pain, No Myalgias, No Joint Swelling Skin : No Skin Lesions, No rash Neuro : No Weakness, No Numbness, No Dizziness, No Headache Psych : No Anxiety/Panic, No Depression All other systems reviewed and are negative. [facility] Past Medical History Attestation statement: The following information was validated with the patient. Source: old records reviewed Medical History GERD (gastroesophageal reflux disease) Osteoporosis Atypical chest pain Arthritis Hordeolum externum right upper eyelid Difficulty sleeping Depression, major, recurrent Knee pain, right Autoimmune liver disease Headache syndrome Surgical History History of tubal ligation History of esophagogastroduodenoscopy (EGD) H/O colonoscopy History of liver biopsy History of cholecystectomy Hx of appendectomy History of surgery Family History Family History Father CVD (cardiovascular disease) Mother Breast cancer Leukemia CVD (cardiovascular disease) Brother Substance use disorder Brother No problems noted. Sister No problems noted. Son No problems noted. Daughter No problems noted. Daughter No problems noted. Daughter No problems noted. Maternal Aunt Breast cancer Social History Social History Household Members: Children Housing: Apartment Alcohol intake: former Patient Tobacco Use Status: Never used Tobacco e-Cigarette/Vaping Use: Never Used Advance Directives: No Advance Directives Information Provided: No Current occupational status: disabled Cognitive needs: No Hearing needs: No Vision needs: No Physical Exam ED Vital Signs: Vital Signs - 24 hr 12/09/23 08:44 Pulse Rate 90 Respiratory Rate 16 Pulse Oximetry 99 Oxygen Delivery Method Room Air Appearance: Alert. Oriented X3. Mild acute distress. in pain dry heaving appears in pain Eyes: Pupils equal, round and reactive to light. ENT: Pharynx normal. Neck: Normal inspection. Neck supple. CVS: Normal heart rate and rhythm. Pulses normal. Respiratory: No respiratory distress. Breath sounds normal. Abdomen: Soft and moderate epigastric ttp no rebound Skin: Skin warm and dry. pale skin color. Normal skin turgor. Extremities: No lower extremity edema. No calf ttp Neuro: Oriented X 3. No motor deficit. No sensory deficit. Medical Decision Making Medical Decision Making [facility] Narrative: 53 yo female with PMH of gastroparesis, gastritis, esophagitis, pancreatitis s/p cholecystectomy, here with c/o n/v epigastric pain thinks she ate something that bothered her no response to IV morphine at this time labs, CT scan for pancreatitis, repeat IV dilaudid, IVF and zofran. States she has had this before Differential Diagnosis Differential Diagnoses: The differential diagnosis associated with the presentation includes pancreatitis, GERD, gastritis Admission/Observation Consideration of admission/observation: Escalation of care including admission/observation considered attempting PO challenge but labs and CT scan unremarkable repeat IV nausea medications tolerated liquids and crackers Lab Data [facility] Lab Attestation statement: I reviewed the patient's lab results. 12/09/23 08:15 12/09/23 08:15 Labs: Lab Results 12/09/23 12/09/23 Range/Units 08:14 08:15 WBC 7.1 (4.8-10.8) X10*3/uL RBC 4.25 (4.20-5.50) X10*6/uL Hgb 13.7 (12.0-16.0) g/dl Hct 39.9 (37.0-47.0) % MCV 93.9 (80.0-98.0) fL MCH 32.2 (27.0-33.0) pg MCHC 34.3 (31.0-35.0) g/dl RDW 14.6 (11.0-16.0) % Plt Count 89 L D (160-400) X10*3/uL MPV 10.7 (9.4-12.3) fL Immature Gran % (Auto) 0.1 (0.0-0.4) % Neut % (Auto) 89.0 H (45-73) % Lymph % (Auto) 4.5 L (20-40) % [place] % (Auto) 5.9 (2-11) % Eos % (Auto) 0.4 (0-4) % Baso % (Auto) 0.1 (0-2) % Lymph # (Auto) 0.3 L (1.2-4.9) X10*3/uL [place] # (Auto) 0.4 (0.1-1.2) X10*3/uL Eos # (Auto) 0.0 (0.0-0.4) X10*3/uL Baso # (Auto) 0.0 (0.0-0.2) X10*3/uL Abs Immat Gran (auto) 0.01 (0.00-0.03) X10*3/uL Absolute Neuts (auto) 6.3 (2.0-8.3) x10*3/uL Absolute Nucleated RBC 0.000 (0.0-0.012) X10*3/uL Nucleated RBC % (auto) 0.0 (0.0-0.2) /100WBC Sodium 139 (135-145) mmol/L Potassium 3.9 (3.3-5.1) mmol/L Chloride 107 (96-108) mmol/L Carbon Dioxide 25 (22-29) mmol/L Anion Gap 11 L (12-20) BUN 17 H (9-16) mg/dL Creatinine 0.79 (0.5-1.4) mg/dL Estim Creat Clear Calc TNP Estimated GFR > 60 Random Glucose 122 H (60-115) mg/dL Calcium 8.8 (8.4-10.2) mg/dL Magnesium 1.7 (1.6-2.6) mg/dL Total Bilirubin 0.7 (0.0-1.0) mg/dL Direct Bilirubin 0.2 (0.0-0.5) mg/dL AST 32 H (5-31) U/L ALT 33 H (0-31) U/L Alkaline Phosphatase 110 (39-117) U/L Troponin I High Sens < 2.7 (<3.5-17.0) ng/L Total Protein 7.1 (6.5-8.0) g/dL Albumin 3.7 (3.5-5.0) g/dL Lipase 29 (8-78) U/L Independent Interpretation I performed an independent interpretation of an: CT Scan (no acute findings) Radiology Impression Discussion of test interpretation with radiology: I have reviewed the radiologist's reading. External Record Review External record reviewed: Inpatient record and Office record Prescription Management I considered prescription management with: Other Medications Administered Discontinued Medications Generic Name Dose Route Start Last Admin Trade Name Oren PRN Reason Stop Dose Admin Droperidol 0.625 mg 12/09/23 11:57 12/09/23 12:08 Droperidol 5 Mg/2 Ml Vial IVPUSH 12/09/23 11:58 0.625 mg ONCE ONE Administration Hydromorphone HCl 1 mg 12/09/23 08:29 12/09/23 08:42 Hydromorphone Hcl 1 Mg/Ml Syringe IVPUSH 12/09/23 08:30 1 mg ONCE ONE Administration Protocol Sodium Chloride 1,000 mls @ 999 mls/hr 12/09/23 08:06 12/09/23 11:20 Ns IV 12/09/23 09:06 Infused .Q1H1M ONE Infusion Morphine Sulfate 4 mg 12/09/23 08:06 12/09/23 08:21 Morphine Sulfate 4 Mg/Ml Cartridge IVPUSH 12/09/23 08:07 4 mg ONCE ONE Administration Protocol Ondansetron HCl 4 mg 12/09/23 08:06 12/09/23 08:21 Ondansetron Hcl 4 Mg/2 Ml Vial IVPUSH 12/09/23 08:07 4 mg ONCE ONE Administration Critical Care Time Critical Care Time Critical Care Time: Yes Total Critical Care Time: 45 Attestation: review of record, repeat IV morphine for pain with improvement, repeat IV nausea medications I attest to this time spent taking care of the patient Discharge Plan Discharge Clinical Impression: Gastroparesis, Thrombocytopenia Gastritis Qualifiers: Gastritis type: unspecified gastritis Chronicity: chronic Gastritis bleeding: without bleeding Qualified Code(s): K29.50 - Unspecified chronic gastritis without bleeding Nausea & vomiting Qualifiers: Vomiting type: unspecified Qualified Code(s): R11.2 - Nausea with vomiting, unspecified Patient Disposition: Home, Self-Care Instructions: Gastritis (ED), Acute Nausea and Vomiting (ED), Thrombocytopenia (ED) Additional Instructions: labs and CT scan no acute findings likely gastritis gastroparesis clear liquids for 24 hours advance diet slowly call doctor tomorrow platelets lower than baseline, return for bleeding, easy bruising, unable to eat or drink or any other concerns. Prescriptions: New ondansetron 4 mg tablet,disintegrating 4 mg PO Q8H PRN (Reason: nausea and vomiting) Qty: 20 0RF No Action metronidazole [Metrogel Vaginal] 0.75 % gel 1 appful vaginal BEDTIME 5 Days Qty: 70 0RF sucralfate 100 mg/mL suspension 10 ml PO QID Qty: 1000 1RF polyethylene glycol 3350 [Miralax] 17 gram/dose powder 17 g PO BID Qty: 238 1RF cholecalciferol (vitamin D3) 25 mcg (1,000 unit) capsule 25 mcg PO DAILY Qty: 90 2RF thiamine HCl (vitamin B1) 100 mg tablet 100 mg PO DAILY 90 Days Qty: 90 3RF riboflavin (vitamin B2) 400 mg tablet 400 mg PO DAILY 30 Days Qty: 30 6RF magnesium oxide 400 mg (241.3 mg magnesium) tablet 400 mg PO BEDTIME 30 Days Qty: 30 6RF Rx Instructions: may hold for loose stools prednisone 1 mg tablet 1 mg PO DAILY Qty: 90 0RF Rx Instructions: take 3 tabs daily Ubrelvy 100 mg tablet 50 - 100 mg PO ONCE PRN (Reason: migraine headache) 30 Days Qty: 16 3RF Rx Instructions: take at onset of migraine, may repeat in 2hrs (may take w/ Tylenol) Galzin 50 mg (zinc) capsule 50 mg PO DAILY Qty: 30 2RF gabapentin 300 mg capsule See Rx Instructions PO .COMPLEX 30 Days Qty: 90 3RF Rx Instructions: 300mg qam and 600mg qhs orally .; mercaptopurine 50 mg tablet 50 mg PO DAILY Qty: 30 0RF vitamin A 3,000 mcg (10,000 unit) capsule 1 cap PO DAILY Qty: 90 1RF prednisone 5 mg tablet 5 mg PO DAILY Qty: 60 0RF omeprazole 40 mg capsule,delayed release(DR/EC) 40 mg PO DAILY Qty: 60 2RF cyclobenzaprine 5 mg tablet 10 mg PO TID PRN (Reason: muscle spasm) 30 Days Qty: 120 3RF topiramate 25 mg tablet 50 mg PO BEDTIME 30 Days Qty: 120 3RF ondansetron 8 mg tablet,disintegrating 4 - 8 mg PO Q8H PRN (Reason: for nausea/vomiting) Qty: 30 1RF fluoxetine 40 mg capsule 40 mg PO DAILY trazodone 100 mg tablet 100 mg PO DAILY buspirone 5 mg tablet 5 mg PO TID magnesium 30 mg PO DAILY Print Language: [place]
[2023-12-09 08:20] LABS: MANUAL DIFF FLAG NO
[2023-12-09] MEDS: Morphine Sulfate 4 MG/ML CARTRIDGE IVPUSH (08:21)
[2023-12-09] MEDS: ondansetron HCL 4 MG/2 ML VIAL IVPUSH (08:21)
--- NOTE | 2023-12-09 08:26 | PC.NURSE ---
20# placed in the right AC, medicated per AUG, patient endorses 10/10 abdominal pain, nausea and vomiting
[2023-12-09 08:33] LABS: Basophils Percent Auto 0.1 % (0-2); Eosinophils Percent Auto 0.4 % (0-4); Hematocrit 39.9 % (37.0-47.0); Hemoglobin 13.7 g/dl (12.0-16.0); Imm Gran Abs Auto 0.01 X10*3/uL (0.00-0.03); Imm Gran Pct Auto 0.1 % (0.0-0.4); Lymphocytes Absolute Auto 0.3 X10*3/uL (1.2-4.9); Lymphocytes Percent Auto 4.5 % (20-40); Mean Corpuscular HGB Conc 34.3 g/dl (31.0-35.0); Mean Corpuscular Hemoglobin 32.2 pg (27.0-33.0); Mean Corpuscular Volume 93.9 fL (80.0-98.0); Mean Platelet Volume 10.7 fL (9.4-12.3); Monocytes Absolute Auto 0.4 X10*3/uL (0.1-1.2); Monocytes Percent Auto 5.9 % (2-11); Neutrophils Absolute Auto 6.3 x10*3/uL (2.0-8.3); Platelet Count 89 X10*3/uL (160-400); Red Blood Count 4.25 X10*6/uL (4.20-5.50); Red Cell Distribution Width 14.6 % (11.0-16.0); White Blood Count 7.1 X10*3/uL (4.8-10.8)
[2023-12-09 08:39] LABS: Alanine Aminotransferase 33 U/L (0-31); Albumin Level 3.7 g/dL (3.5-5.0); Alkaline Phosphatase 110 U/L (39-117); Anion Gap 11 (12-20); Aspartate Amino Transferase 32 U/L (5-31); Bilirubin Direct 0.2 mg/dL (0.0-0.5); Bilirubin Total 0.7 mg/dL (0.0-1.0); Blood Urea Nitrogen 17 mg/dL (9-16); Calcium 8.8 mg/dL (8.4-10.2); Carbon Dioxide 25 mmol/L (22-29); Chloride 107 mmol/L (96-108); Estimated Glomerular Filt Rate > 60; Glucose Random 122 mg/dL (60-115); Lipase 29 U/L (8-78); Magnesium 1.7 mg/dL (1.6-2.6); Potassium 3.9 mmol/L (3.3-5.1); Sodium 139 mmol/L (135-145); Total Protein 7.1 g/dL (6.5-8.0)
[2023-12-09] MEDS: HYDROmorphone HCl 1 MG/ML SYRINGE IVPUSH (08:42)
[2023-12-09 08:44] VITALS: PULSE 90; RESP 16; O2SAT 99
[2023-12-09 08:49] LABS: Troponin-I High Sensitivity < 2.7 ng/L (<3.5-17.0)
[2023-12-09] MEDS: droPERidol 5 MG/2 ML VIAL 0.625 MG IVPUSH (12:08)
--- NOTE | 2023-12-09 12:44 | PC.NURSE ---
PO challenge done, pt was refusing at first however patient did eat saltines and has not vomited since. Pt is currently sleeping
[2023-12-09 13:06] VITALS: BP 133/71; PULSE 90; RESP 18; TEMP 36.9; O2SAT 97
== END 2023-12-09 13:08 | disposition home or self-care (01) ==
PROVIDERS: Emergency Provider Emergency Medicine; PCP Dentist Pediatric Dentistry
DX: K31.84 Gastroparesis (principal); D69.6 Thrombocytopenia, unspecified; K29.50 Unspecified chronic gastritis without bleeding; R11.2 Nausea with vomiting, unspecified; R10.13 Epigastric pain; Z79.899 Other long term (current) drug therapy
CPT/HCPCS: 36415; 74176; 80048; 80076; 83690; 83735; 84484; 85025; 96361; 96374; 96375; 99282; 99284; J1170; J1790; J2270; J2405

== ENCOUNTER 2023-12-23 09:24 | Outpatient (REF) | payer OTHER, SELFPAY ==
[2023-12-23 09:41] LABS: MANUAL DIFF FLAG NO
[2023-12-23 10:21] LABS: Basophils Percent Auto 0.5 % (0-2); Eosinophils Percent Auto 0.7 % (0-4); Hematocrit 39.9 % (37.0-47.0); Hemoglobin 13.4 g/dl (12.0-16.0); Imm Gran Abs Auto 0.01 X10*3/uL (0.00-0.03); Imm Gran Pct Auto 0.2 % (0.0-0.4); Lymphocytes Absolute Auto 1.5 X10*3/uL (1.2-4.9); Lymphocytes Percent Auto 33.5 % (20-40); Mean Corpuscular HGB Conc 33.6 g/dl (31.0-35.0); Mean Corpuscular Hemoglobin 31.8 pg (27.0-33.0); Mean Corpuscular Volume 94.5 fL (80.0-98.0); Mean Platelet Volume 10.8 fL (9.4-12.3); Monocytes Absolute Auto 0.4 X10*3/uL (0.1-1.2); Neutrophils Absolute Auto 2.4 x10*3/uL (2.0-8.3); Neutrophils Percent Auto 55.1 % (45-73); Platelet Count 124 X10*3/uL (160-400); Red Blood Count 4.22 X10*6/uL (4.20-5.50); Red Cell Distribution Width 14.5 % (11.0-16.0); White Blood Count 4.4 X10*3/uL (4.8-10.8)
[2023-12-23 10:23] LABS: Prothrombin Time 11.6 SEC (11.1-13.3)
[2023-12-23 10:28] LABS: Alanine Aminotransferase 26 U/L (0-31); Albumin Level 3.7 g/dL (3.5-5.0); Alkaline Phosphatase 104 U/L (39-117); Anion Gap 11 (12-20); Aspartate Amino Transferase 25 U/L (5-31); Bilirubin Total 0.7 mg/dL (0.0-1.0); Blood Urea Nitrogen 14 mg/dL (9-16); Carbon Dioxide 28 mmol/L (22-29); Chloride 108 mmol/L (96-108); Estimated Glomerular Filt Rate > 60; Glucose Random 90 mg/dL (60-115); Sodium 143 mmol/L (135-145)
== END 2023-12-23 09:25 | disposition home or self-care (01) ==
LOC: HO.LAB 09:24
PROVIDERS: PCP Internal Medicine; Visit Provider Internal Medicine Gastroenterology
DX: E46 Unspecified protein-calorie malnutrition (principal); K75.81 Nonalcoholic steatohepatitis (NASH)
CPT/HCPCS: 36415; 80053; 85025; 85610

== ENCOUNTER 2023-12-27 10:29 | Outpatient (AMB) | payer OTHER, SELFPAY ==
--- NOTE | 2023-12-27 10:30 | A.OFFVIS_ITS ---
Vital Signs 12/27/23 10:33 Height 5 ft 8 in Weight 233 lb 11.04 oz BMI 35.5 BP 126/69 Blood Pressure Location Lt brachial Position Sitting Pulse 80 Intake Visit Reasons: Patient requested to keep appt Intake Note: Jaimee presents in the office as a follow up requested by patient. CC: She states that she is here today because she has pains in the stomach at times and also was seen in the ED due to vomiting. Pot Lining Supervisor Required: Yes Pot Lining Supervisor Name: Tristin Saravia Allergies Penicillins [PENICILLINS] Allergy (Severe, Verified 12/27/23 10:35) RASH Iodinated Contrast Media [Iodinated Contrast Media - IV Dye] Allergy (Intermediate, Verified 12/27/23 10:35) RASH meperidine [From DEMEROL] Allergy (Intermediate, Verified 12/27/23 10:35) RASH aspirin [ASA] Allergy (Mild, Verified 12/27/23 10:35) RASH, N/V Contrast Dye Allergy (Unknown, Verified 12/27/23 10:35) unknown, vomiting penicillin V Allergy (Unknown, Verified 12/27/23 10:35) N/V, rash tramadol [TRAMADOL] Allergy (Unknown, Verified 12/27/23 10:35) RASH HPI HPI Patient requested to keep appt: Details: 53 y/o f w/ hx of PSC and AIP seen for f/u-- RECAP:from prior notes dx initially in [place] abt 10 yrs ago after pancreatitis dx, had cholecystectomy, bile dcut was accidentally clipped and needed further surgery during this time she became jaundiced, had weight loss and vomiting and eventually dx as having AIH after coming to [place] for further management she had liver biopsy as well she was on chronic low dose pred 5 mg daily, and imuran 50mg tid has been hard to wean her off pred she had EGD and colonoscopy 1 yr ago, colon was normal, EGD with shan martinez, on propranolol says was told she had colitis in the past as well as osteopenia she feels gen malaise issues with constipation, sometimes soft appetite is fair she does have some mild RUQ pain pulsating feels like her body is inflammed she has back pain, and knee, arm pains she has had swollen glands in neck for 4 depression due to multiple deaths in family She [facility] with flare up of disease, put on steroids LFT abnormal, with raised CRP, AST 200--->20, THen haf further admission with bacteremia from [facility] which per ID is water borne bacteria, repeat MRI 12/2018 with stable appearance, intrahepatic duct dilation, she was having a flare and put on long pred taper other tests; Hep B,C negative CT 2013- hepaticojejunostomy DEXA 2018- osteopenia spine. MRI inpatient- intrahepatic dilation, left. right, CBD normal, no masses or stones CT neck: prominent sub mandibular neck gland EGD : hyperplastic polyps, small varices, hiatal hernia recently she was feeling worse and pred was restarted and imuran stopped and changed to 6 MP At OV 06/2018 she was c/o epigastric pain, malaise with back pain, dysuria and went to ED day after, inaptient CT and UA, were neg for actue findings, CRP elevated but lower than before and trended down. Pred was increased to 20 mg At OV 1 week ago she was continued on 6 MP 75 mg and pred 20 mg she was having burning and itching in vaginal area and thick vaginal d/c she had liver bx--rare IgG4 cells, mild chronic inflammation, portal fibrosis, she had menstrual bleeding after having no periods for months she had back pain as well 08/21, mild lower aboo pain denies n/v appetite is poor she had burning with urine---UA with 2+ blood, no protein she was increased on pred to 20 mg for 4 weeks and 6 MP reduced to 50 mg depressed due to social issues, probs with SSI LFT slowly been coming down on 20 mg pred does have general weakness appetite is poor but admits that pred 20 mg is helping does have hot flashes thinks due to menopause, having some shoulder blade pain for 1 d, tylenol helps admitted with partial small bowel obstrcution 08/2019 she ws having ongoing nausea and abdo pain, given omeprazole 40 mg with carafate Labs 10/19/2019-- TB-nml, AST-41. ALT 74, alk phos 171 Labs 11/2019-- TB--0.6, AST--34, ALT 54, alk phos 130, CRP 0.[address] James pain team and plan was for SI joint injections LFT stable, on 18 mg of pred as well as 6 MP 50 mg referred to cardiology due to palps and chest pressure--nml holter rept LABS: 08/2020-- bili-nml, AST 32, ALT 56, alk phso 133 she had LFt repeated after pred cut down to 17 mg bili-1.1, AST 38, ALT 61, AP-128 DEXA with osteopenia in hips and osteoporosis in spine--reclast was given US 03/2021-- splenomegaly, liver looked good, kidney stone right she went to the ED and had CT scan 08/2021: dilated stomach, ?GOO, thickening of lower esophagus, post surg changes, possible medullary nephrocalcinosis, fibroid EGD 09/2021- gastric polyps, small varices She had COVID 19 infection 10/2021 LFT 10/2021-- bili 0.4, AST-30, ALT 48, alk phos- 89 LFT: 02/2023-- nml LFT --mild elevation ALT CT 2022--- stable appearances of liver and other organs, no new findings CT 11/2023-- nml looking liver, no new pathology INTERIM: she is worried she is going thru menopusea she is seeing neuro for headaches she started cyclobenzaparine she has epigastric pain appetite is variable no diarrhea or constipation she has soft stools with miralax she is on prednisone 5 mg--she is still on mercaptopurine stress and anxiety is bad --fluoxetine and trazodone she is still taking omeprazole feels it helps a little burning with urine EXAM: GENERAL: The patient is well developed and nontoxic. VITAL SIGNS:see workflow HEENT: Nonicteric sclerae, PERRLA, EOMI. Oropharynx clear. Moist mucous membranes. Conjunctivae appear well perfused. No thyroid mass. CHEST: Chest wall is nontender. HEART: Regular rate and rhythm without murmurs. LUNGS: Clear to auscultation bilaterally. ABDOMEN: Soft, positive bowel sounds, tender epigastrium, no organomegaly.no flank tenderness SKIN: No rash, no excessive bruising, petechiae, or purpura. NEUROLOGIC: Cranial nerves II-XII intact without motor/sensory deficit. 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 osteopenia--has osteoporosis due to steroid use, ordered reclast, which was given 4. epigastric pain, abnormal imaging with distended stomach ?GOO, ongoing pain, but all over body ?fibromyalgia or related to chronic steroid use and stress/depression suspected IgG [address] RD even though bx not diagnostic but she had been on steroids/6 MP- LFt eventually improved on tapering dose of steroids PLAN: 1/ cont pred 5 mg, and 6 MP 2/ repeat EGD to reassess stomach and US liver-- 3/ repeat dexa in 1-2 yrs, repeat reclast now 4/ check TG metabolites 5/ change omeprazole to pantoprazole 6/ check UA due to dysuria PFSH Medical History GERD (gastroesophageal reflux disease) Osteoporosis Atypical chest pain Arthritis Hordeolum externum right upper eyelid Difficulty sleeping Depression, major, recurrent Knee pain, right Autoimmune liver disease Headache syndrome Surgical History History of tubal ligation History of esophagogastroduodenoscopy (EGD) H/O colonoscopy History of liver biopsy History of cholecystectomy Hx of appendectomy History of surgery Family History Father CVD (cardiovascular disease) Mother Breast cancer Leukemia CVD (cardiovascular disease) Brother Substance use disorder Brother No problems noted. Sister No problems noted. Son No problems noted. Daughter No problems noted. Daughter No problems noted. Daughter No problems noted. Maternal Aunt Breast cancer Social History Household Members: Children Housing: Apartment Alcohol intake: former Patient Tobacco Use Status: Never used Tobacco e-Cigarette/Vaping Use: Never Used Current occupational status: disabled Cognitive needs: No Hearing needs: No Vision needs: No Physical Exam Vital Signs: Last Vital Signs Pulse 80 12/27/23 10:33 BP 126/69 12/27/23 10:33 BMI result Body Mass Index 35.5 Assessment & Plan Assessment & Plan (1) Abnormal LFTs: Code(s): R79.89 - Other specified abnormal findings of blood chemistry Category: Medical Plan: see above Orders: Orders UA CC w/rflx Micro + Cult Today R30.0 - Dysuria US abdomen comp w elastography Today R79.89 - Other specified abnormal findings of blood chemistry Thiopurine Metabolites Today R79.89 - Other specified abnormal findings of blood chemistry Medications: New pantoprazole 40 mg PO DAILY 90 tabs 2RF Discontinued omeprazole Discontinued Reason: Doctor's Order 40 mg PO DAILY 60 caps 2RF Coding Level of Care Code Est Pt Level 4 (33758) Diagnoses Abnormal LFTs R79.89
[2023-12-27 10:33] VITALS: BP 126/69; PULSE 80; BMI 35.5
== END 2023-12-27 11:16 | disposition home or self-care (01) ==
PROVIDERS: PCP Internal Medicine; Visit Provider Internal Medicine Gastroenterology
DX: R79.89 Other specified abnormal findings of blood chemistry (principal)
CPT/HCPCS: 99214

== ENCOUNTER → 2023-12-27 10:29 | Outpatient (BNVA) | payer OTHER, SELFPAY | PROVIDERS: PCP Internal Medicine; Visit Provider Internal Medicine Gastroenterology | DX: R79.89 Other specified abnormal findings of blood chemistry (principal) | CPT/HCPCS: 99212 ==

== ENCOUNTER 2023-12-28 14:27 | Outpatient (AMB) | payer OTHER, SELFPAY ==
--- NOTE | 2023-12-28 14:33 | MHC.PC.OV ---
Vital Signs 12/28/23 14:35 Height 5 ft 8 in Weight 234 lb BMI 35.6 BP 114/80 Blood Pressure Location Lt brachial Position Sitting Pulse 85 Pulse Source Pulse Oximeter Pulse Oximetry (%) 98 Oxygen Delivery Method Room Air Intake Visit Reasons: ANNUAL PE Allergies Penicillins [PENICILLINS] Allergy (Severe, Verified 12/28/23 14:33) RASH Iodinated Contrast Media [Iodinated Contrast Media - IV Dye] Allergy (Intermediate, Verified 12/28/23 14:33) RASH meperidine [From DEMEROL] Allergy (Intermediate, Verified 12/28/23 14:33) RASH aspirin [ASA] Allergy (Mild, Verified 12/28/23 14:33) RASH, N/V Contrast Dye Allergy (Unknown, Verified 12/28/23 14:33) unknown, vomiting penicillin V Allergy (Unknown, Verified 12/28/23 14:33) N/V, rash tramadol [TRAMADOL] Allergy (Unknown, Verified 12/28/23 14:33) RASH Medication List - Last Reconciled 12/28/23 by Luis Angel Almanza MD buspirone 5 mg PO TID cholecalciferol (vitamin D3) 25 mcg PO DAILY cyclobenzaprine 10 mg (2 x 5 mg) PO TID PRN 30 days fluoxetine 40 mg PO DAILY gabapentin 300mg qam and 600mg qhs orally .; 30 days [magnesium 30 mg PO DAILY] magnesium oxide 400 mg PO BEDTIME 30 days mercaptopurine 50 mg PO DAILY metronidazole 0.75%(37.5mg/5gram) (Metrogel Vaginal) 1 appful vaginal BEDTIME 5 days ondansetron 4 mg PO Q8H PRN ondansetron 4 - 8 mg (0.5 - 1 x 8 mg) PO Q8H PRN pantoprazole 40 mg PO DAILY prednisone 5 mg PO DAILY riboflavin (vitamin B2) 400 mg PO DAILY 30 days sucralfate 10 mL PO QID thiamine HCl (vitamin B1) 100 mg PO DAILY 90 days topiramate 50 mg (2 x 25 mg) PO BEDTIME 30 days trazodone 100 mg PO DAILY ubrogepant (Ubrelvy) 50 - 100 mg (0.5 - 1 x 100 mg) PO ONCE PRN 30 days vitamin A 1 cap PO DAILY zinc acetate (Galzin) 50 mg PO DAILY Tobacco use date assessed: 12/28/23 Dental Screening Dental Screen Date: 12/28/23 Did you have a dental visit in the last 12 months?: Yes Did you have a dental problem in the last 6 months where you did not have access to dental care?: No Was dental information given to patient?: Patient has dentist HPI ANNUAL PE HPI Details Patient is a 53-year-old female came in today for her annual physical exam Due for mammogram order placed Due for OBGYN visit, referral created Patient is established with [facility]ology [facility] BMI is elevated patient have difficulty losing weight She offers no new complaints today doing well. Patient is taking no medication from PCP office [facility] Medical History GERD (gastroesophageal reflux disease) Osteoporosis Atypical chest pain Arthritis Hordeolum externum right upper eyelid Difficulty sleeping Depression, major, recurrent Knee pain, right Autoimmune liver disease Headache syndrome Surgical History History of tubal ligation History of esophagogastroduodenoscopy (EGD) H/O colonoscopy History of liver biopsy History of cholecystectomy Hx of appendectomy History of surgery Family History Father CVD (cardiovascular disease) Mother Breast cancer Leukemia CVD (cardiovascular disease) Brother Substance use disorder Brother No problems noted. Sister No problems noted. Son No problems noted. Daughter No problems noted. Daughter No problems noted. Daughter No problems noted. Maternal Aunt Breast cancer Social History Household Members: Children Housing: Apartment Alcohol intake: former Patient Tobacco Use Status: Never used Tobacco e-Cigarette/Vaping Use: Never Used service: No Current occupational status: disabled Cognitive needs: No Hearing needs: No Vision needs: No Questionnaire PHQ-9 Over the last 2 weeks, how often have you been bothered by any of the following problems? 1. Little interest or pleasure in doing things: not at all 2. Feeling down, depressed, or hopeless: not at all 3. Trouble falling or staying asleep, or sleeping too much: not at all 4. Feeling tired or having little energy: not at all 5. Poor appetite or overeating: not at all 6. Feeling bad about yourself - or that you are a failure or have let yourself or your family down: not at all 7. Trouble concentrating on things, such as reading the newspaper or watching television: not at all 8. Moving or speaking so slowly that other people could have noticed. Or the opposite - being so fidgety or restless that you have been moving around a lot more than usual: not at all 9. Thoughts that you would be better off or of hurting yourself in some way: not at all Total score: 0 Depression Screening Interpretation: Negative Depression Screening Done: Yes 35825 - PHQ-9 Billing: Yes Source: Developed by Drs. Donnell Stratton, Viridiana Cho, Adelso Harper and colleagues, with an educational judith from [employer]. Thrive Questionnaire Date Thrive assessed: 12/28/23 I am a: Patient What is your living situation today?: I choose not to answer this question Within the past 12 months, did the food you bought not last and you didn't have the money to get more?: I choose not to answer this question Within the past 12 months, did you worry whether your food would run out before you got money to buy more?: I choose not to answer this question Do you have trouble paying for medicines?: I choose not to answer this question Do you have trouble getting transportation to medical appointments?: I choose not to answer this question Do you have trouble paying your heating and electricity bill?: I choose not to answer this question Do you have trouble taking care of your child, family member or friend?: I choose not to answer this question Do you have trouble with day-to-day activities such as bathing, preparing meals, shopping, managing finances, etc.?: I choose not to answer this question Are you currently unemployed and looking for a job?: I choose not to answer this question Are you interested in more education?: I choose not to answer this question Please select the resources that you would like help with: Housing/Senior Living Currently or been in a relationship where the following occur: I choose not to answer THRIVE Score: 0 AUDIT C Alcohol Use Questionnaire (AUDIT-C) 1. How often do you have a drink containing alcohol?: Never Total Score: 0 DENIS-7 AMB Questionnaire DENIS-7 Date DENIS - 7 assessed: 12/28/23 Feeling nervous, anxious, or on edge: 0 = Not at all Not being able to stop or control worryin = Not at all Worrying too much about different things: 0 = Not at all Trouble relaxin = Not at all Being so restless that it is hard to sit still: 0 = Not at all Becoming easily annoyed or irritable: 0 = Not at all Feeling afraid as if something awful might happen: 0 = Not at all Total DENIS-7 score (0-4 normal; 5-9 mild; 10-14 moderate; 15-21 severe): 0 Source: Developed by Drs. Donnell Srtatton, Viridiana Cho, Adelso Harper and colleagues, with an educational judith from [employer]. DENIS-7 Assessment Billing DENIS-7 Assessment Tool: DENIS-7 Assessment 91819 Review of Systems Const Denies chills, Denies fever(s) and Denies headache(s) Eyes Denies blurry vision ENT Denies headache(s), Denies nasal discharge, Denies nasal obstruction, Denies odynophagia and Denies sinus pain Card Denies chest pain at rest and Denies chest pain with activity Resp Denies cough and Denies hemoptysis GI Denies diarrhea, Denies odynophagia and Denies hematemesis Reports as per HPI Musc Denies abnormal gait Skin/Breast Reports as per HPI Neuro Denies Neuro-related abnormal movements, Denies Abnormal speech present, Denies abnormal gait, Denies headache(s) and Denies Sensory deficit (Neuro) Psych Denies mood swings and Denies paranoia Endo Reports as per HPI Georgi/Lymph Reports as per HPI Aller/Immun Reports as per HPI Physical exam (Primary Care) Vital Signs: Last Vital Signs Pulse 85 12/28/23 14:35 BP 114/80 12/28/23 14:35 Pulse Ox 98 12/28/23 14:35 Oxygen Delivery Method Room Air 12/28/23 14:35 BMI result Body Mass Index 35.6 Tobacco/Smoking Status: Tobacco use Status Tobacco use date assessed 12/28/23 12/28/23 14:38 Patient Tobacco Use Status Never used Tobacco 12/28/23 14:38 e-Cigarette/Vaping Use Never Used 12/28/23 14:38 PHQ-9: PHQ-9 Score PHQ-9: Total score 0 12/28/23 14:38 Depression Screening Interpretation: Negative Thrive Assessment: Date of Thrive Assessment Date Thrive assessed 12/28/23 12/28/23 14:38 Currently or been in a relationship where the following occur: I choose not to answer Const General: cooperative, comfortable and no acute distress Orientation/consciousness: patient oriented x3 HENMT Head: Yes normocephalic and Yes atraumatic Eyes General: appearance normal, both eyes and all related structures Pupils: Equal, round and reactive pupils present EOM: EOMs intact bilaterally Neck Neck: Yes supple and No lymphadenopathy Thyroid: Thyroid normal Lymphatic: no lymphadenopathy noted Chest Breast/axilla palpation: normal palpation of the breasts Resp Effort & Inspection: normal respiratory effort and able to speak in complete sentences Auscultation: clear to auscultation bilaterally Cardio Heart sounds: S1 normal heart sound present and S2 normal heart sound present GI Palpation (GI): Soft to palpation and nontender Auscultation: normal bowel sounds General: Yes no CVA tenderness Back/Spine/Pelvis Back: no CVA tenderness Skin General skin exam: elasticity normal and turgor normal Neuro General: patient oriented x3 and gait normal Cranial nerves: Yes Equal, round and reactive pupils present Speech: No Abnormal speech present Sensory Exam: No Sensory deficit (Neuro) Coordination: tandem gait normal and Romberg test negative Extrem General: Yes normal exam except as noted and No edema Assessment and Plan Assessment & Plan (1) Annual physical exam: Code(s): Z00.00 - Encounter for general adult medical examination without abnormal findings Plan Patient is a 53-year-old female came in today for her annual physical exam Due for mammogram order placed Due for OBGYN visit, referral created Patient is established with [facility] BMI is elevated patient have difficulty losing weight She offers no new complaints today doing well. Patient is taking no medication from PCP office Orders: Orders MM tomosynthesis screening BI Today Z12.31 - Encounter for screening mammogram for malignant neoplasm of breast Referrals SOCIAL ECONOMIST Referral Z01.419 - Encounter for gynecological examination (general) (routine) without abnormal findings Coding Level of Care Code Est Pt Prev Care 40-64y(62856) Diagnoses Annual physical exam Z00.00 Additional Codes DENIS-7 Assessment Billing - DENIS-7 Assessment Tool: DENIS-7 Assessment [id number] ([id number])
[2023-12-28 14:35] VITALS: BP 114/80; PULSE 85; O2SAT 98; BMI 35.6
== END 2023-12-28 14:57 | disposition home or self-care (01) ==
PROVIDERS: PCP Internal Medicine; Visit Provider Internal Medicine
DX: Z00.00 Encounter for general adult medical examination without abnormal findings (principal)
CPT/HCPCS: 99396

== ENCOUNTER 2024-01-03 13:46 | Outpatient (RCR) | payer OTHER, SELFPAY ==
[2024-01-03 13:50] VITALS: BP 124/71; PULSE 84; RESP 18; TEMP 36.7; O2SAT 98; BMI 36.6
[2024-01-03] MEDS: Acetaminophen 325 MG TABLET 650 MG PO (14:03)
[2024-01-03] MEDS: Zoledronic Acid/Mannitol-Water 5 MG/100 ML PGGYBK.BTL IV (14:08)
[2024-01-03] MEDS: 0.9 % Sodium Chloride Flush 10 ML SYRINGE 5 ML IVFLUSH (14:15)
== END 2024-01-03 14:33 | disposition home or self-care (01) ==
LOC: HO.INF 13:46
PROVIDERS: Visit Provider Internal Medicine Gastroenterology
DX: M81.0 Age-related osteoporosis without current pathological fracture (principal)
CPT/HCPCS: 96374; J3489

== ENCOUNTER 2024-01-07 10:56 | Outpatient (REF) | payer OTHER, SELFPAY ==
[2024-01-07 12:10] LABS: Alanine Aminotransferase 32 U/L (0-31); Albumin Level 3.8 g/dL (3.5-5.0); Alkaline Phosphatase 114 U/L (39-117); Anion Gap 9 (12-20); Aspartate Amino Transferase 30 U/L (5-31); Bilirubin Total 0.6 mg/dL (0.0-1.0); Blood Urea Nitrogen 16 mg/dL (9-16); Calcium 8.2 mg/dL (8.4-10.2); Carbon Dioxide 27 mmol/L (22-29); Chloride 109 mmol/L (96-108); Estimated Glomerular Filt Rate > 60; Glucose Random 105 mg/dL (60-115); Potassium 3.7 mmol/L (3.3-5.1); Sodium 141 mmol/L (135-145); Total Protein 7.1 g/dL (6.5-8.0)
[2024-01-07 12:21] LABS: Appearance Urine Clear; Color Urine Yellow; Glucose Urine UA Negative (Negative); Leukocyte Esterase Urine Negative (Negative); Nitrite Urine Negative (Negative); PH 5.5 (5.0-9.0); Specific Gravity - Urine 1.025 (1.005-1.025); Urine Blood Negative (Negative); Urine Ketones Negative (Negative); Urine Protein Negative (Neg-Trace)
[2024-01-14 23:18] LABS: 6-MMPN 1988 (<5700); 6-TGN 161 (235-400)
== END 2024-01-07 10:57 | disposition home or self-care (01) ==
LOC: HO.MAMMO 10:56
PROVIDERS: Internal Medicine Gastroenterology; PCP Internal Medicine; Visit Provider Internal Medicine
DX: K75.81 Nonalcoholic steatohepatitis (NASH) (principal); E46 Unspecified protein-calorie malnutrition; R30.0 Dysuria; R79.89 Other specified abnormal findings of blood chemistry; Z12.31 Encounter for screening mammogram for malignant neoplasm of breast
CPT/HCPCS: 36415; 77063; 77067; 80053; 80299; 81003

== ENCOUNTER → 2024-01-07 11:30 | Outpatient (BNV) | payer OTHER, SELFPAY | PROVIDERS: PCP Internal Medicine; Visit Provider Radiology Diagnostic Radiology | DX: Z12.31 Encounter for screening mammogram for malignant neoplasm of breast (principal) | CPT/HCPCS: 77063; 77067 ==

== ENCOUNTER 2024-01-13 08:12 | Outpatient (REF) | payer OTHER, SELFPAY ==
--- NOTE | ~2024-01-13 | US_ITS ---
EXAMINATION: US COMPLETE ABDOMEN WITH LIVER ELASTOGRAPHY CLINICAL INFORMATION: Abnormal laboratory results. COMPARISON: None available. TECHNIQUE: Real-time imaging of the abdominal viscera. Noninvasive ultrasound liver fibrosis assessment is performed using Naye ElastPQ point quantification shear wave elastography (pSWE) with a C5-2 MHz transducer. Multiple elastography samples are obtained. FINDINGS: PANCREAS: Normal. The visualized pancreatic head and body are normal in appearance. The remainder of the pancreas is obscured from visualization by the overlying bowel gas. ABDOMINAL AORTA: The proximal segment is largely obscured by overlapping bowel gas. The middle and distal aortic segments are normal in caliber. INFERIOR VENA CAVA: Visualized portions are normal. LIVER: Normal. The liver demonstrates normal size, contour and echogenicity. No focal lesion or intrahepatic biliary duct dilatation. The right lobe measures 16.2 cm in length. The left lobe measures 9.3 cm in length. Portal flow is towards the liver (hepatopetal). Shear wave liver elastography median stiffness is 1.18 m/s (reference: normal median stiffness is 1.3 m/s or less). IQR/median stiffness to assess sampling precision is 0.27 (reference: good quality data set is IQR/median stiffness of 0.15 or less). GALLBLADDER: Normal. The gallbladder is physiologically distended without evidence of stones, sludge, polyps, wall thickening or pericholecystic fluid. COMMON BILE DUCT: Normal in caliber measuring 0.4 cm in diameter. RIGHT KIDNEY: Normal. No hydronephrosis. No renal calculi or focal parenchymal lesions. The kidney measures 10.7 cm in maximum dimension. LEFT KIDNEY: Normal. No hydronephrosis. No renal calculi or focal parenchymal lesions. The kidney measures 10.9 cm in maximum dimension. SPLEEN: There is no focal finding. The spleen measures 14.9 cm in maximum dimension. FREE FLUID: None. US/US abdomen comp w elastography IMPRESSION: 1. There is generalized increase in hepatic echotexture, consistent with fatty infiltration or hepatocellular disease. Please correlate clinically. No focal hepatic mass or intrahepatic biliary dilatation is seen. 2. Liver elastography: Although measurements suggest a high probability of normal liver stiffness, there is statistical variability of the sampling which decreases accuracy. 3. There is splenomegaly. REFERENCE: Society of Radiologists in Ultrasound Liver Stiffness Thresholds (2020): LIVER STIFFNESS THRESHOLDS: *Liver Stiffness equal or less than 1.3 m/s: High probability of being normal. *Liver Stiffness less than 1.7 m/s: In the absence of other known clinical signs, rules out compensated advanced chronic liver disease. *Liver Stiffness 1.7-2.1 m/s: Suggestive of compensated advanced chronic liver disease but need further test for confirmation. *Liver Stiffness over 2.1 m/s: Rules in compensated advanced chronic liver disease. *Liver Stiffness over 2.4 m/s: Suggestive of clinically significant portal hypertension. QUALITY OF DATA SET: *IQR/Median value equal or less than 0.15 implies a quality data set. *IQR/Median value over 0.15 implies a poor quality data set. SIGNIFICANT CHANGE FROM PRIOR EXAM: Significant change if liver stiffness measurement is 10% or greater from prior exam. OTHER CONSIDERATIONS: The stage of liver fibrosis may be overestimated in the setting of acute hepatitis, liver inflammation, elevated liver function tests, hepatic vascular congestion, obstructive cholestasis, non-fasting state, and infiltrative diseases such as amyloidosis and lymphoma. In some patients with NAFLD, the liver stiffness thresholds for compensated advanced chronic liver disease may be lower. In causes other than viral hepatitis and NAFLD, liver stiffness thresholds are not well established. Electronically signed by: Mark Ortiz MD 02/07/2024 03:30 PM EDT
== END 2024-01-13 08:13 | disposition home or self-care (01) ==
LOC: HO.US 08:12
PROVIDERS: PCP Internal Medicine; Visit Provider Internal Medicine Gastroenterology
DX: R79.89 Other specified abnormal findings of blood chemistry (principal)
CPT/HCPCS: 76700; 76981

== ENCOUNTER 2024-04-27 11:47 | Day surgery (SDC) | payer OTHER, SELFPAY ==
[2023-11-02 06:46] VITALS: BMI 35.7
--- NOTE | 2023-11-02 12:07 | HO.ANESPROP2 ---
HPI - Anesthesia Eval Consult details Narrative: 53yo F for Upper Endoscopy PMFSH Active Problems Active Problems: All Active Problems Malnutrition (Acute) Abnormal EKG (Acute) Chest pain (Acute) Headache (Acute) Hemifacial spasm of left side of face (Acute) Abnormal LFTs (Acute) Hospital discharge follow-up (Acute) Post-COVID syndrome (Acute) Pain in finger of left hand (Acute) COVID-19 virus infection (Acute) Hypoesthesia (Acute) Cervicalgia (Acute) Migraine without aura (Acute) Palpitations (Acute) Non-cardiac chest pain (Acute) Right knee pain (Acute) Primary osteoarthritis of right knee (Acute) History of dysuria (Acute) Steroid long-term use (Acute) Breast screening (Acute) Right knee pain (Acute) Women's annual routine gynecological examination (Acute) Vaginal itching (Acute) Cervical cancer screening (Acute) Hospital discharge follow-up (Acute) Gastroparesis (Acute) Chronic esophagitis (Acute) Gastritis (Acute) Gastric bezoar (Acute) Abdominal pain (Acute) Fracture of distal phalanx of left ring finger (Acute) Hordeolum externum right upper eyelid (Acute) Difficulty sleeping (Acute) Depression, major, recurrent (Acute) Knee pain, right (Acute) Autoimmune liver disease (Acute) Headache syndrome (Acute) Past Medical History Medical History GERD (gastroesophageal reflux disease) Osteoporosis Atypical chest pain Arthritis Hordeolum externum right upper eyelid Difficulty sleeping Depression, major, recurrent Knee pain, right Autoimmune liver disease Headache syndrome Family History Family History Father CVD (cardiovascular disease) Mother Breast cancer Leukemia CVD (cardiovascular disease) Brother Substance use disorder Brother No problems noted. Sister No problems noted. Son No problems noted. Daughter No problems noted. Daughter No problems noted. Daughter No problems noted. Maternal Aunt Breast cancer Family history of problems with anesthesia: No Surgical History Surgical History History of tubal ligation History of esophagogastroduodenoscopy (EGD) H/O colonoscopy History of liver biopsy History of cholecystectomy Hx of appendectomy History of surgery History of Problems with Anesthesia: No Social History Social History Household Members: Children Housing: Apartment Alcohol intake: former Patient Tobacco Use Status: Never used Tobacco e-Cigarette/Vaping Use: Never Used Current occupational status: disabled Cognitive needs: No Hearing needs: No Vision needs: No Meds Allergies Allergy/AdvReac Type Severity Reaction Status Date / Time Penicillins [PENICILLINS] Allergy Severe RASH Verified 03/24/23 12:56 Iodinated Contrast Media Allergy Intermediate RASH Verified 03/24/23 12:56 [Iodinated Contrast Media - IV Dye] meperidine [From DEMEROL] Allergy Intermediate RASH Verified 03/24/23 12:56 aspirin [ASA] Allergy Mild RASH, N/V Verified 03/24/23 12:56 Contrast Dye Allergy Unknown unknown, Verified 03/24/23 12:56 vomiting penicillin V Allergy Unknown N/V, rash Verified 03/24/23 12:56 tramadol [TRAMADOL] Allergy Unknown RASH Verified 03/24/23 12:56 Home Medications ?Medication ?Instructions ?Recorded ?Confirmed ?Last Taken ?Type fluoxetine 40 mg capsule 40 mg PO DAILY 05/14/20 03/24/23 Unknown History trazodone 100 mg tablet 100 mg PO DAILY 05/14/20 03/24/23 Unknown History buspirone 5 mg tablet 5 mg PO TID anxiety 02/11/23 03/24/23 Unknown History cyclobenzaprine 5 mg tablet 5 mg PO TID PRN 02/11/23 03/24/23 Unknown History magnesium 30 mg PO DAILY 02/11/23 03/24/23 Unknown History baclofen 10 mg tablet 10 mg PO BEDTIME 03/08/23 03/24/23 Unknown History Exam Height,Weight and Vital Signs: Height 5 ft 8 in Weight 106.594 kg Pertinent Lab Results Pertinent Lab Results: Laboratory Tests 08/30/23 11:33 WBC 6.1 Hgb 13.7 Hct 41.3 Plt Count 149 L Sodium 145 Potassium 4.0 Chloride 107 Carbon Dioxide 31 H BUN 14 Creatinine 0.86 Narrative Narrative: EKG 04/2023 Vent. Rate : 087 BPM Atrial Rate : 087 BPM P-R Int : 146 ms QRS Dur : 134 ms QT Int : 402 ms P-R-T Axes : 006 045 001 degrees QTc Int : 483 ms Normal sinus rhythm Right bundle branch block Abnormal ECG When compared with ECG of 01-MAY-2023 09:21, No significant change was found NM cardiolite stress test 04/2023 IMPRESSION: 1. Myocardial perfusion imaging study shows likely normal myocardial perfusion. 2. Gated LVEF is 57% during stress and rest. 3. Transient ischemic dilatation not present. Assessment and Plan Assessment Anesthesia Assessment: Chart Reviewed Final Anesthetic Review Family History of Problems with Anesthesia: No History of Problems with Anesthesia: No
--- NOTE | 2024-04-12 10:27 | HO.ANESPROP2 ---
HPI - Anesthesia Eval Consult details Narrative: 53yo F for Upper Endoscopy, 04/27/24 [facility] Active Problems Active Problems: All Active Problems Annual physical exam (Acute) Encounter for routine gynecological examination (Acute) Osteoporosis (Acute) Malnutrition (Acute) Abnormal EKG (Acute) Chest pain (Acute) Headache (Acute) Hemifacial spasm of left side of face (Acute) Abnormal LFTs (Acute) Hospital discharge follow-up (Acute) Post-COVID syndrome (Acute) Pain in finger of left hand (Acute) COVID-19 virus infection (Acute) Hypoesthesia (Acute) Cervicalgia (Acute) Migraine without aura (Acute) Palpitations (Acute) Non-cardiac chest pain (Acute) Right knee pain (Acute) Primary osteoarthritis of right knee (Acute) History of dysuria (Acute) Steroid long-term use (Acute) Breast screening (Acute) Right knee pain (Acute) Women's annual routine gynecological examination (Acute) Vaginal itching (Acute) Cervical cancer screening (Acute) Hospital discharge follow-up (Acute) Gastroparesis (Acute) Chronic esophagitis (Acute) Gastritis (Acute) Gastric bezoar (Acute) Abdominal pain (Acute) Fracture of distal phalanx of left ring finger (Acute) Hordeolum externum right upper eyelid (Acute) Difficulty sleeping (Acute) Depression, major, recurrent (Acute) Knee pain, right (Acute) Autoimmune liver disease (Acute) Headache syndrome (Acute) Past Medical History Medical History GERD (gastroesophageal reflux disease) Osteoporosis Atypical chest pain Arthritis Hordeolum externum right upper eyelid Difficulty sleeping Depression, major, recurrent Knee pain, right Autoimmune liver disease Headache syndrome Family History Family History Father CVD (cardiovascular disease) Mother Breast cancer Leukemia CVD (cardiovascular disease) Brother Substance use disorder Brother No problems noted. Sister No problems noted. Son No problems noted. Daughter No problems noted. Daughter No problems noted. Daughter No problems noted. Maternal Aunt Breast cancer Family history of problems with anesthesia: No Surgical History Surgical History History of tubal ligation History of esophagogastroduodenoscopy (EGD) H/O colonoscopy History of liver biopsy History of cholecystectomy Hx of appendectomy History of surgery History of Problems with Anesthesia: No Social History Social History Household Members: Children Housing: Apartment Alcohol intake: former Patient Tobacco Use Status: Never used Tobacco e-Cigarette/Vaping Use: Never Used service: No Current occupational status: disabled Cognitive needs: No Hearing needs: No Vision needs: No Meds Allergies Allergy/AdvReac Type Severity Reaction Status Date / Time Penicillins [PENICILLINS] Allergy Severe RASH Verified 12/28/23 14:33 Iodinated Contrast Media Allergy Intermediate RASH Verified 12/28/23 14:33 [Iodinated Contrast Media - IV Dye] meperidine [From DEMEROL] Allergy Intermediate RASH Verified 12/28/23 14:33 aspirin [ASA] Allergy Mild RASH, N/V Verified 12/28/23 14:33 tramadol [TRAMADOL] Allergy Unknown RASH Verified 12/28/23 14:33 Home Medications ?Medication ?Instructions ?Recorded ?Confirmed ?Last Taken ?Type fluoxetine 40 mg capsule 40 mg PO DAILY 05/14/20 12/28/23 Unknown History trazodone 100 mg tablet 100 mg PO DAILY 05/14/20 12/28/23 Unknown History buspirone 5 mg tablet 5 mg PO TID anxiety 02/11/23 12/28/23 Unknown History magnesium 30 mg PO DAILY 02/11/23 12/28/23 Unknown History Exam Height,Weight and Vital Signs: Height 5 ft 8 in Weight 106.594 kg Assessment and Plan Assessment Anesthesia Assessment: Chart Reviewed Final Anesthetic Review Family History of Problems with Anesthesia: No History of Problems with Anesthesia: No
[2024-04-27 12:41] VITALS: BP 138/77; PULSE 88; RESP 20; TEMP 36.4; O2SAT 98
--- NOTE | 2024-04-27 13:02 | P.HPSUR_ITS ---
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 Relevant Family History (Specify if Yes): No Relevant Social History: None Present Medications: see Short Stay Collaborative assessment Medical History: Significant History (GERD (gastroesophageal reflux disease) Osteoporosis Atypical chest pain Arthritis Hordeolum externum right upper eyelid Difficulty sleeping Depression, major, recurrent Knee pain, right Autoimmune liver disease Headache syndrome) History of Previous Operations: Relevant previous surgery/procedure and date(s) (History of tubal ligation History of esophagogastroduodenoscopy (EGD) H/O colonoscopy History of liver biopsy History of cholecystectomy Hx of appendectomy History of surgery) Allergies: Allergies Allergy/AdvReac Type Severity Reaction Status Date / Time Penicillins [PENICILLINS] Allergy Severe RASH Verified 12/28/23 14:33 Iodinated Contrast Media Allergy Intermediate RASH Verified 12/28/23 14:33 [Iodinated Contrast Media - IV Dye] meperidine [From DEMEROL] Allergy Intermediate RASH Verified 12/28/23 14:33 aspirin [ASA] Allergy Mild RASH, N/V Verified 12/28/23 14:33 tramadol [TRAMADOL] Allergy Unknown RASH Verified 12/28/23 14:33 Review of Systems Sugical H&P ROS: Negative: Constitution, Cardiovascular, Respiratory, Neurological, Psychiatric, Hem-Onc, Allergic/Immunologic, Gastrointestinal, Genitourinary, Musculoskeletal, Integumentary, Endocrine and Eyes/Ears/Nose/Throat Exam Surgical H&P Exam: Normal: HEENT, Normal: Heart, Normal: Lungs, Normal: Extremities, Normal: Abdomen, Normal: Skin and Normal: Neurological Plan Diagnosis/Plan: Unchanged I have reviewed the history and physical and performed a pertinent physical examination on my patient. No changes have occurred unless specified. Time Spent With Patient Time: Total time managing care of this patient today ____ minutes.
[2024-04-27] MEDS: Lactated Ringers 1,000 ML 100 ML IVCONT (13:04)
[2024-04-27 13:05] LABS: Appearance Urine Cloudy; Color Urine Dark Yellow; Glucose Urine UA Negative (Negative); Leukocyte Esterase Urine Moderate (2+) (Negative); Nitrite Urine Negative (Negative); UMIC TRIGGER UACC YES; Urine Blood Negative (Negative); Urine Ketones Trace mg/dL (Negative); Urine Protein Trace mg/dL (Neg-Trace)
[2024-04-27 13:09] LABS: Bacteria Urine Trace (None Seen); Hyaline Casts Urine 0-2 /LPF (0-2); RBC Urine 0-2 /HPF (0-2); UACC Culture Trigger YES
--- NOTE | 2024-04-27 13:27 | W.PM.OPN ---
Operative Note Operative Note Date of Service: 04/27/24 Narrative: Procedure Description: EGD Indication: abdominal pain Anesthesia: MAC FLEXIBLE TRANSORAL UPPER GASTROINTESTINAL ENDOSCOPY UPPER ENDOSCOPY Consent: Indications for the procedure and potential complications of bleeding, perforation, reaction to medications and missed diagnosis were discussed with the patient and informed consent was obtained. Instrument: Olympus GIF H 190 J mid size upper endoscope Monitoring: Vital signs and clinical assessment, continuous EKG monitoring, Pulse oximetry, Carbon Dioxide monitoring and blood pressure monitoring were done throughout the procedure. Procedure: The patient was placed in the left lateral decubitis position and pre-procedure medications were administered and a bite block was placed. The endoscope was inserted into the mouth and advanced under direct vision to the third part of duodenum. A careful inspection was made as the upper endoscope was withdrawn including a retroflexed examination of the proximal stomach; Findings and interventions are described below. Findings: Larynx:normal Esophagus: GE junction at 33 cm, diaphragm hiatus at 36 cm consistent with 3 cm hiatal hernia, erythema at the GEJ consistent with mild to moderate esophagitis. GradeII varices noted, 3 columns which collapsed with air insufflation, non high risk diaz seen Stomach: Mild gastric erythema chacho in proximal stomach body, there were several inflammed polypoid lesions which were 10-12 mm and removed with cold snare in the proximal stomach. Biopsies were also obtained. Grade 2 flap valve on retroflexed examination of the cardia. no gastric varices seen Small bowel: Normal, bx taken Intervention: Biopsies as noted above, snare polypectomy Impression and Post Procedure Diagnosis: Endoscopy Findings: esophageal varices gastritis polyps hiatal hernia PLAN: MR liver protocol repeat EGD in 6-12 months start on low dose carvedilol and maybe statin at later date
[2024-04-27 13:30] VITALS: BP 127/77; PULSE 85; RESP 16; TEMP 36.4; O2SAT 100
[2024-04-27 13:45] VITALS: BP 140/88; PULSE 88; RESP 18; TEMP 36.1; O2SAT 100
[2024-04-27 13:51] LABS: MANUAL DIFF FLAG NO
[2024-04-27 13:53] LABS: Basophils Percent Auto 0.6 % (0-2); Eosinophils Absolute Auto 0.1 X10*3/uL (0.0-0.4); Eosinophils Percent Auto 1.9 % (0-4); Hematocrit 37.7 % (37.0-47.0); Hemoglobin 12.7 g/dl (12.0-16.0); Imm Gran Abs Auto 0.01 X10*3/uL (0.00-0.03); Imm Gran Pct Auto 0.3 % (0.0-0.4); Lymphocytes Absolute Auto 0.8 X10*3/uL (1.2-4.9); Mean Corpuscular HGB Conc 33.7 g/dl (31.0-35.0); Mean Corpuscular Hemoglobin 32.6 pg (27.0-33.0); Mean Corpuscular Volume 96.7 fL (80.0-98.0); Mean Platelet Volume 11.5 fL (9.4-12.3); Monocytes Absolute Auto 0.3 X10*3/uL (0.1-1.2); Monocytes Percent Auto 10.6 % (2-11); Neutrophils Percent Auto 62.6 % (45-73); Platelet Count 106 X10*3/uL (160-400); Red Cell Distribution Width 16.6 % (11.0-16.0); White Blood Count 3.2 X10*3/uL (4.8-10.8)
[2024-04-27 14:09] LABS: Alanine Aminotransferase 109 U/L (0-31); Albumin Level 3.3 g/dL (3.5-5.0); Alkaline Phosphatase 362 U/L (39-117); Anion Gap 7 (12-20); Aspartate Amino Transferase 88 U/L (5-31); Bilirubin Total 0.9 mg/dL (0.0-1.0); Blood Urea Nitrogen 12 mg/dL (9-16); Calcium 8.2 mg/dL (8.4-10.2); Carbon Dioxide 27 mmol/L (22-29); Chloride 108 mmol/L (96-108); Creatinine Clr Calc Pharmacy 124.1; Estimated Glomerular Filt Rate > 60; Glucose Random 85 mg/dL (60-115); Potassium 3.6 mmol/L (3.3-5.1); Sodium 138 mmol/L (135-145); Total Protein 6.8 g/dL (6.5-8.0)
[2024-04-27 14:18] LABS: INTERNATIONAL NORM RATIO 1.1 (0.9-1.1); Prothrombin Time 12.3 SEC (10.9-12.4)
== END 2024-04-27 15:02 | disposition home or self-care (01) ==
PROVIDERS: PCP Internal Medicine; Visit Provider Internal Medicine Gastroenterology
PROC: 0DJ08ZZ Inspection of Upper Intestinal Tract, Via Natural or Artificial Opening Endoscopic (ICD-10-PCS; CPT 43235; principal; 2024-04-27 14:00)
DX: R10.9 Unspecified abdominal pain (principal); R79.89 Other specified abnormal findings of blood chemistry; I85.00 Esophageal varices without bleeding; K29.70 Gastritis, unspecified, without bleeding; K31.7 Polyp of stomach and duodenum; K44.9 Diaphragmatic hernia without obstruction or gangrene; K21.9 Gastro-esophageal reflux disease without esophagitis; K75.4 Autoimmune hepatitis; M81.0 Age-related osteoporosis without current pathological fracture; F33.2 Major depressive disorder, recurrent severe without psychotic features; Z79.52 Long term (current) use of systemic steroids; Z79.899 Other long term (current) drug therapy; Z88.0 Allergy status to penicillin; Z88.5 Allergy status to narcotic agent; Z88.6 Allergy status to analgesic agent; Z91.041 Radiographic dye allergy status; Z90.49 Acquired absence of other specified parts of digestive tract; Z98.890 Other specified postprocedural states
CPT/HCPCS: 43251; 43239; 36415; 80053; 81001; 81003; 85025; 85610; 87086; 88305; 88313; 88342; J2003; J2704

== ENCOUNTER → 2024-04-27 11:47 | Outpatient (BNV) | payer OTHER, SELFPAY | PROVIDERS: PCP Internal Medicine; Visit Provider Internal Medicine Gastroenterology | DX: K29.70 Gastritis, unspecified, without bleeding (principal); I85.00 Esophageal varices without bleeding; K31.7 Polyp of stomach and duodenum; K20.90 Esophagitis, unspecified without bleeding | CPT/HCPCS: 43239; 43251 ==

== ENCOUNTER 2024-05-01 10:32 | Outpatient (AMB) | payer OTHER, SELFPAY ==
--- NOTE | 2024-05-01 10:36 | MHC.OFFVIS ---
Vital Signs 05/01/24 10:37 Height 5 ft 8 in Weight 222 lb 10.67 oz BMI 33.9 BP 117/69 Blood Pressure Location Lt brachial Position Sitting Pulse 85 Intake Visit Reasons: 4 month follow up Intake Note: Jaimee presents in the office as a 4 month follow up. CC: She states that today she is feeling okay. She states that she gets some pains in the stomach and very tired. She states she also has a poor appetite. Wednesday night she felt pressure in her body - she was told that she has issues with her BP. 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 Required: Yes 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 Name: [id number] Halina Allergies Penicillins [PENICILLINS] Allergy (Severe, Verified 05/01/24 10:41) RASH Iodinated Contrast Media [Iodinated Contrast Media - IV Dye] Allergy (Intermediate, Verified 05/01/24 10:41) RASH meperidine [From DEMEROL] Allergy (Intermediate, Verified 05/01/24 10:41) RASH aspirin [ASA] Allergy (Mild, Verified 05/01/24 10:41) RASH, N/V tramadol [TRAMADOL] Allergy (Unknown, Verified 05/01/24 10:41) RASH Medication List - Last Reconciled 05/01/24 by Sadia Jacobo MD buspirone 5 mg PO TID carvedilol 3.125 mg PO BID cholecalciferol (vitamin D3) (Vitamin D3) 25 mcg PO DAILY cyclobenzaprine 10 mg (2 x 5 mg) PO TID PRN 30 days fluoxetine 40 mg PO DAILY gabapentin 300mg qam and 600mg qhs orally .; 30 days [magnesium 30 mg PO DAILY] magnesium oxide 400 mg PO BEDTIME 30 days mercaptopurine 50 mg PO DAILY metronidazole 0.75%(37.5mg/5gram) (Metrogel Vaginal) 1 appful vaginal BEDTIME 5 days ondansetron 4 mg PO Q8H PRN ondansetron 4 - 8 mg (0.5 - 1 x 8 mg) PO Q8H PRN pantoprazole 40 mg PO DAILY prednisone 10 mg PO DAILY riboflavin (vitamin B2) 400 mg PO DAILY 30 days sucralfate 10 mL PO QID thiamine HCl (vitamin B1) 100 mg PO DAILY 90 days topiramate 50 mg (2 x 25 mg) PO BEDTIME 30 days trazodone 100 mg PO DAILY ubrogepant (Ubrelvy) 50 - 100 mg (0.5 - 1 x 100 mg) PO ONCE PRN 30 days vitamin A 1 cap PO DAILY zinc acetate (Galzin) 50 mg PO DAILY HPI HPI 4 month follow up: Details: 53 y/o f w/ hx of PSC and AIP seen for f/u-- RECAP:from prior notes dx initially in [place] abt 10 yrs ago after pancreatitis dx, had cholecystectomy, bile dcut was accidentally clipped and needed further surgery during this time she became jaundiced, had weight loss and vomiting and eventually dx as having AIH after coming to [place] for further management she had liver biopsy as well she was on chronic low dose pred 5 mg daily, and imuran 50mg tid has been hard to wean her off pred she had EGD and colonoscopy 1 yr ago, colon was normal, EGD with varices, on propranolol says was told she had colitis in the past as well as osteopenia she feels gen malaise issues with constipation, sometimes soft appetite is fair she does have some mild RUQ pain pulsating feels like her body is inflammed she has back pain, and knee, arm pains she has had swollen glands in neck for 4 depression due to multiple deaths in family She had admission to hosptial with flare up of disease, put on steroids LFT abnormal, with raised CRP, AST 200--->20, THen haf further admission with bacteremia from schwanela which per ID is water borne bacteria, repeat MRI 12/2018 with stable appearance, intrahepatic duct dilation, she was having a flare and put on long pred taper other tests; Hep B,C negative CT 2013- hepaticojejunostomy DEXA 2018- osteopenia spine. MRI inpatient- intrahepatic dilation, left. right, CBD normal, no masses or stones CT neck: prominent sub mandibular neck gland EGD : hyperplastic polyps, small varices, hiatal hernia recently she was feeling worse and pred was restarted and imuran stopped and changed to 6 MP At OV 06/2018 she was c/o epigastric pain, malaise with back pain, dysuria and went to ED day after, inaptient CT and UA, were neg for actue findings, CRP elevated but lower than before and trended down. Pred was increased to 20 mg At OV 1 week ago she was continued on 6 MP 75 mg and pred 20 mg she was having burning and itching in vaginal area and thick vaginal d/c she had liver bx--rare IgG4 cells, mild chronic inflammation, portal fibrosis, she had menstrual bleeding after having no periods for months she had back pain as well 08/21, mild lower aboo pain denies n/v appetite is poor she had burning with urine---UA with 2+ blood, no protein she was increased on pred to 20 mg for 4 weeks and 6 MP reduced to 50 mg depressed due to social issues, probs with SSI LFT slowly been coming down on 20 mg pred does have general weakness appetite is poor but admits that pred 20 mg is helping does have hot flashes thinks due to menopause, having some shoulder blade pain for 1 d, tylenol helps admitted with partial small bowel obstrcution 08/2019 she ws having ongoing nausea and abdo pain, given omeprazole 40 mg with carafate Labs 10/19/2019-- TB-nml, AST-41. ALT 74, alk phos 171 Labs 11/2019-- TB--0.6, AST--34, ALT 54, alk phos 130, CRP 0.[address] James pain team and plan was for SI joint injections LFT stable, on 18 mg of pred as well as 6 MP 50 mg referred to cardiology due to palps and chest pressure--nml holter rept LABS: 08/2020-- bili-nml, AST 32, ALT 56, alk phso 133 she had LFt repeated after pred cut down to 17 mg bili-1.1, AST 38, ALT 61, AP-128 DEXA with osteopenia in hips and osteoporosis in spine--reclast was given US 03/2021-- splenomegaly, liver looked good, kidney stone right she went to the ED and had CT scan 08/2021: dilated stomach, ?GOO, thickening of lower esophagus, post surg changes, possible medullary nephrocalcinosis, fibroid EGD 09/2021- gastric polyps, small varices She had COVID 19 infection 10/2021 LFT 10/2021-- bili 0.4, AST-30, ALT 48, alk phos- 89 LFT: 02/2023-- nml LFT --mild elevation ALT CT 2022--- stable appearances of liver and other organs, no new findings CT 11/2023-- nml looking liver, no new pathology INTERIM: reviewed EGD results hyperplastic polyps, more prominent varices LFT were worse I increased her pred back to 10 mg and she feeling better I ordered MRI for her, commenced low dose carvedilol EXAM: GENERAL: The patient is well developed and nontoxic. VITAL SIGNS:see workflow HEENT: Nonicteric sclerae, PERRLA, EOMI. Oropharynx clear. Moist mucous membranes. Conjunctivae appear well perfused. No thyroid mass. CHEST: Chest wall is nontender. HEART: Regular rate and rhythm without murmurs. LUNGS: Clear to auscultation bilaterally. ABDOMEN: Soft, positive bowel sounds, tender epigastrium, no organomegaly.no flank tenderness SKIN: No rash, no excessive bruising, petechiae, or purpura. NEUROLOGIC: Cranial nerves II-XII intact without motor/sensory deficit. 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 osteopenia--has osteoporosis due to steroid use, ordered reclast, which was given 4. epigastric pain, prob from increased liver inflammation suspected IgG [address] RD even though bx not diagnostic but she had been on steroids/6 MP- LFt eventually improved on tapering dose of steroids PLAN: 1/ cont pred 10 mg, and 6 MP 2/ repeat EGD in 4-6 month 3/ repeat dexa in 1-2 yrs, 4/ recheck LFT this week and wait MRI liver [facility] Medical History GERD (gastroesophageal reflux disease) Osteoporosis Atypical chest pain Arthritis Hordeolum externum right upper eyelid Difficulty sleeping Depression, major, recurrent Knee pain, right Autoimmune liver disease Headache syndrome Surgical History History of tubal ligation History of esophagogastroduodenoscopy (EGD) H/O colonoscopy History of liver biopsy History of cholecystectomy Hx of appendectomy History of surgery Family History Father CVD (cardiovascular disease) Mother Breast cancer Leukemia CVD (cardiovascular disease) Brother Substance use disorder Brother No problems noted. Sister No problems noted. Son No problems noted. Daughter No problems noted. Daughter No problems noted. Daughter No problems noted. Maternal Aunt Breast cancer Social History Household Members: Children Housing: Apartment Alcohol intake: former Patient Tobacco Use Status: Never used Tobacco e-Cigarette/Vaping Use: Never Used service: No Current occupational status: disabled Cognitive needs: No Hearing needs: No Vision needs: No Physical Exam Vital Signs: Last Vital Signs Pulse 85 05/01/24 10:37 BP 117/69 05/01/24 10:37 BMI result Body Mass Index 33.9 Assessment & Plan Assessment & Plan (1) Abdominal pain: Code(s): R10.9 - Unspecified abdominal pain Category: Medical Plan: see above Orders: Orders Comprehensive Met. Panel Today K75.81 - Nonalcoholic steatohepatitis (ORDAZ) Medications: Changed From prednisone 10 mg PO DAILY To prednisone 10 mg PO DAILY 30 tabs 0RF Coding Level of Care Code Est Pt Level 4 (34111) Diagnoses Abdominal pain R10.9
[2024-05-01 10:37] VITALS: BP 117/69; PULSE 85; BMI 33.9
== END 2024-05-01 11:09 | disposition home or self-care (01) ==
PROVIDERS: PCP Internal Medicine; Visit Provider Internal Medicine Gastroenterology
DX: R10.9 Unspecified abdominal pain (principal)
CPT/HCPCS: 99214

== ENCOUNTER → 2024-05-01 10:32 | Outpatient (BNVA) | payer OTHER, SELFPAY | PROVIDERS: PCP Internal Medicine; Visit Provider Internal Medicine Gastroenterology | DX: R10.9 Unspecified abdominal pain (principal); K75.81 Nonalcoholic steatohepatitis (NASH) | CPT/HCPCS: 99212 ==

== ENCOUNTER 2024-05-03 08:36 | Outpatient (REF) | payer OTHER, SELFPAY ==
[2024-05-03 09:35] LABS: Alanine Aminotransferase 110 U/L (0-31); Albumin Level 3.5 g/dL (3.5-5.0); Alkaline Phosphatase 337 U/L (39-117); Anion Gap 12 (12-20); Aspartate Amino Transferase 80 U/L (5-31); Bilirubin Total 0.8 mg/dL (0.0-1.0); Blood Urea Nitrogen 13 mg/dL (9-16); Calcium 8.7 mg/dL (8.4-10.2); Carbon Dioxide 24 mmol/L (22-29); Chloride 108 mmol/L (96-108); Estimated Glomerular Filt Rate > 60; Glucose Random 95 mg/dL (60-115); Potassium 3.8 mmol/L (3.3-5.1); Sodium 140 mmol/L (135-145); Total Protein 7.2 g/dL (6.5-8.0)
== END 2024-05-03 08:37 | disposition home or self-care (01) ==
LOC: HO.LAB 08:36
PROVIDERS: PCP Internal Medicine; Visit Provider Internal Medicine Gastroenterology
DX: K75.81 Nonalcoholic steatohepatitis (NASH) (principal)
CPT/HCPCS: 36415; 80053

== ENCOUNTER 2024-06-24 19:14 | Inpatient (IN) | payer OTHER, SELFPAY ==
--- NOTE | ~2024-06-24 | CT_ITS ---
CLINICAL HISTORY: diffuse abd pain CT abdomen and pelvis without contrast Comparison: CT/GA/SR - CT ABDOMEN PELVIS WO IV CON - 12/09/23 09:43 EDT Findings: The lung bases are clear. Small hiatal hernia. Irregular hypodensity and gas in the right liver dome. Some foci of gas represent pneumobilia while others may be intraparenchymal. Gallbladder is surgically absent. Spleen is mildly enlarged. Pancreas within normal limits. Adrenal glands unremarkable. Mild calcification of renal medulla bilaterally. Mildly prominent fluid-filled loops of small bowel in the left abdomen with scattered air-fluid levels. Bowel loops measure up to 3.3 cm. Mild edema of the adjacent mesentery. Pelvic contents unremarkable. The appendix is not visualized. Urinary bladder is decompressed. The bones are intact. IMPRESSION: 1. Focal hepatic hypodensity and gas within the right hepatic dome of unclear etiology. Some foci of gas appear to represent pneumobilia, although some small foci may be intraparenchymal. Postcontrast CT may be helpful for further characterization. 2. Mildly dilated fluid-filled loops of small bowel in the left abdomen, possibly low-grade or partial small bowel obstruction. 3. Developing nephrocalcinosis. This document has been electronically signed by: Tahir Stephens MD, PHD on 06/24/2024 23:22:48
--- NOTE | ~2024-06-24 | XR_ITS ---
CLINICAL HISTORY: ? SBO 1 view abdomen Comparison: None Findings: No pneumoperitoneum or pneumatosis. Mildly prominent loops of small bowel. Correlate for enteritis or enteropathy. No abnormal calcifications. No acute fractures. IMPRESSION: Nonspecific prominent loops of small bowel, possible enteritis or enteropathy. Correlate clinically. This document has been electronically signed by: Don Knight MD on 06/25/2024 11:45:57
[2024-06-24 19:45] VITALS: BP 172/98; PULSE 100; O2SAT 98
[2024-06-24 19:49] VITALS: BMI 35.8
[2024-06-24 19:57] VITALS: BP 144/89; PULSE 110; RESP 21; TEMP 37.1; O2SAT 98
[2024-06-24 20:35] LABS: MANUAL DIFF FLAG NO
[2024-06-24 20:43] LABS: Basophils Percent Auto 0.3 % (0-2); Eosinophils Percent Auto 0.4 % (0-4); Hematocrit 38.6 % (37.0-47.0); Hemoglobin 13.6 g/dl (12.0-16.0); Imm Gran Abs Auto 0.02 X10*3/uL (0.00-0.03); Imm Gran Pct Auto 0.3 % (0.0-0.4); Lymphocytes Absolute Auto 0.6 X10*3/uL (1.2-4.9); Lymphocytes Percent Auto 8.9 % (20-40); Mean Corpuscular HGB Conc 35.2 g/dl (31.0-35.0); Mean Corpuscular Hemoglobin 33.2 pg (27.0-33.0); Mean Corpuscular Volume 94.1 fL (80.0-98.0); Mean Platelet Volume 10.5 fL (9.4-12.3); Monocytes Absolute Auto 0.4 X10*3/uL (0.1-1.2); Monocytes Percent Auto 5.3 % (2-11); Neutrophils Absolute Auto 5.7 x10*3/uL (2.0-8.3); Neutrophils Percent Auto 84.8 % (45-73); Platelet Count 113 X10*3/uL (160-400); Red Cell Distribution Width 15.9 % (11.0-16.0); White Blood Count 6.8 X10*3/uL (4.8-10.8)
[2024-06-24 20:57] LABS: Alanine Aminotransferase 49 U/L (0-31); Albumin Level 3.8 g/dL (3.5-5.0); Alkaline Phosphatase 116 U/L (39-117); Anion Gap 9 (12-20); Aspartate Amino Transferase 40 U/L (5-31); Bilirubin Total 0.8 mg/dL (0.0-1.0); Blood Urea Nitrogen 13 mg/dL (9-16); Calcium 8.8 mg/dL (8.4-10.2); Carbon Dioxide 25 mmol/L (22-29); Chloride 109 mmol/L (96-108); Creatinine Clr Calc Pharmacy 117.2; Estimated Glomerular Filt Rate > 60; Glucose Random 114 mg/dL (60-115); Lipase 52 U/L (8-78); Potassium 3.1 mmol/L (3.3-5.1); Sodium 140 mmol/L (135-145); Total Protein 7.5 g/dL (6.5-8.0)
[2024-06-24 21:00] LABS: HCG Quantitative < 2 mIU/mL
--- NOTE | 2024-06-24 21:41 | ED.ABDPAIN ---
HPI - Abdominal Pain General Chief Complaint: Abdominal Pain Stated Complaint: abd pain Time Seen by Provider: 06/24/24 21:05 Source: patient and EMS Mode of arrival: EMS Limitations: no limitations History of Present Illness ED Provider: Dr. Sanaz Hyman HPI narrative: Patient comes to the emergency room complaining of abdominal pain, nausea and vomiting. Patient states that she has liver disease, states that she is a candidate for liver transplant. Patient states that any time that she eats her abdomen hurts. Patient states that she has an MRI scheduled for tomorrow. Patient states that her abdominal pain and symptoms have been intermittent since 2009. Patient denies diarrhea. Related Data Home Medications ?Medication ?Instructions ?Recorded ?Confirmed fluoxetine 40 mg capsule 40 mg PO DAILY 05/14/20 05/01/24 trazodone 100 mg tablet 100 mg PO DAILY 05/14/20 05/01/24 buspirone 5 mg tablet 5 mg PO TID anxiety 02/11/23 05/01/24 magnesium 30 mg PO DAILY 02/11/23 05/01/24 Previous Rx's ?Medication ?Instructions ?Recorded metronidazole 0.75 % (37.5 mg/5 1 appful vaginal BEDTIME 5 days 05/14/21 gram) vaginal gel (Metrogel #70 grams Vaginal) sucralfate 100 mg/mL oral 10 ml PO QID #1,000 mL 02/20/22 suspension thiamine HCl (vitamin B1) 100 mg 100 mg PO DAILY 90 days #90 tabs 08/10/23 tablet ubrogepant 100 mg tablet (Ubrelvy) 50 - 100 mg (0.5 - 1 x 100 mg) PO 08/25/23 ONCE PRN migraine headache 30 days #16 tabs gabapentin 300 mg capsule See Rx Instructions PO .COMPLEX 30 09/01/23 days #90 caps vitamin A 3,000 mcg (10,000 unit) 1 cap PO DAILY #90 caps 11/01/23 capsule topiramate 25 mg tablet 50 mg (2 x 25 mg) PO BEDTIME 30 11/23/23 days #120 tabs ondansetron 4 mg disintegrating 4 mg PO Q8H PRN nausea and 12/09/23 tablet vomiting #20 tabs pantoprazole 40 mg tablet,delayed 40 mg PO DAILY #90 tabs 12/27/23 release cholecalciferol (vitamin D3) 25 25 mcg PO DAILY #90 caps 02/21/24 mcg (1,000 unit) capsule (Vitamin D3) ondansetron 8 mg disintegrating 4 - 8 mg (0.5 - 1 x 8 mg) PO Q8H 03/20/24 tablet PRN for nausea/vomiting #30 ea cyclobenzaprine 5 mg tablet 10 mg (2 x 5 mg) PO TID PRN muscle 03/31/24 spasm 30 days #120 tabs carvedilol 3.125 mg tablet 3.125 mg PO BID #60 tabs 04/27/24 prednisone 10 mg tablet 10 mg PO DAILY #30 tabs 05/01/24 mercaptopurine 50 mg tablet 50 mg PO DAILY #30 tabs 05/09/24 riboflavin (vitamin B2) 400 mg 400 mg PO DAILY 30 days #30 tabs 05/17/24 tablet magnesium oxide 400 mg (241.3 mg 400 mg PO BEDTIME 30 days #30 tabs 05/22/24 magnesium) tablet zinc acetate 50 mg (zinc) capsule 50 mg PO DAILY #30 caps 05/23/24 (Galzin) Allergies Allergy/AdvReac Type Severity Reaction Status Date / Time Penicillins [PENICILLINS] Allergy Severe RASH Verified 06/24/24 19:51 Iodinated Contrast Media Allergy Intermediate RASH Verified 06/24/24 19:51 [Iodinated Contrast Media - IV Dye] meperidine [From DEMEROL] Allergy Intermediate RASH Verified 06/24/24 19:51 aspirin [ASA] Allergy Mild RASH, N/V Verified 06/24/24 19:51 tramadol [TRAMADOL] Allergy Unknown RASH Verified 06/24/24 19:51 Review of Systems Review of Systems Constitutional : No Weight loss, No Fever, No Chills, No Night Sweats, No Fatigue, No Malaise ENT/Mouth : No Hearing loss, No Ear Pain, No Nasal Congestion, No Sinus Pain, No Hoarseness, No sore throat, No Rhinorrhea, No Swallowing Difficulty Eyes: No Eye Pain, No Swelling, No Redness, No Foreign Body, No Discharge, No Vision Changes Cardiovascular : No Chest Pain, No SOB, No Dyspnea on Exertion, No Orthopnea, No Edema, No Palpitations Respiratory : No Cough, No Sputum, No Wheezing, No Smoke Exposure, No Dyspnea Gastrointestinal : Complaining of nausea and vomiting, No Diarrhea, No Constipation, complaining of diffuse abdominal pain Genitourinary : no irregular bleeding, No Dysuria, No Urinary Frequency, No Hematuria, No Urinary Incontinence, No Urgency, No Flank Pain, No Urinary Flow Changes, No Hesitancy Musculoskeletal : No joint pain, No Myalgias, No Joint Swelling Skin : No Skin Lesions, No rash Neuro : No Weakness, No Numbness, No Paresthesias, No Loss of Consciousness, No Dizziness, No Headache Psych : No Anxiety/Panic, No Depression, No SI/HI/AH/VH, No Social Issues, Heme/Lymph: No Bruising, No Bleeding,No Lymphadenopathy Endocrine : No Polyuria, No Polydipsia, No Temperature Intolerance [facility] Past Medical History Medical History GERD (gastroesophageal reflux disease) Osteoporosis Atypical chest pain Arthritis Hordeolum externum right upper eyelid Difficulty sleeping Depression, major, recurrent Knee pain, right Autoimmune liver disease Headache syndrome Surgical History History of tubal ligation History of esophagogastroduodenoscopy (EGD) H/O colonoscopy History of liver biopsy History of cholecystectomy Hx of appendectomy History of surgery Family History Family History Father CVD (cardiovascular disease) Mother Breast cancer Leukemia CVD (cardiovascular disease) Brother Substance use disorder Brother No problems noted. Sister No problems noted. Son No problems noted. Daughter No problems noted. Daughter No problems noted. Daughter No problems noted. Maternal Aunt Breast cancer Social History Social History Household Members: Children Housing: Apartment Alcohol intake: former Patient Tobacco Use Status: Never used Tobacco Smoked in Last 30 Days: No e-Cigarette/Vaping Use: Never Used Use of substances other than those prescribed or required for medical reasons: No Advance Directives: No Advance Directives Information Provided: No service: No Current occupational status: disabled Cognitive needs: No Hearing needs: No Vision needs: No Physical Exam ED Vital Signs: Vital Signs - 24 hr 06/24/24 19:57 06/24/24 22:12 Temperature 98.7 F Pulse Rate 110 H Respiratory Rate 21 H 16 Blood Pressure 144/89 H Pulse Oximetry 98 Oxygen Delivery Method Room Air BMI result Body Mass Index 35.8 Const Other: Appearance: Alert. Oriented X3. Very anxious, screaming Eyes: Pupils equal, round and reactive to light. ENT: Pharynx normal. Neck: Normal inspection. Neck supple. No lymph nodes noted. No crepitus CVS: Normal heart rate and rhythm. Pulses normal. Normal S1 and S2 Respiratory: No respiratory distress. Breath sounds normal. No Wheezing. No rales Abdomen: Soft, exaggerated response to minimal palpation, no rebound or guarding Skin: Skin warm and dry. Normal skin color. Normal skin turgor. Extremities: No lower extremity edema. No Lacerations. No Rash Neuro: Oriented X 3. No motor deficit. No sensory deficit. Moving all extremities. No slurred speech. CN 2 through 12 grossly intact Psych : Very anxious, screaming, cooperative Course Course Course Narrative: Patient receiving symptomatic treatment: IV fluids, famotidine, lorazepam morphine and Zofran Also, it was noted the patient's potassium is a bit decreased, patient receiving IV potassium, at this time she can not tolerate p.o. CT scan pending, patient allergic to contrast, we will be done without contrast Medical Decision Making Medical Decision Making [facility] Narrative: My interpretation of labs: Patient's white blood cell count 6.8, normal hemoglobin hematocrit, platelets chronically low, today 113. Chemistry shows potassium of 3.1. Patient's LFTs chronically elevated but at baseline. Lipase 52 CT scan shows possible pneumobilia and an early SBO. Patient is still significantly uncomfortable, patient arrived vomiting but now it is starting to slow down. I discussed the patient with Dr. Trujillo from surgery. The pneumobilia likely secondary to prior ERCP or other procedures. Patient to be admitted by the medicine team for an early/possible SBO. I discussed the patient with Dr. Duggan from the Medicine team, patient being admitted I discussed the above-mentioned with the patient, patient agreeable to stay. Patient complaining of ongoing abdominal pain. Nausea still present but no longer vomiting. Differential Diagnosis Differential Diagnoses: The differential diagnosis associated with the presentation includes (Acute on chronic abdominal pain, gastritis, perforation, SBO) Admission/Observation Consideration of admission/observation: Escalation of care including admission/observation considered (Given patient's initial presentation and ongoing vomiting, observation/admission considered.) Consult Healthcare Provider Management of the patient was discussed with: Hospitalist and Cook Soup Lab Data MDM Lab Attestation statement: I reviewed the patient's lab results. 06/24/24 20:30 06/24/24 20:30 Labs: Lab Results 06/24/24 06/24/24 Range/Units 20:30 23:11 WBC 6.8 (4.8-10.8) X10*3/uL RBC 4.10 L (4.20-5.50) X10*6/uL Hgb 13.6 (12.0-16.0) g/dl Hct 38.6 (37.0-47.0) % MCV 94.1 (80.0-98.0) fL MCH 33.2 H (27.0-33.0) pg MCHC 35.2 H (31.0-35.0) g/dl RDW 15.9 (11.0-16.0) % Plt Count 113 L (160-400) X10*3/uL MPV 10.5 (9.4-12.3) fL Immature Gran % (Auto) 0.3 (0.0-0.4) % Neut % (Auto) 84.8 H (45-73) % Lymph % (Auto) 8.9 L (20-40) % [place] % (Auto) 5.3 (2-11) % Eos % (Auto) 0.4 (0-4) % Baso % (Auto) 0.3 (0-2) % Lymph # (Auto) 0.6 L (1.2-4.9) X10*3/uL [place] # (Auto) 0.4 (0.1-1.2) X10*3/uL Eos # (Auto) 0.0 (0.0-0.4) X10*3/uL Baso # (Auto) 0.0 (0.0-0.2) X10*3/uL Abs Immat Gran (auto) 0.02 (0.00-0.03) X10*3/uL Absolute Neuts (auto) 5.7 (2.0-8.3) x10*3/uL Absolute Nucleated RBC 0.000 (0.0-0.012) X10*3/uL Nucleated RBC % (auto) 0.0 (0.0-0.2) /100WBC PT 12.8 H (10.9-12.4) SEC INR 1.1 (0.9-1.1) Sodium 140 (135-145) mmol/L Potassium 3.1 L (3.3-5.1) mmol/L Chloride 109 H (96-108) mmol/L Carbon Dioxide 25 (22-29) mmol/L Anion Gap 9 L (12-20) BUN 13 (9-16) mg/dL Creatinine 0.71 (0.5-1.4) mg/dL Estim Creat Clear Calc 117.2 Estimated GFR > 60 Random Glucose 114 (60-115) mg/dL Calcium 8.8 (8.4-10.2) mg/dL Total Bilirubin 0.8 (0.0-1.0) mg/dL AST 40 H (5-31) U/L ALT 49 H (0-31) U/L Alkaline Phosphatase 116 (39-117) U/L Total Protein 7.5 (6.5-8.0) g/dL Albumin 3.8 (3.5-5.0) g/dL Lipase 52 (8-78) U/L Beta HCG, Quant < 2 mIU/mL Independent Interpretation I performed an independent interpretation of an: CT Scan Interpretation: The lung bases are clear. Small hiatal hernia. Irregular hypodensity and gas in the right liver dome. Some foci of gas represent pneumobilia while others may be intraparenchymal. Gallbladder is surgically absent. Spleen is mildly enlarged. Pancreas within normal limits. Adrenal glands unremarkable. Mild calcification of renal medulla bilaterally. Mildly prominent fluid-filled loops of small bowel in the left abdomen with scattered air-fluid levels. Bowel loops measure up to 3.3 cm. Mild edema of the adjacent mesentery. Pelvic contents unremarkable. The appendix is not visualized. Urinary bladder is decompressed. The bones are intact. IMPRESSION: 1. Focal hepatic hypodensity and gas within the right hepatic dome of unclear etiology. Some foci of gas appear to represent pneumobilia, although some small foci may be intraparenchymal. Postcontrast CT may be helpful for further characterization. 2. Mildly dilated fluid-filled loops of small bowel in the left abdomen, possibly low-grade or partial small bowel obstruction. 3. Developing nephrocalcinosis. Radiology Impression Discussion of test interpretation with radiology: I have reviewed the radiologist's reading. Medications Administered Discontinued Medications Generic Name Dose Route Start Last Admin Trade Name Freq PRN Reason Stop Dose Admin Famotidine 20 mg 06/24/24 21:36 06/24/24 21:42 Famotidine/Pf 20 Mg/2 Ml Vial IVPUSH 06/24/24 21:37 20 mg ONCE ONE Administration Potassium Chloride 10 meq in 100 mls @ 100 mls/hr 06/24/24 21:45 06/25/24 00:10 Potassium Chloride/H20 IV 06/24/24 23:44 100 mls/hr Q1H JOHNATHAN Administration Sodium Chloride 1,000 mls @ 999 mls/hr 06/24/24 21:46 06/24/24 23:12 Ns IVCONT 06/24/24 22:46 999 mls/hr .Q1H1M ONE Administration Lorazepam 2 mg 06/24/24 21:33 06/24/24 21:42 Lorazepam 2 Mg/Ml Vial IVPUSH 06/24/24 21:34 2 mg ONCE ONE Administration Morphine Sulfate 2 mg 06/24/24 21:33 06/24/24 21:42 Morphine Sulfate 2 Mg/Ml Cartridge IVPUSH 06/24/24 21:34 2 mg ONCE ONE Administration Protocol Ondansetron HCl 4 mg 06/24/24 21:33 06/24/24 21:42 Ondansetron Hcl 4 Mg/2 Ml Vial IVPUSH 06/24/24 21:34 4 mg ONCE ONE Administration Critical Care Time Critical Care Time Critical Care Time: Yes Total Critical Care Time: 60 Attestation: I have personally provided critical care time. Time includes review of lab data, radiology results, discussion with consultants, and monitoring for potential decompensation. Intervention performed as documented. Discharge Plan Discharge Clinical Impression: Partial small bowel obstruction, Acute hypokalemia Patient Disposition: Admitted As Inpatient Prescriptions: No Action metronidazole [Metrogel Vaginal] 0.75 % gel 1 appful vaginal BEDTIME 5 Days Qty: 70 0RF sucralfate 100 mg/mL suspension 10 ml PO QID Qty: 1000 1RF thiamine HCl (vitamin B1) 100 mg tablet 100 mg PO DAILY 90 Days Qty: 90 3RF Ubrelvy 100 mg tablet 50 - 100 mg PO ONCE PRN (Reason: migraine headache) 30 Days Qty: 16 3RF Rx Instructions: take at onset of migraine, may repeat in 2hrs (may take w/ Tylenol) gabapentin 300 mg capsule See Rx Instructions PO .COMPLEX 30 Days Qty: 90 3RF Rx Instructions: 300mg qam and 600mg qhs orally .; vitamin A 3,000 mcg (10,000 unit) capsule 1 cap PO DAILY Qty: 90 1RF topiramate 25 mg tablet 50 mg PO BEDTIME 30 Days Qty: 120 3RF cholecalciferol (vitamin D3) [Vitamin D3] 25 mcg (1,000 unit) capsule 25 mcg PO DAILY Qty: 90 2RF ondansetron 8 mg tablet,disintegrating 4 - 8 mg PO Q8H PRN (Reason: for nausea/vomiting) Qty: 30 1RF cyclobenzaprine 5 mg tablet 10 mg PO TID PRN (Reason: muscle spasm) 30 Days Qty: 120 3RF mercaptopurine 50 mg tablet 50 mg PO DAILY Qty: 30 0RF riboflavin (vitamin B2) 400 mg tablet 400 mg PO DAILY 30 Days Qty: 30 6RF magnesium oxide 400 mg (241.3 mg magnesium) tablet 400 mg PO BEDTIME 30 Days Qty: 30 6RF Rx Instructions: may hold for loose stools Galzin 50 mg (zinc) capsule 50 mg PO DAILY Qty: 30 2RF ondansetron 4 mg tablet,disintegrating 4 mg PO Q8H PRN (Reason: nausea and vomiting) Qty: 20 0RF carvedilol 3.125 mg tablet 3.125 mg PO BID Qty: 60 2RF Rx Instructions: must administer with a meal/food fluoxetine 40 mg capsule 40 mg PO DAILY trazodone 100 mg tablet 100 mg PO DAILY buspirone 5 mg tablet 5 mg PO TID prednisone 10 mg tablet 10 mg PO DAILY Qty: 30 0RF magnesium 30 mg PO DAILY pantoprazole 40 mg tablet,delayed release (DR/EC) 40 mg PO DAILY Qty: 90 2RF Print Language: Armenian
[2024-06-24] MEDS: Morphine Sulfate 2 MG/ML CARTRIDGE IVPUSH (21:42)
[2024-06-24] MEDS: LORazepam 2 MG/ML VIAL IVPUSH (21:42)
[2024-06-24] MEDS: ondansetron HCL 4 MG/2 ML VIAL IVPUSH (21:42)
[2024-06-24] MEDS: Famotidine/PF 20 MG/2 ML VIAL IVPUSH (21:42)
[2024-06-24 22:12] VITALS: RESP 16
[2024-06-24] MEDS: Potassium Chloride/H20 10 MEQ/100 ML PIGGYBACK 100 MEQ IV (23:12)
[2024-06-24] MEDS: 0.9 % Sodium Chloride 1,000 ML 999 ML IVCONT (23:12)
[2024-06-24 23:21] LABS: INTERNATIONAL NORM RATIO 1.1 (0.9-1.1); Prothrombin Time 12.8 SEC (10.9-12.4)
[2024-06-25] VITALS (9 sets, daily range): BP systolic 100–117; BP diastolic 56–65; PULSE 73–96; RESP 16–17; TEMP 36.1–37.3; O2SAT 93–97; BMI 33.3
[2024-06-25] MEDS: Potassium Chloride/H20 10 MEQ/100 ML PIGGYBACK 100 MEQ IV (00:10)
--- NOTE | 2024-06-25 01:18 | PM.IMHP ---
History of Present Illness Date of Service: 06/25/24 Attending physician on admission: Elaine De Los Santos Chief Complaint: Abdominal pain Jaimee Castillo is a 53 years old woman with past medical history significant GERD, IgG4 related disease, autoimmune liver disease and pancreatitis and depression presents to the emergency department complaining of severe epigastric pain that started this afternoon after she ate an empanadilla . The pain was described as sharp radiating to the back and right upper quadrant and associated with multiple units of vomiting (food). She denied any diarrhea, fever or chills. She also denied headache, palpitations or dizziness. No cardiopulmonary symptoms reported. She mentioned that about 10 years ago she underwent laparoscopic cholecystectomy after an event of pancreatitis that complicated after accidentally in the bile duct was clipped. She had an event of partial SBO in 2019. Last EGD (April 2024) showed esophageal varices, gastritis, polyps and hiatal hernia. She has been scheduled for MRI of the liver tomorrow. Past surgical history is remarkable for laparoscopic cholecystectomy, bile duct resection and appendectomy. In the ED, she was found to have stable vital signs. Blood workup showed no leukocytosis. Hemoglobin is 13.6 and platelets 113. There is mild hypokalemia of 3.1 and now moderate electrolyte imbalances. BUN is 13 Ativan 0.71. Transaminases are minimally elevated (improving when compared with previous ones), normal bilirubin, alk-phos and lipase. test is negative. Abdomen pelvis CT scan without contrast Review of Systems Review of Systems: All 12 systems were reviewed and normal except as noted in HPI. COUNTS INCLUDE 234 BEDS AT THE [facility] Medical History GERD (gastroesophageal reflux disease) Osteoporosis Atypical chest pain Arthritis Hordeolum externum right upper eyelid Difficulty sleeping Depression, major, recurrent Knee pain, right Autoimmune liver disease Headache syndrome Family History Father CVD (cardiovascular disease) Mother Breast cancer Leukemia CVD (cardiovascular disease) Brother Substance use disorder Brother No problems noted. Sister No problems noted. Son No problems noted. Daughter No problems noted. Daughter No problems noted. Daughter No problems noted. Maternal Aunt Breast cancer Surgical History History of tubal ligation History of esophagogastroduodenoscopy (EGD) H/O colonoscopy History of liver biopsy History of cholecystectomy Hx of appendectomy History of surgery Social History Household Members: Children Housing: Apartment Alcohol intake: former Patient Tobacco Use Status: Never used Tobacco Smoked in Last 30 Days: No e-Cigarette/Vaping Use: Never Used Use of substances other than those prescribed or required for medical reasons: No Advance Directives: No Advance Directives Information Provided: No service: No Current occupational status: disabled Cognitive needs: No Hearing needs: No Vision needs: No Meds Allergies Allergy/AdvReac Type Severity Reaction Status Date / Time Penicillins [PENICILLINS] Allergy Severe RASH Verified 06/24/24 19:51 Iodinated Contrast Media Allergy Intermediate RASH Verified 06/24/24 19:51 [Iodinated Contrast Media - IV Dye] meperidine [From DEMEROL] Allergy Intermediate RASH Verified 06/24/24 19:51 aspirin [ASA] Allergy Mild RASH, N/V Verified 06/24/24 19:51 tramadol [TRAMADOL] Allergy Unknown RASH Verified 06/24/24 19:51 Active Medications: Current Medications Acetaminophen (Acetaminophen 325 Mg Tablet) 650 mg PO Q6H PRN PRN Reason: Pain, Mild 1-3,fever,headache Calcium Carbonate (Calcium Carbonate 750 Mg Tab.Chew) 750 mg PO Q4H PRN PRN Reason: Heartburn Hydromorphone HCl (Hydromorphone Hcl 1 Mg/Ml Syringe) 1 mg IVPUSH Q3H PRN; Protocol PRN Reason: Pain, Severe (Pain Scale 7-10) Magnesium Hydroxide (Milk Of Magnesia 30 Ml Oral.Susp) 30 ml PO DAILY PRN PRN Reason: Constipation Melatonin (Melatonin 3 Mg Tablet) 6 mg PO BEDTIME PRN PRN Reason: Insomnia Ondansetron HCl (Ondansetron Hcl 4 Mg/2 Ml Vial) 4 mg IVPUSH Q6H PRN PRN Reason: Nausea and Vomiting Sodium Chloride (0.9 % Sodium Chloride Flush 3 Ml Syringe) [facility]ations ?Medication ?Instructions ?Recorded ?Confirmed ?Last Taken ?Type fluoxetine 40 mg capsule 40 mg PO DAILY 05/14/20 05/01/24 Unknown History trazodone 100 mg tablet 100 mg PO DAILY 05/14/20 05/01/24 Unknown History buspirone 5 mg tablet 5 mg PO TID anxiety 02/11/23 05/01/24 Unknown History magnesium 30 mg PO DAILY 02/11/23 05/01/24 Unknown History Physical Exam Vital Signs and Narrative: Vital Signs: Last Vital Signs Temp 98.7 F 06/24/24 19:57 Pulse 110 H 06/24/24 19:57 Resp 16 06/24/24 22:12 BP 144/89 H 06/24/24 19:57 Pulse Ox 98 06/24/24 19:57 O2 Del Method Room Air 06/24/24 19:57 BMI result Body Mass Index 35.8 Constitutional - Awake and Alert, No apparent distress. Drowsy. HEENT - PERRL, EOMI. Dry oral mucosa. Heart - S1S2, RRR, No murmurs. Lungs - Normal lung expansion, Normal respiratory effort, No respiratory distress, CTA bilaterally Abdomen - Nondistended, epigastric/RUQ tenderness to palpation. Increased bowel sounds. Extremities - no calf tenderness bilaterally, no swelling Musculoskeletal - Normal inspection, normal ROM Skin - Warm/Dry Neurological - Alert & oriented x3, focal weakness grossly noted. Normal speech. Psychological - Depressed affect Results Labs 06/24/24 20:30 06/24/24 20:30 Labs: Laboratory Results - last 24 hr 06/24/24 06/24/24 20:30 23:11 MCV 94.1 MCH 33.2 H MCHC 35.2 H RDW 15.9 Plt Count 113 L MPV 10.5 Immature Gran % (Auto) 0.3 Neut % (Auto) 84.8 H Lymph % (Auto) 8.9 L Stark % (Auto) 5.3 Eos % (Auto) 0.4 Baso % (Auto) 0.3 Lymph # (Auto) 0.6 L Stark # (Auto) 0.4 Eos # (Auto) 0.0 Baso # (Auto) 0.0 Abs Immat Gran (auto) 0.02 Absolute Neuts (auto) 5.7 Absolute Nucleated RBC 0.000 Nucleated RBC % (auto) 0.0 PT 12.8 H INR 1.1 Anion Gap 9 L Estim Creat Clear Calc 117.2 Estimated GFR > 60 Random Glucose 114 Calcium 8.8 Total Bilirubin 0.8 AST 40 H ALT 49 H Alkaline Phosphatase 116 Total Protein 7.5 Albumin 3.8 Lipase 52 Beta HCG, Quant < 2 Assessment and Plan (1) Acute hypokalemia: Status: Acute (2) Partial small bowel obstruction: Status: Acute Plan Jaimee Castillo is a 53 years old woman with past medical history significant GERD, IgG4 related disease, autoimmune liver disease and pancreatitis and depression Intractable abdominal pain and vomiting. ?Partial SBO. Admit to hospitalist service. NPO. Continue pain control with Dilaudid and antiemetic therapy. Start IV fluids. Continue PPI. Surgery consult. Hypokalemia secondary to vomiting. Replete as needed. Continue to monitor K level. Autoimmune liver disease. Continue prednisone. Scheduled for a liver MRI tomorrow. GERD. Continue PPI. History of migraine. Continue topiramate. Depression. Continue home medications. DVT prophylaxis: SCDs Code status: Full Patient will need hospitalization for at least 2 midnights intractable abdominal pain and vomiting treatment with IV fluids, pain control, antiemetic agents and evaluation by Surgical Service. Quality Stroke Does the patient have a stroke diagnosis?: No VTE Prior VTE?: No VTE Risk Level:: Medical - moderate - high VTE Device Contraindication: N/A - Device Ordered VTE Drug Contraindication: Treatment Not Indicated
[2024-06-25] MEDS: Lactated Ringers 1,000 ML 100 ML IVCONT ×3 (01:58→19:55)
--- NOTE | 2024-06-25 03:25 | PC.NURSE ---
med rec done based off pt's current memory.
--- NOTE | 2024-06-25 04:24 | PC.NURSE ---
Pt 53 y/o female, georgian speaking only, biba from home with c/o of generalized abdominal pain, nausea, and vomiting. Pt denies any fever/chills or diarrhea. Pt reports she has hx of liver disease and pancreatitis, was scheduled for an MRI tomorrow to determine if she was candidate for liver transplant. Pt is a&o x4, speaking in full clear sentences, and able to ambulate with steady gait. Pt has 20G IV in RAC and has received 1L of NACL, 2mg of morphine (effective), 4 mg of zofran, 20mg of zofran, and 2 mg of lorazepam. Pt was found to be hypokalemic 3.1- received 10 meq of Potassium chloride IV. Pt currently has LR running at 100 ml/hr. Pt NPO, MRI in the morning and pending surgery consult for possible SBO.
[2024-06-25] MEDS: Pantoprazole Sodium 40 MG/10 ML VIAL IVPUSH (05:25)
[2024-06-25 06:15] LABS: MANUAL DIFF FLAG NO
[2024-06-25 06:22] LABS: Basophils Percent Auto 0.2 % (0-2); Eosinophils Percent Auto 0.8 % (0-4); Hematocrit 33.1 % (37.0-47.0); Hemoglobin 11.5 g/dl (12.0-16.0); Imm Gran Abs Auto 0.01 X10*3/uL (0.00-0.03); Imm Gran Pct Auto 0.2 % (0.0-0.4); Lymphocytes Absolute Auto 0.5 X10*3/uL (1.2-4.9); Lymphocytes Percent Auto 10.6 % (20-40); Mean Corpuscular HGB Conc 34.7 g/dl (31.0-35.0); Mean Corpuscular Hemoglobin 33.2 pg (27.0-33.0); Mean Corpuscular Volume 95.7 fL (80.0-98.0); Mean Platelet Volume 10.9 fL (9.4-12.3); Monocytes Absolute Auto 0.4 X10*3/uL (0.1-1.2); Monocytes Percent Auto 7.5 % (2-11); Neutrophils Absolute Auto 3.9 x10*3/uL (2.0-8.3); Neutrophils Percent Auto 80.7 % (45-73); Red Blood Count 3.46 X10*6/uL (4.20-5.50); Red Cell Distribution Width 15.9 % (11.0-16.0); White Blood Count 4.8 X10*3/uL (4.8-10.8)
[2024-06-25 06:23] LABS: Platelet Count 89 X10*3/uL (160-400)
[2024-06-25 06:34] LABS: Alanine Aminotransferase 38 U/L (0-31); Alkaline Phosphatase 91 U/L (39-117); Anion Gap 8 (12-20); Aspartate Amino Transferase 36 U/L (5-31); Blood Urea Nitrogen 11 mg/dL (9-16); Calcium 7.5 mg/dL (8.4-10.2); Carbon Dioxide 22 mmol/L (22-29); Chloride 112 mmol/L (96-108); Creatinine Clr Calc Pharmacy 141.1; Estimated Glomerular Filt Rate > 60; Glucose Random 91 mg/dL (60-115); Lipase 17 U/L (8-78); Potassium 3.2 mmol/L (3.3-5.1); Sodium 139 mmol/L (135-145)
--- NOTE | 2024-06-25 10:54 | PM.EVENT ---
Event Note Date of Service: 06/25/24 Event Note: 53 years old woman with past medical history significant GERD, IgG4 related disease, autoimmune liver disease and pancreatitis and depression here with abdom pain Intractable abdominal pain and vomiting. ?Partial SBO. -surgery consult, clicinically doesn't appear to have SBO -gi consult -she has chronic pain and is followed by GI on outpatient basis Hypokalemia secondary to vomiting. Replete as needed. Continue to monitor K level. Autoimmune liver disease. Continue prednisone. Scheduled for a liver MRI tomorrow, may need to be rescheduled outpatient basis GERD. Continue PPI. History of migraine. Continue topiramate. Depression. Continue home medications. DVT prophylaxis: SCDs Code status: Full med rec still pending Time Spent With Patient Time: Total time managing care of this patient today ____ minutes.
--- NOTE | 2024-06-25 11:59 | P.CNGI_ITS ---
History of Present Illness Data of Consult Service Date: 06/25/24 Requesting physician: Stevan Reyes Primary Care Provider: MD BLAKE Reyna Reason for consult: Recurrent abdominal pain 53 YF with GERD, IgG4 related disease, autoimmune liver disease, pancreatitis and depression seen at [facility] on 06/24/24 with severe epigastric pain starting on the day of admission after she ate a chicken empanadilla from a restuarant . Pt describes the pain as 10/10 sharp/squeezing radiating to the lower back and right upper quadrant and associated with multiple episodes of vomiting (food). She denied diarrhea, fever or chills, headache, palpitations or dizziness or cardiopulmonary symptoms. Pt reports similar episode of abd pain a month ago while in [place] and was diagnosed with stomach flu. Pt reports her abdominal pain has resolved today. Pt had a laparoscopic cholecystectomy 10 yrs ago after an episode of pancreatitis complicated by accidental clipping of bile duct and needed further surgery. She had an episode of partial SBO in 2019. Last EGD (April 2024) showed esophageal varices, gastritis, polyps and hiatal hernia. She has been scheduled for MRI of the liver tomorrow. Past surgical history is remarkable for laparoscopic cholecystectomy, bile duct resection and appendectomy. In the ED, she was found to have stable vital signs. Labs showed leukocytosis, Hemoglobin 13.6 and platelets 113, mild hypokalemia of 3.1 and now moderate electrolyte imbalances. BUN is 13 Ativan 0.71. Transaminases were minimally elevated (improving when compared with previous ones), normal bilirubin, alk-phos and lipase. test is negative. 06/24/[address] SCAN SHOWED: 1. Focal hepatic hypodensity and gas within the right hepatic dome of unclear etiology. Some foci of gas appear to represent pneumobilia, although some small foci may be intraparenchymal. Postcontrast CT may be helpful for further characterization. 2. Mildly dilated fluid-filled loops of small bowel in the left abdomen, possibly low-grade or partial small bowel obstruction. 3. Developing nephrocalcinosis PAST GI HISTORY BY REVIEW OF MEDICAL RECORDS: 05/01/24 PT WAS LAST SEEN BY DR QUINN: Assessments 1. IgG4 related disease - 2. Autoimmune pancreatitis - 3. osteopenia--has osteoporosis due to steroid use, ordered reclast, which was given 4. epigastric pain, prob from increased liver inflammation suspected IgG [address] RD even though bx not diagnostic but she had been on steroids/6 MP- LFt eventually improved on tapering dose of steroids PLAN: 1/ cont pred 10 mg, and 6 MP 2/ repeat EGD in 4-6 month 3/ repeat dexa in 1-2 yrs, 4/ recheck LFT this week and wait MRI liver Review of Systems 2 Constitutional: Constitutional: Denies chills, Denies fever(s) and Denies headache(s) Eyes: Eyes: Denies eye discharge and Denies irritation ENT: Reports Normal hearing present, Denies dysphagia, Denies dizziness and Denies headache(s) Cardiovascular: Cardiovascular: Denies chest pain, Denies dyspnea and Denies dyspnea on exertion Respiratory: Respiratory: Denies cough, Denies dyspnea, Denies dyspnea on exertion and Denies wheezing Gastrointestinal: Gastrointestinal: Reports abdominal pain, Denies hematochezia, Denies change in bowel habits, Denies dysphagia, Reports nausea and Reports vomiting Genitourinary: Genitourinary: Denies hematuria Musculoskeletal: Musculoskeletal: Denies back pain and Denies limited range of motion Integumentary/Breasts: Skin/Breast: Denies pruritus, Denies rash and Denies jaundice Neurologic: Reports Normal hearing present, Denies dizziness, Denies headache(s), Denies focal weakness and Denies convulsions Psychiatric: Psychiatric: Denies depression and Denies mood swings Endocrine: Endocrine: Denies cold intolerance, Denies flushing and Denies heat intolerance Hematologic/Lymphatic: Hematologic/Lymphatic: Denies easy bleeding and Denies easy bruising Allergic/Immunologic: Allergic/Immunologic: Denies wheezing PMFSH Past Medical History Medical History GERD (gastroesophageal reflux disease) Osteoporosis Atypical chest pain Arthritis Hordeolum externum right upper eyelid Difficulty sleeping Depression, major, recurrent Knee pain, right Autoimmune liver disease Headache syndrome Family History Family History Father CVD (cardiovascular disease) Mother Breast cancer Leukemia CVD (cardiovascular disease) Brother Substance use disorder Brother No problems noted. Sister No problems noted. Son No problems noted. Daughter No problems noted. Daughter No problems noted. Daughter No problems noted. Maternal Aunt Breast cancer Surgical History Surgical History History of tubal ligation History of esophagogastroduodenoscopy (EGD) H/O colonoscopy History of liver biopsy History of cholecystectomy Hx of appendectomy History of surgery Social History Social History Household Members: Children Housing: House Do you presently have visiting nurse or other home services: No Alcohol intake: former Patient Tobacco Use Status: Never used Tobacco e-Cigarette/Vaping Use: Never Used service: No Current occupational status: disabled Cognitive needs: No Hearing needs: No Vision needs: No Meds Allergies Allergy/AdvReac Type Severity Reaction Status Date / Time Penicillins [PENICILLINS] Allergy Severe RASH Verified 06/24/24 19:51 Iodinated Contrast Media Allergy Intermediate RASH Verified 06/24/24 19:51 [Iodinated Contrast Media - IV Dye] meperidine [From DEMEROL] Allergy Intermediate RASH Verified 06/24/24 19:51 aspirin [ASA] Allergy Mild RASH, N/V Verified 06/24/24 19:51 tramadol [TRAMADOL] Allergy Unknown RASH Verified 06/24/24 19:51 Active Medications: Current Medications Acetaminophen (Acetaminophen 325 Mg Tablet) 650 mg PO Q6H PRN PRN Reason: Pain, Mild 1-3,fever,headache Buspirone HCl (Buspirone Hcl 5 Mg Tablet) 5 mg PO TID [facility] Last Admin: 06/25/24 10:20 Dose: Not Given Calcium Carbonate (Calcium Carbonate 750 Mg Tab.Chew) 750 mg PO Q4H PRN PRN Reason: Heartburn Carvedilol (Carvedilol 3.125 Mg Tablet) 3.125 mg PO BID [facility]; Protocol Last Admin: 06/25/24 10:16 Dose: Not Given Fluoxetine HCl (Fluoxetine Hcl 20 Mg Capsule) 40 mg PO DAILY [facility] Last Admin: 06/25/24 10:20 Dose: Not Given Hydromorphone HCl (Hydromorphone Hcl 1 Mg/Ml Syringe) 1 mg IVPUSH Q3H PRN; Protocol PRN Reason: Pain, Severe (Pain Scale 7-10) Lactated Ringer's (Lr) 1,000 mls @ 100 mls/hr IVCONT .Q10H [facility] Stop: 06/26/24 01:29 Last Admin: 06/25/24 09:36 Dose: 100 mls/hr Magnesium Hydroxide (Milk Of Magnesia 30 Ml Oral.Susp) 30 ml PO DAILY PRN PRN Reason: Constipation Melatonin (Melatonin 3 Mg Tablet) 6 mg PO BEDTIME PRN PRN Reason: Insomnia Non-Formulary Medication (Mercaptopurine) 50 mg PO DAILY [facility] Ondansetron HCl (Ondansetron Hcl 4 Mg/2 Ml Vial) 4 mg IVPUSH Q6H PRN PRN Reason: Nausea and Vomiting Pantoprazole Sodium (Pantoprazole Sodium 40 Mg/10 Ml Vial) 40 mg IVPUSH DAILY@629 [facility] Last Admin: 06/25/24 05:25 Dose: 40 mg Prednisone (Prednisone 10 Mg Tablet) 10 mg PO DAILY [facility] Last Admin: 06/25/24 10:19 Dose: Not Given Sodium Chloride (0.9 % Sodium Chloride Flush 3 Ml Syringe) 3 ml IVFLUSH QSHIFT [facility] Last Admin: 06/25/24 08:01 Dose: Not Given Topiramate (Topiramate 25 Mg Tablet) 50 mg PO BEDTIME [facility] Trazodone HCl (Trazodone Hcl 100 Mg Tablet) 100 mg PO DAILY [facility] Last Admin: 06/25/24 10:20 Dose: Not Given Home Medications ?Medication ?Instructions ?Recorded ?Confirmed ?Last Taken ?Type ondansetron 8 mg disintegrating 8 mg PO Q8H PRN for nausea/vomiting 06/25/24 06/25/24 Unknown History tablet pantoprazole 40 mg tablet,delayed 40 mg PO DAILY@0630 06/25/24 06/25/24 06/24/24 History release Physical Exam 2 Vital Signs: Vital Signs: Last Vital Signs Temp 97.1 F 06/25/24 08:00 Pulse 85 06/25/24 08:00 Resp 16 06/25/24 08:00 BP 100/59 L 06/25/24 08:00 Pulse Ox 96 06/25/24 08:00 O2 Del Method Room Air 06/25/24 08:00 BMI result Body Mass Index 33.3 Const: General: comfortable and no acute distress O rientation/consciousness: patient oriented x3 Neck: Neck: Yes no lymphadenopathy Resp: Auscultation: clear to auscultation bilaterally Cardio: Rhythm: regular rhythm GI: Inspection: No distended Palpation (GI): Soft to palpation, nontender and no guarding Neuro: General: patient oriented x3 Cranial nerves: Yes Normal hearing present Results Labs 06/25/24 06:03 06/25/24 06:03 Labs: Short CBC 06/24/24 06/25/24 Range/Units 20:30 06:03 WBC 6.8 4.8 (4.8-10.8) X10*3/uL Hgb 13.6 11.5 L (12.0-16.0) g/dl Hct 38.6 33.1 L (37.0-47.0) % Plt Count 113 L 89 L (160-400) X10*3/uL BMP 06/24/24 06/25/24 20:30 06:03 Sodium 140 139 Potassium 3.1 L 3.2 L Chloride 109 H 112 H Carbon Dioxide 25 22 BUN 13 11 Creatinine 0.71 0.59 Calcium 8.8 7.5 L D Liver Function 06/24/24 06/25/24 Range/Units 20:30 06:03 Total Bilirubin 0.8 1.0 (0.0-1.0) mg/dL AST 40 H 36 H (5-31) U/L ALT 49 H 38 H (0-31) U/L Alkaline Phosphatase 116 91 (39-117) U/L Albumin 3.8 3.0 L (3.5-5.0) g/dL Assessment and Plan (1) Partial small bowel obstruction: Status: Acute (2) Abnormal LFTs: Status: Acute (3) Autoimmune liver disease: Status: Acute (4) Abdominal pain: Status: Acute Plan 53 YF with GERD, IgG4 related disease, autoimmune liver disease, pancreatitis and depression admitted to [facility] on 06/24/24 with severe epigastric pain starting 15 to 20 min after she ate a chicken empanadilla from a restuarant . Pt describes the pain as 10/10 sharp/squeezing radiating to the lower back and right upper quadrant and associated with multiple episodes of vomiting (food). Pt reports similar episode of abd pain a month ago while in [place] and was diagnosed with stomach flu. Pt reports her abdominal pain has resolved today. Pt is collowed by Dr Quinn and is on 6 MP and prednisone for AIH Labs showed leukocytosis, Hemoglobin 13.6 and platelets 113, mild hypokalemia of 3.1 and now moderate electrolyte imbalances. BUN is 13 Ativan 0.71. Transaminases were minimally elevated (improving when compared with previous ones), normal bilirubin, alk-phos and lipase. test is negative. Abd pain likely due to food poisoning/viral gastritis with ileus due to hypokalemia. Pt missed her appt for hepatic MRI scheduled today as an outpatient and was advised to reschedule 06/24/[address] SCAN SHOWED: 1. Focal hepatic hypodensity and gas within the right hepatic dome of unclear etiology. Some foci of gas appear to represent pneumobilia, although some small foci may be intraparenchymal. Postcontrast CT may be helpful for further characterization. 2. Mildly dilated fluid-filled loops of small bowel in the left abdomen, possibly low-grade or partial small bowel obstruction. 3. Developing nephrocalcinosis RECOMMENDATIONS: 1. Agree with IV pain medications, anti-emetics and PO PPI. 2. Correct electrolyte imbalance 3. Start on a liquid diet and advance diet as tolerated. 4. Reschedule MRI scan Pt can FU with Dr Quinn as an outpatient. Procedures Date of Service Date of Service: 06/25/24
[2024-06-25] MEDS: ondansetron HCL 4 MG/2 ML VIAL IVPUSH (12:21)
--- NOTE | 2024-06-25 12:31 | P.CONGS_ITS ---
History of Present Illness Consult details Consult date: 06/25/24 Narrative: 53-year-old female admitted for an episode of abdominal pain yesterday. She came to the emergency room last night for what she describes as pain mostly in the epigastric area on the right side . She denies nausea or vomiting. She has been passing flatus well She feels much better today. She says she no longer has significant abdominal pain. She has a history of chronic esophagitis, gastritis, and auto immune liver disease. She has been followed by Gastroenterology She has a history of cholecystectomy complicated by a common bile duct injury requiring a hepato jejunostomy in [place].. Review of Systems 2 Constitutional: Constitutional: Denies chills and Denies fever(s) Cardiovascular: Cardiovascular: Denies chest pain, Denies dyspnea and Denies dyspnea on exertion Respiratory: Respiratory: Denies cough, Denies dyspnea and Denies dyspnea on exertion Gastrointestinal: Gastrointestinal: Denies hematochezia and Denies change in bowel habits Genitourinary: Genitourinary: Denies hematuria Musculoskeletal: Musculoskeletal: Denies back pain and Denies limited range of motion Neurologic: Denies focal weakness and Denies convulsions Psychiatric: Psychiatric: Denies depression and Denies mood swings PMFSH Past Medical History Medical History GERD (gastroesophageal reflux disease) Osteoporosis Atypical chest pain Arthritis Hordeolum externum right upper eyelid Difficulty sleeping Depression, major, recurrent Knee pain, right Autoimmune liver disease Headache syndrome Family History Family History Father CVD (cardiovascular disease) Mother Breast cancer Leukemia CVD (cardiovascular disease) Brother Substance use disorder Brother No problems noted. Sister No problems noted. Son No problems noted. Daughter No problems noted. Daughter No problems noted. Daughter No problems noted. Maternal Aunt Breast cancer Surgical History Surgical History History of tubal ligation History of esophagogastroduodenoscopy (EGD) H/O colonoscopy History of liver biopsy History of cholecystectomy Hx of appendectomy History of surgery Social History Social History Household Members: Children Housing: House Do you presently have visiting nurse or other home services: No Alcohol intake: former Patient Tobacco Use Status: Never used Tobacco e-Cigarette/Vaping Use: Never Used service: No Current occupational status: disabled Cognitive needs: No Hearing needs: No Vision needs: No Meds Allergies Allergy/AdvReac Type Severity Reaction Status Date / Time Penicillins [PENICILLINS] Allergy Severe RASH Verified 06/24/24 19:51 Iodinated Contrast Media Allergy Intermediate RASH Verified 06/24/24 19:51 [Iodinated Contrast Media - IV Dye] meperidine [From DEMEROL] Allergy Intermediate RASH Verified 06/24/24 19:51 aspirin [ASA] Allergy Mild RASH, N/V Verified 06/24/24 19:51 tramadol [TRAMADOL] Allergy Unknown RASH Verified 06/24/24 19:51 Active Medications: Current Medications Acetaminophen (Acetaminophen 325 Mg Tablet) 650 mg PO Q6H PRN PRN Reason: Pain, Mild 1-3,fever,headache Buspirone HCl (Buspirone Hcl 5 Mg Tablet) 5 mg PO TID [facility] Last Admin: 06/25/24 10:20 Dose: Not Given Calcium Carbonate (Calcium Carbonate 750 Mg Tab.Chew) 750 mg PO Q4H PRN PRN Reason: Heartburn Carvedilol (Carvedilol 3.125 Mg Tablet) 3.125 mg PO BID [facility]; Protocol Last Admin: 06/25/24 10:16 Dose: Not Given Fluoxetine HCl (Fluoxetine Hcl 20 Mg Capsule) 40 mg PO DAILY [facility] Last Admin: 06/25/24 10:20 Dose: Not Given Hydromorphone HCl (Hydromorphone Hcl 1 Mg/Ml Syringe) 1 mg IVPUSH Q3H PRN; Protocol PRN Reason: Pain, Severe (Pain Scale 7-10) Lactated Ringer's (Lr) 1,000 mls @ 100 mls/hr IVCONT .Q10H [facility] Stop: 06/26/24 01:29 Last Admin: 06/25/24 09:36 Dose: 100 mls/hr Magnesium Hydroxide (Milk Of Magnesia 30 Ml Oral.Susp) 30 ml PO DAILY PRN PRN Reason: Constipation Melatonin (Melatonin 3 Mg Tablet) 6 mg PO BEDTIME PRN PRN Reason: Insomnia Non-Formulary Medication (Mercaptopurine) 50 mg PO DAILY [facility] Ondansetron HCl (Ondansetron Hcl 4 Mg/2 Ml Vial) 4 mg IVPUSH Q6H PRN PRN Reason: Nausea and Vomiting Last Admin: 06/25/24 12:21 Dose: 4 mg Pantoprazole Sodium (Pantoprazole Sodium 40 Mg/10 Ml Vial) 40 mg IVPUSH DAILY@629 [facility] Last Admin: 06/25/24 05:25 Dose: 40 mg Prednisone (Prednisone 10 Mg Tablet) 10 mg PO DAILY [facility] Last Admin: 06/25/24 10:19 Dose: Not Given Sodium Chloride (0.9 % Sodium Chloride Flush 3 Ml Syringe) 3 ml IVFLUSH QSHIFT [facility] Last Admin: 06/25/24 08:01 Dose: Not Given Topiramate (Topiramate 25 Mg Tablet) 50 mg PO BEDTIME [facility] Trazodone HCl (Trazodone Hcl 100 Mg Tablet) 100 mg PO DAILY [facility] Last Admin: 06/25/24 10:20 Dose: Not Given Home Medications ?Medication ?Instructions ?Recorded ?Confirmed ?Last Taken ?Type ondansetron 8 mg disintegrating 8 mg PO Q8H PRN for nausea/vomiting 06/25/24 06/25/24 Unknown History tablet pantoprazole 40 mg tablet,delayed 40 mg PO DAILY@0630 06/25/24 06/25/24 06/24/24 History release Physical Exam 2 Vital Signs: Vital Signs: Last Vital Signs Temp 97.1 F 06/25/24 08:00 Pulse 85 06/25/24 08:00 Resp 16 06/25/24 08:00 BP 100/59 L 06/25/24 08:00 Pulse Ox 96 06/25/24 08:00 O2 Del Method Room Air 06/25/24 08:00 BMI result Body Mass Index 33.3 Const: General: comfortable and no acute distress O rientation/consciousness: patient oriented x3 Neck: Neck: Yes no lymphadenopathy Resp: Auscultation: clear to auscultation bilaterally Cardio: Rhythm: regular rhythm GI: Inspection: No distended Palpation (GI): Soft to palpation, nontender and no guarding Neuro: General: patient oriented x3 Results Labs 06/25/24 06:03 06/26/24 05:19 Labs: Abnormal lab results 06/24/24 06/24/24 06/25/24 Range/Units 20:30 23:11 06:03 RBC 4.10 L 3.46 L (4.20-5.50) X10*6/uL Hgb 11.5 L (12.0-16.0) g/dl Hct 33.1 L (37.0-47.0) % MCH 33.2 H 33.2 H (27.0-33.0) pg MCHC 35.2 H (31.0-35.0) g/dl Plt Count 113 L 89 L (160-400) X10*3/uL Neut % (Auto) 84.8 H 80.7 H (45-73) % Lymph % (Auto) 8.9 L 10.6 L (20-40) % Lymph # (Auto) 0.6 L 0.5 L (1.2-4.9) X10*3/uL PT 12.8 H (10.9-12.4) SEC Potassium 3.1 L 3.2 L (3.3-5.1) mmol/L Chloride 109 H 112 H (96-108) mmol/L Anion Gap 9 L 8 L (12-20) Calcium 7.5 L D (8.4-10.2) mg/dL AST 40 H 36 H (5-31) U/L ALT 49 H 38 H (0-31) U/L Total Protein 6.0 L (6.5-8.0) g/dL Albumin 3.0 L (3.5-5.0) g/dL Short CBC 06/24/24 06/25/24 Range/Units 20:30 06:03 WBC 6.8 4.8 (4.8-10.8) X10*3/uL Hgb 13.6 11.5 L (12.0-16.0) g/dl Hct 38.6 33.1 L (37.0-47.0) % Plt Count 113 L 89 L (160-400) X10*3/uL BMP 06/24/24 06/25/24 20:30 06:03 Sodium 140 139 Potassium 3.1 L 3.2 L Chloride 109 H 112 H Carbon Dioxide 25 22 BUN 13 11 Creatinine 0.71 0.59 Calcium 8.8 7.5 L D Liver Function 06/24/24 06/25/24 Range/Units 20:30 06:03 Total Bilirubin 0.8 1.0 (0.0-1.0) mg/dL AST 40 H 36 H (5-31) U/L ALT 49 H 38 H (0-31) U/L Alkaline Phosphatase 116 91 (39-117) U/L Albumin 3.8 3.0 L (3.5-5.0) g/dL All other labs normal. Assessment and Plan (1) Abdominal pain: Status: Acute She came in for abdominal pain yesterday which she describes as ?severe?. This has since resolved. I have reviewed her CAT scan from last night. There is some mild dilatation of small bowel loops but she does have good amounts of air distally. There is no obvious transition point. Clinically she does not seem to be obstructed. The pneumobilia seen on CT scan is because of her hepaticojejunostomy from many years ago. This is expected for this procedure Her exam is currently very benign. She does not have any significant pain or tenderness I will try on clear liquids and this can be slowly advanced as tolerated. Procedures Date of Service Date of Service: 06/30/24
--- NOTE | 2024-06-25 13:49 | PHA.MEDREC ---
Addendum entered by Elisa Moreno RPh 06/25/24 14:45: reviewed by [facility]. Original Note: Pharmacy Consult ? Medication Reconciliation Pharmacy has completed the medication reconciliation. Utilized safety lead services. Spoke to the patient to confirm meds. Per patient, no longer taking buspirone, fluoxetine, gabapentin, sucralfate, trazodone, ubrelvy, or zinc for a few months now because it had caused her GI upset.
--- NOTE | 2024-06-25 15:04 | PC.NURSE ---
pt own home medications signed and sent to pharmacy.
[2024-06-26 03:13] VITALS: BP 101/55; PULSE 61; RESP 17; TEMP 36.4; O2SAT 97
--- NOTE | 2024-06-26 05:10 | PC.NURSE ---
Pt refused all pm meds last night.States doctor told her to take all meds with food pt on clear liquid diet.
[2024-06-26] MEDS: Omeprazole 20 MG CAPSULE.DR PO (05:19)
[2024-06-26 07:02] LABS: Anion Gap 10 (12-20); Blood Urea Nitrogen 8 mg/dL (9-16); Calcium 8.3 mg/dL (8.4-10.2); Carbon Dioxide 23 mmol/L (22-29); Chloride 113 mmol/L (96-108); Creatinine Clr Calc Pharmacy 127.3; Estimated Glomerular Filt Rate > 60; Glucose Random 72 mg/dL (60-115); Potassium 3.5 mmol/L (3.3-5.1); Sodium 142 mmol/L (135-145)
[2024-06-26 07:17] VITALS: BP 115/66; PULSE 80; RESP 12; TEMP 36.4; O2SAT 97
--- NOTE | 2024-06-26 07:51 | P.PNGS_ITS ---
Subjective Subjective Date of Service: 06/26/24 Interval history: Denies abd pain. Passing flatus. Tolerating clear liquids without nausea or vomiting and feels hungry. Physical Exam 2 Vital Signs: Vital Signs: Last Vital Signs Temp 97.5 F 06/26/24 07:17 Pulse 80 06/26/24 07:17 Resp 12 06/26/24 07:17 BP 115/66 06/26/24 07:17 Pulse Ox 97 06/26/24 07:17 O2 Del Method Room Air 06/26/24 07:17 BMI result Body Mass Index 33.3 Const: General: comfortable, no acute distress and alert Resp: Effort & Inspection: normal respiratory effort GI: Inspection: No distended Palpation (GI): Soft to palpation and nontender Skin: General skin exam: no rashes or lesions noted Objective Data Active Medications Acetaminophen (Acetaminophen 325 Mg Tablet) 650 mg PO Q6H PRN PRN Reason: Pain, Mild 1-3,fever,headache Buspirone HCl (Buspirone Hcl 5 Mg Tablet) 5 mg PO TID [facility] Last Admin: 06/25/24 20:03 Dose: Not Given Documented By: MIROSLAVA Non-Admin Reason: Patient Refused Calcium Carbonate (Calcium Carbonate 750 Mg Tab.Chew) 750 mg PO Q4H PRN PRN Reason: Heartburn Carvedilol (Carvedilol 3.125 Mg Tablet) 3.125 mg PO BID [facility]; Protocol Last Admin: 06/25/24 20:02 Dose: Not Given Documented By: MIROSLAVA Non-Admin Reason: Patient Refused Cyclobenzaprine HCl (Cyclobenzaprine Hcl 10 Mg Tablet) 10 mg PO TID PRN PRN Reason: muscle spasm Fluoxetine HCl (Fluoxetine Hcl 20 Mg Capsule) 40 mg PO DAILY [facility] Last Admin: 06/25/24 10:20 Dose: Not Given Documented By: QUIANA Non-Admin Reason: pt refused, states she does not take at home Hydromorphone HCl (Hydromorphone Hcl 1 Mg/Ml Syringe) 1 mg IVPUSH Q3H PRN; Protocol PRN Reason: Pain, Severe (Pain Scale 7-10) Magnesium Hydroxide (Milk Of Magnesia 30 Ml Oral.Susp) 30 ml PO DAILY PRN PRN Reason: Constipation Magnesium Oxide (Magnesium Oxide 400 Mg Tablet) 400 mg PO BEDTIME [facility] Last Admin: 06/25/24 20:02 Dose: Not Given Documented By: MIROSLAVA Non-Admin Reason: Patient Refused Melatonin (Melatonin 3 Mg Tablet) 6 mg PO BEDTIME PRN PRN Reason: Insomnia Pt Own ( Mercaptopurine 50 Mg Tablet) 50 mg PO DAILY [facility] Last Admin: 06/25/24 17:32 Dose: Not Given Documented By: QUIANA Non-Admin Reason: Patient Refused Pt Own (Vitamin A ( 10,000 Unit) Capsule ) 1 cap PO DAILY [facility] Omeprazole (Omeprazole 20 Mg Capsule.Dr) 20 mg PO DAILY@0630 [facility] Last Admin: 06/26/24 05:19 Dose: 20 mg Documented By: MIROSLAVA Ondansetron HCl (Ondansetron Hcl 4 Mg/2 Ml Vial) 4 mg IVPUSH Q6H PRN PRN Reason: Nausea and Vomiting Last Admin: 06/25/24 12:21 Dose: 4 mg Documented By: QUIANA Prednisone (Prednisone 10 Mg Tablet) 10 mg PO DAILY [facility] Last Admin: 06/25/24 10:19 Dose: Not Given Documented By: QUIANA Non-Admin Reason: pt npo, refused to take without food Sodium Chloride (0.9 % Sodium Chloride Flush 3 Ml Syringe) 3 ml IVFLUSH QSHIFT [facility] Last Admin: 06/25/24 20:03 Dose: Not Given Documented By: MIROSLAVA Non-Admin Reason: IV Running Thiamine HCl (Thiamine Hcl 100 Mg Tablet) 100 mg PO DAILY [facility] Topiramate (Topiramate 25 Mg Tablet) 50 mg PO BEDTIME [facility] Last Admin: 06/25/24 20:02 Dose: Not Given Documented By: MIROSLAVA Non-Admin Reason: Patient Refused Trazodone HCl (Trazodone Hcl 100 Mg Tablet) 100 mg PO DAILY [facility] Last Admin: 06/25/24 10:20 Dose: Not Given Documented By: QUIANA Non-Admin Reason: pt refused, states she does not take at home Vitamin D (Cholecalciferol (Vitamin D3) 25 Mcg Tablet) 25 mcg PO DAILY [facility] Labs 06/25/24 06:03 06/26/24 05:19 Labs: Laboratory Results - last 24 hr 06/26/24 05:19 Hold Purple Top SEE NOTE Anion Gap 10 L Estim Creat Clear Calc 127.3 Estimated GFR > 60 Random Glucose 72 Calcium 8.3 L D Procedures Date of Service Date of Service: 06/26/24 Progress Note: A&P Assessment and plan (1) Partial small bowel obstruction: Status: Acute Plan Tolerating clear liquids now with GI function, abd benign and soft, nontender. Advance diet as tolerated. If tolerating solid diet without nausea/vomiting, stable for dc to home. Time Spent With Patient Time: Total time managing care of this patient today ____ minutes. Quality Stroke Does the patient have a stroke diagnosis?: No VTE Prior VTE?: No VTE Risk Level:: Medical - moderate - high VTE Device Contraindication: N/A - Device Ordered VTE Drug Contraindication: Treatment Not Indicated
[2024-06-26] MEDS: carvediloL 3.125 MG TABLET PO (08:45)
[2024-06-26] MEDS: VITAMIN A 1 EACH PO (08:45)
[2024-06-26] MEDS: predniSONE 10 MG TABLET PO (08:45)
[2024-06-26] MEDS: Thiamine HCL 100 MG TABLET PO (08:45)
[2024-06-26] MEDS: MERCAPTOPURINE 50 MG 50 EACH PO (08:45)
[2024-06-26] MEDS: Cholecalciferol (Vitamin D3) 25 MCG TABLET PO (08:45)
[2024-06-26] MEDS: 0.9 % Sodium Chloride Flush 3 ML SYRINGE IVFLUSH (08:48)
[2024-06-26 11:17] VITALS: BP 112/71; PULSE 73; RESP 16; TEMP 36.3; O2SAT 96
--- NOTE | 2024-06-26 11:38 | PM.DS ---
DS: Providers Provider Date of Service: 06/26/24 Date of admission: 06/25/24 01:08 Date of discharge: 06/26/24 Primary care physician: Luis Angel Almanza MD Consults: 06/25/24 10:50 Consult to General Surgery Routine Consulting Provider: [facility] [place] General Surgeons Reason for consultation: ? SBO Has provider been notified: No 06/25/24 10:57 Consult to Gastroenterology Routine Consulting Provider: Sadia Tyler Reason for consultation: recurrent abdominal pain DS: Diagnosis Discharge Diagnosis (1) Partial small bowel obstruction: Status: Acute DS: Summary Hospital Course Hospital Course: admission hpi Chief Complaint: Abdominal pain Jaimee Castillo is a 53 years old woman with past medical history significant GERD, IgG4 related disease, autoimmune liver disease and pancreatitis and depression presents to the emergency department complaining of severe epigastric pain that started this afternoon after she ate an empanadilla . The pain was described as sharp radiating to the back and right upper quadrant and associated with multiple units of vomiting (food). She denied any diarrhea, fever or chills. She also denied headache, palpitations or dizziness. No cardiopulmonary symptoms reported. She mentioned that about 10 years ago she underwent laparoscopic cholecystectomy after an event of pancreatitis that complicated after accidentally in the bile duct was clipped. She had an event of partial SBO in 2019. Last EGD (April 2024) showed esophageal varices, gastritis, polyps and hiatal hernia. She has been scheduled for MRI of the liver tomorrow. Past surgical history is remarkable for laparoscopic cholecystectomy, bile duct resection and appendectomy. In the ED, she was found to have stable vital signs. Blood workup showed no leukocytosis. Hemoglobin is 13.6 and platelets 113. There is mild hypokalemia of 3.1 and now moderate electrolyte imbalances. BUN is 13 Ativan 0.71. Transaminases are minimally elevated (improving when compared with previous ones), normal bilirubin, alk-phos and lipase. test is negative. Abdomen pelvis CT scan without contrast Hospital course: Patient with known autoimmune hepatitis with associated abdominal pain and presented with abdominal pain, further testing with a CT of the abdomen and pelvis show possible partial small-bowel obstruction. Patient was admitted and managed conservatively was evaluated by surgery her diet was slowly advanced from a liquid to presently regular diet, her pain has resolved. She has no nausea or vomiting as for the autoimmune hepatitis she is followed by examiner rating clerk Dr. Tyler and is scheduled to have further testing with MRI on outpatient basis. Time Attestation Discharge Coordination Time (in mins): 35 Quality: Safe Use of Opioids Does Pt have an Active Cancer Diagnosis on the Problem List?: No Quality: Stroke Does the patient have a stroke diagnosis?: No Physical Exam Vital Signs: Vital Signs: Last Vital Signs Temp 97.3 F 06/26/24 11:17 Pulse 73 06/26/24 11:17 Resp 16 06/26/24 11:17 BP 112/71 06/26/24 11:17 Pulse Ox 96 06/26/24 11:17 O2 Del Method Room Air 06/26/24 11:17 BMI result Body Mass Index 33.3 DS: Data Data Completed and Pending Labs on day of discharge: Laboratory Results - last 24 hr 06/26/24 05:19 Hold Purple Top SEE NOTE Sodium 142 Potassium 3.5 Chloride 113 H Carbon Dioxide 23 Anion Gap 10 L BUN 8 L Creatinine 0.63 Estim Creat Clear Calc 127.3 Estimated GFR > 60 Random Glucose 72 Calcium 8.3 L D Discharge Plan Discharge Anticipated Discharge Date/Time: 06/26/24 11:32 Patient Disposition: Home, Self-Care Discharge Diagnosis: Autoimmune hepatitis, abdominal pain, Referrals: Luis Angel Almanza MD [Primary Care Provider] - 1 Week Discharge Medications: Continued thiamine HCl (vitamin B1) 100 mg tablet 100 mg PO DAILY 90 Days Qty: 90 3RF vitamin A 3,000 mcg (10,000 unit) capsule 1 cap PO DAILY Qty: 90 1RF topiramate 25 mg tablet 50 mg PO BEDTIME 30 Days Qty: 120 3RF cholecalciferol (vitamin D3) [Vitamin D3] 25 mcg (1,000 unit) capsule 25 mcg PO DAILY Qty: 90 2RF cyclobenzaprine 5 mg tablet 10 mg PO TID PRN (Reason: muscle spasm) 30 Days Qty: 120 3RF mercaptopurine 50 mg tablet 50 mg PO DAILY Qty: 30 0RF riboflavin (vitamin B2) 400 mg tablet 400 mg PO DAILY 30 Days Qty: 30 6RF magnesium oxide 400 mg (241.3 mg magnesium) tablet 400 mg PO BEDTIME 30 Days Qty: 30 6RF Rx Instructions: may hold for loose stools carvedilol 3.125 mg tablet 3.125 mg PO BID Qty: 60 2RF Rx Instructions: must administer with a meal/food pantoprazole 40 mg tablet,delayed release (DR/EC) 40 mg PO DAILY@0630 ondansetron 8 mg tablet,disintegrating 8 mg PO Q8H PRN (Reason: for nausea/vomiting) prednisone 10 mg tablet 10 mg PO DAILY Qty: 30 0RF Diet: Advance to usual diet Activity on Discharge: As tolerated Stand Alone Forms: Patient Portal Discharge page Print Language: Setswana Care Plan Goals: recovery from abdominal pain from autoimmune hepatitis Health Concerns: abdominal pain due to autoimmune hepatitis Plan of Treatment: follow up with Dr. tyler for further management Assessment: see above
--- NOTE | 2024-06-26 15:28 | MHC.CM.PN ---
Patient dc'd home self care via private transport prior to CM assessment.
== END 2024-06-26 15:23 | disposition home or self-care (01) | DRG 247 ==
LOC: HO.ED 06-25 01:02 → HO.EDOVER 06-25 01:17 → HO.S3 06-25 07:55
PROVIDERS: Admitting Provider Internal Medicine; Emergency Provider Emergency Medicine; PCP Internal Medicine; Visit Provider Internal Medicine
DX: K56.600 Partial intestinal obstruction, unspecified as to cause (principal); D89.84 IgG4-related disease; Z76.82 Awaiting organ transplant status; E87.6 Hypokalemia; K86.1 Other chronic pancreatitis; Z79.82 Long term (current) use of aspirin; Z79.899 Other long term (current) drug therapy; Z91.199 Patient's noncompliance with other medical treatment and regimen due to unspecified reason
CPT/HCPCS: 36415; 74018; 74176; 80048; 80053; 83690; 84702; 85025; 85610; 99285; J2060; J2270; J2405; J2470; J3480; J7120

== ENCOUNTER → 2024-06-24 21:36 | Outpatient (BNV) | payer OTHER, SELFPAY | PROVIDERS: Emergency Provider Emergency Medicine; PCP Internal Medicine; Visit Provider General Practice | DX: K76.89 Other specified diseases of liver (principal); N29 Other disorders of kidney and ureter in diseases classified elsewhere | CPT/HCPCS: 74176 ==

== ENCOUNTER 2024-06-25 01:08 | Outpatient (BNV) | payer OTHER, SELFPAY | END 2024-06-25 11:26 | PROVIDERS: Admitting Provider Internal Medicine; Emergency Provider Emergency Medicine; PCP Internal Medicine; Visit Provider Specialist | DX: K56.609 Unspecified intestinal obstruction, unspecified as to partial versus complete obstruction (principal) | CPT/HCPCS: 74018 ==

== ENCOUNTER → 2024-06-25 01:08 | Outpatient (BNV) | payer OTHER, SELFPAY | PROVIDERS: Admitting Provider Internal Medicine; Emergency Provider Emergency Medicine; PCP Internal Medicine; Visit Provider Internal Medicine | DX: E87.6 Hypokalemia (principal); K56.600 Partial intestinal obstruction, unspecified as to cause | CPT/HCPCS: 99222; 99499 ==

== ENCOUNTER → 2024-06-25 01:08 | Outpatient (BNV) | payer OTHER, SELFPAY | PROVIDERS: Admitting Provider Internal Medicine; Emergency Provider Emergency Medicine; PCP Internal Medicine; Visit Provider Internal Medicine Gastroenterology | DX: K56.600 Partial intestinal obstruction, unspecified as to cause (principal); R74.01 Elevation of levels of liver transaminase levels; K76.89 Other specified diseases of liver; R10.9 Unspecified abdominal pain | CPT/HCPCS: 99222 ==

== ENCOUNTER → 2024-06-25 01:08 | Outpatient (BNV) | payer OTHER, SELFPAY | PROVIDERS: Admitting Provider Internal Medicine; Emergency Provider Emergency Medicine; PCP Internal Medicine; Visit Provider Surgery | DX: R10.9 Unspecified abdominal pain (principal); K56.600 Partial intestinal obstruction, unspecified as to cause | CPT/HCPCS: 99222; 99232 ==

== ENCOUNTER 2024-07-07 09:03 | Outpatient (REF) | payer OTHER, SELFPAY ==
[2024-07-07 12:25] LABS: Alanine Aminotransferase 34 U/L (0-31); Albumin Level 3.3 g/dL (3.5-5.0); Anion Gap 11 (12-20); Aspartate Amino Transferase 35 U/L (5-31); Bilirubin Total 0.7 mg/dL (0.0-1.0); Blood Urea Nitrogen 14 mg/dL (9-16); Calcium 8.6 mg/dL (8.4-10.2); Carbon Dioxide 25 mmol/L (22-29); Chloride 109 mmol/L (96-108); Estimated Glomerular Filt Rate > 60; Glucose Random 88 mg/dL (60-115); Sodium 141 mmol/L (135-145); Total Protein 7.1 g/dL (6.5-8.0)
[2024-07-07 14:15] LABS: Alkaline Phosphatase 96 U/L (39-117)
== END 2024-07-07 09:04 | disposition home or self-care (01) ==
LOC: HO.LAB 09:03
PROVIDERS: PCP Internal Medicine; Visit Provider Internal Medicine Gastroenterology
DX: K75.81 Nonalcoholic steatohepatitis (NASH) (principal)
CPT/HCPCS: 36415; 80053

== ENCOUNTER 2024-07-09 17:05 | Outpatient (REF) | payer OTHER, SELFPAY ==
--- NOTE | ~2024-07-09 | MR_ITS ---
EXAMINATION: MRI Abdomen without and with contrast HISTORY: K76.89 - Other specified diseases of liver COMPARISON: Comparison is made with the prior examination dated 01/11/2019. Correlation is also made with a CT of the abdomen without contrast dated 06/24/2024. TECHNIQUE: Axial in and out of phase T1-weighted gradient echo, axial diffusion weighted, and axial and coronal haste T2 with fat saturation images were obtained through the abdomen. 3D MRCP Reconstructed images and thick slab imaging of the biliary tree were obtained. Subsequently, fat suppressed axial and coronal T1-weighted images were obtained after the intravenous administration of 10 mL Gadavist. FINDINGS: There is no significant signal loss within the liver on opposed phase imaging to suggest steatosis. Again noted is atrophy of the left lobe with capsular retraction and mild biliary dilatation. There are 2 new lesions at the dome of the liver with similar imaging characteristics. The larger lesion measures 4.3 cm in size (segment VII). The smaller lesion measures 2.2 cm in size located in segment VIII. These both demonstrate slight increased T2 signal intensity and slight decreased T1 signal intensity with a central T2 hyperintense/T1 hypointense focus. There is intense homogeneous enhancement on the arterial phase without washout. There is subsequent enhancement of the central T1 hypointense focus. Findings are highly suggestive of focal nodular hyperplasia. No additional liver lesion is identified. The hepatic and portal veins are patent. The spleen is mildly enlarged no focal splenic lesion is identified. The pancreas, adrenals, and left kidney are unremarkable. There is a probable tiny cysts in the interpolar region of the right kidney. No retroperitoneal lymphadenopathy or ascites is identified in the upper abdomen. MR/MR abdomen wo/w con IMPRESSION: There are 2 liver lesions the dome of the liver with imaging characteristics highly suggestive of focal nodular hyperplasia, as described. However, these are new from the prior study. The location of the lesions high in the dome would make imaging guided biopsy difficult. Close follow-up is recommended. PET/CT scan could also be considered. Electronically signed by: Donnell Laird MD 07/10/2024 08:40 AM [facility]
[2024-07-09] MEDS: gadobutroL 10 ML VIAL IVPUSH (18:25)
== END 2024-07-09 17:06 | disposition home or self-care (01) ==
LOC: HO.MRI 17:05
PROVIDERS: PCP Internal Medicine; Visit Provider Internal Medicine Gastroenterology
DX: K76.89 Other specified diseases of liver (principal)
CPT/HCPCS: 74183; A9585

== ENCOUNTER → 2024-07-09 17:18 | Outpatient (BNV) | payer OTHER, SELFPAY | PROVIDERS: PCP Internal Medicine; Visit Provider Radiology Diagnostic Radiology | DX: K76.9 Liver disease, unspecified (principal) | CPT/HCPCS: 74183 ==

== ENCOUNTER 2024-07-25 13:36 | Outpatient (AMB) | payer OTHER, SELFPAY ==
[2024-07-25 13:41] VITALS: BP 118/68; PULSE 72; RESP 16; TEMP 36.4; O2SAT 97; BMI 34.4
--- NOTE | 2024-07-25 13:41 | MHC.PC.OV ---
Vital Signs 07/25/24 13:41 Height 5 ft 8 in Weight 226 lb BMI 34.4 BP 118/68 Blood Pressure Location Rt brachial Position Sitting Respiration 16 Pulse 72 Pulse Source Pulse Oximeter Temp 97.6 F Temp Source Oral Pulse Oximetry (%) 97 Intake Visit Reasons: HDF-abdominal pain Allergies Penicillins [PENICILLINS] Allergy (Severe, Verified 07/25/24 13:41) RASH Iodinated Contrast Media [Iodinated Contrast Media - IV Dye] Allergy (Intermediate, Verified 07/25/24 13:41) RASH meperidine [From DEMEROL] Allergy (Intermediate, Verified 07/25/24 13:41) RASH aspirin [ASA] Allergy (Mild, Verified 07/25/24 13:41) RASH, N/V tramadol [TRAMADOL] Allergy (Unknown, Verified 07/25/24 13:41) RASH Medication List - Last Reconciled 07/25/24 by Luis Angel Almanza MD carvedilol 3.125 mg PO BID cholecalciferol (vitamin D3) (Vitamin D3) 25 mcg PO DAILY cyclobenzaprine 10 mg (2 x 5 mg) PO TID PRN 30 days magnesium oxide 400 mg PO BEDTIME 30 days mercaptopurine 50 mg PO DAILY ondansetron 4 - 8 mg (0.5 - 1 x 8 mg) PO Q8H PRN pantoprazole 40 mg PO DAILY@0630 prednisone 10 mg PO DAILY riboflavin (vitamin B2) 400 mg PO DAILY 30 days thiamine HCl (vitamin B1) 100 mg PO DAILY 90 days topiramate 50 mg (2 x 25 mg) PO BEDTIME 30 days vitamin A 1 cap PO DAILY zinc acetate (Galzin) mg PO Tobacco use date assessed: 07/25/24 Dental Screening Dental Screen Date: 07/25/24 Did you have a dental visit in the last 12 months?: Yes Did you have a dental problem in the last 6 months where you did not have access to dental care?: No Was dental information given to patient?: Patient has dentist HPI HDF-abdominal pain HPI Details Patient is a 53-year-old female with a past medical history significant of GERD, I GGT 4 related disease, autoimmune liver disease, pancreatitis, depression presented to emergency room with a complaint of severe epigastric pain on 06/25/2024 that required admission for a day patient was discharged on 06/26/2024 Pain started after eating some food, associated with vomiting but no diarrhea fever or chills Her vital signs were stable in the emergency room no leukocytosis was seen Hemoglobin was 13.6 slightly hypokalemia at 3.1 which was corrected LFTs mildly elevated Normal lipase test negative Abdominal CT scan without contrast was done, which showed possibility of partial small-bowel obstruction. She was managed conservatively and diet was slowly advanced from liquid to regular. Patient is established with Gastroenterology Dr. Jacobo and is scheduled to have MRI as an outpatient She is also established with Neurology for management of headache and is taking medication through them She is back to her baseline offer no complaints today She has appointment coming up with gastroenterology in August Complaining of paresthesia both hands when she wakes up in the morning Patient was instructed to start wearing wrist splint at night to see if that alleviate the symptoms Review of Systems - General: No fever no chills - Neurological: No headaches no dizziness - Ear nose throat: No sore throat no hearing difficulty no ear pain - Cardiovascular: No syncope, no chest pain, no palpitations - Gastrointestinal: No nausea vomiting or diarrhea - Endocrine: No polyuria polydipsia no heat intolerance - Genitourinary: No dysuria , no blood in urine Physical Exam General: No acute distress HEENT: No acute findings Neck: Supple, pain present Respiratory system: Able to talk in full sentences, no audible wheeze cardiovascular: S1-S2 regular in rate and rhythm Gastrointestinal: No pain, abdomen is soft nontender Extremities: No new findings SOUND CUTTER: Alert awake oriented x3 motor sensory intact Skin: Normal turgor [facility] Medical History Abnormal LFTs GERD (gastroesophageal reflux disease) Osteoporosis Atypical chest pain Arthritis Hordeolum externum right upper eyelid Difficulty sleeping Depression, major, recurrent Knee pain, right Autoimmune liver disease Headache syndrome Surgical History History of tubal ligation History of esophagogastroduodenoscopy (EGD) H/O colonoscopy History of liver biopsy History of cholecystectomy Hx of appendectomy History of surgery Family History Father CVD (cardiovascular disease) Mother Breast cancer Leukemia CVD (cardiovascular disease) Brother Substance use disorder Brother No problems noted. Sister No problems noted. Son No problems noted. Daughter No problems noted. Daughter No problems noted. Daughter No problems noted. Maternal Aunt Breast cancer Social History Household Members: Children Housing: House Do you presently have visiting nurse or other home services: No Alcohol intake: former Patient Tobacco Use Status: Never used Tobacco e-Cigarette/Vaping Use: Never Used service: No Current occupational status: disabled Cognitive needs: No Hearing needs: No Vision needs: No Questionnaire PHQ-9 Over the last 2 weeks, how often have you been bothered by any of the following problems? 1. Little interest or pleasure in doing things: not at all 2. Feeling down, depressed, or hopeless: not at all 3. Trouble falling or staying asleep, or sleeping too much: several days 4. Feeling tired or having little energy: several days 5. Poor appetite or overeating: not at all 6. Feeling bad about yourself - or that you are a failure or have let yourself or your family down: not at all 7. Trouble concentrating on things, such as reading the newspaper or watching television: several days 8. Moving or speaking so slowly that other people could have noticed. Or the opposite - being so fidgety or restless that you have been moving around a lot more than usual: not at all 9. Thoughts that you would be better off or of hurting yourself in some way: not at all Total score: 3 Depression Screening Interpretation: Negative Depression Screening Done: Yes 35600 - PHQ-9 Billing: Yes Source: Developed by Drs. Donnell Stratton, Viridiana Cho, Adelso Harper and colleagues, with an educational judith from [employer]. Thrive Questionnaire Date Thrive assessed: 07/25/24 I am a: Patient What is your living situation today?: I choose not to answer this question Within the past 12 months, did the food you bought not last and you didn't have the money to get more?: I choose not to answer this question Within the past 12 months, did you worry whether your food would run out before you got money to buy more?: I choose not to answer this question Do you have trouble paying for medicines?: No Do you have trouble getting transportation to medical appointments?: No Do you have trouble paying your heating and electricity bill?: No Do you have trouble taking care of your child, family member or friend?: No Do you have trouble with day-to-day activities such as bathing, preparing meals, shopping, managing finances, etc.?: Yes Are you currently unemployed and looking for a job?: No Are you interested in more education?: I choose not to answer this question Please select the resources that you would like help with: None Currently or been in a relationship where the following occur: I choose not to answer THRIVE Score: 0 AUDIT C Alcohol Use Questionnaire (AUDIT-C) 1. How often do you have a drink containing alcohol?: Never 3. How often do you have six or more drinks on one occasion?: Never Total Score: 0 Score Reviewed/Action Taken: Yes DENIS-7 AMB Questionnaire DENIS-7 Date DENIS - 7 assessed: 07/25/24 Feeling nervous, anxious, or on edge: 1 = Several days Not being able to stop or control worryin = Several days Worrying too much about different things: 1 = Several days Trouble relaxin = Several days Being so restless that it is hard to sit still: 0 = Not at all Becoming easily annoyed or irritable: 0 = Not at all Feeling afraid as if something awful might happen: 0 = Not at all Total DENIS-7 score (0-4 normal; 5-9 mild; 10-14 moderate; 15-21 severe): 4 Source: Developed by Drs. Donnell Stratton, Viridiana Cho, Adelso Harper and colleagues, with an educational judith from [employer]. DENIS-7 Assessment Billing DENIS-7 Assessment Tool: DENIS-7 Assessment 57501 Physical exam (Primary Care) Vital Signs: Last Vital Signs Temp 97.6 F 07/25/24 13:41 Pulse 72 07/25/24 13:41 Resp 16 07/25/24 13:41 BP 118/68 07/25/24 13:41 Pulse Ox 97 07/25/24 13:41 BMI result Body Mass Index 34.4 Tobacco/Smoking Status: Tobacco use Status Tobacco use date assessed 07/25/24 07/25/24 13:42 Patient Tobacco Use Status Never used Tobacco 07/25/24 13:42 e-Cigarette/Vaping Use Never Used 07/25/24 13:42 PHQ-9: PHQ-9 Score PHQ-9: Total score 3 07/25/24 13:52 Depression Screening Interpretation: Negative Thrive Assessment: Date of Thrive Assessment Date Thrive assessed 07/25/24 07/25/24 13:42 Currently or been in a relationship where the following occur: I choose not to answer Coding Level of Care Code Est Pt Level 4 (73159) Diagnoses Hospital discharge follow-up Z09 Autoimmune liver disease K76.89 Headache syndrome G44.89 Liver lesion K76.9 Carpal tunnel syndrome, bilateral G56.03 Additional Codes DENIS-7 Assessment Billing - DENIS-7 Assessment Tool: DENIS-7 Assessment 99209 ([id number]) PHQ-9 - 47749 - PHQ-9 Billing: Yes ([id number]) Assessment & Plan Assessment & Plan (1) Hospital discharge follow-up: Code(s): Z09 - Encounter for follow-up examination after completed treatment for conditions other than malignant neoplasm Category: Medical (2) Autoimmune liver disease: Code(s): K76.89 - Other specified diseases of liver Category: Medical (3) Headache syndrome: Code(s): G44.89 - Other headache syndrome Category: Medical (4) Liver lesion: Code(s): K76.9 - Liver disease, unspecified Category: Medical (5) Carpal tunnel syndrome, bilateral: Code(s): G56.03 - Carpal tunnel syndrome, bilateral upper limbs Category: Medical Plan Patient is a 53-year-old female with a past medical history significant of GERD, I GGT 4 related disease, autoimmune liver disease, pancreatitis, depression presented to emergency room with a complaint of severe epigastric pain on 06/25/2024 that required admission for a day patient was discharged on 06/26/2024 Pain started after eating some food, associated with vomiting but no diarrhea fever or chills Her vital signs were stable in the emergency room no leukocytosis was seen Hemoglobin was 13.6 slightly hypokalemia at 3.1 which was corrected LFTs mildly elevated Normal lipase test negative Abdominal CT scan without contrast was done, which showed possibility of partial small-bowel obstruction. She was managed conservatively and diet was slowly advanced from liquid to regular. Patient is established with Gastroenterology Dr. Jacobo and is scheduled to have MRI as an outpatient It was done last month, she will go over the report with Dr. Jacobo next month She is also established with Neurology for management of headache and is taking medication through them She is back to her baseline offer no complaints today She has appointment coming up with gastroenterology in August Complaining of paresthesia both hands when she wakes up in the morning Patient was instructed to start wearing wrist splint at night to see if that alleviate the symptoms
== END 2024-07-25 14:52 | disposition home or self-care (01) ==
PROVIDERS: PCP Internal Medicine; Visit Provider Internal Medicine
DX: Z09 Encounter for follow-up examination after completed treatment for conditions other than malignant neoplasm (principal); K76.89 Other specified diseases of liver; G44.89 Other headache syndrome; K76.9 Liver disease, unspecified; G56.03 Carpal tunnel syndrome, bilateral upper limbs

== ENCOUNTER → 2024-07-25 13:36 | Outpatient (BNVA) | payer OTHER, SELFPAY | PROVIDERS: PCP Internal Medicine; Visit Provider Internal Medicine | DX: Z09 Encounter for follow-up examination after completed treatment for conditions other than malignant neoplasm (principal); K76.89 Other specified diseases of liver; G44.89 Other headache syndrome; K76.9 Liver disease, unspecified; G56.03 Carpal tunnel syndrome, bilateral upper limbs | CPT/HCPCS: 96127; 99212 ==

== ENCOUNTER 2024-08-15 08:20 | Outpatient (REF) | payer OTHER, SELFPAY ==
--- OUTSIDE RECORDS SUMMARY | 2024-08-15 08:42 | XMS_ITS | Continuity of Care Document ---
Author Organization [facility] ter Address [address] [place] [id number]- Care Team Providers Care Sales Associate Fishing Name Role Phone Archie NAVA, [facility] Primary Care Physician Encounter [facility] Date(s): 07/25/24 - 07/26/[address] [address]- Discharge Disposition: A-D/C Walkout Attending Physician: Not on Staff, Attending MD Admitting Physician: Not on Staff, Admitting MD Referring Physician: Not on Staff, Referring MD Encounter Type: Disch ES Allergies, Adverse Reactions, Alerts Substance Criticality Severity Reaction Reaction Severity Status aspirin dizzyness/diarrhea A ctive traMADol Shortness of breath Active penicillins Active iodinated radiocontrast dyes Active Demerol HCl Shortness of breath Active Immunizations Given and [...] # 120 tablet, 3 Refills, Maintenance, 10/25/15 2:21:26 PM EDT, 9Flava [address] Start Date: 10/25/15 Status: Ordered Quantity: 120.0 Unit: tablet Repeat number: 4 calcium-vitamin D 600 mg-400 intl units oral tablet 1 tablet, By Mouth, 2 times a day, # 180 tablet, 3 Refills, Maintenance, 12/07/14 5:00:32 PM EDT, Tablet, 9[facility]ava [address], 1 tablet By Mouth 2 times a day Start Date: 12/07/14 Status: Ordered Quantity: 180.0 Unit: tablet Repeat number: 4 ferrous sulfate 325 mg oral tablet 1 tablet = 325 mg, By Mouth, Daily, 0 Refills, Maintenance, 08/17/14 3:28:35 PM EST Start Date: 08/17/14 Status: Ordered Repeat number: 1 omeprazole 40 mg oral enteric coated capsule 1 capsule = 40 mg, By Mouth, 2 times a day, # 180 capsule, 3 Refills, Maintenance, 02/01/15 9:22:35 AM EDT, EC Capsule, 9[facility]ava [address] Start Date: 02/01/15 Status: Ordered Quantity: 180.0 Unit: capsule Repeat number: 4 Problem List Condition Confirmation Course Effective Dates Status H ealth Status Informant Autoimmune cholangitis Confirmed Active GERD (gastroesophageal reflux disease) Confirmed Active Immunosuppressed status Confirmed Active Pancreatitis, recurrent Confirmed Active Vital Signs Most recent to oldest [Reference Range]: 1 2 3 Height 173 cm (07/25/24 8:41 PM) Weight 64 kg (07/25/24 8:41 PM) Oxygen Saturation [94-100 %] 99 % (07/26/24 7:34 AM) 100 % (07/26/24 3:51 AM) 97 % (07/25/24 11:18 PM) Pulse Rate [55-90 bpm] 73 bpm (07/26/24 7:34 AM) 66 bpm (07/26/24 3:51 AM) 75 bpm (07/25/24 11:18 PM) Body Mass Index [18.5-24.99 kg/m2] 21.38 kg/m2 (07/25/24 8:41 PM) Blood Pressure [90-138/55-84 mm Hg] 99/70mm Hg (07/26/24 7:34 AM) 123/83mm Hg (07/26/24 3:51 AM) 129/82mm Hg (07/25/24 11:18 PM) Respiratory Rate [16-30 br/min] 18 br/min (07/26/24 7:34 AM) 18 br/min (07/26/24 3:51 AM) 18 br/min (07/25/24 11:18 PM) Temperature [96.8-100.4 DegF] 97.9 DegF (07/26/24 7:34 AM) 98.1 DegF (07/26/24 3:51 AM) 97.7 DegF (07/25/24 11:18 PM) Mode of Delivery (Oxygen) Room air (07/26/24 7:34 AM) Room air (07/25/24 8:41 PM) Blood pressure sites Arm, right (07/26/24 7:34 AM) Arm, left (07/26/24 3:51 AM) Arm, right (07/25/24 11:18 PM) Temperature Route Oral (07/26/24 7:34 AM) Oral (07/26/24 3:51 AM) Oral (07/25/24 11:18 PM) Dry Weight 64 kg (07/25/24 8:41 PM) Weight Obtained Via Standing scale (07/25/24 8:41 PM) Dry Weight Obtained Via Standing scale (07/25/24 8:41 PM) Social History Social History Type Response Smoking Status Never smoker entered on: 05/27/14 Sex Sex Representation Female (finding) Patient Care team information Care Team Personnel Name: Galilea Pierson RN Position: [facility] MR W/ Merge Member Role: Primary Care Nurse Name: Archie NAVA, Luis Angel Position: Reference Physician Member Role: PCP Address: [address] [place] [address]- [place] Telecom: Name: Sasha Oshea Position: [facility] Outreach Member Role: Primary Care Nurse Name: Katie Michael RN Position: [facility] N[place] Office Staff Member Role: Primary Care Nurse Name: Fidelina Blank CNM Position: [facility] Gear Lapper Member Role: Primary Care Nurse Address: [address] [place] [id number] Telecom: Name: Angeli SOSA, [place] Position: S ED RN W/OE and Tasks Member Role: Primary Care Nurse Care Team Related Persons Name: ROYCE FRY Name: SHARA CORTEZ Name: ANGUS LAZO Name: ROXANA CALIX Insurance Providers Guarantor name: NA Health Plan Information #: 1 Payer: [employer] Member Number: [id number] Policy Number: NA Group Number: Health Plan Information #: 2 Payer: [employer] Member Number: [id number] Policy Number: Group Number: NA
[2024-08-15 08:47] LABS: MANUAL DIFF FLAG NO
[2024-08-15 09:31] LABS: INTERNATIONAL NORM RATIO 1.1 (0.9-1.1); Prothrombin Time 12.8 SEC (10.9-12.4)
[2024-08-15 09:33] LABS: Basophils Percent Auto 0.6 % (0-2); Eosinophils Absolute Auto 0.1 X10*3/uL (0.0-0.4); Hematocrit 41.1 % (37.0-47.0); Hemoglobin 13.6 g/dl (12.0-16.0); Imm Gran Abs Auto 0.01 X10*3/uL (0.00-0.03); Imm Gran Pct Auto 0.2 % (0.0-0.4); Lymphocytes Absolute Auto 1.6 X10*3/uL (1.2-4.9); Lymphocytes Percent Auto 33.5 % (20-40); Mean Corpuscular HGB Conc 33.1 g/dl (31.0-35.0); Mean Corpuscular Hemoglobin 32.4 pg (27.0-33.0); Mean Corpuscular Volume 97.9 fL (80.0-98.0); Mean Platelet Volume 11.1 fL (9.4-12.3); Monocytes Absolute Auto 0.4 X10*3/uL (0.1-1.2); Monocytes Percent Auto 8.7 % (2-11); Neutrophils Absolute Auto 2.7 x10*3/uL (2.0-8.3); Red Cell Distribution Width 15.6 % (11.0-16.0); White Blood Count 4.8 X10*3/uL (4.8-10.8)
[2024-08-15 09:34] LABS: Platelet Count 123 X10*3/uL (160-400)
[2024-08-15 10:01] LABS: Alanine Aminotransferase 39 U/L (0-31); Albumin Level 3.6 g/dL (3.5-5.0); Alkaline Phosphatase 91 U/L (39-117); Anion Gap 11 (12-20); Aspartate Amino Transferase 33 U/L (5-31); Bilirubin Total 0.7 mg/dL (0.0-1.0); Blood Urea Nitrogen 12 mg/dL (9-16); Calcium 8.9 mg/dL (8.4-10.2); Carbon Dioxide 27 mmol/L (22-29); Chloride 110 mmol/L (96-108); Estimated Glomerular Filt Rate > 60; Glucose Random 91 mg/dL (60-115); Sodium 144 mmol/L (135-145); Total Protein 7.2 g/dL (6.5-8.0)
== END 2024-08-15 08:21 | disposition home or self-care (01) ==
LOC: HO.LAB 08:20
PROVIDERS: PCP Internal Medicine; Visit Provider Internal Medicine Gastroenterology
DX: E46 Unspecified protein-calorie malnutrition (principal); K75.81 Nonalcoholic steatohepatitis (NASH)
CPT/HCPCS: 36415; 80053; 85025; 85610; 86140

== ENCOUNTER → 2024-11-26 16:26 | Outpatient (BNV) | payer OTHER, SELFPAY | PROVIDERS: PCP Internal Medicine; Visit Provider Radiology Diagnostic Radiology | DX: R93.2 Abnormal findings on diagnostic imaging of liver and biliary tract (principal) | CPT/HCPCS: 74183 ==

== ENCOUNTER 2024-11-26 16:34 | Outpatient (REF) | payer OTHER, SELFPAY ==
--- NOTE | ~2024-11-26 | MR_ITS ---
CLINICAL HISTORY: K76.89 - Other specified diseases of liver --- Additional Notes or Special Instruct ions: surveillance of abn areas seen on prior MRI MR abdomen with and without gadolinium Comparison: MR/OT/AZ - MR ABDOMEN WO/W CON - 07/09/24 17:35 EST Findings: Lesion within the superior right lobe of the liver is again identified. This measures 3.9 x 3.6 cm in size. This is increased T2 signal intensity throughout with central area of diminished T2 signal intensity. The lesion within the more peripheral right lobe of the superior liver of the patient's prior study is no longer identified. The lesion which is identified in the current examination demonstrates central enhancement on the arterial phase imaging. There is subsequent enhancement throughout the majority of the lesion on the portal venous and delayed images. No new liver lesions are identified. Left lobe of the liver is diminutive as before. Main portal vein is patent. Numerous collateral vessels are seen including gastric and esophageal varices. Spleen, pancreas, adrenal glands, and kidneys are unremarkable for acute findings. Gallbladder is not visualized. Small hiatal hernia. Large amount of ingested contents within the stomach. No dilated small bowel. No acute bony lesions. IMPRESSION: Larger liver lesion seen on prior study is unchanged. The size and signal characteristics are not appreciably changed compared to prior study. Smaller liver lesion on prior study is not apparent on this examination. The larger liver lesion remains indeterminate in etiology. Focal nodular hyperplasia can have this appearance. More aggressive lesions are not excluded. Continued close clinical and imaging follow-up suggested. This document has been electronically signed by: Krishna Nuñez MD on 11/27/2024 09:31:45
[2024-11-26] MEDS: gadobutroL 10 ML VIAL IVPUSH (17:05)
== END 2024-11-26 16:35 | disposition home or self-care (01) ==
LOC: HO.MRI 16:34
PROVIDERS: PCP Internal Medicine; Visit Provider Internal Medicine Gastroenterology
DX: K76.89 Other specified diseases of liver (principal)
CPT/HCPCS: 74183; A9585

== ENCOUNTER 2024-12-04 11:47 | Outpatient (AMB) | payer OTHER, SELFPAY ==
--- NOTE | 2024-12-04 12:09 | A.OFFVIS_ITS ---
Vital Signs 12/04/24 12:23 Height 5 ft 8 in Weight 222 lb BMI 33.8 BP 108/66 Blood Pressure Location Rt brachial Position Sitting Pulse 78 Pulse Source Pulse Oximeter Pulse Oximetry (%) 96 Oxygen Delivery Method Room Air Intake Visit Reasons: 4 month f/u Intake Note: Est pt for mgmt of chronic abd pain + abn LFTs. Review MRI results. CC: C.O. frequent abd pain, N+V, diarrhea, lack of appetite, and difficulty sleeping per the associated sx. Pt reports being seen at [facility] but did not feel that she received a positive outcome and is still experiencing the same sx. Pt a lso reports concerns pertaining to motility/digestion in relation to the lack of appetite. Regulatory Coordinator Required: Yes Regulatory Coordinator Services: Regulatory Coordinator Present Regulatory Coordinator Name: Gaurav [id number] Information Interpreted: clinical only Accompanied by: Self / Same As Patient Allergies Penicillins (PENICILLINS) Allergy (Severe, Verified 12/04/24 12:10) RASH Iodinated Contrast Media (Iodinated Contrast Media - IV Dye) Allergy (Intermediate, Verified 12/04/24 12:10) RASH meperidine (From DEMEROL) Allergy (Intermediate, Verified 12/04/24 12:10) RASH aspirin (ASA) Allergy (Mild, Verified 12/04/24 12:10) RASH, N/V tramadol (TRAMADOL) Allergy (Unknown, Verified 12/04/24 12:10) RASH HPI HPI 4 month f/u: Details: 54 y/o f w/ hx of PSC and AIP seen for f/u-- RECAP:from prior notes dx initially in [place] abt 10 yrs ago after pancreatitis dx, had cholecystectomy, bile dcut was accidentally clipped and needed further surgery during this time she became jaundiced, had weight loss and vomiting and eventually dx as having AIH after coming to [place] for further management she had liver biopsy as well she was on chronic low dose pred 5 mg daily, and imuran 50mg tid has been hard to wean her off pred she had EGD and colonoscopy 1 yr prior, colon was normal, EGD with varices, on propranolol says was told she had colitis in the past as well as osteopenia she feels gen malaise issues with constipation, sometimes soft appetite is fair she does have some mild RUQ pain pulsating feels like her body is inflammed she has back pain, and knee, arm pains she has had swollen glands in neck for 4 depression due to multiple deaths in family She had admission to hosptial with flare up of disease, put on steroids LFT abnormal, with raised CRP, AST 200--->20, THen haf further admission with bacteremia from sch[place]ela which per ID is water borne bacteria, repeat MRI 12/2018 with stable appearance, intrahepatic duct dilation, she was having a flare and put on long pred taper other tests; Hep B,C negative CT 2013- hepaticojejunostomy DEXA 2018- osteopenia spine. MRI inpatient- intrahepatic dilation, left. right, CBD normal, no masses or stones CT neck: prominent sub mandibular neck gland EGD : hyperplastic polyps, small varices, hiatal hernia recently she was feeling worse and pred was restarted and imuran stopped and changed to 6 MP At OV 06/2018 she was c/o epigastric pain, malaise with back pain, dysuria and went to ED day after, inaptient CT and UA, were neg for actue findings, CRP elevated but lower than before and trended down. Pred was increased to 20 mg At OV 1 week ago she was continued on 6 MP 75 mg and pred 20 mg she was having burning and itching in vaginal area and thick vaginal d/c she had liver bx--rare IgG4 cells, mild chronic inflammation, portal fibrosis, she had menstrual bleeding after having no periods for months she had back pain as well 08/21, mild lower aboo pain denies n/v appetite is poor she had burning with urine---UA with 2+ blood, no protein she was increased on pred to 20 mg for 4 weeks and 6 MP reduced to 50 mg depressed due to social issues, probs with SSI LFT slowly been coming down on 20 mg pred does have general weakness appetite is poor but admits that pred 20 mg is helping does have hot flashes thinks due to menopause, having some shoulder blade pain for 1 d, tylenol helps admitted with partial small bowel obstrcution 08/2019 she ws having ongoing nausea and abdo pain, given omeprazole 40 mg with carafate Labs 10/19/2019-- TB-nml, AST-41. ALT 74, alk phos 171 Labs 11/2019-- TB--0.6, AST--34, ALT 54, alk phos 130, CRP 0.[address] James pain team and plan was for SI joint injections LFT stable, on 18 mg of pred as well as 6 MP 50 mg referred to cardiology due to palps and chest pressure--nml holter rept LABS: 08/2020-- bili-nml, AST 32, ALT 56, alk phso 133 she had LFt repeated after pred cut down to 17 mg bili-1.1, AST 38, ALT 61, AP-128 DEXA with osteopenia in hips and osteoporosis in spine--reclast was given US 03/2021-- splenomegaly, liver looked good, kidney stone right she went to the ED and had CT scan 08/2021: dilated stomach, ?GOO, thickening of lower esophagus, post surg changes, possible medullary nephrocalcinosis, fibroid EGD 09/2021- gastric polyps, small varices She had COVID 19 infection 10/2021 LFT 10/2021-- bili 0.4, AST-30, ALT 48, alk phos- 89 LFT: 02/2023-- nml LFT --mild elevation ALT CT 2022--- stable appearances of liver and other organs, no new findings CT 11/2023-- nml looking liver, no new pathology 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 VITAL SIGNS:see workflow HEENT: Nonicteric sclerae, PERRLA, EOMI. Oropharynx clear. Moist mucous membranes. Conjunctivae appear well perfused. No thyroid mass. CHEST: Chest wall is nontender. HEART: Regular rate and rhythm without murmurs. LUNGS: Clear to auscultation bilaterally. ABDOMEN: Soft, positive bowel sounds, tender epigastrium, no organomegaly.no flank tenderness SKIN: No rash, no excessive bruising, petechiae, or purpura. NEUROLOGIC: Cranial nerves II-XII intact without motor/sensory deficit. 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 osteopenia--has osteoporosis due to steroid use, ordered reclast, which was given 4. epigastric pain, imaging with liver scarring, chronic suspected IgG [address] RD even though bx not diagnostic but she had been on steroids/6 MP- LFt eventually improved on tapering dose of steroids PLAN: 1/ cont pred 9 mg, and 6 MP 2/ repeat EGD now 3/ repeat dexa in 1-2 yrs, 4/ recheck MRI in 6 months 5/ trial of levsin and metamucil [facility] Medical History Abnormal LFTs GERD (gastroesophageal reflux disease) Osteoporosis Atypical chest pain Arthritis Hordeolum externum right upper eyelid Difficulty sleeping Depression, major, recurrent Knee pain, right Autoimmune liver disease Headache syndrome Surgical History History of tubal ligation History of esophagogastroduodenoscopy (EGD) H/O colonoscopy History of liver biopsy History of cholecystectomy Hx of appendectomy History of surgery Family History Father CVD (cardiovascular disease) Mother Breast cancer Leukemia CVD (cardiovascular disease) Brother Substance use disorder Brother No problems noted. Sister No problems noted. Son No problems noted. Daughter No problems noted. Daughter No problems noted. Daughter No problems noted. Maternal Aunt Breast cancer Social History Household Members: Children Housing: House Do you presently have visiting nurse or other home services: No Alcohol intake: former Patient Tobacco Use Status: Never used Tobacco e-Cigarette/Vaping Use: Never Used service: No Current occupational status: disabled Cognitive needs: No Hearing needs: No Vision needs: No Physical Exam Vital Signs: Last Vital Signs Pulse 78 12/04/24 12:23 BP 108/66 12/04/24 12:23 Pulse Ox 96 12/04/24 12:23 Oxygen Delivery Method Room Air 12/04/24 12:23 BMI result Body Mass Index 33.8 Assessment & Plan Assessment & Plan (1) Autoimmune liver disease: Code(s): K76.89 - Other specified diseases of liver Category: Medical Plan: as above Medications: New hyoscyamine sulfate 0.125 mg PO BID-QID PRN 60 tabs 2RF dyspepsia Coding Level of Care Code Est Pt Level 4 (25176) Diagnoses Autoimmune liver disease K76.89
[2024-12-04 12:23] VITALS: BP 108/66; PULSE 78; O2SAT 96; BMI 33.8
== END 2024-12-04 12:47 | disposition home or self-care (01) ==
LOC: HO.HGI 11:48
PROVIDERS: PCP Internal Medicine; Visit Provider Internal Medicine Gastroenterology
DX: K76.89 Other specified diseases of liver (principal)
CPT/HCPCS: 99214

== ENCOUNTER → 2024-12-04 11:47 | Outpatient (BNVA) | payer OTHER, SELFPAY | PROVIDERS: PCP Internal Medicine; Visit Provider Internal Medicine Gastroenterology | DX: K76.89 Other specified diseases of liver (principal) | CPT/HCPCS: 99212 ==

== ENCOUNTER 2024-12-07 09:06 | Outpatient (REF) | payer OTHER, SELFPAY ==
[2024-12-07 10:15] LABS: Alanine Aminotransferase 35 U/L (0-31); Albumin Level 3.7 g/dL (3.5-5.0); Alkaline Phosphatase 86 U/L (39-117); Anion Gap 11 (12-20); Aspartate Amino Transferase 33 U/L (5-31); Bilirubin Total 0.8 mg/dL (0.0-1.0); Blood Urea Nitrogen 13 mg/dL (9-16); Carbon Dioxide 28 mmol/L (22-29); Chloride 108 mmol/L (96-108); Estimated Glomerular Filt Rate > 60; Glucose Random 89 mg/dL (60-115); Potassium 3.9 mmol/L (3.3-5.1); Sodium 143 mmol/L (135-145); Total Protein 6.8 g/dL (6.5-8.0)
== END 2024-12-07 09:07 | disposition home or self-care (01) ==
LOC: HO.LAB 09:06
PROVIDERS: Visit Provider Internal Medicine Gastroenterology
DX: K75.81 Nonalcoholic steatohepatitis (NASH) (principal)
CPT/HCPCS: 36415; 80053

== ENCOUNTER 2025-03-23 15:26 | Outpatient (AMB) | payer OTHER, SELFPAY ==
--- NOTE | 2025-03-23 15:34 | MHC.PC.OV ---
Vital Signs 03/23/25 15:35 Height 5 ft 8 in Weight 233 lb BMI 35.4 BP 112/74 Blood Pressure Location Lt brachial Position Sitting Pulse 77 Pulse Source Pulse Oximeter Pulse Oximetry (%) 97 Oxygen Delivery Method Room Air Intake Visit Reasons: Annual PE Allergies Penicillins (PENICILLINS) Allergy (Severe, Verified 03/23/25 15:40) RASH Iodinated Contrast Media (Iodinated Contrast Media - IV Dye) Allergy (Intermediate, Verified 03/23/25 15:40) RASH meperidine (From DEMEROL) Allergy (Intermediate, Verified 03/23/25 15:40) RASH aspirin (ASA) Allergy (Mild, Verified 03/23/25 15:40) RASH, N/V tramadol (TRAMADOL) Allergy (Unknown, Verified 03/23/25 15:40) RASH Medication List - Last Reconciled 03/23/25 by Luis Angel Almanza MD carvedilol 3.125 mg PO BID 90 days cholecalciferol (vitamin D3) (Vitamin D3) 25 mcg PO DAILY cyclobenzaprine 10 mg (2 x 5 mg) PO TID PRN 30 days hyoscyamine sulfate 0.125 mg PO BID-QID magnesium oxide 400 mg PO BEDTIME 30 days mercaptopurine 50 mg PO DAILY ondansetron 8 mg PO Q8H PRN pantoprazole 40 mg PO DAILY@0630 prednisone 5 mg PO DAILY prednisone 4 mg (4 x 1 mg) PO DAILY psyllium husk (Metamucil) 1.6 grams (4 x 0.4 gram) PO DAILY riboflavin (vitamin B2) 400 mg PO DAILY 90 days thiamine HCl (vitamin B1) 100 mg PO DAILY 90 days topiramate 50 mg (2 x 25 mg) PO BEDTIME 30 days vitamin A 1 cap PO DAILY zinc acetate (Galzin) 50 mg PO DAILY Tobacco use date assessed: 07/25/24 Dental Screening Dental Screen Date: 07/25/24 HPI Annual PE HPI Details History of Present Illness The patient is a 54-year-old female presenting with a need for a physical examination and evaluation of sleep and anxiety issues. Autoimmune hepatitis: - The patient has chronically elevated liver enzymes and is under the care of a lay up operator. - stable at this time Migraine: - Managed jointly with neurology. Osteoporosis: - Diagnosed condition with no current bone pain. - The last bone density test needs repetition. - No prior consultation with endocrinology discussed during this visit. Osteoarthritis of multiple joints: - Presence of neck pain previously assisted by a neurologist with muscle relaxers. Anxiety: - The patient experiences difficulty with sleep, especially at night. - Describes hot flashes at night possibly related to anxiety. Insomnia: - The patient reports a significant lack of sleep at night and a general feeling of desperation related to sleep issues. Medical History: - Autoimmune hepatitis - Migraine - Osteoporosis - Osteoarthritis of multiple joints - Gastroparesis - Anxiety - Insomnia Social History: - The patient appears to require assistance with daily living activities and has a assistant coach (GENERAL INTERNAL MEDICINE DOCTOR) for 20 hours a week. - the patient asking for more hours, for GENERAL INTERNAL MEDICINE DOCTOR assistance particularly during night-time hours. Health Maintenance - Due for tetanus vaccination. - Encouraged to get a flu vaccine. - Mammogram due; patient already has an appointment. - Bone density test to be repeated due to osteoporosis. [place] [facility] [place] - Current care by gastroenterology and neurology professionals. - Has an OBGYN appointment scheduled in June. Patient Instructions - Follow up with bone density and mammogram appointments. - Scheduled to receive a tetanus vaccine; encouraged to get a flu vaccine at the pharmacy. - Await a new sleep medication (trazodone) prescription to help with insomnia. 50 mg for a week and if needed 2 tabs - GENERAL INTERNAL MEDICINE DOCTOR assistance to be reviewed for additional hours at night; ensure communication with provider for documentation. f/u 3 wks to follow up on sleep med - General: No fever no chills - Ear nose throat: No sore throat no hearing difficulty no ear pain - Cardiovascular: No syncope, no chest pain, no palpitations - Gastrointestinal: No nausea vomiting or diarrhea - Endocrine: No polyuria polydipsia no heat intolerance - Genitourinary: No dysuria - Skin: No new complaints Physical Exam General: Cooperative, healthy appearing, comfortable, no acute distress Orientation: Patient oriented x3 Head: Normal to inspection Ears: Within normal limit visually Nose: Normal external nose present Face and sinus: Normal facial exam Eyes: Appearance normal, extraocular movement intact pupils reactive Neck: Normal visual inspection and supple, patient reports a lot of neck pain, possibly due to a pinched nerve Respiratory: Normal respiratory effort and able to speak in complete sentences. Clear to auscultation, no stridor Cardiovascular: S1 and S2 RRR GI: Normal to inspection. Soft to palpation and some generalize discomfort Skin: Turgor normal, no acute findings, presence of a benign skin tag left side upper Pelvic area Neuro: Patient oriented x3, motor sensory intact, balance intact, tandem pass Extremities: Normal to inspection, no swelling of feet reported . [facility] Medical History Abnormal LFTs GERD (gastroesophageal reflux disease) Osteoporosis Atypical chest pain Arthritis Hordeolum externum right upper eyelid Difficulty sleeping Depression, major, recurrent Knee pain, right Autoimmune liver disease Headache syndrome Surgical History History of tubal ligation History of esophagogastroduodenoscopy (EGD) H/O colonoscopy History of liver biopsy History of cholecystectomy Hx of appendectomy History of surgery Family History Father CVD (cardiovascular disease) Mother Breast cancer Leukemia CVD (cardiovascular disease) Brother Substance use disorder Brother No problems noted. Sister No problems noted. Son No problems noted. Daughter No problems noted. Daughter No problems noted. Daughter No problems noted. Maternal Aunt Breast cancer Social History Household Members: Children Housing: House Do you presently have visiting nurse or other home services: No Alcohol intake: former Patient Tobacco Use Status: Never used Tobacco e-Cigarette/Vaping Use: Never Used service: No Current occupational status: disabled Cognitive needs: No Hearing needs: No Vision needs: No Questionnaire PHQ-9 Over the last 2 weeks, how often have you been bothered by any of the following problems? 1. Little interest or pleasure in doing things: not at all 2. Feeling down, depressed, or hopeless: not at all 3. Trouble falling or staying asleep, or sleeping too much: several days 4. Feeling tired or having little energy: several days 5. Poor appetite or overeating: not at all 6. Feeling bad about yourself - or that you are a failure or have let yourself or your family down: not at all 7. Trouble concentrating on things, such as reading the newspaper or watching television: several days 8. Moving or speaking so slowly that other people could have noticed. Or the opposite - being so fidgety or restless that you have been moving around a lot more than usual: not at all 9. Thoughts that you would be better off or of hurting yourself in some way: not at all Total score: 3 Depression Screening Interpretation: Negative Depression Screening Done: Yes 08046 - PHQ-9 Billing: Yes Source: Developed by Drs. Donnell Stratton, Viridiana Cho, Adelso Harper and colleagues, with an educational judith from [employer]. Thrive Questionnaire Date Thrive assessed: 07/18/24 I am a: Patient What is your living situation today?: I choose not to answer this question Within the past 12 months, did the food you bought not last and you didn't have the money to get more?: I choose not to answer this question Within the past 12 months, did you worry whether your food would run out before you got money to buy more?: I choose not to answer this question Do you have trouble paying for medicines?: No Do you have trouble getting transportation to medical appointments?: No Do you have trouble paying your heating and electricity bill?: No Do you have trouble taking care of your child, family member or friend?: No Do you have trouble with day-to-day activities such as bathing, preparing meals, shopping, managing finances, etc.?: Yes Are you currently unemployed and looking for a job?: No Are you interested in more education?: I choose not to answer this question Please select the resources that you would like help with: None Currently or been in a relationship where the following occur: I choose not to answer THRIVE Score: 0 AUDIT C Alcohol Use Questionnaire (AUDIT-C) 1. How often do you have a drink containing alcohol?: Never 3. How often do you have six or more drinks on one occasion?: Never Total Score: 0 DENIS-7 AMB Questionnaire DENIS-7 Date DENIS - 7 assessed: 07/25/24 Feeling nervous, anxious, or on edge: 1 = Several days Not being able to stop or control worryin = Several days Worrying too much about different things: 1 = Several days Trouble relaxin = Several days Being so restless that it is hard to sit still: 0 = Not at all Becoming easily annoyed or irritable: 0 = Not at all Feeling afraid as if something awful might happen: 0 = Not at all Total DENIS-7 score (0-4 normal; 5-9 mild; 10-14 moderate; 15-21 severe): 4 Source: Developed by Drs. Donnell Stratton, Viridiana Cho, Adelso Harper and colleagues, with an educational judith from [employer]. DENIS-7 Assessment Billing DENIS-7 Assessment Tool: DENIS-7 Assessment 03259 Physical exam (Primary Care) Vital Signs: Last Vital Signs Pulse 77 03/23/25 15:35 BP 112/74 03/23/25 15:35 Pulse Ox 97 03/23/25 15:35 Oxygen Delivery Method Room Air 03/23/25 15:35 BMI result Body Mass Index 35.4 Tobacco/Smoking Status: Tobacco use Status Tobacco use date assessed 07/25/24 03/23/25 15:36 Patient Tobacco Use Status Never used Tobacco 03/23/25 15:36 e-Cigarette/Vaping Use Never Used 03/23/25 15:36 PHQ-9: PHQ-9 Score PHQ-9: Total score 3 03/23/25 16:52 Depression Screening Interpretation: Negative Thrive Assessment: Date of Thrive Assessment Date Thrive assessed 07/18/24 03/23/25 15:36 Currently or been in a relationship where the following occur: I choose not to answer Immunizations Boostrix Tdap 2.5 Lf unit-8 mcg-5 Lf/0.5 mL intramuscular syringe Performing Provider: Luis Angel Almanza MD Performing Location: [facility] [place] [facility] Administered by: Jarod Gray CMA on 03/23/25 16:53 Dose Route Admin Location Dispensed Lot Number Expiration Date [facility] Concaver 0.5 mL IM Right Deltoid 0.5 mL [id number] 08/04/26 [id number] Protection Plus Total Dispensed Waste 0.5 mL 0 % VIS Given Date VIS Provided VIS Publication Date 03/23/25 Single Vaccine 21 Eligibility Eligibility Date Funding Source Not [facility] Eligible 03/23/25 Private Coding Level of Care Code Est Pt Level 4 (30650) Est Pt Prev Care 40-64y(74032) Diagnoses Encounter for general adult medical examination with abnormal findings Z00.01 Other osteoporosis, unspecified pathological fracture presence M81.8 Osteoporosis type: other Presence of current pathological fracture: unspecified Chronic vertigo R42 Difficulty sleeping G47.9 Recurrent major depressive disorder, in partial remission F33.41 Active/Remission status: in partial remission Autoimmune liver disease K76.89 Migraine without aura and without status migrainosus, not intractable G43.009 Intractability: not intractable Status migrainosus presence: without status migrainosus Additional Codes DENIS-7 Assessment Billing - DENIS-7 Assessment Tool: DENIS-7 Assessment 32474 ([id number]) PHQ-9 - 93286 - PHQ-9 Billing: Yes ([id number]) Assessment & Plan Assessment & Plan (1) Encounter for general adult medical examination with abnormal findings: Code(s): Z00.01 - Encounter for general adult medical examination with abnormal findings Category: Medical (2) Osteoporosis: Code(s): M81.0 - Age-related osteoporosis without current pathological fracture Category: Medical Qualifiers: Osteoporosis type: other Presence of current pathological fracture: unspecified Qualified Code(s): M81.8 - Other osteoporosis without current pathological fracture (3) Chronic vertigo: Code(s): R42 - Dizziness and giddiness Category: Medical (4) Difficulty sleeping: Code(s): G47.9 - Sleep disorder, unspecified Category: Medical (5) Depression, major, recurrent: Code(s): F33.9 - Major depressive disorder, recurrent, unspecified Category: Medical Qualifiers: Active/Remission status: in partial remission Qualified Code(s): F33.41 - Major depressive disorder, recurrent, in partial remission (6) Autoimmune liver disease: Code(s): K76.89 - Other specified diseases of liver Category: Medical (7) Migraine without aura: Comment: ? cervicogenic Code(s): G43.009 - Migraine without aura, not intractable, without status migrainosus Category: Medical Qualifiers: Intractability: not intractable Status migrainosus presence: without status migrainosus Qualified Code(s): G43.009 - Migraine without aura, not intractable, without status migrainosus Plan History of Present Illness The patient is a 54-year-old female presenting with a need for a physical examination and evaluation of sleep and anxiety issues. Autoimmune hepatitis: - The patient has chronically elevated liver enzymes and is under the care of a lay up operator. - stable at this time Migraine: - Managed jointly with neurology. Osteoporosis: - Diagnosed condition with no current bone pain. - The last bone density test needs repetition. - No prior consultation with endocrinology discussed during this visit. Osteoarthritis of multiple joints: - Presence of neck pain previously assisted by a neurologist with muscle relaxers. Anxiety: - The patient experiences difficulty with sleep, especially at night. - Describes hot flashes at night possibly related to anxiety. Insomnia: - The patient reports a significant lack of sleep at night and a general feeling of desperation related to sleep issues. Medical History: - Autoimmune hepatitis - Migraine - Osteoporosis - Osteoarthritis of multiple joints - Gastroparesis - Anxiety - Insomnia Social History: - The patient appears to require assistance with daily living activities and has a assistant coach (GENERAL INTERNAL MEDICINE DOCTOR) for 20 hours a week. - the patient asking for more hours, for GENERAL INTERNAL MEDICINE DOCTOR assistance particularly during night-time hours. Health Maintenance - Due for tetanus vaccination. - Encouraged to get a flu vaccine. - Mammogram due; patient already has an appointment. - Bone density test to be repeated due to osteoporosis. [place] - Current care by gastroenterology and neurology professionals. - Has an OBGYN appointment scheduled in June. Patient Instructions - Follow up with bone density and mammogram appointments. - Scheduled to receive a tetanus vaccine; encouraged to get a flu vaccine at the pharmacy. - Await a new sleep medication (trazodone) prescription to help with insomnia. 50 mg for a week and if needed 2 tabs - GENERAL INTERNAL MEDICINE DOCTOR assistance to be reviewed for additional hours at night; ensure communication with provider for documentation. f/u 3 wks to follow up on sleep med . Orders: Orders XR DEXA axial skeleton 03/23/25 M81.0 - Age-related osteoporosis without current pathological fracture, Z12.31 - Encounter for screening mammogram for malignant neoplasm of breast MM tomosynthesis screening BI 03/23/25 M81.0 - Age-related osteoporosis without current pathological fracture, Z12.31 - Encounter for screening mammogram for malignant neoplasm of breast TDaP Immunization 03/23/25 Z23 - Encounter for immunization Medications: New trazodone 50 mg PO BEDTIME PRN 30 tabs 0RF sleep
[2025-03-23 15:35] VITALS: BP 112/74; PULSE 77; O2SAT 97; BMI 35.4
== END 2025-03-23 16:15 | disposition home or self-care (01) ==
LOC: HO.HMCC 15:27
PROVIDERS: PCP Internal Medicine; Visit Provider Internal Medicine
DX: Z23 Encounter for immunization (principal)

== ENCOUNTER → 2025-03-23 15:26 | Outpatient (BNVA) | payer OTHER, SELFPAY | PROVIDERS: PCP Internal Medicine; Visit Provider Internal Medicine | DX: Z00.01 Encounter for general adult medical examination with abnormal findings (principal); K75.4 Autoimmune hepatitis; F41.9 Anxiety disorder, unspecified; G47.00 Insomnia, unspecified; M81.8 Other osteoporosis without current pathological fracture; R42 Dizziness and giddiness; G47.9 Sleep disorder, unspecified; F33.41 Major depressive disorder, recurrent, in partial remission; K76.89 Other specified diseases of liver; G43.009 Migraine without aura, not intractable, without status migrainosus; Z23 Encounter for immunization | CPT/HCPCS: 90471; 90715; 96127; 99212; 99396 ==

== ENCOUNTER 2025-03-29 05:42 | Day surgery (SDC) | payer OTHER, SELFPAY ==
--- NOTE | 2025-03-14 11:44 | HO.ANESPROP2 ---
Documented by User: Geena Bass NP 03/22/25 12:18 HPI - Anesthesia Eval Consult details Narrative: 54yo M for Upper Endoscopy, 03/29/25 s/p same 04/2024 with TIVA Prednisone daily for autoimmune liver disease PMFSH Active Problems Active Problems: All Active Problems Carpal tunnel syndrome, bilateral (Acute) Liver lesion (Acute) Annual physical exam (Acute) Encounter for routine gynecological examination (Acute) Osteoporosis (Acute) Malnutrition (Acute) Abnormal EKG (Acute) Chest pain (Acute) Headache (Acute) Hemifacial spasm of left side of face (Acute) Hospital discharge follow-up (Acute) Post-COVID syndrome (Acute) Pain in finger of left hand (Acute) COVID-19 virus infection (Acute) Hypoesthesia (Acute) Cervicalgia (Acute) Migraine without aura (Acute) Palpitations (Acute) Non-cardiac chest pain (Acute) Right knee pain (Acute) Primary osteoarthritis of right knee (Acute) History of dysuria (Acute) Steroid long-term use (Acute) Breast screening (Acute) Right knee pain (Acute) Women's annual routine gynecological examination (Acute) Vaginal itching (Acute) Cervical cancer screening (Acute) Hospital discharge follow-up (Acute) Gastroparesis (Acute) Chronic esophagitis (Acute) Gastritis (Acute) Gastric bezoar (Acute) Fracture of distal phalanx of left ring finger (Acute) Hordeolum externum right upper eyelid (Acute) Difficulty sleeping (Acute) Depression, major, recurrent (Acute) Knee pain, right (Acute) Autoimmune liver disease (Acute) Headache syndrome (Acute) Past Medical History Medical History Abnormal LFTs GERD (gastroesophageal reflux disease) Osteoporosis Atypical chest pain Arthritis Hordeolum externum right upper eyelid Difficulty sleeping Depression, major, recurrent Knee pain, right Autoimmune liver disease Headache syndrome Family History Family History Father CVD (cardiovascular disease) Mother Breast cancer Leukemia CVD (cardiovascular disease) Brother Substance use disorder Brother No problems noted. Sister No problems noted. Son No problems noted. Daughter No problems noted. Daughter No problems noted. Daughter No problems noted. Maternal Aunt Breast cancer Family history of problems with anesthesia: No Surgical History Surgical History History of tubal ligation History of esophagogastroduodenoscopy (EGD) H/O colonoscopy History of liver biopsy History of cholecystectomy Hx of appendectomy History of surgery History of Problems with Anesthesia: No Social History Social History Household Members: Children Housing: House Do you presently have visiting nurse or other home services: No Alcohol intake: former Patient Tobacco Use Status: Never used Tobacco e-Cigarette/Vaping Use: Never Used Use of substances other than those prescribed or required for medical reasons: No Advance Directives: No Advance Directives Information Provided: Yes service: No Current occupational status: disabled Cognitive needs: No Hearing needs: No Vision needs: No Meds Allergies Allergy/AdvReac Type Severity Reaction Status Date / Time Penicillins (PENICILLINS) Allergy Severe RASH Verified 03/23/25 15:40 Iodinated Contrast Media Allergy Intermediate RASH Verified 03/23/25 15:40 (Iodinated Contrast Media - IV Dye) meperidine (From DEMEROL) Allergy Intermediate RASH Verified 03/23/25 15:40 aspirin (ASA) Allergy Mild RASH, N/V Verified 03/23/25 15:40 tramadol (TRAMADOL) Allergy Unknown RASH Verified 03/23/25 15:40 Exam Pertinent Lab Results Pertinent Lab Results: Laboratory Tests 12/07/24 09:19 Sodium 143 Potassium 3.9 Chloride 108 Carbon Dioxide 28 BUN 13 Creatinine 0.76 Assessment and Plan Assessment Anesthesia Assessment: Chart Reviewed Final Anesthetic Review Family History of Problems with Anesthesia: No History of Problems with Anesthesia: No Documented by User: Nicole Scott MD 03/29/25 08:08 [facility] Past Medical History Medical History Abnormal LFTs GERD (gastroesophageal reflux disease) Osteoporosis Atypical chest pain Arthritis Hordeolum externum right upper eyelid Difficulty sleeping Depression, major, recurrent Knee pain, right Autoimmune liver disease Headache syndrome Family History Family History Father CVD (cardiovascular disease) Mother Breast cancer Leukemia CVD (cardiovascular disease) Brother Substance use disorder Brother No problems noted. Sister No problems noted. Son No problems noted. Daughter No problems noted. Daughter No problems noted. Daughter No problems noted. Maternal Aunt Breast cancer Surgical History Surgical History History of tubal ligation History of esophagogastroduodenoscopy (EGD) H/O colonoscopy History of liver biopsy History of cholecystectomy Hx of appendectomy History of surgery Social History Social History Household Members: Children Housing: House Do you presently have visiting nurse or other home services: No Alcohol intake: former Patient Tobacco Use Status: Never used Tobacco e-Cigarette/Vaping Use: Never Used Use of substances other than those prescribed or required for medical reasons: No Advance Directives: No Advance Directives Information Provided: Yes service: No Current occupational status: disabled Cognitive needs: No Hearing needs: No Vision needs: No Meds Allergies Allergy/AdvReac Type Severity Reaction Status Date / Time Penicillins (PENICILLINS) Allergy Severe RASH Verified 03/23/25 15:40 Iodinated Contrast Media Allergy Intermediate RASH Verified 03/23/25 15:40 (Iodinated Contrast Media - IV Dye) meperidine (From DEMEROL) Allergy Intermediate RASH Verified 03/23/25 15:40 aspirin (ASA) Allergy Mild RASH, N/V Verified 03/23/25 15:40 tramadol (TRAMADOL) Allergy Unknown RASH Verified 03/23/25 15:40 Exam Airway Mallampati Class: II TM Dist: >3cm Neck ROM: Full Heart: rrr Lungs: cta Assessment and Plan Assessment Anesthesia Assessment: Anesthesia Plan Discussed Final Anesthetic Review NPO: Yes ASA Class: III Final Preanesthetic Review: No Changes in Pt Med Stat, Meds/Allgs Chart Reviewed, Consent Obtained/Reviewed and Anes Risks/Benef Reviewed Patient Risk: Intermediate Procedure Risk: Low Anesthetic Plan Anesthetic Plan: MAC: and Agree w/ Assess. and Plan Disposition: Standard PACU
[2025-03-27 12:56] VITALS: BMI 35.4
[2025-03-29 06:36] VITALS: BP 152/84; PULSE 81; RESP 16; TEMP 36.4; O2SAT 100
[2025-03-29] MEDS: Lactated Ringers 1,000 ML 100 ML IVCONT (06:42)
--- NOTE | 2025-03-29 06:42 | MHC.SHP ---
Pre-Procedural Eval Section A - 24 Hr Update-Section A only Date of Service: 03/29/25 Section B - Complete if H&P > 30 days Chief Complaint: Dysphagia, unspecified Relevant Family History (Specify if Yes): No Relevant Social History: None Present Medications: see Short Stay Collaborative assessment Medical History: Significant History ( Abnormal LFTs GERD (gastroesophageal reflux disease) Osteoporosis Atypical chest pain Arthritis Hordeolum externum right upper eyelid Difficulty sleeping Depression, major, recurrent Knee pain, right Autoimmune liver disease Headache syndrome) History of Previous Operations: Relevant previous surgery/procedure and date(s) (History of tubal ligation History of esophagogastroduodenoscopy (EGD) H/O colonoscopy History of liver biopsy History of cholecystectomy Hx of appendectomy History of surgery) Allergies: Allergies Allergy/AdvReac Type Severity Reaction Status Date / Time Penicillins (PENICILLINS) Allergy Severe RASH Verified 03/23/25 15:40 Iodinated Contrast Media Allergy Intermediate RASH Verified 03/23/25 15:40 (Iodinated Contrast Media - IV Dye) meperidine (From DEMEROL) Allergy Intermediate RASH Verified 03/23/25 15:40 aspirin (ASA) Allergy Mild RASH, N/V Verified 03/23/25 15:40 tramadol (TRAMADOL) Allergy Unknown RASH Verified 03/23/25 15:40 Review of Systems Sugical H&P ROS: Negative: Constitution, Cardiovascular, Respiratory, Neurological, Psychiatric, Hem-Onc, Allergic/Immunologic, Gastrointestinal, Genitourinary, Musculoskeletal, Integumentary, Endocrine and Eyes/Ears/Nose/Throat Exam Surgical H&P Exam: Normal: HEENT, Normal: Heart, Normal: Lungs, Normal: Extremities, Normal: Abdomen, Normal: Skin and Normal: Neurological Plan Diagnosis/Plan: Unchanged I have reviewed the history and physical and performed a pertinent physical examination on my patient. No changes have occurred unless specified. Time Spent With Patient Time: Total time managing care of this patient today ____ minutes.
[2025-03-29 07:03] LABS: Hematocrit 37.7 % (37.0-47.0); Hemoglobin 12.3 g/dl (12.0-16.0); Mean Corpuscular HGB Conc 32.6 g/dl (31.0-35.0); Mean Corpuscular Hemoglobin 31.9 pg (27.0-33.0); Mean Corpuscular Volume 97.7 fL (80.0-98.0); NRBC Abs Auto 0.000 X10*3/uL (0.0-0.012); NRBC Pct Auto 0.0 /100WBC (0.0-0.2); Platelet Count 93 X10*3/uL (160-400); Red Blood Count 3.86 X10*6/uL (4.20-5.50); White Blood Count 4.6 X10*3/uL (4.8-10.8)
[2025-03-29 07:05] VITALS: BMI 35.4
[2025-03-29 07:19] LABS: INTERNATIONAL NORM RATIO 1.1 (0.9-1.1); Prothrombin Time 13.1 SEC (10.9-12.4)
--- NOTE | 2025-03-29 08:00 | W.PM.OPN ---
Operative Note Operative Note Date of Service: 03/29/25 Narrative: Procedure Description: EGD Indication: dysphagia and abdominal bloating Anesthesia: MAC FLEXIBLE TRANSORAL UPPER GASTROINTESTINAL ENDOSCOPY UPPER ENDOSCOPY Consent: Indications for the procedure and potential complications of bleeding, perforation, reaction to medications and missed diagnosis were discussed with the patient and informed consent was obtained. Instrument: Olympus GIF H 190 J mid size upper endoscope Monitoring: Vital signs and clinical assessment, continuous EKG monitoring, Pulse oximetry, Carbon Dioxide monitoring and blood pressure monitoring were done throughout the procedure. Procedure: The patient was placed in the left lateral decubitis position and pre-procedure medications were administered and a bite block was placed. The endoscope was inserted into the mouth and advanced under direct vision to the third part of duodenum. A careful inspection was made as the upper endoscope was withdrawn including a retroflexed examination of the proximal stomach; Findings and interventions are described below. Findings: Larynx:normal Esophagus: GE junction at 33 cm, diaphragm hiatus at 36 cm consistent with 3 cm hiatal hernia, . Grade II varices noted, 3 columns which collapsed with air insufflation, one varix had some red diaz so 2 bands applied with good collapse of cords Stomach: Mild gastric erythema chacho in proximal stomach body, there were several inflammed polypoid lesions which were 10-12 mm and removed with cold snare in the proximal stomach. Biopsies were also obtained. Grade 2 flap valve on retroflexed examination of the cardia. no gastric varices seen Small bowel: Normal, bx taken including for disaccharidases Intervention: Biopsies as noted above, snare polypectomy, variceal banding Impression and Post Procedure Diagnosis: Endoscopy Findings: esophageal varices gastritis polyps hiatal hernia PLAN: repeat EGD in 4-6 weeks cont low dose carvedilol and add low dose statin
[2025-03-29 08:04] VITALS: BP 109/70; PULSE 80; RESP 12; TEMP 36.5; O2SAT 98
[2025-03-29 08:14] VITALS: BP 133/88; PULSE 86; RESP 16; O2SAT 99
[2025-03-29 08:24] VITALS: BP 134/86; PULSE 86; RESP 16; O2SAT 100
[2025-03-29 08:30] VITALS: BP 146/80; PULSE 87; RESP 18; O2SAT 100
[2025-03-29 08:32] VITALS: BP 147/87; PULSE 83; RESP 18; TEMP 36.4; O2SAT 100
[2025-04-04 05:34] LABS: Lactase 4.5 (15.0-45.5); Maltase 264.9 (100.0-224.4); Palatinase 21.1 (5.0-26.3); Sucrase 75.3 (25.0-69.9)
== END 2025-03-29 09:00 | disposition home or self-care (01) ==
PROVIDERS: Nurse Practitioner; PCP Internal Medicine; Visit Provider Internal Medicine Gastroenterology
PROC: 0DJ08ZZ Inspection of Upper Intestinal Tract, Via Natural or Artificial Opening Endoscopic (ICD-10-PCS; CPT 43235; principal; 2025-03-29 07:30)
DX: R13.10 Dysphagia, unspecified (principal); K21.9 Gastro-esophageal reflux disease without esophagitis; G89.29 Other chronic pain; I85.01 Esophageal varices with bleeding; K29.70 Gastritis, unspecified, without bleeding; K31.7 Polyp of stomach and duodenum; K44.9 Diaphragmatic hernia without obstruction or gangrene; K75.4 Autoimmune hepatitis; G44.89 Other headache syndrome; F33.9 Major depressive disorder, recurrent, unspecified; Z88.0 Allergy status to penicillin; Z91.041 Radiographic dye allergy status; Z88.6 Allergy status to analgesic agent; Z88.5 Allergy status to narcotic agent; Z90.49 Acquired absence of other specified parts of digestive tract
CPT/HCPCS: 43251; 43239; 43244; 36415; 82657; 85027; 85610; 88305; 88313; 88342; J2003; J2704

== ENCOUNTER → 2025-03-29 05:42 | Outpatient (BNV) | payer OTHER, SELFPAY | PROVIDERS: PCP Internal Medicine; Visit Provider Internal Medicine Gastroenterology | DX: I85.00 Esophageal varices without bleeding (principal); K29.70 Gastritis, unspecified, without bleeding; K31.7 Polyp of stomach and duodenum | CPT/HCPCS: 43244; 43251 ==

== ENCOUNTER 2025-03-30 10:40 | Emergency (ER) | payer OTHER, SELFPAY ==
--- NOTE | ~2025-03-30 | CT_ITS ---
EXAMINATION: CT CHEST WITHOUT IV CONTRAST INDICATION: s/p upper endo, chest pain, ?perf COMPARISON: Previous chest CT April 2019, CT the abdomen and pelvis most recently June 2024 and MR of the abdomen most recent November 2024 TECHNIQUE: Helical CT scan of the chest was performed without intravenous contrast. Coronal and sagittal reformatted images were generated and reviewed. This CT exam was performed with one or more of the following dose reduction techniques: automated exposure control, adjustment of the mA and/or kV according to patient size, use of iterative reconstruction technique. DLP: 305 mGy-cm CHEST: THYROID: 1 cm nodule in the right lower lobe of the thyroid gland. No left thyroid nodules seen. LUNGS: The lungs are clear. MEDIASTINUM: There is a small esophageal hernia. There is oral contrast seen in the esophagus. There is slight irregularity of the oral contrast in the mid thoracic esophagus just below the deangelo with outpouching to the right for example axial image 59 series 6, and coronal reconstructed image 55 series 9. No extravasated oral contrast is seen. No pneumomediastinum or fluid in the mediastinum is seen. ELLIS: Evaluation of the hilar regions is limited by lack of intravenous contrast material. CARDIOVASCULATURE: The heart is normal in size. There is no pericardial effusion. The thoracic aorta is normal in caliber. DEGREE OF CORONARY CALCIFICATION: none PLEURA: There is no pleural effusion. No pneumothorax. MAIN AIRWAYS: The mainstem bronchi and proximal branches are patent. AXILLA: There are small bilateral axillary lymph nodes. No enlarged lymph nodes. BONES AND SOFT TISSUES: Degenerative changes of the spine. UPPER ABDOMEN: The gallbladder has been removed. There are atrophic changes of the left lobe of the liver. There is pneumobilia seen. This is similar to prior abdominal CT scan. Liver lesion(s) seen by MRI in the high right lobe segment 7 and 8 not appreciated. The spleen is not completely imaged but appears dominant similar to previous exams. CT/CT chest wo IV con IMPRESSION: Small esophageal hernia. Irregular appearance of oral contrast in the mid thoracic esophagus with outpouching on the right. Cannot exclude nontransmural injury to the wall of the esophagus in this region. No extravasated oral contrast or mediastinal fluid or air to confirm perforation. Consider follow-up barium swallow or chest CT if clinically warranted. 1 cm right thyroid nodule. Stable upper abdominal findings Electronically signed by: Nayana Rivera MD 03/30/2025 01:37 PM EDT
--- NOTE | 2025-03-30 10:44 | ECG_ITS ---
Test Reason : CP Blood Pressure : */* mmHG Vent. Rate : 103 BPM Atrial Rate : 103 BPM P-R Int : 132 ms QRS Dur : 132 ms QT Int : 402 ms P-R-T Axes : 13 131 -2 degrees QTcB Int : 526 ms Sinus tachycardia Right bundle branch block Left posterior fascicular block Bifascicular block Cannot rule out Inferior infarct , age undetermined Abnormal ECG When compared with ECG of 01-May-2023 21:06, Left posterior fascicular block is now Present Referred By: Yusuf Fields Electronically Signed By: Ta Concepcion
[2025-03-30 11:02] VITALS: BP 128/82; PULSE 95; RESP 18; TEMP 36.5; O2SAT 99; BMI 34.5
--- NOTE | 2025-03-30 11:07 | ED_ITS ---
HPI - Chest Pain General Chief Complaint: Chest Pain Stated Complaint: Recent Endoscopy- Difficulty breathing, Chest Pain Time Seen by Provider: 03/30/25 11:13 History of Present Illness ED Provider: Miguel Denton MD HPI narrative: 54-year-old female with endoscopy, upper yesterday she reports was uncomplicated other than tell him you she awoke from the procedure with right thoracic paraspinal discomfort. She woke this morning felt as if her throat was slightly irritated and she was nauseated had some discomfort when swallowing a small bite of a sandwich and drinking coffee and water. No vomiting. Denies GI bleeding Related Data Previous Rx's ?Medication ?Instructions ?Recorded thiamine HCl (vitamin B1) 100 mg 100 mg PO DAILY 90 da ys #90 tabs 08/10/23 tablet pantoprazole 40 mg tablet,delayed 40 mg PO DAILY@0630 #90 tabs 09/08/24 release topiramate 25 mg tablet 50 mg (2 x 25 mg) PO BEDTIME 30 11/20/24 days #120 tabs riboflavin (vitamin B2) 400 mg 400 mg PO DAILY 90 days #90 tabs 11/22/24 tablet carvedilol 3.125 mg tablet 3.125 mg PO BID 90 days #18 0 tabs 11/30/24 psyllium husk 0.4 gram capsule 1.6 g (4 x 0.4 gram) PO DAILY #180 12/04/24 (Metamucil) caps zinc acetate 50 mg (zinc) capsule 50 mg PO DAILY #30 c aps 12/20/24 (Galzin) ondansetron 8 mg disintegrating 8 mg PO Q8H PRN for tablet nausea/vomiting #30 ea cyclobenzaprine 5 mg tablet 10 mg (2 x 5 mg) PO TID [place] N muscle 01/24/25 spasm 30 days #120 tabs hyoscyamine sulfate 0.125 mg 0.125 mg PO BID-QID for 0 01/31/25 disintegrating tablet indigestion #60 tabs mercaptopurine 50 mg tablet 50 mg PO DAILY #30 tabs cholecalciferol (vitamin D3) 25 25 mcg PO DAILY #90 ca ps 02/19/25 mcg (1,000 unit) capsule (Vitamin D3) prednisone 1 mg tablet 4 mg (4 x 1 mg) PO DAILY #12 0 tabs 03/15/25 prednisone 5 mg tablet 5 mg PO DAILY #30 tabs 03/15 trazodone 50 mg tablet 50 mg PO BEDTIME PRN sleep # 30 tabs 03/23/25 magnesium oxide 400 mg (241.3 mg 400 mg PO BEDTIME #30 tabs 03/27/25 magnesium) tablet vitamin A 3,000 mcg (10,000 unit) 1 cap PO DAILY #90 c aps 03/28/25 capsule rosuvastatin 5 mg tablet 5 mg PO DAILY #30 tabs 03/29 Magic Mouthwash 30 ml PO QID PRN esophageal spasm 03/30/25 Diphen/Lido/Antacid 1:1:1 240 mL #240 mL suspension sucralfate 100 mg/mL oral 7.5 ml PO QID 4 days #120 mL 03/30/25 suspension Allergies Allergy/AdvReac Type Severity Reaction Status Date / Time Penicillins (PENICILLINS) Allergy Severe RASH Verified 03/30/25 11:04 Iodinated Contrast Media Allergy Intermediate RASH Verified 03/30/25 11:04 (Iodinated Contrast Media - IV Dye) meperidine (From DEMEROL) Allergy Intermediate RASH Verified 03/30/25 11:04 aspirin (ASA) Allergy Mild RASH, N/V Verified 03/30/25 11:04 tramadol (TRAMADOL) Allergy Unknown RASH Verified 03/30/25 11:04 [facility] Past Medical History Medical History Abnormal LFTs GERD (gastroesophageal reflux disease) Osteoporosis Atypical chest pain Arthritis Hordeolum externum right upper eyelid Difficulty sleeping Depression, major, recurrent Knee pain, right Autoimmune liver disease Headache syndrome Surgical History History of tubal ligation History of esophagogastroduodenoscopy (EGD) H/O colonoscopy History of liver biopsy History of cholecystectomy Hx of appendectomy History of surgery Family History Family History Father CVD (cardiovascular disease) Mother Breast cancer Leukemia CVD (cardiovascular disease) Brother Substance use disorder Brother No problems noted. Sister No problems noted. Son No problems noted. Daughter No problems noted. Daughter No problems noted. Daughter No problems noted. Maternal Aunt Breast cancer Social History Social History Household Members: Children Housing: House Do you presently have visiting nurse or other home services: No Alcohol intake: former Patient Tobacco Use Status: Never used Tobacco e-Cigarette/Vaping Use: Never Used Advance Directives: No Advance Directives Information Provided: Yes service: No Current occupational status: disabled Cognitive needs: No Hearing needs: No Vision needs: No Physical Exam 2 Exam: Exam: EXAM: Gen: Alert, awake, well appearing, well hydrated. Head: Atraumatic Eyes: Anicteric, Normal conjunctiva. ENT: Moist mucosa, no pallor. ? Neck: Supple. Skin: ?No observable rash or bruising on exposed or examined skin Respiratory: Breathing comfortably, No distress.Clear to auscultation bilaterally, symmetric chest expansion, No wheeze, rales, ronchi. Cardiovascular: Regular rate and rhythm. No murmurs or rub. Well perfused periphery, warm extremities. No edema. ? Abdominal: No focal tenderness. Soft, no objective distension. No palpable masses or obvious organomegaly. ?No guarding, no rebound tenderness or other peritoneal findings. : No flank tenderness. Neuro: Alert. Gross movement of all extremities intact. ? Psych: Calm. Cooperative. MSK: No grossly visible deformity. Vital signs: See flowsheet Vital Signs: Vital Signs: Last Vital Signs Temp 98.0 F 03/30/25 14:06 Pulse 85 03/30/25 14:06 Resp 16 03/30/25 14:06 BP 117/72 03/30/25 14:06 Pulse Ox 97 03/30/25 14:06 O2 Del Method Room Air 03/30/25 14:06 BMI result Body Mass Index 34.5 Medications Administered Discontinued Medications Generic Name Dose Route Start Last Admin Trade Name Freq PRN Reason Stop Dose Admin Diatrizoate Meglum/Diatrizoate Sod 30 ml 03/30/25 13:15 03/30/25 13:15 Diatrizoate Meglumine, Sodium 30 Ml Solution PO 03/30/25 13:16 30 ml ONCE ONE Administration Lidocaine/Diphenhydr/Alum/Mg/Simeth 10 ml 03/30/25 13:21 03/30/25 13:55 Mag&Al/Sim/Diphenhyd/Lidocaine 10 Ml Oral.Susp PO 03/30/25 13:22 10 ml ONCE ONE Administration Protocol Sucralfate 1 gm 03/30/25 13:21 03/30/25 13:55 Sucralfate Oral Suspension 1 Gm/10 Ml Oral.Susp PO 03/30/25 13:22 1 gm ONCE ONE Administration Medical Decision Making Medical Decision Making MDM Narrative: Medical Decision Makin-year-old female with variceal banding upper endoscopy yesterday now with subjective throat discomfort and chest pain sensation of esophageal obstruction. No vomiting no GI bleeding. Vitals stable. Given the description of the discomfort and level of discomfort postprocedurally think it is reasonable to exclude esophageal perforation or trauma with esophagram CT. Preliminary Favored Differential Diagnosis: Esophageal injury, esophageal perforation, esophagitis, expected post procedural symptoms among additional considered etiologies Testing Interpreted Independently: ?See below for details Radiology or Lab testing Results Reviewed: ?See below for details Consults: Case discussed with GI, Dr. Jacobo agrees with CT esophagram recommends also Carafate and magic mouthwash with lidocaine if imaging negative for perforation or complication feels this maybe secondary to bending spasm Independent Historians/External Chart Reviews: ?See below for details Social Determinants of Health Impacting MDM/Planning: ?See below for details Lab Data 03/30/25 11:16 03/30/25 11:16 Labs: Lab Results 03/30/25 03/30/25 Range/Units 11:16 11:21 WBC 7.6 (4.8-10.8) X10*3/uL RBC 4.19 L (4.20-5.50) X10*6/uL Hgb 13.4 (12.0-16.0) g/dl Hct 40.0 (37.0-47.0) % MCV 95.5 (80.0-98.0) fL MCH 32.0 (27.0-33.0) pg MCHC 33.5 (31.0-35.0) g/dl RDW 15.8 (11.0-16.0) % Plt Count 134 L D (160-400) X10*3/uL MPV 10.7 (9.4-12.3) fL Immature Gran % (Auto) 0.3 (0.0-0.4) % Neut % (Auto) 69.5 (45-73) % Lymph % (Auto) 20.2 (20-40) % Edwards % (Auto) 8.6 (2-11) % Eos % (Auto) 0.7 (0-4) % Baso % (Auto) 0.7 (0-2) % Lymph # (Auto) 1.5 (1.2-4.9) X10*3/uL Edwards # (Auto) 0.7 (0.1-1.2) X10*3/uL Eos # (Auto) 0.1 (0.0-0.4) X10*3/uL Baso # (Auto) 0.1 (0.0-0.2) X10*3/uL Abs Immat Gran (auto) 0.02 (0.00-0.03) X10*3/uL Absolute Neuts (auto) 5.3 (2.0-8.3) x10*3/uL Absolute Nucleated RBC 0.000 (0.0-0.012) X10*3/uL Nucleated RBC % (auto) 0.0 (0.0-0.2) /100WBC Sodium 140 (135-145) mmol/L Potassium 3.2 L (3.3-5.1) mmol/L Chloride 109 H (96-108) mmol/L Carbon Dioxide 24 (22-29) mmol/L Anion Gap 10 L (12-20) BUN 13 (9-16) mg/dL Creatinine 0.74 (0.5-1.4) mg/dL Estim Creat Clear Calc 109.0 Estimated GFR > 60 Random Glucose 151 H (60-115) mg/dL Calcium 8.7 (8.4-10.2) mg/dL Total Bilirubin 1.0 (0.0-1.0) mg/dL AST 38 H (5-31) U/L ALT 39 H (0-31) U/L Alkaline Phosphatase 88 (39-117) U/L Troponin I High Sens < 2.7 (<3.5-17.0) ng/L Total Protein 6.9 (6.5-8.0) g/dL Albumin 3.8 (3.5-5.0) g/dL Lipase 38 (8-78) U/L Beta HCG, Quant < 2 mIU/mL Urine Color Dark Yellow Urine Appearance Clear Urine pH 6.0 (5.0-9.0) Ur Specific [place] 1.020 (1.005-1.025) Urine Protein Negative (Neg-Trace) mg/dL Urine Glucose (UA) Negative (Negative) mg/dL Urine Ketones Negative (Negative) mg/dL Urine Blood Negative (Negative) Urine Nitrite Negative (Negative) Ur Leukocyte Esterase Negative (Negative) Discharge Plan Discharge Clinical Impression: Esophageal spasm Patient Disposition: Home, Self-Care Instructions: Esophageal Spasm (ED), Upper Endoscopy (DC) Additional Instructions: _ DISCHARGE DIAGNOSES: Possible esophageal spasm after upper endoscopy no significant complications identified HISTORY OF PRESENTATION: ?Nausea difficulty eating after endoscopy EMERGENCY DEPARTMENT COURSE,TESTS, TREATMENTS: While in the ED today you had a CT to check your esophagus which showed no significant complications. We discussed your case with GI who recommended the medications we have prescribed you DISCHARGE MEDICATIONS: ?[We have made no changes to your regular medication regimen] we added magic mouthwash and Carafate FOLLOW-UP: ?Call your primary or general physician soon as possible to discuss your symptoms, your ED visit and to discuss follow up plans Call the GI practice for routine follow up as needed INSTRUCTIONS ?& RETURN PRECAUTIONS: If any symptoms change first call your primary physician, if it is after-hours your primary doctors office should have a provider electrical engineering draftsperson you can speak with. If the symptoms are severe or very concerning to you then call 911 or return to the ED. Return for inability tolerate food for 24 hours or severe worsening pain in the chest throat Miguel Denton MD Emergency Physician [facility] Prescriptions: New sucralfate 100 mg/mL suspension 7.5 ml PO QID 4 Days Qty: 120 0RF Rx Instructions: swish in mouth and swallow; use after food/drink Magic Mouthwash Diphen/Lido/Antacid 1:1:1 240 mL suspension 30 ml PO QID PRN (Reason: esophageal spasm) Qty: 240 0RF Rx Instructions: Lidocaine Viscous 2 % 80mL; diphenhydramine 12.5 mg/5 mL 80mL; aluminum-mag hydrox-simeth [id number]-854db-80gp/5mL 80mL No Action thiamine HCl (vitamin B1) 100 mg tablet 100 mg PO DAILY 90 Days Qty: 90 3RF pantoprazole 40 mg tablet,delayed release (DR/EC) 40 mg PO DAILY@0630 Qty: 90 1RF topiramate 25 mg tablet 50 mg PO BEDTIME 30 Days Qty: 120 6RF riboflavin (vitamin B2) 400 mg tablet 400 mg PO DAILY 90 Days Qty: 90 3RF carvedilol 3.125 mg tablet 3.125 mg PO BID 90 Days Qty: 180 2RF Galzin 50 mg (zinc) capsule 50 mg PO DAILY Qty: 30 2RF ondansetron 8 mg tablet,disintegrating 8 mg PO Q8H PRN (Reason: for nausea/vomiting) Qty: 30 1RF cyclobenzaprine 5 mg tablet 10 mg PO TID PRN (Reason: muscle spasm) 30 Days Qty: 120 3RF hyoscyamine sulfate 0.125 mg tablet,disintegrating 0.125 mg PO BID-QID Qty: 60 2RF mercaptopurine 50 mg tablet 50 mg PO DAILY Qty: 30 0RF cholecalciferol (vitamin D3) [Vitamin D3] 25 mcg (1,000 unit) capsule 25 mcg PO DAILY Qty: 90 2RF prednisone 5 mg tablet 5 mg PO DAILY Qty: 30 0RF prednisone 1 mg tablet 4 mg PO DAILY Qty: 120 0RF magnesium oxide 400 mg (241.3 mg magnesium) tablet 400 mg PO BEDTIME Qty: 30 6RF vitamin A 3,000 mcg (10,000 unit) capsule 1 cap PO DAILY Qty: 90 1RF rosuvastatin 5 mg tablet 5 mg PO DAILY Qty: 30 2RF trazodone 50 mg tablet 50 mg PO BEDTIME PRN (Reason: sleep) Qty: 30 0RF psyllium husk [Metamucil] 0.4 gram capsule 1.6 g PO DAILY Qty: 180 2RF Interventions: ED Discharge Assessment Last Done: 03/30/25 14:06 Discharge Date/Time: 03/30/25 14:19 Print Language: Kyrgyz
[2025-03-30 11:22] LABS: MANUAL DIFF FLAG NO
[2025-03-30 11:30] LABS: Hematocrit 40.0 % (37.0-47.0); Hemoglobin 13.4 g/dl (12.0-16.0); Imm Gran Abs Auto 0.02 X10*3/uL (0.00-0.03); Imm Gran Pct Auto 0.3 % (0.0-0.4); Lymphocytes Absolute Auto 1.5 X10*3/uL (1.2-4.9); Mean Corpuscular HGB Conc 33.5 g/dl (31.0-35.0); Mean Corpuscular Hemoglobin 32.0 pg (27.0-33.0); Mean Corpuscular Volume 95.5 fL (80.0-98.0); NRBC Abs Auto 0.000 X10*3/uL (0.0-0.012); NRBC Pct Auto 0.0 /100WBC (0.0-0.2); Platelet Count 134 X10*3/uL (160-400); Red Blood Count 4.19 X10*6/uL (4.20-5.50); White Blood Count 7.6 X10*3/uL (4.8-10.8)
[2025-03-30 11:38] LABS: Appearance Urine Clear; Glucose Urine UA Negative (Negative); PH 6.0 (5.0-9.0); Specific Gravity - Urine 1.020 (1.005-1.025)
[2025-03-30 11:47] LABS: Alanine Aminotransferase 39 U/L (0-31); Albumin Level 3.8 g/dL (3.5-5.0); Alkaline Phosphatase 88 U/L (39-117); Anion Gap 10 (12-20); Aspartate Amino Transferase 38 U/L (5-31); Blood Urea Nitrogen 13 mg/dL (9-16); Calcium 8.7 mg/dL (8.4-10.2); Carbon Dioxide 24 mmol/L (22-29); Chloride 109 mmol/L (96-108); Creatinine Clr Calc Pharmacy 109.0; Estimated Glomerular Filt Rate > 60; Lipase 38 U/L (8-78); Potassium 3.2 mmol/L (3.3-5.1); Sodium 140 mmol/L (135-145); Total Protein 6.9 g/dL (6.5-8.0); Troponin-I High Sensitivity < 2.7 ng/L (<3.5-17.0)
[2025-03-30] MEDS: Sucralfate Oral Suspension 1 GM/10 ML ORAL.SUSP PO (13:55)
[2025-03-30] MEDS: Mag&Al/Sim/Diphenhyd/Lidocaine 10 ML ORAL.SUSP PO (13:55)
[2025-03-30 13:57] VITALS: BP 117/72; PULSE 85; RESP 16; TEMP 36.7; O2SAT 97
[2025-03-30 14:06] VITALS: BP 117/72; PULSE 85; RESP 16; TEMP 36.7; O2SAT 97
== END 2025-03-30 14:19 | disposition home or self-care (01) ==
PROVIDERS: Physician Assistant; Emergency Provider Emergency Medicine; PCP Internal Medicine
DX: K22.4 Dyskinesia of esophagus (principal); R07.89 Other chest pain; R00.0 Tachycardia, unspecified; I45.10 Unspecified right bundle-branch block
CPT/HCPCS: 36415; 71250; 80053; 81003; 83690; 84484; 84702; 85025; 93005; 99284

== ENCOUNTER → 2025-03-30 10:44 | Outpatient (BNV) | payer OTHER, SELFPAY | PROVIDERS: Emergency Provider Emergency Medicine; PCP Internal Medicine; Visit Provider Internal Medicine Cardiovascular Disease | DX: R00.0 Tachycardia, unspecified (principal); I45.2 Bifascicular block | CPT/HCPCS: 93010 ==

== ENCOUNTER → 2025-03-30 11:21 | Outpatient (BNV) | payer OTHER, SELFPAY | PROVIDERS: Emergency Provider Emergency Medicine; PCP Internal Medicine; Visit Provider Radiology Diagnostic Radiology | DX: R07.9 Chest pain, unspecified (principal); R06.00 Dyspnea, unspecified | CPT/HCPCS: 71250 ==

== ENCOUNTER 2025-04-12 09:34 | Outpatient (AMB) | payer OTHER, SELFPAY ==
[2025-04-12 09:36] VITALS: BP 122/80; PULSE 80; O2SAT 100; BMI 35.0
--- NOTE | 2025-04-12 09:36 | A.OFFVIS_ITS ---
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 Accompanied by: Daughter Allergies Penicillins (PENICILLINS) Allergy (Severe, Verified 04/12/25 09:42) RASH Iodinated Contrast Media (Iodinated Contrast Media - IV Dye) Allergy (Intermediate, Verified 04/12/25 09:42) RASH meperidine (From DEMEROL) Allergy (Intermediate, Verified 04/12/25 09:42) RASH aspirin (ASA) Allergy (Mild, Verified 04/12/25 09:42) RASH, N/V tramadol (TRAMADOL) Allergy (Unknown, Verified 04/12/25 09:42) RASH Medication List - Last Reconciled 04/12/25 by CHARIS Rome carvedilol 3.125 mg PO BID 90 days cholecalciferol (vitamin D3) (Vitamin D3) 25 mcg PO DAILY cyclobenzaprine 10 mg (2 x 5 mg) PO TID PRN 30 days gabapentin One cap b.i.d. (am and afternoon), and 1-3 caps q.h.s. orally .; 30 days hyoscyamine sulfate 0.125 mg PO BID-QID Magic Mouthwash Diphen/Lido/Antacid 1:1:1 30 mL PO QID PRN magnesium oxide 400 mg PO BEDTIME mercaptopurine 50 mg PO DAILY ondansetron 8 mg PO Q8H PRN pantoprazole 40 mg PO DAILY@0630 prednisone 5 mg PO DAILY prednisone 4 mg (4 x 1 mg) PO DAILY psyllium husk (Metamucil) 1.6 grams (4 x 0.4 gram) PO DAILY riboflavin (vitamin B2) 400 mg PO DAILY 90 days rosuvastatin 5 mg PO DAILY sucralfate 7.5 mL PO QID 4 days thiamine HCl (vitamin B1) 100 mg PO DAILY 90 days topiramate 50 mg (2 x 25 mg) PO BEDTIME 30 days trazodone 50 mg PO BEDTIME PRN vitamin A 1 cap PO DAILY zinc acetate (Galzin) 50 mg PO DAILY HPI Comments Details: 54-yr-old female presents for f/u visit. Pt is accompanied by her dtr. Pt was last seen here in 2022, she has had difficulty attending her follow-up visits here due to her other health issues. PMH is notable for autoimmune liver disease, autoimmune pancreatitis, osteoporosis in setting of chronic prednisone therapy, GERD, depression, sleep difficulties, knee pain, and chronic headache and neck pain. After the last visit, brain MRI did not show any clear indications for her left sided numbness, however now she actually has bilateral TMJ region numbness and tightness. She does not use a mouth guard. Also since last visit, patient was started on riboflavin, magnesium and topiramate. She was also started on Ubrelvy, however this caused significant nausea and she states that she I would prefer her not to take this medication due to its hepatic metabolism. The previous request for C-spine MRI was declined by her insurance. Pt reports her headaches are worse. She is now experiencing constant left sided pressure headache a/w mild photophobia, increased phonophobia, nausea, external spinning, balance difficulties, forgetfulness, bilateral TMJ region numbness/pain, bilateral tinnitus, and activity intolerance. She states now she only occasionally has a sensation of her right lip spasms- before was left sided. Continues to have bilateral neck pain, on the left pain radiates down LUE, but the right posterior neck is more tight and painful, but does not have right- sided radiating neck pain. She states the headaches and neck pain are the same whether she is lying down or standing up. She endorses vision changes and cataracts. Reports she has cataracts. Last eye exam was in November or December. Her eye care provider is [facility] and was [place]. At times takes Tylenol with minimal effect. Muscle relaxer helps some She is interested in massage therapy. She lasted PT at least 1-2 years ago, minimal effect. States gabapentin use to help some. She also notes that she is having difficulty staying asleep, she states she goes to bed around 23:00 and wakes up around 03:00 and can not fall back asleep. She denies daytime naps. She states she takes her prednisone daily around breakfast time. Previous work-up: 08/25/2023, MR/MR head/brain wo con 1. Significantly limited assessment of the cisternal segments of the trigeminal nerves in the absence of high-resolution heavily T2-weighted FIESTA sequence. Within this limitation, there is no large or tortuous vascular flow void in the left cerebellopontine angle cistern that would be expected in neurovascular compression. 2. Partially empty sella. Slight CSF distention of the optic nerve sheath complexes with suspected flattening along the posterior right globe. Findings are nonspecific however can be correlated clinically for raised intracranial pressure/idiopathic intracranial hypertension. 10/2021, ?XR/XR cervical spine w flex/ext IMPRESSION: -Mild to moderate diffuse degenerative changes of the cervical spine -No compression deformity. -There is mild retrolisthesis of C5 on C6 which is reduced with extension positioning. There is no appreciable change in alignment with flexion positioning. [facility] Medical History Abnormal LFTs GERD (gastroesophageal reflux disease) Osteoporosis Atypical chest pain Arthritis Hordeolum externum right upper eyelid Difficulty sleeping Depression, major, recurrent Knee pain, right Autoimmune liver disease Headache syndrome Surgical History History of tubal ligation History of esophagogastroduodenoscopy (EGD) H/O colonoscopy History of liver biopsy History of cholecystectomy Hx of appendectomy History of surgery Family History Father CVD (cardiovascular disease) Mother Breast cancer Leukemia CVD (cardiovascular disease) Brother Substance use disorder Brother No problems noted. Sister No problems noted. Son No problems noted. Daughter No problems noted. Daughter No problems noted. Daughter No problems noted. Maternal Aunt Breast cancer Social History Household Members: Children Housing: House Do you presently have visiting nurse or other home services: No Alcohol intake: former Patient Tobacco Use Status: Never used Tobacco e-Cigarette/Vaping Use: Never Used service: No Current occupational status: disabled Cognitive needs: No Hearing needs: No Vision needs: No Review of Systems Const All systems reviewed & are unremarkable except as noted in HPI and below Physical Exam Vital Signs: Last Vital Signs Pulse 80 04/12/25 09:36 BP 122/80 04/12/25 09:36 Pulse Ox 100 04/12/25 09:36 Oxygen Delivery Method Room Air 04/12/25 09:36 BMI result Body Mass Index 35.0 Const General: cooperative and no acute distress Orientation/consciousness: patient oriented x3 HEENT Head: Yes normocephalic Resp Effort & Inspection: normal respiratory effort and able to speak in complete sentences Back/Spine/Pelvis Other: Bilateral posterior cervical tightness and tenderness Cervical ROM: limited Left Spurling: elicits discomfort in bilateral upper traps Right Spurling: elicits discomfort in bilateral upper traps Neuro Other: Bilateral right > left posterior cervical tightness. Cervical ROM: very limited, more so in extension Left Spurling: elicits non-radiating right lateral-posterior neck and upper trap pain Right Spurling: elicits non-radiating right lateral-posterior neck and upper trap pain DTRs dulled throughout General: patient oriented x3, gait normal and CN's II-XI intact bilaterally (w/ exception of chronic lower facial assymetry) Cognition (Neuro): normal cognition Motor exam (neuro): 5/5 motor strength present throughout Psych Appearance: grossly normal Mental Status: mental status grossly normal Speech and movement: Normal speech and movement present Affect: normal affect Attitude: cooperative Thought process: Normal thought process present Thought content: Normal thought content present Insight: Good insight present (Psych) Judgement: Good judgement present (Psych) Assessment & Plan Assessment & Plan (1) Migraine without aura: Comment: ? cervicogenic Code(s): G43.009 - Migraine without aura, not intractable, without status migrainosus Category: Medical Qualifiers: Intractability: not intractable Status migrainosus presence: without status migrainosus Qualified Code(s): G43.009 - Migraine without aura, not intractable, without status migrainosus (2) Cervicalgia: Code(s): M54.2 - Cervicalgia Category: Medical (3) Difficulty sleeping: Code(s): G47.9 - Sleep disorder, unspecified Category: Medical (4) Hemifacial spasm of left side of face: Code(s): G51.32 - Clonic hemifacial spasm, left Category: Medical (5) Hypoesthesia: Comment: left facial/head, LUE, LLE Code(s): R20.1 - Hypoesthesia of skin Category: Medical (6) Headache: Code(s): R51.9 - Headache, unspecified Category: Medical Plan Pt advised to undergo follow-up brain MRI w/wo to assess status of previously seen partially empty sella, CSF distention of the optic nerve sheath complexes with suspected flattening along the posterior right globe, insetting of worsening headaches. * Patient may take small dose of alprazolam prior to MRI to reduce risk for anxiety/claustrophobia Pt advised to undergo c-spine XR We will request recent eye exam notes Future considerations: C-spine MRI, LP for opening pressure Patient would benefit from undergoing: PT eval and treat for myofascial release Massage therapy Resume gabapentin, as this was previously helpful for headache and neck pain, and may help sleep as well: * Gabapentin 100 mg twice a day (morning and afternoon) and 100-300 mg daily at bedtime Continue riboflavin 400 mg daily in the morning Continue magnesium 400 mg daily at bedtime Continue topiramate 50 mg daily at bedtime Continue cyclobenzaprine 10 mg 3 times a day as needed. May use low-dose Tylenol 650 mg every 4 hours as needed, max of 1300 mg per day. Previous trials: Ubrelvy caused significant nausea. triptans contrainidctaed d/t CV dz , Right BBB, chest pains. Will follow-up upon review of above and patient to follow-up in clinic in 6 months or sooner prn. Orders: Orders XR cervical spine w flex/ext Today M54.2 - Cervicalgia PT Evaluation and Treatment Today G43.009 - Migraine without aura, not intractable, without status migrainosus, M54.2 - Cervicalgia MR head/brain wo/w con Today R42 - Dizziness and giddiness, R51.9 - Headache, unspecified Referrals Massage Therapy Referral G43.009 - Migraine without aura, not intractable, without status migrainosus, M54.2 - Cervicalgia Medications: New alprazolam 0.25 - 0.5 mg orally 1 tab 30 minutes prior to MRI, may repeat x's 1; 4 tabs 0RF 1 day MDD 4 tabs gabapentin One cap b.i.d. (am and afternoon), and 1-3 caps q.h.s. orally .; 150 caps 3RF 30 days Refilled topiramate 50 mg (2 x 25 mg) PO BEDTIME 120 tabs 6RF 30 days cyclobenzaprine 10 mg (2 x 5 mg) PO TID PRN 120 tabs 3RF muscle spasm 30 days Coding Level of Care Code Est Pt Level 4 (16648) Diagnoses Migraine without aura and without status migrainosus, not intractable G43.009 Intractability: not intractable Status migrainosus presence: without status migrainosus Cervicalgia M54.2 Difficulty sleeping G47.9 Hemifacial spasm of left side of face G51.32 Hypoesthesia R20.1 Headache R51.9
== END 2025-04-12 10:56 | disposition home or self-care (01) ==
LOC: HO.HSMS 09:35
PROVIDERS: PCP Internal Medicine; Visit Provider Nurse Practitioner Family
DX: G43.009 Migraine without aura, not intractable, without status migrainosus (principal); M54.2 Cervicalgia; G47.9 Sleep disorder, unspecified; G51.32 Clonic hemifacial spasm, left; R20.1 Hypoesthesia of skin; R51.9 Headache, unspecified
CPT/HCPCS: 99214

== ENCOUNTER → 2025-04-12 09:34 | Outpatient (BNVA) | payer OTHER, SELFPAY | PROVIDERS: PCP Internal Medicine; Visit Provider Nurse Practitioner Family | DX: G43.009 Migraine without aura, not intractable, without status migrainosus (principal); R51.9 Headache, unspecified; G47.9 Sleep disorder, unspecified; G51.32 Clonic hemifacial spasm, left; M54.2 Cervicalgia; R20.1 Hypoesthesia of skin | CPT/HCPCS: 99212 ==

== ENCOUNTER 2025-04-20 14:31 | Outpatient (REF) | payer OTHER, SELFPAY | END 2025-04-20 14:32 | disposition home or self-care (01) | LOC: HO.MAMMO 14:31 | PROVIDERS: PCP Internal Medicine; Visit Provider Internal Medicine | DX: Z12.31 Encounter for screening mammogram for malignant neoplasm of breast (principal) | CPT/HCPCS: 77063; 77067 ==

== ENCOUNTER → 2025-04-20 14:45 | Outpatient (BNV) | payer OTHER, SELFPAY | PROVIDERS: PCP Internal Medicine; Visit Provider Internal Medicine | DX: Z12.31 Encounter for screening mammogram for malignant neoplasm of breast (principal) | CPT/HCPCS: 77063; 77067 ==

== ENCOUNTER 2025-04-30 10:52 | Outpatient (AMB) | payer OTHER, SELFPAY ==
--- NOTE | 2025-04-30 11:01 | MHC.OFFVIS ---
Vital Signs 04/30/25 11:02 Height 5 ft 8 in Weight 227 lb 1.218 oz BMI 34.5 BP 136/70 Blood Pressure Location Lt brachial Position Sitting Pulse 86 Intake Visit Reasons: 4 mo f/u Intake Note: Jaimee presents in the office as a 4 month follow up. CC: Engraver Signature Required: Yes Engraver Signature Name: [id number] Rhoda Allergies Penicillins (PENICILLINS) Allergy (Severe, Verified 04/30/25 11:06) RASH Iodinated Contrast Media (Iodinated Contrast Media - IV Dye) Allergy (Intermediate, Verified 04/30/25 11:06) RASH meperidine (From DEMEROL) Allergy (Intermediate, Verified 04/30/25 11:06) RASH aspirin (ASA) Allergy (Mild, Verified 04/30/25 11:06) RASH, N/V tramadol (TRAMADOL) Allergy (Unknown, Verified 04/30/25 11:06) RASH HPI HPI 4 mo f/u: Details: 54 y/o f w/ hx of PSC and AIP seen for f/u-- RECAP:from prior notes dx initially in [place] abt 10 yrs ago after pancreatitis dx, had cholecystectomy, bile dcut was accidentally clipped and needed further surgery during this time she became jaundiced, had weight loss and vomiting and eventually dx as having AIH after coming to [place] for further management she had liver biopsy as well she was on chronic low dose pred 5 mg daily, and imuran 50mg tid has been hard to wean her off pred she had EGD and colonoscopy 1 yr prior, colon was normal, EGD with varices, on propranolol says was told she had colitis in the past as well as osteopenia she feels gen malaise issues with constipation, sometimes soft appetite is fair she does have some mild RUQ pain pulsating feels like her body is inflammed she has back pain, and knee, arm pains she has had swollen glands in neck for 4 depression due to multiple deaths in family She had admission to hosptial with flare up of disease, put on steroids LFT abnormal, with raised CRP, AST 200--->20, THen haf further admission with bacteremia from [facility] which per ID is water borne bacteria, repeat MRI 12/2018 with stable appearance, intrahepatic duct dilation, she was having a flare and put on long pred taper other tests; Hep B,C negative CT 2013- hepaticojejunostomy DEXA 2019- osteopenia spine. MRI inpatient- intrahepatic dilation, left. right, CBD normal, no masses or stones CT neck: prominent sub mandibular neck gland EGD : hyperplastic polyps, small varices, hiatal hernia recently she was feeling worse and pred was restarted and imuran stopped and changed to 6 MP At OV 06/2018 she was c/o epigastric pain, malaise with back pain, dysuria and went to ED day after, inaptient CT and UA, were neg for actue findings, CRP elevated but lower than before and trended down. Pred was increased to 20 mg At OV 1 week ago she was continued on 6 MP 75 mg and pred 20 mg she was having burning and itching in vaginal area and thick vaginal d/c she had liver bx--rare IgG4 cells, mild chronic inflammation, portal fibrosis, she had menstrual bleeding after having no periods for months she had back pain as well 08/21, mild lower aboo pain denies n/v appetite is poor she had burning with urine---UA with 2+ blood, no protein she was increased on pred to 20 mg for 4 weeks and 6 MP reduced to 50 mg depressed due to social issues, probs with SSI LFT slowly been coming down on 20 mg pred does have general weakness appetite is poor but admits that pred 20 mg is helping does have hot flashes thinks due to menopause, having some shoulder blade pain for 1 d, tylenol helps admitted with partial small bowel obstrcution 08/2019 she ws having ongoing nausea and abdo pain, given omeprazole 40 mg with carafate Labs 10/19/2019-- TB-nml, AST-41. ALT 74, alk phos 171 Labs 11/2019-- TB--0.6, AST--34, ALT 54, alk phos 130, CRP 0.[address] James pain team and plan was for SI joint injections LFT stable, on 18 mg of pred as well as 6 MP 50 mg referred to cardiology due to palps and chest pressure--nml holter rept LABS: 08/2020-- bili-nml, AST 32, ALT 56, alk phso 133 she had LFt repeated after pred cut down to 17 mg bili-1.1, AST 38, ALT 61, AP-128 DEXA with osteopenia in hips and osteoporosis in spine--reclast was given US 03/2021-- splenomegaly, liver looked good, kidney stone right she went to the ED and had CT scan 08/2021: dilated stomach, ?GOO, thickening of lower esophagus, post surg changes, possible medullary nephrocalcinosis, fibroid EGD 09/2021- gastric polyps, small varices She had COVID 19 infection 10/2021 LFT 10/2021-- bili 0.4, AST-30, ALT 48, alk phos- 89 LFT: 02/2023-- nml LFT --mild elevation ALT CT 2022--- stable appearances of liver and other organs, no new findings CT 11/2023-- nml looking liver, no new pathology MRI 07/08 and 12/06- 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 VITAL SIGNS:see workflow HEENT: Nonicteric sclerae, PERRLA, EOMI. Oropharynx clear. Moist mucous membranes. Conjunctivae appear well perfused. No thyroid mass. CHEST: Chest wall is nontender. HEART: Regular rate and rhythm without murmurs. LUNGS: Clear to auscultation bilaterally. ABDOMEN: Soft, positive bowel sounds, tender epigastrium, no organomegaly.no flank tenderness SKIN: No rash, no excessive bruising, petechiae, or purpura. NEUROLOGIC: Cranial nerves II-XII intact without motor/sensory deficit. 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 osteopenia--has osteoporosis due to steroid use, ordered reclast, which was given 4. epigastric pain, imaging with liver scarring, chronic suspected IgG [address] RD even though bx not diagnostic but she had been on steroids/6 MP- LFt eventually improved on tapering dose of steroids PLAN: 1/ cut to pred 8 mg, and cont 6 MP 2/ repeat EGD now 3/ repeat dexa in 1-2 yrs, 4/ recheck MRI now 5/ cont with metamucil 6/ going to [place], will come back in Jun, needs h pylori breath as well PFSH Medical History Abnormal LFTs GERD (gastroesophageal reflux disease) Osteoporosis Atypical chest pain Arthritis Hordeolum externum right upper eyelid Difficulty sleeping Depression, major, recurrent Knee pain, right Autoimmune liver disease Headache syndrome Surgical History History of tubal ligation History of esophagogastroduodenoscopy (EGD) H/O colonoscopy History of liver biopsy History of cholecystectomy Hx of appendectomy History of surgery Family History Father CVD (cardiovascular disease) Mother Breast cancer Leukemia CVD (cardiovascular disease) Brother Substance use disorder Brother No problems noted. Sister No problems noted. Son No problems noted. Daughter No problems noted. Daughter No problems noted. Daughter No problems noted. Maternal Aunt Breast cancer Social History Household Members: Children Housing: House Do you presently have visiting nurse or other home services: No Alcohol intake: former Patient Tobacco Use Status: Never used Tobacco e-Cigarette/Vaping Use: Never Used service: No Current occupational status: disabled Cognitive needs: No Hearing needs: No Vision needs: No Physical Exam Vital Signs: Last Vital Signs Pulse 86 04/30/25 11:02 BP 136/70 04/30/25 11:02 BMI result Body Mass Index 34.5 Assessment & Plan Assessment & Plan (1) Autoimmune liver disease: Code(s): K76.89 - Other specified diseases of liver Category: Medical Plan: as above Orders: Orders MR abdomen wo/w con Today K76.89 - Other specified diseases of liver Referrals GI Procedure Notification K76.89 - Other specified diseases of liver Medications: Changed From prednisone 4 mg (4 x 1 mg) PO DAILY 120 tabs 0RF To prednisone 3 mg (3 x 1 mg) PO DAILY 120 tabs 0RF Coding Level of Care Code Est Pt Level 4 (95177) Diagnoses Autoimmune liver disease K76.89
[2025-04-30 11:02] VITALS: BP 136/70; PULSE 86; BMI 34.5
== END 2025-04-30 11:35 | disposition home or self-care (01) ==
LOC: HO.HGI 10:53
PROVIDERS: PCP Internal Medicine; Visit Provider Internal Medicine Gastroenterology
DX: K76.89 Other specified diseases of liver (principal)
CPT/HCPCS: 99214

== ENCOUNTER → 2025-04-30 10:52 | Outpatient (BNVA) | payer OTHER, SELFPAY | PROVIDERS: PCP Internal Medicine; Visit Provider Internal Medicine Gastroenterology | DX: R10.13 Epigastric pain (principal); K76.89 Other specified diseases of liver; M85.89 Other specified disorders of bone density and structure, multiple sites; K86.1 Other chronic pancreatitis | CPT/HCPCS: 99212 ==